=== PATIENT | male | born 1950 | race Caucasian/White ===

== ENCOUNTER → 2017-02-10 | Outpatient (CLI) | payer OTHER ==
[2017-02-10 17:45] LABS: BLOOD UREA NITROGEN 22 mg/dl (7-18); BUN/CREATININE RATIO 16.8 (10-20); CARBON DIOXIDE 29 mmol/L (21-32); CHLORIDE 104 mmol/L (98-107); GLUCOSE 107 mg/dl (70-99); POTASSIUM 3.7 mmol/L (3.5-5.1); SODIUM 142 mmol/L (136-145)
== END | disposition home or self-care (01) ==
LOC: C.LABPVFM 15:06
PROVIDERS: ATTEND Nurse Practitioner
DX: I10 Essential (primary) hypertension (principal)

== ENCOUNTER → 2017-02-18 | Outpatient (CLI) | payer OTHER ==
--- NOTE | 2017-02-18 10:12 | DIAGNOSTIC IMAGING REPORT ---
TWO VIEW CHEST CLINICAL HISTORY: Dyspnea on exertion. FINDINGS: PA and lateral chest radiographs are compared to study dated 03/29/2012. The cardiomediastinal silhouette is unremarkable. There is chronic elevation of the right hemidiaphragm. The lungs and pleural spaces are otherwise clear. There is no pneumothorax. The bony thorax appears intact. Arthritic change is seen in the shoulders. IMPRESSION: No active disease in the chest. Electronically signed by: Parish Wilson M.D. 02/18/2017 10:11 AM Dictated Date/Time: 02/18/2017 10:10 AM
== END | disposition home or self-care (01) ==
LOC: C.RAD1850 10:01
PROVIDERS: ATTEND Nurse Practitioner
DX: R06.09 Other forms of dyspnea (principal)

== ENCOUNTER → 2017-06-07 | Outpatient (CLI) | payer OTHER ==
[2017-06-07 13:10] LABS: ALT/SGPT 38 U/L (12-78); BLOOD UREA NITROGEN 24 mg/dl (7-18); BUN/CREATININE RATIO 16.9 (10-20); CALCIUM 9.1 mg/dl (8.5-10.1); CARBON DIOXIDE 26 mmol/L (21-32); CHLORIDE 105 mmol/L (98-107); CHOLESTEROL 163 mg/dl (0-200); GLUCOSE 112 mg/dl (70-99); POTASSIUM 3.6 mmol/L (3.5-5.1); SODIUM 141 mmol/L (136-145); TRIGLYCERIDES 209 mg/dl (0-150); VERY LOW DENSITY LIPOPROT CALC 42 mg/dl
[2017-06-07 13:15] LABS: ALKALINE PHOSPHATASE 111 U/L (45-117); AST/SGOT 30 U/L (15-37); CHOLESTEROL/HDL RATIO 4.4; HDL CHOLESTEROL 37 mg/dl; LDL CHOLESTEROL CALCULATED 84 mg/dl
== END | disposition home or self-care (01) ==
LOC: C.LABPVFM 10:00
PROVIDERS: ATTEND Nurse Practitioner
DX: I10 Essential (primary) hypertension (principal); R73.01 Impaired fasting glucose; Z12.5 Encounter for screening for malignant neoplasm of prostate

== ENCOUNTER → 2017-12-05 | Outpatient (CLI) | payer OTHER ==
[2017-12-05 13:05] LABS: HEMOGLOBIN A1C 5.9 % (4.5-5.6)
[2017-12-05 13:23] LABS: ALBUMIN 3.7 gm/dl (3.4-5.0); ALT/SGPT 42 U/L (12-78); AST/SGOT 29 U/L (15-37); BLOOD UREA NITROGEN 22 mg/dl (7-18); CARBON DIOXIDE 28 mmol/L (21-32); CREATININE 1.15 mg/dl (0.60-1.40); GLUCOSE 77 mg/dl (70-99); POTASSIUM 3.8 mmol/L (3.5-5.1); SODIUM 139 mmol/L (136-145)
[2017-12-05 13:26] LABS: ALKALINE PHOSPHATASE 112 U/L (45-117); CHOLESTEROL 170 mg/dl (0-200); LDL CHOLESTEROL CALCULATED 91 mg/dl; TOTAL PROTEIN 7.3 gm/dl (6.4-8.2)
== END | disposition home or self-care (01) ==
LOC: C.LABPVFM 10:20
PROVIDERS: ATTEND Internal Medicine
DX: I10 Essential (primary) hypertension (principal); R73.01 Impaired fasting glucose

== ENCOUNTER → 2018-06-19 | Outpatient (CLI) | payer OTHER ==
[2018-06-19 13:20] LABS: HEMATOCRIT 42.2 % (42-52); HEMOGLOBIN 14.5 g/dL (14.0-18.0); HEMOGLOBIN A1C 6.1 % (4.5-5.6); MEAN CELL VOLUME 90.9 fL (80-100); MEAN CORPUSCULAR HEMOGLOBIN 31.3 pg (25-34); MEAN CORPUSCULAR HGB CONC 34.4 g/dl (32-36); MEAN PLATELET VOLUME 11.1 fL (7.4-10.4); PLATELET COUNT 220 K/uL (130-400); RED CELL DISTRIBUTION WIDTH CV 13.9 % (11.5-14.5); WHITE BLOOD COUNT 6.75 K/uL (4.8-10.8)
[2018-06-19 13:26] LABS: ALBUMIN 3.6 gm/dl (3.4-5.0); ALKALINE PHOSPHATASE 108 U/L (45-117); ALT/SGPT 43 U/L (12-78); AST/SGOT 39 U/L (15-37); BLOOD UREA NITROGEN 23 mg/dl (7-18); CALCIUM 8.8 mg/dl (8.5-10.1); CARBON DIOXIDE 25 mmol/L (21-32); CREATININE 1.13 mg/dl (0.60-1.40); GLUCOSE 139 mg/dl (70-99); POTASSIUM 3.8 mmol/L (3.5-5.1); SODIUM 140 mmol/L (136-145); TOTAL PROTEIN 7.1 gm/dl (6.4-8.2)
== END | disposition home or self-care (01) ==
LOC: C.LABPVFM 11:21
PROVIDERS: ATTEND Internal Medicine
DX: Z12.5 Encounter for screening for malignant neoplasm of prostate (principal); R73.01 Impaired fasting glucose; I10 Essential (primary) hypertension

== ENCOUNTER 2020-04-23 07:43 | Inpatient (IN) ==
[2020-04-18 11:23] LABS: Basophils # (auto) 0.03 K/uL (0-0.2); Basophils % (auto) 0.5 %; Eosinophils # (auto) 0.19 K/uL (0-0.5); Eosinophils % (auto) 3.5 %; Hematocrit (blood only) 44.7 % (42-52); Hemoglobin 15.2 g/dL (14.0-18.0); Immature Granulocytes # (auto) 0.01 K/uL (0.00-0.02); Immature Granulocytes % (auto) 0.2 %; Lymphocytes # (auto) 1.25 K/uL (1.2-3.4); Lymphocytes % (auto) 22.7 %; Mean Corpuscular Hemoglobin 30.7 pg (25-34); Mean Corpuscular Volume 90.3 fL (80-100); Mean Platelet Volume 10.8 fL (7.4-10.4); Monocytes # (auto) 0.47 K/uL (0.11-0.59); Monocytes % (auto) 8.5 %; Neutrophils # (auto) 3.55 K/uL (1.4-6.5); Neutrophils % (auto) 64.6 %; Platelet Count 222 K/uL (130-400); RDW Coefficient of Variation 13.3 % (11.5-14.5); RDW Standard Deviation 44.1 fL (36.4-46.3); Red Blood Count 4.95 M/uL (4.7-6.1)
[2020-04-18 11:24] LABS: INR 1.1 (0.9-1.1); Partial Thromboplastin Ratio 0.9; Partial Thromboplastin Time 24.5 Seconds (21.0-31.0); Prothrombin Time 11.1 Seconds (9.0-12.0)
[2020-04-18 11:44] LABS: Albumin Level 3.7 gm/dl (3.4-5.0); BUN Creatinine Ratio 17.2 (10-20); Blood Urea Nitrogen 20 mg/dl (7-18); Calcium 9.4 mg/dl (8.5-10.1); Carbon Dioxide 27 mmol/L (21-32); Chloride 104 mmol/L (98-107); Est GFR (African American) 74.6; Est GFR (Non-African American) 64.3; Glucose 138 mg/dl (70-99); Potassium 3.5 mmol/L (3.5-5.1); Sodium 140 mmol/L (136-145)
[2020-04-18 11:56] LABS: Estimated Average Glucose 128 mg/dl; Hemoglobin A1C 6.1 % (4.5-5.6)
[2020-04-18 12:29] LABS: Appearance Urine Clear (Clear); Bilirubin Urine Negative (Negative); Blood Urine Negative (Negative); Color Urine Yellow; Glucose Urine UA Negative (Negative); Ketones Urine Negative (Negative); Leukocyte Esterase Urine Negative (Negative); Nitrite Urine Negative (Negative); Protein Urine Negative (Negative); Specific Gravity Urine 1.008 (1.000-1.030); Urobilinogen Urine Negative (Negative); pH Urine 6.5 (4.5-7.5)
--- NOTE | 2020-04-18 14:31 | Anesthesiology Consultation ---
Date of Service April 18, 2020 Assessment & Plan (1) Encounter for pre-operative examination: Chart Review Chart Review: Acceptable Risk for Surgery and Patient NOT seen in Pre Admission Testing 02/11/20 PCP Letter in [facility]: "Despite this patient having abnormal resting EKG, stress echocardiogram shows no evidence of prior myocardial infarction nor any evidence of current ongoing ischemia. This patient is of acceptable risk to proceed with planned upcoming right total shoulder arthroplasty." History Surgery Operation Date: 04/23/20 10:00 Proposed Procedures p Right Reverse Total Shoulder Arthroplasty - Mario Hartman MD Height/Weight Height: 5 ft 5 in Weight: 83.007 kg Allergies Allergy/AdvReac Type Severity Reaction Status Date / Time FLORENCE Inhibitors AdvReac Mild cough Verified 04/18/20 13:47 Medications Home Medications Medication Instructions Recorded Confirmed Last Taken benzonatate 100 mg capsule 100 mg PO TID PRN #30 cap 06/25/19 04/18/20 Unknown nabumetone 500 mg tablet 500 mg PO BID #180 tab 10/16/19 04/18/20 Unknown aspirin 81 mg PO QAM 01/15/20 04/18/20 Unknown atenolol 50 mg PO QAM 01/15/20 04/18/20 Unknown hydrochlorothiazide 25 mg PO QAM 01/15/20 04/18/20 Unknown irbesartan 300 mg PO QAM 01/15/20 04/18/20 Unknown multivitamin 1 tab PO HS 01/15/20 04/18/20 Unknown doxazosin 2 mg tablet 2 mg PO HS #90 tab 03/19/20 04/18/20 Unknown omeprazole 20 mg PO QAM PRN 04/18/20 04/18/20 Unknown valacyclovir [Valtrex] 2,000 mg PO Q12H PRN 04/18/20 04/18/20 Unknown Past Medical History Medical History BPH (benign prostatic hyperplasia) Chronic back pain GERD (gastroesophageal reflux disease) controlled Hypertension Impaired fasting glucose per records Recurrent cold sores Stomach ulcer HX Past Family History Family History Father Myocardial infarction Brother Myocardial infarction Son Family history of diabetes mellitus Mother Coronary arteriosclerosis Denies family history of Ovarian cancer Prostate cancer Breast cancer Colorectal cancer Past Surgical History Surgical History History of colonoscopy X 2 History of esophagogastroduodenoscopy (EGD) History of tonsillectomy and adenoidectomy History of transurethral resection of prostate 2004 Total knee replacement status R/L 2006 Social History Smoking Status: Never smoker Do You Dip or Chew Tobacco: No Hx Alcohol Use: No Hx Substance Use: No substance use type: does not use Testing Laboratory Results Laboratory Tests 04/18/20 04/18/20 04/18/20 10:25 10:25 10:25 WBC 5.50 Hgb 15.2 Hct 44.7 Plt Count 222 PT 11.1 INR 1.1 APTT 24.5 Sodium 140 Potassium 3.5 Chloride 104 Carbon Dioxide 27 BUN 20 H Creatinine 1.16 Glucose 138 H Hemoglobin A1c 04/18/20 10:25 WBC Hgb Hct Plt Count PT INR APTT Sodium Potassium Chloride Carbon Dioxide BUN Creatinine Glucose Hemoglobin A1c 6.1 H Electrocardiogram Date: 01/22/20 NSR at 60bpm. Inferior infarct, age undetermined. NS STA. Chest X-Ray Date: 01/22/20 Findings: + NAD Old, healed right-sided rib fractures Stress Test Date: 02/05/20 Type: exercise (ECHO) Resting RWMA: + none Valvular Disease: no significant valvular disease Negative exercise stress echo and EKG at 86% MPHR. Mild concentric LVH. EF 61.3%.
--- NOTE | 2020-04-22 21:31 | History and Physical Report ---
DATE OF ADMISSION: 04/23/2020 CHIEF COMPLAINT: Chronic right shoulder pain and weakness. HISTORY OF PRESENT ILLNESS: This is a 69-year-old male patient of Dr. Hartman'kevin complaining of chronic right shoulder pain and weakness. The patient has been diagnosed with rotator cuff arthropathy and end-stage osteoarthritis. He has failed conservative treatment. The patient wished to proceed with a right reverse total shoulder arthroplasty. PAST MEDICAL HISTORY: Hypertension, spine problems, sciatica, acid reflux. SOCIAL HISTORY: Nonsmoker, nondrinker. PAST SURGICAL HISTORY: Bilateral knee surgery, left shoulder surgery. FAMILY HISTORY: Noncontributory. REVIEW OF SYSTEMS: Chronic right shoulder pain and weakness. Otherwise, denies any shortness of breath, chest pain, nausea, vomiting or any other joint complaints. MEDICATIONS: 1. Hydrochlorothiazide 25 mg daily. 2. Doxazosin 2 mg daily. 3. Omeprazole 20 mg daily. 4. Aspirin 81 mg daily. 5. Nabumetone 500 mg twice daily. 6. Irbesartan 300 mg daily. 7. Atenolol 50 mg daily. ALLERGIES: No known drug allergies. PHYSICAL EXAMINATION: GENERAL: Well-developed, well-nourished 69-year-old male in no acute distress. He is alert and oriented x3 and pleasant. HEENT: Normocephalic, atraumatic. Extraocular motions are intact. Pupils are equal and reactive to light. HEART: Regular rate and rhythm, no murmurs. LUNGS: Clear. ABDOMEN: Soft, nontender, bowel sounds present. EXTREMITIES: Right shoulder, active range of motion is full with pain and crepitation. He has 3/5 strength globally, pain with range of motion. Neurologically and neurovascularly he is intact in his right upper extremity. DIAGNOSES: Right shoulder rotator cuff arthropathy, hypertension, spine problems, sciatica, acid reflux. PLAN: The patient was advised of his diagnosis. Indications, risks, benefits, postop course have all been reviewed. The patient wished to proceed with a right reverse total shoulder arthroplasty. Necessary consent forms, preoperative testing, and clearances will be obtained.
[~2020-04-23 07:43] MED LIST: ACETAMINOPHEN 500 MG TAB PO SCH; CEFAZOLIN 2000MG 2,000 MG/15 ML SYR IV SCH; CeleBREX 200 MG CAP PO SCH; FAMOTIDINE 20 MG TAB PO SCH; GABAPENTIN 300 MG CAP PO SCH; LR 15ML/HR IV SCH; METOCLOPRAMIDE HCL 10 MG TABLET PO SCH; ROPIVACAINE 0.5% 5 MG/ML 30 ML VIAL ONE; dexAMETHasone 4 MG TAB PO SCH
[2020-04-23] MEDS ORDERED: ONDANSETRON INJ 2 MG/ML 2 ML VIAL ONE (09:05)
[2020-04-23] MEDS ORDERED: ROCURONIUM BROMIDE 10 MG/ML 5 ML VIAL ONE (09:05)
[2020-04-23] MEDS ORDERED: MIDAZOLAM HCL 1 MG/ML 2ML VIAL ONE (09:05)
[2020-04-23] MEDS ORDERED: PROPOFOL IV EMULSION 10 MG/ML 20 ML VIAL IV ONE (09:05)
[2020-04-23] MEDS ORDERED: SUCCINYLCHOLINE CHLORIDE 20 MG/ML 10 ML VIAL IV ONE (09:05)
[2020-04-23] MEDS ORDERED: fentaNYL citrate 100 MCG/2 ML VIAL ONE (09:05)
[2020-04-23] MEDS ORDERED: LIDOCAINE HCL 2% 2 ML VIAL/AMP(20MG/ML) INFIL ONE (09:05)
[2020-04-23] MEDS ORDERED: DEXAMETHASONE SOD INJ 4 MG/ML VIAL ONE (09:05)
[2020-04-23] MEDS ORDERED: ONDANSETRON INJ 2 MG/ML 2 ML VIAL IV PRN ×2 (09:40→14:49)
[2020-04-23] MEDS ORDERED: ePHEDrine sulfate 50 MG/ML AMP IV PRN (09:40)
[2020-04-23] MEDS ORDERED: PROMETHAZINE HCL 12.5 MG in SODIUM CHLORIDE 0.9% 50 ML IV PRN (09:40)
[2020-04-23] MEDS ORDERED: fentaNYL citrate 100 MCG/2 ML VIAL IV PRN (09:40)
[2020-04-23] MEDS ORDERED: HYDROmorphone INJ 2 MG/ML SYR/VIAL IV PRN (09:40)
[2020-04-23] MEDS ORDERED: ATROPINE SULFATE 0.1 MG/ML 10ML SYR IV PRN (09:40)
[2020-04-23] MEDS ORDERED: METOCLOPRAMIDE HCL INJ 5 MG/ML 2 ML VIAL IV PRN (09:40)
[2020-04-23] MEDS ORDERED: BACITRACIN INJ 50,000 UNIT VIAL ONE (09:41)
--- NOTE | 2020-04-23 09:58 | History & Physical Bridge Note ---
Date of Service April 23, 2020 History & Physical Bridge Note I have examined the patient, reviewed the History & Physical and in the interval since the performance of the History & Physical I have noted the following changes of clinical significance: no changes noted
--- NOTE | 2020-04-23 13:32 | Operative Report ---
Post Operative Report Pre & Post Diagnosis Operation Date: 04/23/20 09:45 Pre-Op Diagnosis: Right Shoulder Osteoarthritis rotator cuff arthropathy irreparable rotator cuff tear Post-Op Diagnosis: Right Shoulder Osteoarthritis rotator cuff arthropathy irreparable rotator cuff tear I identified the patient and participated in the time-out.: Yes Procedure Operation Date: 04/23/20 09:45 Actual Procedures p Right Reverse Total Shoulder Arthroplasty(Right) - Mario Hartman MD Surgeon Mario Hartman MD Pulp Grinder UMANG Godoy Estimated Blood Loss 75 Findings Consistent with Post-Op Diagnosis Specimens Humeral head cut Drains 2 Hemovac Anesthesia Type MAC Spinal Regional Complications none Disposition Accompanied Patient To Recovery: No Disposition: Recovery Room Indications 69-year-old male with pseudo-paralytic right shoulder chronic irreparable rotator cuff tear with proximal migration and osteoarthritis of the glenohumeral joint with failed conservative management. Description of Procedure The patient was taken to the operating room and anesthetized under regional block and general anesthetic. The patient was positioned on the operating table in a 40 beach chair position with a towel roll under the medial border of the right scapula. The arm was draped free to be able to manipulate the shoulder as needed. The right upper extremity was prepped and draped in usual sterile fashion. Exam demonstrated subacromial crepitation chronic subacromial effusion good range of motion with 170 degrees forward elevation external rotation to 80 degrees internal rotation to 90 degrees abduction 100 degrees. An anterior deltopectoral approach was performed. A longitudinal incision was made in the deltopectoral interval. The skin was incised sharply. Subcutaneous flaps were elevated off the fascia. The cephalic vein was dissected out and retracted lateral with the deltoid. The clavipectoral fascia was divided at the lateral margin of the conjoined tendon and extended up to the CA ligament. The following findings were noted: Patient had no true muscle tissue of the subscapularis but did have a residual capsular tissue that was attached to the humerus with overlying chronic bursitis. There was a pseudo-type capsule chronic bursitis surrounding the humeral head with only the teres minor attachment still remaining and complete rupture of the remainder of the rotator cuff. There was chronic arthritic changes and spurs around the greater tuberosity area and superior humeral head. The biceps tendon had ruptured and retracted distally. The upper centimeter of the pectoralis was released for inferior exposure. The capsular tissue was taken down off the lesser tuberosity using a subperiosteal dissection and the capsule was released off the neck of the humerus using careful subperiosteal dissection in order to prevent any injury to the axillary nerve.. A #1 Vicryl traction suture was placed into the free end of the capsular tissue. The circumflex vessels were identified and tied off with silk ties and divided laterally. A Fukuda retractor was placed into the joint retracting the humeral head posterior. Glenoid findings demonstrated central small area grade 4 wear otherwise intact articular cartilage and no bone loss or deformity. The labrum was resected. an anterior-inferior and posterior inferior capsular release were performed with electrocautery and a Dinh elevator on bone with the axillary nerve protected inferiorly by the retractor. Attention was then taken to the humeral preparation. The cutting guide was placed into the humeral head. It was positioned at 20 of retroversion. Oscillating saw was used to resect the humeral head giving the cut above the level of the posterior rotator cuff insertion site. The humerus was then prepared for the stem. I used the ascend flex stem from [employer] The sizing broaches were used followed by trial broaches up to a size 4B long which had the appropriate fit and fill. The appropriate sized cut protector was placed. The humerus was then retracted posterior to the glenoid. The glenoid was sized for a 36. The guide for the baseplate was positioned in a 10 inferior tilt and the central drill hole was made. The reamer for the 29 baseplate was used. The central drill was widened for the peg. The 29 mm hydroxyapatite-coated aequalis baseplate was impacted into position. The base plate was transfixed with superior and inferior locking screws and anterior and posterior compression sc rews with stable fixation. The fan reamer was used for the 36 millimeter glenoid sphere. After irrigation the 36 with a +2 inferior offset glenoid sphere was impacted onto the baseplate and the screw was tightened. Attention was taken back to the humerus. The cut protector was removed and the plus or high offset humeral tray trial was assembled to the trial stem rotated appropriately to get bony coverage and then screwed in position. A trial reduction was performed. A +6 trial insert demonstrated good stability and no shuck. The trials were removed. 3 drill holes are made into the harder bone in the bicipital groove area and 3 #5 FiberWire sutures were placed transosseously. The canal was irrigated with antibiotic solution with bacitracin. The final component was assembled. The final component was ascend flex 4B long stem attached to the plus or high offset humeral tray and the +6, 36 mm polyethylene reversed insert. This was then impacted into the humerus with a tight press-fit. It was reduced to the glenoid sphere. Stability was verified. The capsular tissue was was repaired with the #5 FiberWire sutures using Poli-Rob suture technique. Lateral row soft tissue repair was performed with #1 Vicryl [id number] sutures. The pectoralis was repaired with #2 FiberWire [id number] sutures . The arm was taken through a range of motion which demonstrated stable shoulder with forward elevation to 165 degrees abduction to 100 degrees external rotation to 70 degrees without any tension on repair.. The implant was stable through the range of motion tested. The wound was copiously irrigated. 2 Hemovac drains were placed. The deltopectoral interval was closed with [id number] #1 Vicryl sutures. The subcutaneous tissues were closed with 2-0 Vicryl sutures. The skin was closed with slava. Sterile dressings were applied and a shoulder immobilizer. Jann HECK, my physician geriatric assistant assisted in the procedure to the entire procedure including patient positioning arm positioning prepping and draping soft tissue retraction instrument management suture management and performed the subcutaneous and skin closure and will participate in the postoperative care of the patient. I attest to the content of the Intraoperative Record and any orders documented therein. Any exceptions are noted below.
[2020-04-23] MEDS ORDERED: LABETALOL HCL IV 5 MG/ML 20ML IV ONE (13:35)
[2020-04-23] MEDS ORDERED: ESMOLOL HCL INJ 10 MG/ML 10ML VIAL IV ONE (13:35)
[2020-04-23] MEDS ORDERED: NEOSTIGMINE METHYLSULFATE 5 MG/5 ML SYR ONE (13:38)
[2020-04-23] MEDS ORDERED: GLYCOPYRROLATE 0.2 MG/ML VIAL ONE (13:38)
--- NOTE | 2020-04-23 14:19 | XRay Report ---
XR shoulder RT min 2V routine CLINICAL HISTORY: Post shoulder surgery postoperative evaluation COMPARISON: None. DISCUSSION: Anatomic alignment posttotal right shoulder arthroplasty. Good contact between metallic p rosthetic and underlying bone. Expected postoperative soft tissue changes. IMPRESSION: Anatomic alignment post total right shoulder arthroplasty. ACT 112: Negative or not required by law. The above report was generated using voice recognition software. It may contain grammatical, syntax or spelling errors. Electronically signed by: Jann Burkett M.D. 04/23/2020 2:18 PM
[2020-04-23] MEDS ORDERED: BENZONATATE 100 MG CAPSULE PO PRN (14:49)
[2020-04-23] MEDS ORDERED: SODIUM CHLORIDE 0.9% 1000ML 1,000 ML IV SCH (14:49)
[2020-04-23] MEDS ORDERED: NALOXONE HCL 0.4 MG/1 ML VIAL/CARP IV PRN (14:49)
[2020-04-23] MEDS ORDERED: PANTOprazole 40 MG TAB PO PRN (14:49)
[2020-04-23] MEDS ORDERED: MAGNESIUM HYDROXIDE SUSP 30 ML UDC PO PRN (14:49)
[2020-04-23] MEDS ORDERED: HYDROmorphone INJ 0.5 MG/0.5 ML SYR IV PRN (14:49)
[2020-04-23] MEDS ORDERED: VALACYCLOVIR HCL 500 MG TABLET PO PRN (14:49)
[2020-04-23] MEDS ORDERED: bisacodyL 10 MG SUPP PR PRN (14:49)
[2020-04-23] MEDS: ACETAMINOPHEN 500 MG TAB PO SCH ×2 (15:36→21:20)
[2020-04-23 15:37] LABS: BUN Creatinine Ratio 21.5 (10-20); Creatinine Clr Calc Pharmacy 56.4 ml/min; Est GFR (African American) 70.2; Est GFR (Non-African American) 60.5; Potassium 3.2 mmol/L (3.5-5.1)
--- NOTE | 2020-04-23 17:53 | Anesthesiology Progress Note ---
Date of Service April 23, 2020 Anesthesia Post Procedure Vital Signs Vital Signs: Temp Pulse Pulse Resp BP Pulse Ox 04/23/20 17:35 36.6 C 85 18 107/75 94 04/23/20 16:35 36.6 C 63 18 116/75 100 04/23/20 15:35 36.6 C 86 18 117/73 96 04/23/20 15:05 36.7 C 85 18 124/77 92 04/23/20 14:35 36.3 C L 83 18 118/72 94 04/23/20 14:20 36.2 C L 87 17 117/76 96 04/23/20 14:10 87 19 113/69 95 04/23/20 14:00 90 19 125/81 95 04/23/20 13:52 36.2 C L 92 H 20 127/82 94 04/23/20 08:37 36.9 C 58 L 18 149/78 H 96 Pain Intensity Back: Pain Intensity: 3 Right Shoulder: Pain Intensity: 4 Transfer of Care Handoff Completed per policy Notes Mental Status: alert / awake / arousable and participated in evaluation Patient Amnestic to Procedure: Yes Nausea / Vomiting: adequately controlled Pain: adequately controlled Airway Patency, RR, SpO2: stable & adequate BP & HR: stable & adequate Hydration State: stable & adequate Anesthetic Complications: no major complications apparent
[2020-04-23] MEDS: CEFAZOLIN 2000MG 2,000 MG/15 ML SYR IV SCH (19:12)
--- NOTE | 2020-04-23 19:30 | Family Medicine Consultation ---
Date of Consultation April 23, 2020 Assessment & Plan (1) Hypertension: BP reasonable right now hold ARB pending AM CBC, BMP, otherwise continue home meds and follow (2) Benign prostatic hyperplasia with urinary obstruction: continue doxazosin (3) Rotator cuff arthropathy of right shoulder: per orthopedics (4) DVT prophylaxis: per orthopedics History of Present Illness Reason for Consultation: medical management Requesting Physician: [place] Attending Physician: Mario Hartman MD History of Present Illness post shoulder surgery. pain well controlled BP well controlled at home, no problems no end point vascular events in hx nonsmoker dad did have MIs but lived to late 80's has BPH but doxazosin has helped a lot no other complaints Allergies Allergy/AdvReac Type Severity Reaction Status Date / Time FLORENCE Inhibitors AdvReac Mild cough Verified 04/23/20 08:31 Home Medications Home Medications Medication Instructions Recorded Confirmed Type benzonatate 100 mg capsule 100 mg PO TID PRN #30 cap 06/25/19 04/23/20 Rx nabumetone 500 mg tablet 500 mg PO BID #180 tab 10/16/19 04/23/20 Rx aspirin 81 mg PO QAM 01/15/20 04/23/20 History atenolol 50 mg PO QAM 01/15/20 04/23/20 History hydrochlorothiazide 25 mg PO QAM 01/15/20 04/23/20 History irbesartan 300 mg PO QAM 01/15/20 04/23/20 History multivitamin 1 tab PO HS 01/15/20 04/23/20 History doxazosin 2 mg tablet 2 mg PO HS #90 tab 03/19/20 04/23/20 Rx omeprazole 20 mg PO QAM PRN 04/18/20 04/23/20 History valacyclovir [Valtrex] 2,000 mg PO Q12H PRN 04/18/20 04/23/20 History Patient History Medical History BPH (benign prostatic hyperplasia) Chronic back pain GERD (gastroesophageal reflux disease) controlled Hypertension Impaired fasting glucose per records Recurrent cold sores Stomach ulcer HX Surgical History History of colonoscopy X 2 History of esophagogastroduodenoscopy (EGD) History of tonsillectomy and adenoidectomy History of transurethral resection of prostate 2003 Total knee replacement status R/L 2005 Family History Father Myocardial infarction Brother Myocardial infarction Son Family history of diabetes mellitus Mother Coronary arteriosclerosis Denies family history of Ovarian cancer Prostate cancer Breast cancer Colorectal cancer Social History Preferred Language: Guyanese Communication Ability: Effective Board Member Required: No Beliefs That Will Affect Care: None marital status: Current Living Situation: Spouse Other Information That Helps Us Care for You: No Feels Safe at Home: Yes Safety Concerns: Feels Safe At This Time Smoking Status: Never smoker Do You Dip or Chew Tobacco: No ; Second Hand Exposure: No ; Tobacco Cessation Education Requested by Patient: No Hx Alcohol Use: No Hx Substance Use: No Review of Systems Review of Systems: All systems reviewed & are unremarkable except as noted in HPI & below Physical Exam Physical Exam: gen aaox3 pleasant nad heent nc at mmm cardio reg no r/m/g lungs cta b/l no r/r/w good effort skin no rashes no pallor or icterus abd soft nd nt no masses ext no c/c/e no calf tenderness R arm in sling R hand N/V intact neuro no focal deficits no motor/sensory deficits CN 2-12 grossly intact mental status good recent and remote recall normal mood and affect Results & Data Vital Signs (Past 12 Hours) Vital Signs Temp Pulse Pulse Resp BP Pulse Ox 04/23/20 17:35 97.9 F 85 18 107/75 94 04/23/20 16:35 97.9 F 63 18 116/75 100 04/23/20 15:35 97.9 F 86 18 117/73 96 04/23/20 15:05 98.1 F 85 18 124/77 92 04/23/20 14:35 97.3 F L 83 18 118/72 94 04/23/20 14:20 97.2 F L 87 17 117/76 96 04/23/20 14:10 87 19 113/69 95 04/23/20 14:00 90 19 125/81 95 04/23/20 13:52 97.2 F L 92 H 20 127/82 94 04/23/20 08:37 98.4 F 58 L 18 149/78 H 96 PG Care Time/CCT Total # of Minutes Spent Total Time Spent with Patient: Total time spent is greater than 50% in coordination of care (as documented) at patient's floor/unit and/or counseling patient: Coding Level of Care Code 43704 Inpt Consult Level 3 Diagnoses Hypertension I10 Benign prostatic hyperplasia with urinary obstruction N40.1; N13.8 Rotator cuff arthropathy of right shoulder M12.811 DVT prophylaxis Z29.9
[2020-04-23] MEDS ORDERED: NON-FORMULARY MEDICATION (Multivitamin 1 TAB) PO SCH (21:00)
[2020-04-23] MEDS: DOCUSATE SODIUM 100 MG CAP PO SCH (21:19)
[2020-04-23] MEDS: DOXAZosin MESYLATE TAB 2 MG TAB PO SCH (21:19)
[2020-04-23] MEDS: SENNA 8.6 MG TAB PO SCH (21:20)
[2020-04-24] MEDS: CEFAZOLIN 2000MG 2,000 MG/15 ML SYR IV SCH (01:55)
[2020-04-24] MEDS: ACETAMINOPHEN 500 MG TAB PO SCH ×3 (06:05→21:51)
[2020-04-24 06:43] LABS: Basophils # (auto) 0.01 K/uL (0-0.2); Basophils % (auto) 0.1 %; Hematocrit (blood only) 40.5 % (42-52); Hemoglobin 13.7 g/dL (14.0-18.0); Immature Granulocytes # (auto) 0.03 K/uL (0.00-0.02); Immature Granulocytes % (auto) 0.2 %; Lymphocytes # (auto) 0.94 K/uL (1.2-3.4); Lymphocytes % (auto) 7.1 %; Mean Corpuscular Hemoglobin 30.4 pg (25-34); Mean Corpuscular Hgb Conc 33.8 g/dL (32-36); Mean Corpuscular Volume 89.8 fL (80-100); Mean Platelet Volume 10.7 fL (7.4-10.4); Monocytes # (auto) 1.07 K/uL (0.11-0.59); Monocytes % (auto) 8.1 %; Neutrophils % (auto) 84.5 %; Platelet Count 219 K/uL (130-400); RDW Coefficient of Variation 13.5 % (11.5-14.5); RDW Standard Deviation 44.3 fL (36.4-46.3); Red Blood Count 4.51 M/uL (4.7-6.1); White Blood Count 13.25 K/uL (4.8-10.8)
[2020-04-24] MEDS: OXYCODONE HCL IR 5 MG TAB (IMMEDIATE RELEASE) PO PRN ×2 (07:08→16:23)
[2020-04-24 07:17] LABS: Calcium 8.6 mg/dl (8.5-10.1); Creatinine Clr Calc Pharmacy 57.3 ml/min; Est GFR (African American) 71.6; Est GFR (Non-African American) 61.8; Potassium 3.6 mmol/L (3.5-5.1)
--- NOTE | 2020-04-24 08:26 | Orthopedic Progress Note ---
Date of Service April 24, 2020 Assessment & Plan (1) Rotator cuff arthropathy of right shoulder: POD #1 Right reverse TSA PT/ OT as ordered. DVT proph- ASA D/C planning- Home w HEP As per medicine. Admission and Anticipated Discharge Date Admission Date: April 23, 2020 Subjective POD #1, Doing well. Denies SOB, CP, N/V. Pain controlled well. Wishes to go home on D/C. Physical Exam Physical Exam: Right shoulder dressings c/d/i. Fingers mobile. Sling in tact. A&Ox3. Results & Data ([facility]) Vital Signs (Past 12 Hours) Vital Signs Temp Pulse Resp BP Pulse Ox 04/24/20 07:42 36.5 C 86 16 125/78 94 04/24/20 03:26 36.6 C 72 16 103/67 91 04/23/20 23:01 36.5 C 69 16 97/52 L 92
[2020-04-24] MEDS: IRBESARTAN 150 MG TAB PO SCH (08:32)
[2020-04-24] MEDS: DOCUSATE SODIUM 100 MG CAP PO SCH ×2 (08:32→21:51)
[2020-04-24] MEDS: hydroCHLOROthiazide 25 MG TAB PO SCH (08:32)
[2020-04-24] MEDS: MULTIVITAMIN TAB PO SCH (08:33)
[2020-04-24] MEDS: ATENOLOL 50 MG TABLET PO SCH (08:33)
[2020-04-24] MEDS: ASPIRIN 81 MG ECTAB PO SCH (08:33)
--- NOTE | 2020-04-24 19:37 | Hospitalist Progress Note ---
Date of Service April 24, 2020 Assessment & Plan (1) Hypertension: BP acceptable. continue home meds. follow (2) Benign prostatic hyperplasia with urinary obstruction: continue doxazosin. sx controlled. (3) Rotator cuff arthropathy of right shoulder: per orthopedics (4) DVT prophylaxis: per orthopedics Admission and Anticipated Discharge Date Admission Date: April 23, 2020 Subjective feeling good overall pain under good control voiding well no issues. Review of Systems Review of Systems: All systems reviewed & are unremarkable except as noted in HPI & below Physical Exam Physical Exam: gen aao pleasant nad heent nc at mmm breathing unlabored no accessory muscles good effort skin no rashes no pallor or icterus Results & Data Results & Data ([facility]) Vital Signs (Past 12 Hours) Vital Signs Temp Pulse Resp BP Pulse Ox 04/24/20 15:33 97.9 F 63 18 134/77 96 04/24/20 07:42 97.7 F 86 16 125/78 94 PG Care Time/CCT Total # of Minutes Spent Total Time Spent with Patient: Total time spent is greater than 50% in coordination of care (as documented) at patient's floor/unit and/or counseling patient: Coding Level of Care Code 89946 Subseq Hosp Care Lvl 2 Diagnoses Hypertension I10 Benign prostatic hyperplasia with urinary obstruction N40.1; N13.8 Rotator cuff arthropathy of right shoulder M12.811 DVT prophylaxis Z29.9
[2020-04-24] MEDS: SENNA 8.6 MG TAB PO SCH (21:51)
[2020-04-24] MEDS: DOXAZosin MESYLATE TAB 2 MG TAB PO SCH (21:51)
[2020-04-25] MEDS: OXYCODONE HCL IR 5 MG TAB (IMMEDIATE RELEASE) PO PRN ×2 (00:12→11:25)
[2020-04-25] MEDS: ACETAMINOPHEN 500 MG TAB PO SCH (04:58)
[2020-04-25 07:22] LABS: Basophils # (auto) 0.02 K/uL (0-0.2); Basophils % (auto) 0.2 %; Eosinophils # (auto) 0.24 K/uL (0-0.5); Eosinophils % (auto) 2.2 %; Hematocrit (blood only) 38.7 % (42-52); Immature Granulocytes # (auto) 0.03 K/uL (0.00-0.02); Immature Granulocytes % (auto) 0.3 %; Lymphocytes # (auto) 1.73 K/uL (1.2-3.4); Lymphocytes % (auto) 15.7 %; Mean Corpuscular Hemoglobin 30.5 pg (25-34); Mean Corpuscular Hgb Conc 33.6 g/dL (32-36); Mean Corpuscular Volume 90.8 fL (80-100); Monocytes # (auto) 1.49 K/uL (0.11-0.59); Monocytes % (auto) 13.5 %; Neutrophils % (auto) 68.1 %; Platelet Count 184 K/uL (130-400); RDW Coefficient of Variation 13.9 % (11.5-14.5); RDW Standard Deviation 45.7 fL (36.4-46.3); Red Blood Count 4.26 M/uL (4.7-6.1); White Blood Count 11.01 K/uL (4.8-10.8)
[2020-04-25 08:00] LABS: BUN Creatinine Ratio 27.5 (10-20); Calcium 8.6 mg/dl (8.5-10.1); Creatinine Clr Calc Pharmacy 66.8 ml/min; Est GFR (African American) 86.1; Est GFR (Non-African American) 74.3; Potassium 3.4 mmol/L (3.5-5.1)
--- NOTE | 2020-04-25 09:14 | Orthopedic Progress Note ---
Date of Service April 25, 2020 Assessment & Plan (1) Rotator cuff arthropathy of right shoulder: POD #2 Right reverse TSA PT/ OT as ordered. DVT proph- ASA D/C planning- Home w HEP; plan for discharge to home today. As per medicine. Admission and Anticipated Discharge Date Admission Date: April 23, 2020 Subjective Postop day 2 Patient is currently sitting in his chair at the bedside. Patient is just finished eating breakfast. Currently pain is controlled. Denies any shortness of breath, chest pain, lightheadedness. Physical Exam Physical Exam: Dressings are clean, dry, and intact. Neurovascular is intact. He has good strength and range of motion of the right wrist and fingers. Cap refill is less than 2 seconds. Results & Data ([facility]) Vital Signs (Past 12 Hours) Vital Signs Temp Pulse Resp BP Pulse Ox 04/25/20 07:18 36.7 C 77 18 119/70 92 04/25/20 00:20 36.6 C 64 14 136/68 92
[2020-04-25] MEDS: MULTIVITAMIN TAB PO SCH (09:21)
[2020-04-25] MEDS: DOCUSATE SODIUM 100 MG CAP PO SCH (09:21)
[2020-04-25] MEDS: hydroCHLOROthiazide 25 MG TAB PO SCH (09:21)
[2020-04-25] MEDS: ATENOLOL 50 MG TABLET PO SCH (09:22)
[2020-04-25] MEDS: IRBESARTAN 150 MG TAB PO SCH (09:22)
[2020-04-25] MEDS: ASPIRIN 81 MG ECTAB PO SCH (09:22)
--- NOTE | 2020-05-12 14:44 | Discharge Summary (DS) ---
HISTORY OF PRESENT ILLNESS: 69-year-old male patient of Dr. Hartman's complaining of chronic rotator cuff arthropathy and weakness. The patient failed conservative treatment and elected to proceed with a right reverse total shoulder arthroplasty. PAST MEDICAL HISTORY: Hypertension, spine problems, sciatica and acid reflux. POSTOPERATIVE COURSE: The patient underwent a right reverse total shoulder arthroplasty on 04/23/2020. He was followed closely with medical consultation, DVT prophylaxis in the form of aspirin, physical therapy and pain control. The patient did very well postoperatively and was discharged home on postoperative day #2. PHYSICAL EXAMINATION: Right shoulder incision was clean, dry and intact. [place] are intact. Skin edges were approximated well. There was no redness or drainage. Fingers were mobile. Sling was intact. Neurologically and neurovascularly he was intact in his right upper extremity. DIAGNOSES: Status post right reverse total shoulder arthroplasty, hypertension, spine problems, sciatica, and acid reflux. PLAN: The patient was discharged home with a home exercise program only. The patient will continue his preadmission medications with the addition of pain medications and aspirin for DVT prophylaxis. The patient will follow up as scheduled as an outpatient with Dr. Hartman.
== END 2020-04-25 12:33 | disposition home or self-care (01) | DRG 483 ==
LOC: ASU 07:43 → 3E 13:33

== ENCOUNTER 2021-01-08 10:28 | Inpatient (IN) ==
--- NOTE | 2020-12-23 08:52 | PAT Medication Instructions ---
Medication Instructions Date of Service December 23, 2020 Home Medications Medication Instructions Recorded doxazosin 2 mg tablet 2 mg PO HS #90 tab 03/19/20 atenolol 50 mg tablet 50 mg PO QAM #90 tab 06/02/20 irbesartan 300 mg tablet 300 mg PO QAM #90 tab 07/22/20 tadalafil 20 mg tablet 20 mg PO DAILY PRN #20 tab 08/01/20 hydrochlorothiazide 25 mg tablet 25 mg PO QAM #90 tab 11/17/20 aspirin 81 mg PO QAM doxazosin 2 mg tablet 2 mg PO HS omeprazole 20 mg PO QAM PRN valacyclovir [Valtrex] 2,000 mg PO Q12H PRN atenolol 50 mg tablet 50 mg PO QAM irbesartan 300 mg tablet 300 mg PO QAM tadalafil 20 mg tablet 20 mg PO DAILY PRN multivitamin 1 tab PO HS nabumetone 500 mg PO BID sennosides [Senokot] 17.2 mg PO HS PRN hydrochlorothiazide 25 mg tablet 25 mg PO QAM ASK your surgeon for instructions nabumetone 500 mg PO BID ASK your prescriber and surgeon aspirin 81 mg PO QAM DO NOT take the morning of surgery irbesartan 300 mg tablet 300 mg PO QAM tadalafil 20 mg tablet 20 mg PO DAILY PRN hydrochlorothiazide 25 mg tablet 25 mg PO QAM Take morning of surgery With a small sip of water, OTHERWISE NOTHING TO EAT OR DRINK AFTER MIDNIGHT: omeprazole 20 mg PO QAM PRN (if needed) valacyclovir [Valtrex] 2,000 mg PO Q12H PRN (if needed) atenolol 50 mg tablet 50 mg PO QAM Take evening before surgery doxazosin 2 mg tablet 2 mg PO HS valacyclovir [Valtrex] 2,000 mg PO Q12H PRN (if needed) tadalafil 20 mg tablet 20 mg PO DAILY PRN (if needed) multivitamin 1 tab PO HS sennosides [Senokot] 17.2 mg PO HS PRN (if needed) Other Notes If you have any questions please call us at [phone] or [phone] or or [phone]
--- NOTE | 2020-12-25 11:09 | Anesthesiology Consultation ---
Date of Service December 25, 2020 Assessment & Plan (1) Encounter for pre-operative examination: - Per assessment on 12/25: Travel screen- negative. No known COVID-19 positive contacts or current COVID-19 related symptoms. Surgeon arranging preop COVID testing. Awaiting results. - PCP office visit note: 11/07/20: "Reviewed EKG as well as laboratories and urinalysis. All stable. Reviewed patient's stress test from January of 2020-no signs of ischemia. The patient is as medically stable as he can be for upcoming lumbar spine surgery." - S/P Right reverse TSA: 04/23/20: Grade view 1, MAC#3, ETT 7.5 at [facility] Chart Review Chart Review: Acceptable Risk for Surgery and Patient seen in Pre Admission Testing Teaching & Discussion Pre-Anesthesia Teaching/Discussion Notes: Instructed NPO after midnight before surgery,except medications with 15 cc of water. Medication instructions provided according to the PAT guidelines. History Surgery Operation Date: 01/08/21 11:05 Proposed Procedures p L4-S1 Decompression and Fusion, Spinal Cord Monitoring - Domo Vogt DO Height/Weight Height: 5 ft 5 in Weight: 83.2 kg Allergies Allergy/AdvReac Type Severity Reaction Status Date / Time FLORENCE Inhibitors AdvReac Mild cough Verified 12/15/20 10:24 Medications Home Medications Medication Instructions Recorded Confirmed Last Taken aspirin 81 mg PO QAM 01/15/20 12/15/20 04/17/20 doxazosin 2 mg tablet 2 mg PO HS #90 tab 03/19/20 12/15/20 04/22/20 22:00 omeprazole 20 mg PO QAM PRN 04/18/20 12/15/20 04/16/20 valacyclovir [Valtrex] 2,000 mg PO Q12H PRN 04/18/20 12/15/20 Unknown atenolol 50 mg tablet 50 mg PO QAM #90 tab 06/02/20 12/15/20 Unknown irbesartan 300 mg tablet 300 mg PO QAM #90 tab 07/22/20 12/15/20 Unknown tadalafil 20 mg tablet 20 mg PO DAILY PRN #20 tab 08/01/20 12/15/20 Unknown multivitamin 1 tab PO HS 10/16/20 12/15/20 Unknown nabumetone 500 mg PO BID 10/16/20 12/15/20 Unknown sennosides [Senokot] 17.2 mg PO HS PRN 10/16/20 12/15/20 Unknown hydrochlorothiazide 25 mg tablet 25 mg PO QAM #90 tab 11/17/20 12/15/20 Unknown Past Medical History Medical History BPH (benign prostatic hyperplasia) GERD (gastroesophageal reflux disease) controlled Hypertension Impaired fasting glucose Recurrent cold sores No current issues Exercise / Class Metabolic Activity II 4-5 Yardwork/Stairs/Walk up hill (one flight of stairs (no chest pain/no sob)) Past Family History Family History Father Myocardial infarction Brother Myocardial infarction Son Family history of diabetes mellitus Mother Coronary arteriosclerosis Denies family history of Ovarian cancer Prostate cancer Breast cancer Colorectal cancer Past Surgical History Surgical History History of colonoscopy x2 History of esophagogastroduodenoscopy (EGD) History of repair of rotator cuff Left History of tonsillectomy and adenoidectomy History of transurethral resection of prostate 2003 S/p reverse total shoulder arthroplasty (04/23/20) Right reverse TSA: 04/23/20: Grade view 1, MAC#3, ETT 7.5 at [facility] Total knee replacement status R/L (2005) Past Anesthesia History No Hx of Anesthesia Complications and No Family Hx of Anesthesia Complications History of PONV No Hx of PONV and No Hx of Motion Sickness Social History Smoking Status: Never smoker Do You Dip or Chew Tobacco: No Hx Alcohol Use: No Hx Substance Use: No substance use type: does not use Review of Systems + snoring, very rare episodes of apnea events (witnessed by ). No sleep study. Reflux controlled. Patient denies chest pain, shortness of breath, dyspnea on exertion, fever, chills, cough, wheezing, palpitations. Physical Exam Vital Signs VITALS BP 100/68 P 64 TEMP 98.5 SP02 94%RA RESP 16 PHYSICAL Full neck and c-spine range of motion. Full TMJ range of motion. TMD 4 finger breaths Mallampati Score 2 Dentition: full upper plate Lungs: clear throughout to auscultation Cardiac: regular rate and rhythm, no murmurs noted Spine: normal Carotid arteries: negative bruit Extremities: no edema Trimmed facial hair Testing Laboratory Results 12/25/20 11:30 12/25/20 11:30 PT 11.2 Seconds (9.0-12.0) 12/25/20 11:30 INR 1.1 (0.9-1.1) 12/25/20 11:30 APTT 25.4 Seconds (21.0-31.0) 12/25/20 11:30 Urine Color Yellow 12/25/20 Unknown Urine Appearance Clear (Clear) 12/25/20 Unknown Urine pH 6.5 (4.5-7.5) 12/25/20 Unknown Ur Specific [place] 1.011 (1.000-1.030) 12/25/20 Unknown Urine Protein Negative (Negative) 12/25/20 Unknown Urine Glucose (UA) Negative (Negative) 12/25/20 Unknown Urine Ketones Negative (Negative) 12/25/20 Unknown Urine Nitrite Negative (Negative) 12/25/20 Unknown Ur Leukocyte Esterase Negative (Negative) 12/25/20 Unknown Blood Type A Positive 12/25/20 11:30 Antibody Screen NEGATIVE 12/25/20 11:30 Electrocardiogram Date: 10/30/20 SB at 55bpm. Possible inferior infarct (cited on/before 01/22/20 per deli clerk review, patient had unremarkable stress test 02/05/20*) Chest X-Ray Date: 12/25/20 FINDINGS: PA and lateral chest radiographs are compared to study dated 01/22/2020. The cardiomediastinal silhouette is unremarkable. There are low lung volumes with bibasilar atelectasis. No airspace consolidation or pleural effusion is identified. There is no pneumothorax. The bony thorax appears intact. A right shoulder arthroplasty is in place. Degenerative change is seen throughout the thoracic spine. IMPRESSION: No active disease in the chest. Stress Test Date: 02/05/20 Type: exercise (ECHO) Resting RWMA: + none Valvular Disease: no significant valvular disease Negative exercise stress ECHO and EKG for ischemia at MPHR 86%. No exercise induced chest pain. 9 METS achieved. Mild cLVH.
--- NOTE | 2020-12-25 12:59 | XRay Report ---
TWO VIEW CHEST CLINICAL HISTORY: Preoperative examination. FINDINGS: PA and lateral chest radiographs are compared to study dated 01/22/2020. The cardiomediastin al silhouette is unremarkable. There are low lung volumes with bibasilar atelectasis. No airspace con solidation or pleural effusion is identified. There is no pneumothorax. The bony thorax appears intac t. A right shoulder arthroplasty is in place. Degenerative change is seen throughout the thoracic spi ne. IMPRESSION: No active disease in the chest. ACT 112: Negative or not required by law. Electronically signed by: Parish Wilson M.D. 12/25/2020 12:58 PM
[2020-12-25 13:08] LABS: Basophils # (auto) 0.02 K/uL (0-0.2); Basophils % (auto) 0.3 %; Eosinophils # (auto) 0.13 K/uL (0-0.5); Eosinophils % (auto) 2.2 %; Hemoglobin 14.6 g/dL (14.0-18.0); Lymphocytes # (auto) 1.02 K/uL (1.2-3.4); Lymphocytes % (auto) 17.5 %; Mean Corpuscular Hemoglobin 31.9 pg (25-34); Mean Corpuscular Hgb Conc 34.8 g/dL (32-36); Mean Corpuscular Volume 91.7 fL (80-100); Mean Platelet Volume 11.3 fL (7.4-10.4); Monocytes # (auto) 0.52 K/uL (0.11-0.59); Monocytes % (auto) 8.9 %; Neutrophils # (auto) 4.13 K/uL (1.4-6.5); Neutrophils % (auto) 71.1 %; Platelet Count 216 K/uL (130-400); RDW Coefficient of Variation 13.8 % (11.5-14.5); RDW Standard Deviation 46.3 fL (36.4-46.3); Red Blood Count 4.58 M/uL (4.7-6.1); White Blood Count 5.82 K/uL (4.8-10.8)
[2020-12-25 13:09] LABS: Appearance Urine Clear (Clear); Bilirubin Urine Negative (Negative); Blood Urine Negative (Negative); Color Urine Yellow; Glucose Urine UA Negative (Negative); Ketones Urine Negative (Negative); Leukocyte Esterase Urine Negative (Negative); Nitrite Urine Negative (Negative); Protein Urine Negative (Negative); Specific Gravity Urine 1.011 (1.000-1.030); Urobilinogen Urine Negative (Negative); pH Urine 6.5 (4.5-7.5)
[2020-12-25 13:24] LABS: INR 1.1 (0.9-1.1); Partial Thromboplastin Ratio 0.9; Partial Thromboplastin Time 25.4 Seconds (21.0-31.0); Prothrombin Time 11.2 Seconds (9.0-12.0)
[2020-12-25 13:30] LABS: BUN Creatinine Ratio 18.7 (10-20); Calcium 9.2 mg/dl (8.5-10.1); Creatinine Clr Calc Pharmacy 47.4 ml/min; Est GFR (African American) 56.1; Est GFR (Non-African American) 48.4; Potassium 3.7 mmol/L (3.5-5.1)
[~2021-01-08 10:28] MED LIST changes: -CEFAZOLIN 2000MG 2,000 MG/15 ML SYR IV SCH; -FAMOTIDINE 20 MG TAB PO SCH; -METOCLOPRAMIDE HCL 10 MG TABLET PO SCH; -ROPIVACAINE 0.5% 5 MG/ML 30 ML VIAL ONE; +ceFAZolin 2000MG 2,000 MG/15 ML SYR IV SCH; -dexAMETHasone 4 MG TAB PO SCH
[2021-01-08] MEDS ORDERED: MIDAZOLAM HCL 1 MG/ML 2ML VIAL ONE (11:05)
[2021-01-08] MEDS ORDERED: HYDROmorphone INJ 2 MG/ML SYR/VIAL ONE (11:05)
[2021-01-08] MEDS ORDERED: DEXAMETHASONE SOD INJ 4 MG/ML VIAL ONE (11:09)
[2021-01-08] MEDS ORDERED: GLYCOPYRROLATE 0.2 MG/ML VIAL ONE (11:09)
[2021-01-08] MEDS ORDERED: LIDOCAINE HCL 2% 2 ML VIAL/AMP(20MG/ML) INFIL ONE (11:09)
[2021-01-08] MEDS ORDERED: ONDANSETRON INJ 2 MG/ML 2 ML VIAL ONE (11:09)
[2021-01-08] MEDS ORDERED: NEOSTIGMINE METHYLSULFATE 1 MG/ML 10ML VIAL ONE (11:09)
[2021-01-08] MEDS ORDERED: PROPOFOL IV EMULSION 10 MG/ML 20 ML VIAL IV ONE (11:09)
[2021-01-08] MEDS ORDERED: ROCURONIUM BROMIDE 10 MG/ML 5 ML VIAL IV ONE (11:09)
[2021-01-08] MEDS ORDERED: ONDANSETRON INJ 2 MG/ML 2 ML VIAL IV PRN ×2 (12:12→17:39)
[2021-01-08] MEDS ORDERED: ePHEDrine sulfate 50 MG/ML AMP IV PRN (12:12)
[2021-01-08] MEDS ORDERED: fentaNYL citrate 100 MCG/2 ML VIAL IV PRN (12:12)
[2021-01-08] MEDS ORDERED: ATROPINE SULFATE 0.1 MG/ML 10ML SYR IV PRN (12:12)
[2021-01-08] MEDS ORDERED: HYDROmorphone INJ 1 MG/ML SYRINGE IV PRN ×2 (12:12→17:39)
--- NOTE | 2021-01-08 12:42 | History & Physical Bridge Note ---
Date of Service January 08, 2021 History & Physical Bridge Note I have examined the patient, reviewed the History & Physical and in the interval since the performance of the History & Physical I have noted the following changes of clinical significance: no changes noted
--- NOTE | 2021-01-08 12:43 | History & Physical Report ---
Date of Service January 08, 2021 Assessment & Plan (1) Neurogenic claudication due to lumbar spinal stenosis: Admission and Anticipated Discharge Date Admission Date: L4-S1 decompression fusion History of Present Illness Chief Complaint: Back and bilateral leg pain Primary Care Provider: Ramon Billingsley MD This is a 70-year-old male who presents with current persistent back and bilateral leg pain. Failing course of nonoperative care is here for surgical invention. Allergies Allergy/AdvReac Type Severity Reaction Status Date / Time FLORENCE Inhibitors AdvReac Mild cough Verified 01/08/21 10:48 Home Medications Medication Instructions Recorded Confirmed Type aspirin 81 mg PO QAM 01/15/20 01/08/21 History doxazosin 2 mg tablet 2 mg PO HS #90 tab 03/19/20 01/08/21 Rx omeprazole 20 mg PO QAM PRN 04/18/20 01/08/21 History valacyclovir [Valtrex] 2,000 mg PO Q12H PRN 04/18/20 01/08/21 History atenolol 50 mg tablet 50 mg PO QAM #90 tab 06/02/20 01/08/21 Rx irbesartan 300 mg tablet 300 mg PO QAM #90 tab 07/22/20 01/08/21 Rx tadalafil 20 mg tablet 20 mg PO DAILY PRN #20 tab 08/01/20 01/08/21 Rx multivitamin 1 tab PO HS 10/16/20 01/08/21 History nabumetone 500 mg PO BID 10/16/20 01/08/21 History sennosides [Senokot] 17.2 mg PO HS PRN 10/16/20 01/08/21 History hydrochlorothiazide 25 mg tablet 25 mg PO QAM #90 tab 11/17/20 01/08/21 Rx Past Med/Surg History Medical History BPH (benign prostatic hyperplasia) GERD (gastroesophageal reflux disease) controlled Hypertension Impaired fasting glucose Recurrent cold sores No current issues Surgical History History of colonoscopy x2 History of esophagogastroduodenoscopy (EGD) History of repair of rotator cuff Left History of tonsillectomy and adenoidectomy History of transurethral resection of prostate 2003 S/p reverse total shoulder arthroplasty (04/23/20) Right reverse TSA: 04/23/20: Grade view 1, MAC#3, ETT 7.5 at [facility] Total knee replacement status R/L (2005) Family History Father Myocardial infarction Brother Myocardial infarction Son Family history of diabetes mellitus Mother Coronary arteriosclerosis Denies family history of Ovarian cancer Prostate cancer Breast cancer Colorectal cancer Social History Smoking Status: Never smoker Second Hand Exposure: No; Do You Dip or Chew Tobacco: No; Tobacco Cessation Education Requested by Patient: No Hx Alcohol Use: No Hx Substance Use: No Preferred Language: Thai Communication Ability: Effective 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
[2021-01-08] MEDS ORDERED: BUPIVACAINE/EPINEPHRINE 0.5% MPF 1:200,000 30 ML VIAL ONE (13:03)
[2021-01-08] MEDS ORDERED: BACITRACIN INJ 50,000 UNIT VIAL ONE (13:03)
[2021-01-08] MEDS ORDERED: FLOSEAL HEMOSTATIC MATRIX 10ML TOP ONE (14:03)
--- NOTE | 2021-01-08 15:52 | Operative Report ---
Post Operative Report Pre & Post Diagnosis Operation Date: 01/08/21 12:25 Pre-Op Diagnosis: L4-S1 Spinal Stenosis Lumbar Region with Neurogenic Claudication Post-Op Diagnosis: L4-S1 Spinal Stenosis Lumbar Region with Neurogenic Claudication I identified the patient and participated in the time-out.: Yes Procedure Operation Date: 01/08/21 12:25 Actual Procedures #1 lumbar decompression with bilateral medial facetectomies and foraminotomies L3-4, L4-5 and L5-S1. #2 posterior spinal fusion L4-5 and L5-S1. #3 placement posterior instrumentation L4-5 L5-S1. Before interbody fusion L4-5 and L5-S1. #5 placed a peek cage 13 x 26 mm at L4-5 and 7 x 26 mm at L5-S1. #6 placement locally harvested morselized autograft in the posterior lateral gutters per #7 placement infuse collagen sponge, master graft in the posterior lateral gutters and osteopenic body space. Surgeon Domo Vogt, Rides Supervisor Del Arauz Estimated Blood Loss 200 Findings Consistent with Post-Op Diagnosis Specimens None Indications This is a 70-year-old male well-known to me the presents with above-mentioned diagnosis after failing course of nonoperative care is here for the above- mentioned procedure. Description of Procedure Patient was met with identified informed consent obtained. Patient was then taken to the operative suite underwent an patient placed in a prone position on [place] table top Remberto frame. All bony prominences well-padded eyes inspected to ensure no external pressure placed upon the. This point the lumbar spine was prepped and draped in a sterile fashion. Sharp dissection with the assistance of Bovie cautery was performed down to and exposing the lamina and transverse processes of L4-L5 and sacral ala bilaterally. From caudal to cephalad fashion complete laminectomy L5 L4 and partial laminectomy L3 was performed including bilateral medial facetectomies and foraminotomies addressing severe spinal stenosis. Obvious bilateral pars defect at 5 1 was noted as well. After this complete pedicle screws were placed in L4-L5 and S1 levels bilaterally maritza tance of fluoroscopy and purposes kyle placed. By way of a transforaminal approach on the left complete discectomy of L5-S1 was performed endplates curetted to subcortical bleeding bone and a 7 x 26 mm peek cage filled with osteobone graft tapped in position. Then proceeded L4-L5 again by way of a transforaminal approach on the left complete discectomy performed endplates curetted to subcortical being bone and a 13 x 26 mm peek cage filled osteobone graft tapped in position. The rods were then locked in final position bilaterally. The transverse processes of L4-L5 and sacral ala burred to s ubcortical bleeding bone. Infuse collagen sponge master graft local autograft was placed in the posterior lateral gutters. 15 round RHEA drain inserted. The incision was then closed with 1 Vicryl to fascia 2-0 Vicryl subcutaneously and 4 Monocryl for final skin closure. Steri-Strip sterile dressings placed. Patient waken taken PACU stable condition. Please note spinal cord monitoring was utili zed at the procedure no changes noted. Keely penaloza was present at the entire surgery involved in patient positioning complex portions of the surgery and final skin closure. I attest to the content of the Intraoperative Record and any orders documented therein. Any exceptions are noted below.
--- NOTE | 2021-01-08 15:59 | Fluoroscopy Report ---
FL lumbar spine 2-3V CLINICAL HISTORY: L4-S1 DECOMPRESSION AND FUSION COMPARISON STUDY: Lumbar spine MRI March 13, 2019. FLUOROSCOPY TIME: 37 seconds. FLUOROSCOPIC IMAGES: FINDINGS: Fluoroscopy was provided during L4-L5 and L5-S1 discectomies with interbody spacer placemen t. Posterior decompression is noted. There are bilateral pedicle screws at the L4, L5 and S1 levels w ith interconnecting rods. Hardware is intact. IMPRESSION: Fluoroscopy provided during L4-S1 posterior decompression, decompression and bilateral p edicle screw fusion. ACT 112: Negative or not required by law. Electronically signed by: Rolf Garcia M.D. 01/08/2021 3:57 PM
--- NOTE | 2021-01-08 17:01 | Anesthesiology Progress Note ---
Date of Service January 08, 2021 Anesthesia Post Procedure Vital Signs Vital Signs: Temp Pulse Pulse Resp BP BP Pulse Ox 01/08/21 16:55 36.9 C 86 20 133/79 96 01/08/21 16:45 84 13 124/75 99 01/08/21 16:35 82 15 136/81 97 01/08/21 16:25 81 12 124/82 98 01/08/21 16:16 36.4 C L 65 10 L 108/64 96 01/08/21 10:53 36.7 C 54 L 16 119/79 94 Transfer of Care Handoff Completed per policy Notes Mental Status: alert / awake / arousable Patient Amnestic to Procedure: Yes Nausea / Vomiting: adequately controlled Pain: adequately controlled Airway Patency, RR, SpO2: stable & adequate BP & HR: stable & adequate Hydration State: stable & adequate Anesthetic Complications: no major complications apparent Notes: right cheek tape excoriation
[2021-01-08] MEDS ORDERED: ONDANSETRON 4 MG OD TAB PO PRN (17:39)
[2021-01-08] MEDS ORDERED: DO NOT ADMINISTER FLU VACCINE PRN (17:39)
[2021-01-08] MEDS ORDERED: CYCLOBENZAPRINE HCL 10 MG TAB PO PRN (17:39)
[2021-01-08] MEDS ORDERED: LORazepam 0.5 MG TAB PO PRN (17:39)
[2021-01-08] MEDS ORDERED: ACETAMINOPHEN 1,000 MG/100 ML VIAL IV PRN (17:39)
[2021-01-08] MEDS ORDERED: hydrOXYzine HCl 25 MG TAB PO PRN (17:39)
[2021-01-08] MEDS ORDERED: METOCLOPRAMIDE HCL INJ 5 MG/ML 2 ML VIAL IV PRN (17:39)
[2021-01-08] MEDS ORDERED: MAGNESIUM HYDROXIDE SUSP 30 ML UDC PO PRN (17:39)
[2021-01-08] MEDS ORDERED: SOD PHOSPHATE/SOD BIPHOSPHATE ENEMA 132 ML BTL PR PRN (17:39)
[2021-01-08] MEDS ORDERED: ACETAMINOPHEN 500 MG TAB PO PRN (17:39)
[2021-01-08] MEDS ORDERED: HYDROmorphone INJ 0.5 MG/0.5 ML SYR IV PRN (17:39)
[2021-01-08] MEDS ORDERED: PROMETHAZINE HCL 12.5 MG in SODIUM CHLORIDE 0.9% 50 ML IV PRN (17:39)
[2021-01-08] MEDS ORDERED: DO NOT ADMINISTER PNEUMOCOCCAL VACCINE PRN (17:39)
[2021-01-08] MEDS ORDERED: LORazepam 0.5 MG/1 ML VIAL IV PRN (17:39)
[2021-01-08] MEDS ORDERED: diphenhydrAMINE Capsule 25 MG CAP PO PRN (17:39)
[2021-01-08] MEDS ORDERED: FAMOTIDINE 20 MG TAB PO PRN (17:39)
[2021-01-08] MEDS ORDERED: ALUMINUM/MAGNESIUM SUSP 30 ML UDC PO PRN (17:39)
[2021-01-08] MEDS ORDERED: traMADol HCL 50 MG TABLET PO PRN (17:39)
[2021-01-08] MEDS ORDERED: SENNA 8.6 MG TAB PO PRN (17:39)
[2021-01-08] MEDS ORDERED: NALOXONE HCL 0.4 MG/1 ML VIAL/CARP IV PRN (17:39)
[2021-01-08] MEDS: SODIUM CHLORIDE 0.9% 1000ML 1,000 ML IV SCH (18:16)
[2021-01-08] MEDS ORDERED: PANTOprazole 40 MG TAB PO PRN (18:22)
[2021-01-08] MEDS: KETOROLAC TROMETHAMINE 15 MG/ML VIAL IV SCH (18:45)
[2021-01-08] MEDS: ceFAZolin 2000MG 2,000 MG/15 ML SYR IV SCH (20:20)
[2021-01-08] MEDS: MULTIVITAMIN TAB PO SCH (20:21)
[2021-01-08] MEDS: DOXAZosin MESYLATE TAB 2 MG TAB PO SCH (20:21)
[2021-01-08] MEDS: DOCUSATE SODIUM/SENNA 50/8.6MG TAB PO SCH (20:38)
[2021-01-09] MEDS: KETOROLAC TROMETHAMINE 15 MG/ML VIAL IV SCH ×3 (00:43→12:22)
[2021-01-09] MEDS: SODIUM CHLORIDE 0.9% 1000ML 1,000 ML IV SCH ×2 (00:46→07:36)
[2021-01-09] MEDS: ceFAZolin 2000MG 2,000 MG/15 ML SYR IV SCH (05:57)
[2021-01-09 06:02] LABS: Basophils # (auto) 0.01 K/uL (0-0.2); Basophils % (auto) 0.1 %; Hematocrit (blood only) 35.5 % (42-52); Hemoglobin 12.2 g/dL (14.0-18.0); Immature Granulocytes # (auto) 0.02 K/uL (0.00-0.02); Immature Granulocytes % (auto) 0.2 %; Lymphocytes # (auto) 0.77 K/uL (1.2-3.4); Lymphocytes % (auto) 7.5 %; Mean Corpuscular Hgb Conc 34.4 g/dL (32-36); Mean Corpuscular Volume 90.1 fL (80-100); Mean Platelet Volume 10.5 fL (7.4-10.4); Monocytes # (auto) 0.64 K/uL (0.11-0.59); Monocytes % (auto) 6.2 %; Neutrophils # (auto) 8.89 K/uL (1.4-6.5); Platelet Count 199 K/uL (130-400); RDW Coefficient of Variation 13.4 % (11.5-14.5); RDW Standard Deviation 44.5 fL (36.4-46.3); Red Blood Count 3.94 M/uL (4.7-6.1); White Blood Count 10.33 K/uL (4.8-10.8)
[2021-01-09 06:39] LABS: BUN Creatinine Ratio 19.6 (10-20); Calcium 8.2 mg/dl (8.5-10.1); Creatinine Clr Calc Pharmacy 63.6 ml/min; Est GFR (African American) 81.7; Est GFR (Non-African American) 70.5; Potassium 3.8 mmol/L (3.5-5.1)
[2021-01-09] MEDS: oxyCODONE HCL IR 5 MG TAB (IMMEDIATE RELEASE) PO PRN ×2 (08:01→22:52)
[2021-01-09] MEDS: IRBESARTAN 150 MG TAB PO SCH (08:49)
[2021-01-09] MEDS: hydroCHLOROthiazide 25 MG TAB PO SCH (08:49)
[2021-01-09] MEDS: ATENOLOL 50 MG TABLET PO SCH (08:50)
[2021-01-09] MEDS: ASPIRIN 81 MG ECTAB PO SCH (08:50)
[2021-01-09] MEDS ORDERED: GLUCAGON FOR INJ 1 MG VIAL SQ PRN (08:56)
[2021-01-09] MEDS ORDERED: GLUCOSE 10 TABS/TUBE PO PRN (08:56)
[2021-01-09] MEDS ORDERED: DEXTROSE 50% 50 ML SYRINGE IV PRN (08:56)
[2021-01-09] MEDS ORDERED: CARBOHYDRATES FOR HYPOGLYCEMIA PO PRN (08:56)
[2021-01-09] MEDS ORDERED: GLUCOSE 40% GEL 15 GM TUBE PO PRN (08:56)
--- NOTE | 2021-01-09 08:57 | Hospitalist Consultation ---
Date of Consultation January 09, 2021 Assessment & Plan (1) Neurogenic claudication due to lumbar spinal stenosis: * POD #1 s/p L4-S1 lumbar decompression/fusion with Dr. Vogt on 01/08. EBL 200cc. Pre-op h/h 14./42 * PT/OT/pain management per primary service * IVF NSS @ 150cc/hr per primary * h/h 12.2/35.5 -- acute blood loss anemia from surgery and dilutional as on continuous IVF * RHEA drain output (410cc + 145cc) * Plans for return home on Tuesday per primary service (2) Hypertension: * Atenolol 50mg daily, HCTZ 25mg daily, Irbesartan 300mg daily * BP controlled 135/79 * Continue to monitor (3) Benign prostatic hyperplasia with urinary obstruction: * Continue doxazosin 2mg po HS * UO acceptable * Monitor (4) GERD (gastroesophageal reflux disease): * Continue protonix while inpatient (5) Pre-diabetes: * will check bsg ac/hs * Will place orders for ISS while inpatient given recent steroids * Continue to monitor (6) Left foot drop: * present for 10 years -- hopefully some improvement with recent surgery however will get orthotics for AFO for stability * PT/OT while inpatient and plans for use of walker at discharge (7) DVT prophylaxis: * SCDs * chemoproph contraindicated in back surgery Thank you for allowing hospitalist service to participate in the care of Mr. Vann. Will follow along Supervising Physician Co-Signing Physician Notes I supervised Madai Merlos PA-C on this patient's care. I interviewed and examined the patient independently of her. The plan is as written in the note except for any following changes/exceptions: None Doing well post-operatively. No acute medical concerns at this time. Will follow tomorrow and likely sign off unless anything of note occurs. History of Present Illness Reason for Consultation: medical management Requesting Physician: Dr Vogt Attending Physician: Domo Vogt DO History of Present Illness 70 year old male with PMHx significant for HTN, GERD, Erectile dysfunction and pre-DM presented for lumbar decompression/fusion with Dr. Vogt on 01/08. He states pain well controlled. Did have increased pain in his back with radiation to his leg when up in chair for breakfast but pain resolved with dose of oxycodone. Has been eating/drinking without issues. Passing gas but no BM. Up with therapy this morning and plans on getting walker from family for at discharge, which he was told will likely be on Tuesday. Foot drop to his left foot for the past ten years and evaluated by Dr. Singh in the past who didn't think surgery was warranted at that point. He notes discussion about a brace in the past but no one has mentioned it recently. No fever, chills, chest pain, shortness of breath, abdominal pain, nausea, vomiting or dysuria at this time. Allergies Allergy/AdvReac Type Severity Reaction Status Date / Time [place] Inhibitors AdvReac Mild cough Verified 01/08/21 10:48 Home Medications Medication Instructions Recorded Confirmed Type aspirin 81 mg PO QAM 01/15/20 01/08/21 History doxazosin 2 mg tablet 2 mg PO HS #90 tab 03/19/20 01/08/21 Rx omeprazole 20 mg PO QAM PRN 04/18/20 01/08/21 History valacyclovir [Valtrex] 2,000 mg PO Q12H PRN 04/18/20 01/08/21 History atenolol 50 mg tablet 50 mg PO QAM #90 tab 06/02/20 01/08/21 Rx irbesartan 300 mg tablet 300 mg PO QAM #90 tab 07/22/20 01/08/21 Rx tadalafil 20 mg tablet 20 mg PO DAILY PRN #20 tab 08/01/20 01/08/21 Rx multivitamin 1 tab PO HS 10/16/20 01/08/21 History nabumetone 500 mg PO BID 10/16/20 01/08/21 History sennosides [Senokot] 17.2 mg PO HS PRN 10/16/20 01/08/21 History hydrochlorothiazide 25 mg tablet 25 mg PO QAM #90 tab 11/17/20 01/08/21 Rx oxycodone 5 mg PO Q6H PRN #20 tab 01/09/21 Rx tramadol 50 mg PO Q6H PRN #30 tab 01/09/21 Rx Patient History Medical History BPH (benign prostatic hyperplasia) GERD (gastroesophageal reflux disease) controlled Hypertension Impaired fasting glucose Recurrent cold sores No current issues Surgical History History of colonoscopy x2 History of esophagogastroduodenoscopy (EGD) History of repair of rotator cuff Left History of tonsillectomy and adenoidectomy History of transurethral resection of prostate 2003 S/p reverse total shoulder arthroplasty (04/23/20) Right reverse TSA: 04/23/20: Grade view 1, MAC#3, ETT 7.5 at [facility] Total knee replacement status R/L (2005) Family History Father Myocardial infarction Brother Myocardial infarction Son Family history of diabetes mellitus Mother Coronary arteriosclerosis Denies family history of Ovarian cancer Prostate cancer Breast cancer Colorectal cancer Social History Smoking Status: Never smoker Second Hand Exposure: No; Do You Dip or Chew Tobacco: No; Tobacco Cessation Education Requested by Patient: No Hx Alcohol Use: No Hx Substance Use: No Preferred Language: [place] Communication Ability: Effective Cable Hooker Required: No Beliefs That Will Affect Care: None marital status: Current Living Situation: Spouse Other Information That Helps Us Care for You: No Feels Safe at Home: Yes Safety Concerns: Feels Safe At This Time Assistive Devices: Walker Review of Systems Review of Systems: All systems reviewed & are unremarkable except as noted in HPI & below Physical Exam Constitutional: WD/WN, vitals as above cooperative and comfortable; no acute distress Eyes: + anicteric sclerae and PERRL ENMT: mmm Neck: normal visual inspection and trachea midline Respiratory: normal respiratory effort, lungs clear to auscultation Cardiovascular: RRR, no murmur, no edema Gastrointestinal (Abdomen): Inspection/Auscultation: + abdomen distended and + hypoactive bowel sounds Percussion/Palpation: abdomen soft; abdomen nontender, no guarding and abdomen not rigid Musculoskeletal: dressing to lumbar spine c/d/i NVI pulses palpable bilaterally foot drop to LEFT foot 5/5 dorsiflexion bilaterally, 5/5 plantar flexion RLE, absent in LLE RHEA drain Skin: warm, dry Neurologic: PERRL, EOMI, accommodation nl, no face palsy, no dysarthria Psychiatric: Orientation: alert and oriented x 3 Genitourinary: NO VICENTE Lymphatic: no cervical or axillary lymphadenopathy Results & Data Results & Data ([facility]) Vital Signs (Past 12 Hours) Vital Signs Temp Pulse Resp BP BP Pulse Ox 01/09/21 07:33 62 135/79 01/09/21 07:19 36.4 C L 64 16 110/65 93 01/09/21 03:09 36.6 C 73 17 96/56 L 97 01/08/21 23:03 36.3 C L 74 16 127/75 95 01/08/21 20:58 36.4 C L 83 16 114/70 94 Laboratory Results 01/09/21 01/09/21 01/08/21 Range/Units 05:16 05:16 10:56 WBC 10.33 (4.8-10.8) K/uL RBC 3.94 L (4.7-6.1) M/uL Hgb 12.2 L (14.0-18.0) g/dL Hct 35.5 L (42-52) % MCV 90.1 (80-100) fL MCH 31.0 (25-34) pg MCHC 34.4 (32-36) g/dL RDW Std Deviation 44.5 (36.4-46.3) fL RDW Coeff of Bhupinder 13.4 (11.5-14.5) % Plt Count 199 (130-400) K/uL MPV 10.5 H (7.4-10.4) fL Immature Gran % (Auto) 0.2 % Neut % (Auto) 86.0 % Lymph % (Auto) 7.5 % [place] % (Auto) 6.2 % Eos % (Auto) 0.0 % Baso % (Auto) 0.1 % Neut # (Auto) 8.89 H (1.4-6.5) K/uL Lymph # (Auto) 0.77 L (1.2-3.4) K/uL [place] # (Auto) 0.64 H (0.11-0.59) K/uL Eos # (Auto) 0.00 (0-0.5) K/uL Baso # (Auto) 0.01 (0-0.2) K/uL Immature Gran # (Auto) 0.02 (0.00-0.02) K/uL Sodium 139 (136-145) mmol/L Potassium 3.8 (3.5-5.1) mmol/L Chloride 107 (98-107) mmol/L Carbon Dioxide 25 (21-32) mmol/L Anion Gap 7.0 (3-11) BUN 21 H (7-18) mg/dl Creatinine 1.07 (0.6-1.4) mg/dl Est Cr Clr Drug Dosing 63.6 ml/min Est GFR ( Amer) 81.7 Est GFR (Non-Af Amer) 70.5 BUN/Creatinine Ratio 19.6 (10-20) Glucose 149 H (70-99) mg/dl Calcium 8.2 L (8.5-10.1) mg/dl Blood Type A Positive Antibody Screen NEGATIVE Crossmatch See Detail PG Care Time/CCT Total # of Minutes Spent Total Time Spent with Patient: Total time spent is greater than 50% in coord ination of care (as documented) at patient's floor/unit and/or counseling patient: Coding Level of Care Code 42364 Inpt Consult Level 3 Diagnoses Neurogenic claudication due to lumbar spinal stenosis M48.062 Hypertension I10 Benign prostatic hyperplasia with urinary obstruction N40.1; N13.8 GERD (gastroesophageal reflux disease) K21.9 Pre-diabetes R73.03 Left foot drop M21.372 DVT prophylaxis Z29.9
[2021-01-09] MEDS: PANTOprazole 40 MG TAB PO SCH (09:38)
[2021-01-09] MEDS: INSULIN ASPART 100 UNITS/ML 3 ML PEN SC SCH ×3 (12:23→21:13)
--- NOTE | 2021-01-09 13:25 | Orthopedic Progress Note ---
Date of Service January 09, 2021 Assessment & Plan (1) Neurogenic claudication due to lumbar spinal stenosis: Admission and Anticipated Discharge Date Admission Date: January 08, 2021 This time continue physical therapy monitor RHEA operatively discharge home next few days. Subjective Back pain controlled leg symptoms markedly improved Physical Exam Physical Exam: Patient is ambulating halls with good strength testing. Results & Data ([facility]) Vital Signs (Past 12 Hours) Vital Signs Temp Pulse Resp BP BP Pulse Ox 01/09/21 11:17 36.7 C 64 16 105/64 95 01/09/21 07:33 62 135/79 01/09/21 07:19 36.4 C L 64 16 110/65 93 01/09/21 03:09 36.6 C 73 17 96/56 L 97
[2021-01-09] MEDS: POLYETHYLENE (MIRALAX) 17 GM PACK PO SCH ×2 (15:52→17:25)
[2021-01-09] MEDS: DOXAZosin MESYLATE TAB 2 MG TAB PO SCH (21:12)
[2021-01-09] MEDS: MULTIVITAMIN TAB PO SCH (21:12)
[2021-01-09] MEDS: DOCUSATE SODIUM/SENNA 50/8.6MG TAB PO SCH (21:15)
[2021-01-10] MEDS: POLYETHYLENE (MIRALAX) 17 GM PACK PO SCH ×2 (00:20→05:55)
[2021-01-10 05:56] LABS: Hematocrit (blood only) 34.8 % (42-52); Hemoglobin 11.9 g/dL (14.0-18.0); Mean Corpuscular Hemoglobin 31.2 pg (25-34); Mean Corpuscular Hgb Conc 34.2 g/dL (32-36); Mean Corpuscular Volume 91.3 fL (80-100); Mean Platelet Volume 10.4 fL (7.4-10.4); Platelet Count 180 K/uL (130-400); RDW Coefficient of Variation 13.8 % (11.5-14.5); RDW Standard Deviation 46.1 fL (36.4-46.3); Red Blood Count 3.81 M/uL (4.7-6.1); White Blood Count 8.99 K/uL (4.8-10.8)
[2021-01-10 06:27] LABS: BUN Creatinine Ratio 23.8 (10-20); Calcium 7.8 mg/dl (8.5-10.1); Creatinine Clr Calc Pharmacy 66.1 ml/min; Est GFR (African American) 85.5; Est GFR (Non-African American) 73.8; Potassium 3.8 mmol/L (3.5-5.1)
[2021-01-10] MEDS: oxyCODONE HCL IR 5 MG TAB (IMMEDIATE RELEASE) PO PRN ×3 (06:38→17:29)
[2021-01-10] MEDS: INSULIN ASPART 100 UNITS/ML 3 ML PEN SC SCH ×4 (07:55→20:47)
[2021-01-10] MEDS: hydroCHLOROthiazide 25 MG TAB PO SCH (07:59)
[2021-01-10] MEDS: ASPIRIN 81 MG ECTAB PO SCH (07:59)
[2021-01-10] MEDS: IRBESARTAN 150 MG TAB PO SCH (07:59)
[2021-01-10] MEDS: ATENOLOL 50 MG TABLET PO SCH (08:00)
[2021-01-10] MEDS: PANTOprazole 40 MG TAB PO SCH (08:00)
[2021-01-10] MEDS: dexAMETHasone 8 MG in SYRINGE 0 ML IV SCH (08:01)
--- NOTE | 2021-01-10 09:05 | Hospitalist Progress Note ---
Date of Service January 10, 2021 Assessment & Plan (1) Neurogenic claudication due to lumbar spinal stenosis: * POD #2 s/p L4-S1 lumbar decompression/fusion with Dr. Vogt on 01/08. * EBL 200cc. Pre-op h/h 14./42 with drop to 12.2/35-- acute blood loss anemia from surgery as well as dilutional effect from continuous IVF (d/c'd on 01/09) * RHEA output decreased and repeat h/h stable at 11.9/34.8 * PT/OT/pain management per primary service * Plans for return home on Tuesday per primary service (2) Hypertension: * Atenolol 50mg daily, HCTZ 25mg daily, Irbesartan 300mg daily * BP controlled 138/75 * Continue to monitor (3) Benign prostatic hyperplasia with urinary obstruction: * Continue doxazosin 2mg po HS * UO acceptable * Monitor (4) GERD (gastroesophageal reflux disease): * Continue protonix while inpatient (5) Pre-diabetes: * will check bsg ac/hs * Will place orders for ISS while inpatient given recent steroids * BSGs acceptable (6) Left foot drop: * present for 10 years -- hopefully some improvement with recent surgery however will get orthotics for AFO for stability. Given on 01/09 and to utilize at discharge * PT/OT while inpatient and plans for use of walker at discharge (7) DVT prophylaxis: * SCDs * chemoproph contraindicated in back surgery Thank you for allowing hospitalist service to participate in the care of Mr. Vann. Hospitalist will sign off. Please call with any questions/concerns. Admission and Anticipated Discharge Date Admission Date: January 08, 2021 Subjective Patient evaluated this morning. Doing well.. Eating/drinking without difficultly. Pssing gas and had a bowel movement. Initially with some issues with urination with miralax/powerade as he had issues last year with the same and this has improved since not taking powerade. UO acceptable. RHEA output decreased. Had some increased pain getting up to chair this morning but this is much improved since PO pain medications. Walked patient with walker to bathroom, did great. Was seen by orthotics yesterday and fitted for AFO. He notes it works well and used it to walk in the halls earlier. Improved strength to his RLE dorsiflexion. Has not seen Dr. Vogt yet but states he will likely be in the hospital until tomorrow. No fever, chills, chest pain, shortness of breath, abdominal pain, nausea or vomiting. Review of Systems Review of Systems: All systems reviewed & are unremarkable except as noted in HPI & below Physical Exam Constitutional: WD/WN, vitals as above cooperative and comfortable; no acute distress Eyes: + anicteric sclerae and PERRL ENMT: mmm Neck: normal visual inspection and trachea midline Respiratory: normal respiratory effort, lungs clear to auscultation Cardiovascular: RRR, no murmur, no edema Gastrointestinal (Abdomen): Inspection/Auscultation: abdomen normal to inspection and normal bowel sounds Percussion/Palpation: abdomen soft; abdomen nontender, no guarding and abdomen not rigid Musculoskeletal: dressing to lumbar spine c/d/i RHEA with 20cc bloody drainage NVI L foot drop noted 5/5 strength RLE, 5/5 plantar flexion LLE and 3/5 dorsiflexion pulses palpable bilaterally Skin: warm ,dry Neurologic: PERRL, EOMI, accommodation nl, no face palsy, no dysarthria Psychiatric: Orientation: alert and oriented x 3 Genitourinary: NO VICENTE Lymphatic: no cervical or axillary lymphadenopathy Results & Data Results & Data ([facility]) Vital Signs (Past 12 Hours) Vital Signs Temp Pulse Resp BP Pulse Ox 01/10/21 06:00 36.6 C 63 17 138/75 95 01/09/21 23:30 36.7 C 58 L 16 116/70 94 Laboratory Results 01/10/21 01/10/21 01/10/21 Range/Units 06:42 05:21 05:21 WBC 8.99 (4.8-10.8) K/uL RBC 3.81 L (4.7-6.1) M/uL Hgb 11.9 L (14.0-18.0) g/dL Hct 34.8 L (42-52) % MCV 91.3 (80-100) fL MCH 31.2 (25-34) pg MCHC 34.2 (32-36) g/dL RDW Std Deviation 46.1 (36.4-46.3) fL RDW Coeff of Bhupinder 13.8 (11.5-14.5) % Plt Count 180 (130-400) K/uL MPV 10.4 (7.4-10.4) fL Sodium 142 (136-145) mmol/L Potassium 3.8 (3.5-5.1) mmol/L Chloride 111 H (98-107) mmol/L Carbon Dioxide 26 (21-32) mmol/L Anion Gap 5.0 (3-11) BUN 25 H (7-18) mg/dl Creatinine 1.03 (0.6-1.4) mg/dl Est Cr Clr Drug Dosing 66.1 ml/min Est GFR ( Amer) 85.5 Est GFR (Non-Af Amer) 73.8 BUN/Creatinine Ratio 23.8 H (10-20) Glucose 125 H (70-99) mg/dl POC Glucose 120 H (70-99) mg/dl Calcium 7.8 L (8.5-10.1) mg/dl 01/09/21 01/09/21 01/09/21 Range/Units 20:29 17:20 12:12 WBC (4.8-10.8) K/uL RBC (4.7-6.1) M/uL Hgb (14.0-18.0) g/dL Hct (42-52) % MCV (80-100) fL MCH (25-34) pg MCHC (32-36) g/dL RDW Std Deviation (36.4-46.3) fL RDW Coeff of Bhupinder (11.5-14.5) % Plt Count (130-400) K/uL MPV (7.4-10.4) fL Sodium (136-145) mmol/L Potassium (3.5-5.1) mmol/L Chloride (98-107) mmol/L Carbon Dioxide (21-32) mmol/L Anion Gap (3-11) BUN (7-18) mg/dl Creatinine (0.6-1.4) mg/dl Est Cr Clr Drug Dosing ml/min Est GFR ( Amer) Est GFR (Non-Af Amer) BUN/Creatinine Ratio (10-20) Glucose (70-99) mg/dl POC Glucose 119 H 127 H 169 H (70-99) mg/dl Calcium (8.5-10.1) mg/dl PG Care Time/CCT Total # of Minutes Spent Total Time Spent with Patient: Total time spent is greater than 50% in coordination of care (as documented) at patient's floor/unit and/or counseling patient: Coding Level of Care Code 06294 Subseq Hosp Care Lvl 2 Diagnoses Neurogenic claudication due to lumbar spinal stenosis M48.062 Hypertension I10 Benign prostatic hyperplasia with urinary obstruction N40.1; N13.8 GERD (gastroesophageal reflux disease) K21.9 Pre-diabetes R73.03 Left foot drop M21.372 DVT prophylaxis Z29.9
--- NOTE | 2021-01-10 11:27 | Orthopedic Progress Note ---
Date of Service January 10, 2021 Assessment & Plan (1) Neurogenic claudication due to lumbar spinal stenosis: Admission and Anticipated Discharge Date Admission Date: January 08, 2021 This time we will continue physical therapy monitor RHEA output anticipate dis charge home tomorrow. Subjective Back pain controlled leg symptoms improved. Physical Exam Physical Exam: Patient appears comfortable. Is good strength testing. Results & Data ([facility]) Vital Signs (Past 12 Hours) Vital Signs Temp Pulse Resp BP Pulse Ox 01/10/21 06:00 36.6 C 63 17 138/75 95 01/09/21 23:30 36.7 C 58 L 16 116/70 94
[2021-01-10] MEDS ORDERED: bisacodyL 10 MG SUPP PR PRN (15:53)
[2021-01-10] MEDS: DOXAZosin MESYLATE TAB 2 MG TAB PO SCH (20:12)
[2021-01-10] MEDS: MULTIVITAMIN TAB PO SCH (20:12)
[2021-01-10] MEDS: DOCUSATE SODIUM/SENNA 50/8.6MG TAB PO SCH (20:13)
[2021-01-11] MEDS: oxyCODONE HCL IR 5 MG TAB (IMMEDIATE RELEASE) PO PRN (07:31)
--- NOTE | 2021-01-11 08:25 | Discharge Summary ---
Date of Service January 11, 2021 Admission HPI Per Admitting Provider This is a 70-year-old male who presents with current persistent back and bilateral leg pain. Failing course of nonoperative care is here for surgical invention. Discharge Data Consultations 01/08/21 17:39 Consult Case Management - Discharge Planning Routine Consult Hospitalist Routine Procedures Performed Operation Date: 01/08/21 12:25 Actual Procedures p L4-S1 Decompression and Fusion, Interbody Fusion L4-L5, L5-S1, Spinal Cord Monitoring, Bone Morphogenetic Protein(Not Applicable) - Domo Vogt, [facility] Course (1) Neurogenic claudication due to lumbar spinal stenosis: Patient is 70-year-old male with history physical examination and radiographic images consistent with spinal stenosis. This patient was brought to the operating room and underwent a lumbar decompression and fusion from L4- S1. This performed by Dr. Vogt under general anesthesia. Left the operating room with a RHEA drain and Molina in place and was transferred to PACU in stable condition. He was seen by physical therapy postop day #1. Throughout his hospital course his calves remained supple nontender his dressing clean dry and intact. And at this point he is ready for home discharge. I have reviewed his discharge instructions. He should avoid any full bending or lifting nothing heavier than 5 pounds. He change his dressing once daily until there is no aura inage once its drainage he may discontinue the dressing. We will see him in the office in approximately 2 weeks or sooner if he develops any fevers chills or increased pain.
[2021-01-11] MEDS: hydroCHLOROthiazide 25 MG TAB PO SCH (08:56)
[2021-01-11] MEDS: dexAMETHasone 8 MG in SYRINGE 0 ML IV SCH (08:57)
[2021-01-11] MEDS: IRBESARTAN 150 MG TAB PO SCH (08:57)
[2021-01-11] MEDS: PANTOprazole 40 MG TAB PO SCH (08:57)
[2021-01-11] MEDS: ASPIRIN 81 MG ECTAB PO SCH (08:57)
[2021-01-11] MEDS: ATENOLOL 50 MG TABLET PO SCH (08:57)
[2021-01-11] MEDS ORDERED: PERCOCET 5/325MG HOMEPACK PO ONE (09:00)
[2021-01-11] MEDS: INSULIN ASPART 100 UNITS/ML 3 ML PEN SC SCH ×2 (09:04→12:43)
== END 2021-01-11 14:02 | disposition home or self-care (01) | DRG 454 ==
LOC: ASU 10:28 → 3E 16:25

== ENCOUNTER 2021-09-04 12:53 | Inpatient (IN) ==
[2021-09-04] MEDS ORDERED: ACETAMINOPHEN 1,000 MG/100 ML VIAL IV STA (16:11)
[2021-09-04] MEDS ORDERED: DEXAMETHASONE SOD INJ 4 MG/ML VIAL IV STA (16:11)
[2021-09-04 16:47] LABS: Hematocrit (blood only) 42.1 % (42-52); Hemoglobin 14.8 g/dL (14.0-18.0); Immature Granulocytes # (auto) 0.01 K/uL (0.00-0.02); Immature Granulocytes % (auto) 0.2 %; Lymphocytes # (auto) 0.45 K/uL (1.2-3.4); Lymphocytes % (auto) 11.2 %; Mean Corpuscular Hemoglobin 31.1 pg (25-34); Mean Corpuscular Hgb Conc 35.2 g/dL (32-36); Mean Corpuscular Volume 88.4 fL (80-100); Mean Platelet Volume 10.5 fL (7.4-10.4); Monocytes # (auto) 0.23 K/uL (0.11-0.59); Monocytes % (auto) 5.7 %; Neutrophils # (auto) 3.33 K/uL (1.4-6.5); Neutrophils % (auto) 82.9 %; Platelet Count 128 K/uL (130-400); RDW Coefficient of Variation 13.8 % (11.5-14.5); RDW Standard Deviation 45.6 fL (36.4-46.3); Red Blood Count 4.76 M/uL (4.7-6.1); White Blood Count 4.02 K/uL (4.8-10.8)
[2021-09-04 17:01] LABS: Partial Thromboplastin Ratio 1.3; Prothrombin Time 10.2 Seconds (9.0-12.0)
[2021-09-04 17:13] LABS: Alanine Aminotransferase 80 U/L (12-78); Albumin Level 3.1 gm/dl (3.4-5.0); Aspartate Aminotransferase 132 U/L (15-37); BUN Creatinine Ratio 13.3 (10-20); Blood Urea Nitrogen 14 mg/dl (7-18); Calcium 8.3 mg/dl (8.5-10.1); Carbon Dioxide 26 mmol/L (21-32); Chloride 96 mmol/L (98-107); Creatinine Clr Calc Pharmacy 65.8 ml/min; Est GFR (Non-African American) 70.8 ml/min; Glucose 143 mg/dl (70-99); Magnesium 1.8 mg/dl (1.8-2.4); Potassium 3.9 mmol/L (3.5-5.1); Sodium 129 mmol/L (136-145)
[2021-09-04 17:18] LABS: Albumin Globulin Ratio 0.8 (0.9-2); Alkaline Phosphatase 103 U/L (45-117); Bilirubin,Total 0.6 mg/dl (0.2-1); Globulin 4.1 gm/dl (2.5-4.0); Total Protein 7.2 gm/dl (6.4-8.2); Troponin I < 0.015 ng/ml (0-0.045)
--- NOTE | 2021-09-04 17:20 | XRay Report ---
XR chest 1V portable CLINICAL HISTORY: sob, hypoxia COMPARISON STUDY: Chest radiograph September 03, 2021. FINDINGS: Right shoulder arthroplasty is partially imaged. Lung volumes are diminished. There is no p neumothorax or pleural effusion. Interval development of mild to moderate bilateral airspace opacitie s are noted. IMPRESSION: Interval development of mild to moderate bilateral airspace opacities suggestive of luz l pneumonia. ACT 112: Negative or not required by law. Electronically signed by: Rolf Garcia M.D. 09/04/2021 5:18 PM
[2021-09-04] MEDS ORDERED: REMDESIVIR 200 MG in SODIUM CHLORIDE 0.9% 210 ML IV STA (18:31)
--- NOTE | 2021-09-04 18:45 | Emergency Department Note ---
History of Present Illness General Chief complaint: Neuro Symptoms/Deficit Stated complaint: PULSOX IS LOW Time Seen by Provider: 09/04/21 15:57 Source: patient Mode of arrival: ambulatory Limitations: no limitations History of Present Illness Provider complaint: Shortness of breath, hypoxia noted at home Onset (ago): day(s) 1 Maximum Pain Intensity: 6 Associated symptoms: + chest pain, + cough, + fever/chills, + headaches, + loss of appetite, + malaise and + shortness of breath; no nausea/vomiting Treatments prior to arrival: none This is a 71-year-old male presents emergency department due to concern for increased shortness of breath and hypoxia noted at home. Patient is known to be Covid positive. Patient was seen and evaluated here yesterday and discharged home. At that time patient had reassuring labs and chest x-ray, was not hypoxic, had no increased work of breathing. Patient was instructed to continue supportive treatment and instructed to periodically check his oxygen with a pulse oximeter. Patient states he was doing that and began noticing that it was drifting lower, and this afternoon it drifted down to the 80s and he was more symptomatic. Patient states he has been trying to periodically take deep breaths and cough, however he does not feel this is helping. Patient states he feels more short of breath with any movement or exertion. He states he is still having intermittent fevers and chills. States he has decreased appetite, generalized body aches and myalgias, and did have an episode of diarrhea. Patient's diarrhea was nonbloody. He denies any vomiting. I initially saw the patient in the [place]. Pulse ox on Ra 86%. Pt seen during a time of high acuity and national emergency pandemic while wearing PPE. Home Medications Medication Instructions Recorded Confirmed Type aspirin 81 mg tablet,delayed 81 mg PO QAM 01/15/20 09/04/21 History release omeprazole 20 mg capsule,delayed 20 mg PO QAM PRN 04/18/20 09/04/21 History release valacyclovir 1 gram tablet 2,000 mg PO Q12H PRN 04/18/20 08/19/21 History (Valtrex) multivitamin 1 tab PO HS 10/16/20 09/04/21 History sennosides 8.6 mg tablet (Senokot) 17.2 mg PO HS PRN 10/16/20 09/04/21 History hydrochlorothiazide 25 mg tablet 25 mg PO QAM #90 tab 11/17/20 09/04/21 Rx doxazosin 2 mg tablet 2 mg PO HS #90 tab 03/23/21 09/04/21 Rx irbesartan 300 mg tablet 300 mg PO QAM #90 tab 07/30/21 09/04/21 Rx atenolol 50 mg tablet 50 mg PO QAM 09/04/21 09/04/21 History Allergies Allergy/AdvReac Type Severity Reaction Status Date / Time FLORENCE Inhibitors AdvReac Mild cough Verified 09/04/21 17:28 Past Med/Surg History Medical History BPH (benign prostatic hyperplasia) GERD (gastroesophageal reflux disease) controlled Hypertension Impaired fasting glucose Recurrent cold sores No current issues Surgical History History of colonoscopy (01/24/19) Dr Eva Burnette [facility] 3 mm rectal polyp, recheck in 5 years History of esophagogastroduodenoscopy (EGD) History of repair of rotator cuff Left History of tonsillectomy and adenoidectomy History of transurethral resection of prostate 2003 S/p reverse total shoulder arthroplasty (04/23/20) Right reverse TSA: 04/23/20: Grade view 1, MAC#3, ETT 7.5 at [facility] Total knee replacement status R/L (2005) Family History Father Myocardial infarction Brother Myocardial infarction Son Family history of diabetes mellitus Mother Coronary arteriosclerosis Denies family history of Ovarian cancer Prostate cancer Breast cancer Colorectal cancer Social History Smoking Status: Never smoker Second Hand Exposure: No; Hx Alcohol Use: No Hx Substance Use: No Preferred Language: Chinese Communication Ability: Effective Visual Impairment: No Limitations Hearing Ability: Hard of Hearing Offline Editor Required: No Beliefs That Will Affect Care: None marital status: Current Living Situation: Spouse current occupational status: employed 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 Feels Safe at Home: Yes Childhood Exposure to Second-Hand Smoke: No Dental Care, Regularly: Yes Physical Activity Frequency: Daily Seatbelt Use: sometimes Sunscreen Use: Yes Assistive Devices: Walker Review of Systems A total of 10 systems reviewed and were otherwise negative All systems reviewed & are unremarkable except as noted in HPI & below Physical Exam Vital Signs Vital Signs - 24 hr 09/04/21 13:32 09/04/21 16:09 09/04/21 16:17 Temperature 37.4 C Temperature Source Temporal Artery Scan Pulse Rate 77 77 Pulse Rate from SpO2 Sensor 72 Respiratory Rate 18 26 H 27 H Respiratory Effort / Characteristics Spontaneous Blood Pressure 134/79 151/87 H Blood Pressure Mean 97 108 Pulse Oximetry 93 82 L 90 Oxygen Delivery Method Room Air Nasal Cannula Oxymask Oxygen Flow Rate 0 Sepsis Recent Fever Within 48 Hours No Sepsis New/Unexplained Change in Mental Status No Sepsis Action Taken by Nursing No Action Required Oxygen Flow Rate - Titration 6 Pulse Oximetry Post Tiitration 90 09/04/21 16:27 09/04/21 16:30 09/04/21 17:00 Temperature Temperature Source Pulse Rate 76 86 Pulse Rate from SpO2 Sensor 73 82 Respiratory Rate 45 H 36 H Respiratory Effort / Characteristics Blood Pressure 142/84 H 120/81 Blood Pressure Mean 103 94 Pulse Oximetry 92 94 Oxygen Delivery Method Oxymask Oxymask Oxymask Oxygen Flow Rate 6 6 Sepsis Recent Fever Within 48 Hours Sepsis New/Unexplained Change in Mental Status Sepsis Action Taken by Nursing Oxygen Flow Rate - Titration 6 Pulse Oximetry Post Tiitration 94 09/04/21 17:30 09/04/21 18:00 Temperature Temperature Source Pulse Rate 74 71 Pulse Rate from SpO2 Sensor 74 73 Respiratory Rate 41 H 28 H Respiratory Effort / Characteristics Blood Pressure 127/80 129/82 Blood Pressure Mean 95 97 Pulse Oximetry 94 93 Oxygen Delivery Method Oxymask Oxymask Oxygen Flow Rate 6 6 Sepsis Recent Fever Within 48 Hours Sepsis New/Unexplained Change in Mental Status Sepsis Action Taken by Nursing Oxygen Flow Rate - Titration Pulse Oximetry Post Tiitration GENERAL: alert, well appearing, well nourished, no distress, non-toxic EYE EXAM: normal conjunctiva, PERRL and EOM's grossly intact OROPHARYNX: no exudate, no erythema, lips, buccal mucosa, and tongue normal and mucous membranes are moist NECK: supple, no nuchal rigidity, no adenopathy, non-tender LUNGS: Clear to auscultation. Normal chest wall mechanics, no w/r/r HEART: no murmurs, S1 normal and S2 normal ABDOMEN: abdomen soft, non-tender, normo-active bowel sounds, no masses, no rebound or guarding. BACK: Back is symmetrical on inspection and there is no deformity, no midline tenderness, no CVA tenderness. SKIN: no rashes and no bruising UPPER EXTREMITIES: upper extremities are grossly normal. FROM, nml pulses b/l. LOWER EXTREMITIES: No pitting edema. FROM, nml pulses b/l. NEURO EXAM: Normal sensorium, cranial nerves II-XII grossly intact, normal speech, no gross weakness of arms, no gross weakness of legs. Gross sensation intact. Course Administered Medications Discontinued Medications Dexamethasone (Dexamethasone Sod Inj 4 Mg/Ml Vial) 6 mg IV NOW STA Stop: 09/04/21 16:12 Last Admin: 09/04/21 16:29 Dose: 6 mg Documented by: [id number] Acetaminophen (Ofirmev) 1,000 mg in 100 mls @ 400 mls/hr IV NOW STA Stop: 09/04/21 16:25 Last Infusion: 09/04/21 16:46 Dose: 0 mls/hr Documented by: [id number] Admin: 09/04/21 16:31 Dose: 400 mls/hr Documented by: [id number] Medical Decision Making Differential Diagnosis Differential diagnoses includes but is not limited to pneumonia, bronchitis, COPD/Asthma exacerbation, pneumothorax, pulmonary embolism, congestive heart failure, acute coronary syndrome Medical Records Attestation: I reviewed the patient's medical records. Home Medications Current Medication List: was personally reviewed by me Laboratory Data Attestation: I reviewed the patient's lab results. Result diagrams: 09/04/21 16:27 09/04/21 16:27 Lab Results 09/04/21 09/04/21 09/04/21 Range/Units 16:27 16:27 16:27 WBC 4.02 L (4.8-10.8) K/uL RBC 4.76 (4.7-6.1) M/uL Hgb 14.8 (14.0-18.0) g/dL Hct 42.1 (42-52) % MCV 88.4 (80-100) fL MCH 31.1 (25-34) pg MCHC 35.2 (32-36) g/dL RDW Std Deviation 45.6 (36.4-46.3) fL RDW Coeff of Bhupinder 13.8 (11.5-14.5) % Plt Count 128 L (130-400) K/uL MPV 10.5 H (7.4-10.4) fL Immature Gran % (Auto) 0.2 % Neut % (Auto) 82.9 % Lymph % (Auto) 11.2 % [place] % (Auto) 5.7 % Eos % (Auto) 0.0 % Baso % (Auto) 0.0 % Neut # (Auto) 3.33 (1.4-6.5) K/uL Lymph # (Auto) 0.45 L (1.2-3.4) K/uL [place]ton # (Auto) 0.23 (0.11-0.59) K/uL Eos # (Auto) 0.00 (0-0.5) K/uL Baso # (Auto) 0.00 (0-0.2) K/uL Immature Gran # (Auto) 0.01 (0.00-0.02) K/uL PT 10.2 (9.0-12.0) Seconds INR 1.0 (0.9-1.1) APTT 33.0 H (21.0-31.0) Seconds PTT Ratio 1.3 Sodium 129 L (136-145) mmol/L Potassium 3.9 (3.5-5.1) mmol/L Chloride 96 L (98-107) mmol/L Carbon Dioxide 26 (21-32) mmol/L Anion Gap 7.0 (3-11) BUN 14 (7-18) mg/dl Creatinine 1.06 (0.6-1.4) mg/dl Est Cr Clr Drug Dosing 65.8 ml/min Est GFR ( Amer) 82.0 ml/min Est GFR (Non-Af Amer) 70.8 ml/min BUN/Creatinine Ratio 13.3 (10-20) Glucose 143 H (70-99) mg/dl Calcium 8.3 L (8.5-10.1) mg/dl Magnesium 1.8 (1.8-2.4) mg/dl Total Bilirubin 0.6 (0.2-1) mg/dl AST 132 H (15-37) U/L ALT 80 H (12-78) U/L Alkaline Phosphatase 103 (45-117) U/L Troponin I < 0.015 (0-0.045) ng/ml Total Protein 7.2 (6.4-8.2) gm/dl Albumin 3.1 L (3.4-5.0) gm/dl Globulin 4.1 H (2.5-4.0) gm/dl Albumin/Globulin Ratio 0.8 L (0.9-2) Imaging Data Radiologist's Impression: Chest X-Ray 09/04/21 16:11 XR chest 1V portable CLINICAL HISTORY: sob, hypoxia COMPARISON STUDY: Chest radiograph September 03, 2021. FINDINGS: Right shoulder arthroplasty is partially imaged. Lung volumes are diminished. There is no pneumothorax or pleural effusion. Interval development of mild to moderate bilateral airspace opacities are noted. IMPRESSION: Interval development of mild to moderate bilateral airspace opacities suggestive of viral pneumonia. ACT 112: Negative or not required by law. Electronically signed by: Rolf Garcia M.D. 09/04/2021 5:18 PM ECG Data Attestation: I personally reviewed and interpreted this ECG as follows: Indication: + SOB/dyspnea Rate (beats per minute): 68 Rhythm: + normal sinus ECG Intervals/blocks: + Normal QRS and + Normal QT ECG [place]: + Left axis deviation ECG ST segments: + Normal ST segments MDM Narrative This is a 71-year-old male with known positive coronavirus who presents after discharge yesterday with worsening respiratory symptoms and new hypoxia. Labs stable compared to yesterday, chest x-ray does appear worse. Mild leukopenia and thrombocytopenia noted, these are consistent with yesterday's values also. No MADAI. Troponin negative and EKG unremarkable. Patient hemodynamically stable and felt markedly improved with addition of supplemental oxygen. Case discussed with hospitalist for additional evaluation and treatment. Patient was given a dose of dexamethasone while in the emergency room. Mild hyponatremia was also noted, this was noted yesterday also and is improved. An order was placed for continuous cardiac monitoring. The monitor shows a rate of _76_ with _normal sinus_ rhythm. Impression & Plan Dyspnea, Hypoxia, COVID-19 Discharge Plan Visit Data Chief Complaint: Neuro Symptoms/Deficit Stated Complaint: PULSOX IS LOW ED Provider: Joslyn Cantu Discharge Problem: Dyspnea, Hypoxia, COVID-19 Forms Stand Alone Forms: [employer] [facility] Prescriptions Prescriptions: No Action hydrochlorothiazide 25 mg tablet 25 mg PO QAM Qty: 90 RF: 3 doxazosin 2 mg tablet 2 mg PO HS Qty: 90 RF: 3 irbesartan 300 mg tablet 300 mg PO QAM Qty: 90 RF: 3 aspirin 81 mg tablet,delayed release (DR/EC) 81 mg PO QAM RF: 0 valacyclovir [Valtrex] 1 gram tablet 2,000 mg PO Q12H PRN (Reason: herpes) RF: 0 omeprazole 20 mg capsule,delayed release(DR/EC) 20 mg PO QAM PRN (Reason: Acid Reflux) RF: 0 sennosides [Senokot] 8.6 mg tablet 17.2 mg PO HS PRN (Reason: Constipation) RF: 0 multivitamin Tablet 1 tab PO HS RF: 0 atenolol 50 mg tablet 50 mg PO QAM RF: 0 Referrals Referrals: Ramon Billingsley III, MD [Primary Care Provider] - Discharge Problem: Dyspnea Qualifiers: Dyspnea type: shortness of breath Qualified Code(s): R06.02 - Shortness of breath
--- NOTE | 2021-09-04 18:49 | History & Physical Report ---
Date of Service September 04, 2021 Assessment & Plan (1) COVID-19: Plan: Covid-19 pneumonia. He is also having very poor p.o. intake, dehydration with hyponatremia, and persistent fevers. He is now on day 7-8 of his illness and is decompensating from a respiratory standpoint with increasing O2 requirement. He is still within range to have some benefit from Remdesivir. Renal function is acceptable and while with mild transaminitis, still acceptable to receive Remdesivir I discussed all the treatment options available to him and he is agreeable to proceed with dexamethasone and Remdesivir at this time. We did discuss if his oxygenation requirement continues to progress, that he could be transitioned to high flow nasal cannula versus BiPAP or ultimately mechanical ventilation-he did express that his had concerns about mechanical ventilation in the setting of Covid-19. We did review the risks and benefits of such, and he will think about this and let us know if he desires mechanical ventilation if it becomes necessary in the future -Admit to telemetry unit in the Covid [place] -Continue dexamethasone 6 mg IV once daily -Start Remdesivir x5-day course -Monitor CBC, CMP, CRP -Give 1 L of LR given hyponatremia and dehydration, poor p.o. intake-reassess volume status daily -Counseled on importance of incentive spirometry and prone positioning to improve hypoxemia -No wheezing-no bronchodilators needed at this time -Continue supplemental O2 to keep pulse ox greater than 92%-currently requiring 6 L -If he were to progressed to requiring high flow nasal cannula or BiPAP within the next 72 hours along with elevation of CRP greater than 7.5, he may be a candidate for tocilizumab or baracitinib (2) Hyponatremia: Plan: Sodium 129 which is improved from previous at 127 Almost certainly secondary to very poor p.o. intake and dehydration Continue to hold home HCTZ -Give 1 L of LR and reassess BMP in the morning (3) Hypoxia: Plan: As above, secondary to Covid-19 pneumonia (4) Pre-diabetes: Plan: Hemoglobin A1c most recently was 5.9% Does have some hyperglycemia secondary to corticosteroids Start Accu-Cheks before meals and at bedtime Start NovoLog sliding scale May need to add NPH or basal insulin if hyperglycemia worsens (5) GERD (gastroesophageal reflux disease): Plan: Scheduled daily PPI while on daily steroids as opposed to as needed which is how he takes it at home (6) Hypertension: Plan: Blood pressures are controlled Continue to hold home HCTZ as above for hyponatremia Continue home irbesartan and atenolol (7) Benign prostatic hyperplasia with urinary obstruction: Plan: No acute issues Continue home doxazosin (8) DVT prophylaxis: Plan: Lovenox 40 mg SQ twice daily Plan: Disposition-admit to telemetry unit in the [place]id [place] Full code History of Present Illness Chief Complaint: Shortness of breath Primary Care Provider: Ramon Billingsley MD This patient is a 71-year-old male with a history of HTN, impaired fasting glucose, BPH with LUTS, who presents to the hospital with worsening shortness of breath after being diagnosed with Covid-19 at an ER visit the day prior. He started having symptoms of Covid approximately 7 days ago including fevers, headache, nausea, very poor appetite and p.o. intake, intermittent diarrhea, and myalgias. He has not vaccinated against Covid-19. He was seen in the ER on 09/03 and was treated with IV Toradol, 1 L of normal saline, acetaminophen, and Tessalon Perls. His pulse ox at that time was 93-94% on room air and had a chest x-ray without pneumonia. He had a mild hyponatremia for which he was given IV fluids. He was discharged to home with a pulse oximeter to spot check his oxygen. He then started developing worsening hypoxemia and return to the ER today and was found to have a pulse ox of 82% on room air. When I saw him, he was feeling much improved on 6 L of oxygen mask with a pulse ox of 93%. He does report some cough, but denies chest pains. He has been taking Tylenol and ibuprofen as needed for fevers and his last dose of Tylenol was the morning of 09/04. He reports that he has been taking all his usual medications except he did hold his HCTZ as he knew he was dehydrated. His chest x-ray did show interval development of mild to moderate bilateral airspace opacities suggestive of viral pneumonia. Laboratory values were consistent with Covid-19 with leukopenia and lymphopenia, mild thrombocytopenia, mild transaminitis, and his sodium remained low at 129, however was improved since the previous day. He was given 1 dose of IV Decadron in the ER as well as IV Tylenol. He will be admitted for Covid-19 pneumonia and acute respiratory failure with hypoxia. Allergies Allergy/AdvReac Type Severity Reaction Status Date / Time [place]OR[place] Inhibitors AdvReac Mild cough Verified 09/04/21 17:28 Home Medications Medication Instructions Recorded Confirmed Type aspirin 81 mg tablet,delayed 81 mg PO QAM 01/15/20 09/04/21 History release omeprazole 20 mg capsule,delayed 20 mg PO QAM PRN 04/18/20 09/04/21 History release valacyclovir 1 gram tablet 2,000 mg PO Q12H PRN 04/18/20 08/19/21 History (Valtrex) multivitamin 1 tab PO HS 10/16/20 09/04/21 History sennosides 8.6 mg tablet (Senokot) 17.2 mg PO HS PRN 10/16/20 09/04/21 History hydrochlorothiazide 25 mg tablet 25 mg PO QAM #90 tab 11/17/20 09/04/21 Rx doxazosin 2 mg tablet 2 mg PO HS #90 tab 03/23/21 09/04/21 Rx irbesartan 300 mg tablet 300 mg PO QAM #90 tab 07/30/21 09/04/21 Rx atenolol 50 mg tablet 50 mg PO QAM 09/04/21 09/04/21 History Past Med/Surg History Medical History BPH (benign prostatic hyperplasia) GERD (gastroesophageal reflux disease) controlled Hypertension Impaired fasting glucose Recurrent cold sores No current issues Surgical History History of colonoscopy (01/24/19) Dr Eva Burnette, [facility] [place]. 3 mm rectal polyp, recheck in 5 years History of esophagogastroduodenoscopy (EGD) History of repair of rotator cuff Left History of tonsillectomy and adenoidectomy History of transurethral resection of prostate 2003 S/p reverse total shoulder arthroplasty (04/23/20) Right reverse TSA: 04/23/20: Grade view 1, MAC#3, ETT 7.5 at [facility] Status post lumbar spine surgery for decompression of spinal cord Total knee replacement status R/L (2005) Family History Father Myocardial infarction Brother Myocardial infarction Son Family history of diabetes mellitus Mother Coronary arteriosclerosis Denies family history of Ovarian cancer Prostate cancer Breast cancer Colorectal cancer Social History (Updated 09/04/21 @ 23:55 by Ana María Iniguez MD) Smoking Status: Never smoker Second Hand Exposure: No; Hx Alcohol Use: No Hx Substance Use: No Preferred Language: Chinese Communication Ability: Effective Visual Impairment: No Limitations Hearing Ability: Hard of Hearing Joy Loader Required: No Beliefs That Will Affect Care: None marital status: Current Living Situation: Spouse current occupational status: employed 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 Other Information That Helps Us Care for You: No Feels Safe at Home: Yes Safety Concerns: Feels Safe At This Time Childhood Exposure to Second-Hand Smoke: No Dental Care, Regularly: Yes Physical Activity Frequency: Daily Seatbelt Use: sometimes Sunscreen Use: Yes Review of Systems Review of Systems: All systems reviewed & are unremarkable except as noted in HPI & below Physical Exam Constitutional: WD/WN, vitals as above Eyes: PERRL, conjunctivae normal, anicteric sclerae ENMT: external ear and nose normal, oropharynx normal Neck: trachea midline, no thyromegaly Respiratory: normal respiratory effort and + cough Auscultation: + crackles (Bibasilar); no wheezes Cardiovascular: RRR, no murmur, no edema Chest (Breasts): Chest: normal inspection of chest Gastrointestinal (Abdomen): normal bowel sounds, soft, nontender, no hepatosplenomegaly Musculoskeletal: Extremities: extremities normal to inspection; no cyanosis a nd no clubbing Skin: no rashes, warm and dry Neurologic: moves all extremities and awake; no focal motor deficits Psychiatric: A+Ox3, euthymic affect Lymphatic: no lymphedema Results & Data Results & Data ([facility]) Vital Signs (Past 12 Hours) Vital Signs Temp Pulse Resp BP Pulse Ox 09/04/21 18:00 71 28 H 129/82 93 09/04/21 17:30 74 41 H 127/80 94 09/04/21 17:00 86 36 H 120/81 94 09/04/21 16:30 76 45 H 142/84 H 92 09/04/21 16:17 77 27 H 151/87 H 90 09/04/21 16:09 26 H 82 L 09/04/21 13:32 37.4 C 77 18 134/79 93 Laboratory Results 09/04/21 09/04/21 09/04/21 Range/Units 22:02 16:27 16:27 WBC (4.8-10.8) K/uL RBC (4.7-6.1) M/uL Hgb (14.0-18.0) g/dL Hct (42-52) % MCV (80-100) fL MCH (25-34) pg MCHC (32-36) g/dL RDW Std Deviation (36.4-46.3) fL RDW Coeff of Bhupinder (11.5-14.5) % Plt Count (130-400) K/uL MPV (7.4-10.4) fL Immature Gran % (Auto) % Neut % (Auto) % Lymph % (Auto) % [place] % (Auto) % Eos % (Auto) % Baso % (Auto) % Neut # (Auto) (1.4-6.5) K/uL Lymph # (Auto) (1.2-3.4) K/uL [place] # (Auto) (0.11-0.59) K/uL Eos # (Auto) (0-0.5) K/uL Baso # (Auto) (0-0.2) K/uL Immature Gran # (Auto) (0.00-0.02) K/uL PT 10.2 (9.0-12.0) Seconds INR 1.0 (0.9-1.1) APTT 33.0 H (21.0-31.0) Seconds PTT Ratio 1.3 Sodium 129 L (136-145) mmol/L Potassium 3.9 (3.5-5.1) mmol/L Chloride 96 L (98-107) mmol/L Carbon Dioxide 26 (21-32) mmol/L Anion Gap 7.0 (3-11) BUN 14 (7-18) mg/dl Creatinine 1.06 (0.6-1.4) mg/dl Est Cr Clr Drug Dosing 65.8 ml/min Est GFR ( Amer) 82.0 ml/min Est GFR (Non-Af Amer) 70.8 ml/min BUN/Creatinine Ratio 13.3 (10-20) Glucose 143 H (70-99) mg/dl POC Glucose 210 H (70-99) mg/dl Calcium 8.3 L (8.5-10.1) mg/dl Magnesium 1.8 (1.8-2.4) mg/dl Total Bilirubin 0.6 (0.2-1) mg/dl AST 132 H (15-37) U/L ALT 80 H (12-78) U/L Alkaline Phosphatase 103 (45-117) U/L Troponin I < 0.015 (0-0.045) ng/ml Total Protein 7.2 (6.4-8.2) gm/dl Albumin 3.1 L (3.4-5.0) gm/dl Globulin 4.1 H (2.5-4.0) gm/dl Albumin/Globulin Ratio 0.8 L (0.9-2) 09/04/21 Range/Units 16:27 WBC 4.02 L (4.8-10.8) K/uL RBC 4.76 (4.7-6.1) M/uL Hgb 14.8 (14.0-18.0) g/dL Hct 42.1 (42-52) % MCV 88.4 (80-100) fL MCH 31.1 (25-34) pg MCHC 35.2 (32-36) g/dL RDW Std Deviation 45.6 (36.4-46.3) fL RDW Coeff of Bhupinder 13.8 (11.5-14.5) % Plt Count 128 L (130-400) K/uL MPV 10.5 H (7.4-10.4) fL Immature Gran % (Auto) 0.2 % Neut % (Auto) 82.9 % Lymph % (Auto) 11.2 % [place] % (Auto) 5.7 % Eos % (Auto) 0.0 % Baso % (Auto) 0.0 % Neut # (Auto) 3.33 (1.4-6.5) K/uL Lymph # (Auto) 0.45 L (1.2-3.4) K/uL [place] # (Auto) 0.23 (0.11-0.59) K/uL Eos # (Auto) 0.00 (0-0.5) K/uL Baso # (Auto) 0.00 (0-0.2) K/uL Immature Gran # (Auto) 0.01 (0.00-0.02) K/uL PT (9.0-12.0) Seconds INR (0.9-1.1) APTT (21.0-31.0) Seconds PTT Ratio Sodium (136-145) mmol/L Potassium (3.5-5.1) mmol/L Chloride (98-107) mmol/L Carbon Dioxide (21-32) mmol/L Anion Gap (3-11) BUN (7-18) mg/dl Creatinine (0.6-1.4) mg/dl Est Cr Clr Drug Dosing ml/min Est GFR ( Amer) ml/min Est GFR (Non-Af Amer) ml/min BUN/Creatinine Ratio (10-20) Glucose (70-99) mg/dl POC Glucose (70-99) mg/dl Calcium (8.5-10.1) mg/dl Magnesium (1.8-2.4) mg/dl Total Bilirubin (0.2-1) mg/dl AST (15-37) U/L ALT (12-78) U/L Alkaline Phosphatase (45-117) U/L Troponin I (0-0.045) ng/ml Total Protein (6.4-8.2) gm/dl Albumin (3.4-5.0) gm/dl Globulin (2.5-4.0) gm/dl Albumin/Globulin Ratio (0.9-2) Diagnostic Findings chest x-ray image personally reviewed by me and agree with the following report: Chest X-Ray 09/04/21 16:11 XR chest 1V portable CLINICAL HISTORY: sob, hypoxia COMPARISON STUDY: Chest radiograph September 03, 2021. FINDINGS: Right shoulder arthroplasty is partially imaged. Lung volumes are diminished. There is no pneumothorax or pleural effusion. Interval development of mild to moderate bilateral airspace opacities are noted. IMPRESSION: Interval development of mild to moderate bilateral airspace opacities suggestive of viral pneumonia. ACT 112: Negative or not required by law. Electronically signed by: Rolf Garcia M.D. 09/04/2021 5:18 PM Code Status & VTE Plan Code Status Full code VTE Prophylaxis Plan VTE Prophylaxis will be ordered: Yes PG Care Time/CCT Total # of Minutes Spent Total Time Spent with Patient: Total time spent is greater than 50% in coordination of care (as documented) at patient's floor/unit and/or counseling patient: Coding Level of Care Code 94195 Initial Inpt Care Lvl 3 Diagnoses COVID-19 U07.1 Hyponatremia E87.1 Hypoxia R09.02 Pre-diabetes R73.03 GERD (gastroesophageal reflux disease) K21.9 Hypertension I10 Benign prostatic hyperplasia with urinary obstruction N40.1; N13.8 DVT prophylaxis Z29.9
[2021-09-04] MEDS ORDERED: LACTATED RINGER'S 1,000 ML IV SCH (19:45)
[2021-09-04] MEDS ORDERED: SENNA 8.6 MG TAB PO PRN (22:15)
[2021-09-04] MEDS ORDERED: DEXTROSE 50% 50 ML SYRINGE IV PRN (22:15)
[2021-09-04] MEDS ORDERED: GLUCOSE 10 TABS/TUBE PO PRN (22:15)
[2021-09-04] MEDS ORDERED: CARBOHYDRATES FOR HYPOGLYCEMIA PO PRN (22:15)
[2021-09-04] MEDS ORDERED: GLUCOSE 40% GEL 15 GM TUBE PO PRN (22:15)
[2021-09-04] MEDS ORDERED: GLUCAGON FOR INJ 1 MG VIAL SQ PRN (22:15)
[2021-09-04] MEDS ORDERED: POLYETHYLENE (MIRALAX) 17 GM PACK PO PRN (22:15)
[2021-09-04] MEDS ORDERED: ONDANSETRON INJ 2 MG/ML 2 ML VIAL IV PRN (22:15)
[2021-09-04] MEDS: DOXAZosin MESYLATE TAB 2 MG TAB PO SCH (22:57)
[2021-09-04] MEDS: MULTIVITAMIN TAB PO SCH (22:57)
[2021-09-04] MEDS: ENOXAPARIN INJ 40 MG/0.4 ML SYR SQ SCH (22:58)
[2021-09-04] MEDS: INSULIN ASPART 100 UNITS/ML 3 ML PEN SC SCH (22:59)
[2021-09-05] MEDS ORDERED: COUGH DROP (SUGAR FREE) LOZ 24 LOZ/1 BOX BUCCAL PRN (02:12)
[2021-09-05 06:49] LABS: Hematocrit (blood only) 42.6 % (42-52); Hemoglobin 14.9 g/dL (14.0-18.0); Immature Granulocytes # (auto) 0.02 K/uL (0.00-0.02); Immature Granulocytes % (auto) 0.5 %; Lymphocytes # (auto) 0.67 K/uL (1.2-3.4); Lymphocytes % (auto) 17.5 %; Mean Corpuscular Hemoglobin 31.2 pg (25-34); Mean Corpuscular Volume 89.1 fL (80-100); Mean Platelet Volume 10.4 fL (7.4-10.4); Monocytes # (auto) 0.36 K/uL (0.11-0.59); Monocytes % (auto) 9.4 %; Neutrophils # (auto) 2.77 K/uL (1.4-6.5); Neutrophils % (auto) 72.6 %; Platelet Count 136 K/uL (130-400); RDW Coefficient of Variation 13.8 % (11.5-14.5); RDW Standard Deviation 45.5 fL (36.4-46.3); Red Blood Count 4.78 M/uL (4.7-6.1); White Blood Count 3.82 K/uL (4.8-10.8)
--- NOTE | 2021-09-05 07:08 | Electrocardiogram Report ---
Test Reason : Blood Pressure : / mmHG Vent. Rate : 068 BPM Atrial Rate : 068 BPM P-R Int : 150 ms QRS Dur : 082 ms QT Int : 372 ms P-R-T Axes : 018 -36 110 degrees QTc Int : 395 ms Poor data quality, interpretation may be adversely affected Normal sinus rhythm Left axis deviation T wave abnormality, consider lateral ischemia Abnormal ECG When compared with ECG of 03-SEP-2021 12:22, (unconfirmed) No significant change was found Confirmed by Jitendra Galan ([id number]) on 09/05/2021 7:08:03 AM Referred By: Confirmed By:Javi Galan
[2021-09-05 07:09] LABS: BUN Creatinine Ratio 16.7 (10-20); C Reactive Protein 8.66 mg/dl (0-0.29); Calcium 8.7 mg/dl (8.5-10.1); Creatinine Clr Calc Pharmacy 68.4 ml/min; Est GFR (African American) 85.9 ml/min; Est GFR (Non-African American) 74.1 ml/min; Magnesium 1.9 mg/dl (1.8-2.4); Potassium 4.3 mmol/L (3.5-5.1)
[2021-09-05] MEDS: IRBESARTAN 150 MG TAB PO SCH (08:18)
[2021-09-05] MEDS: dexAMETHasone 6 MG in SYRINGE 0 ML IV SCH (08:18)
[2021-09-05] MEDS: PANTOprazole 40 MG TAB PO SCH (08:18)
[2021-09-05] MEDS: ATENOLOL 50 MG TABLET PO SCH (08:18)
[2021-09-05] MEDS: ASPIRIN 81 MG ECTAB PO SCH (08:18)
[2021-09-05] MEDS: INSULIN ASPART 100 UNITS/ML 3 ML PEN SC SCH ×4 (08:46→21:24)
[2021-09-05] MEDS: 4 mg Once Daily x14 days PO SCH (10:49)
--- NOTE | 2021-09-05 11:41 | Hospitalist Progress Note ---
Date of Service September 05, 2021 Assessment & Plan (1) Acute hypoxemic respiratory failure: Plan: 2nd #1 below. Rapid escalation in O2 requirements overnight/this am to HFNC. (2) Pneumonia due to COVID-19 virus: Plan: Severe disease as evidenced by severe hypoxia and need for HFNC. CRP noted to be 8.6 this am. Day #2 IV dexamethasone 6mg daily. Day #2 Remdesivir. Pulmonary consult by Dr Ken appreciated. Pt meets criteria for use of baricitinib. After much discussion with patient, discussing risks/benefits, etc - baricitinib was initiated. Unfortunately the patient cannot prone due to chronic lumbar DJD issues. Flutter and incentive shawn. Repeat labs in am. Keep I/O balance modestly negative. No further IV fluids. (3) Transaminitis: Plan: 2nd to COVID-19 infection. In light of this + Remdesivir use repeat ast/alt am. (4) Hyponatremia: Plan: 2nd to volume depletion from recent poor oral intake, HCTZ use, etc. s/p IV fluids overnight. Na level: 127 on 09/03, now 133. BMP in am. Hold HCTZ. (5) Pre-diabetes: Plan: a1c 5.9% in 07/2021. loose novolog SSI scale T2DM diet as his bsgs will rise with stress of illness + steroids. (6) GERD (gastroesophageal reflux disease): Plan: PPI (7) Hypertension: Plan: holding HCTZ cont atenolol cont ARB BPs acceptable (8) Disc degeneration, lumbar: Plan: s/p lumbar back surgery in early 2020 despite surgery his back bothers him frequently he cannot prone because of DJD of l-spine (9) Benign prostatic hyperplasia with urinary obstruction: Plan: voiding ok thus far cont alpha camelia (10) DVT prophylaxis: Plan: in light of COVID-19 infection, baricitinib use, etc -- lovenox 40mg BID Plan: extensively updated by phone questions answered her main concerns were that of side effects of COVID therapies including Remdesivir, baricitinib, etc. Admission and Anticipated Discharge Date Admission Date: September 04, 2021 Subjective patient sitting on bedside commode when I entered the room he was requiring high-flow NC at admission was only requiring 2 L he was not in distress and was able to have a full conversation we discussed his illness and treatment options we discussed baricitinib treatment and he asked about the "Blood clot issue" explained to him, given the severity of the illness, that benefits outweighed the risks he reports poor appetite and extreme fatigue cough is dry significant LIZARRAGA is sick with COVID along with several other family members Review of Systems Review of Systems: gen - no fever this am; reports extreme weakness & fatigue CV - no chest pain or orthopnea pulm - no significant sputum production GI - no N/V Physical Exam Physical Exam: gen - sitting on commode, no distress mouth - MM slightly dry neck - no obvious JVD heart - RRR, s1 s2, no murmur lungs - extensive b/l basilar fine rales, no wheeze abd - soft NT ND BS+ ext - no edema, pulses 2+ b/l psych - a/o x 3 Results & Data Results & Data ([facility]) Vital Signs (Past 12 Hours) Vital Signs Temp Pulse Pulse Pulse Resp BP Pulse Ox 09/05/21 11:28 36.9 C 55 L 19 106/66 92 09/05/21 11:17 59 L 22 94 09/05/21 08:38 64 22 91 09/05/21 08:32 09/05/21 07:52 66 09/05/21 06:54 36.8 C 67 20 157/89 H 90 09/05/21 03:44 37.0 C 66 18 153/90 H 89 L Pulse Ox 09/05/21 11:28 09/05/21 11:17 09/05/21 08:38 09/05/21 08:32 84 L 09/05/21 07:52 09/05/21 06:54 09/05/21 03:44 Laboratory Results Laboratory Results - last 24 hr 09/05/21 09/05/21 09/05/21 06:35 06:35 07:23 WBC 3.82 L RBC 4.78 Hgb 14.9 Hct 42.6 MCV 89.1 MCH 31.2 MCHC 35.0 RDW Std Deviation 45.5 RDW Coeff of Bhupinder 13.8 Plt Count 136 MPV 10.4 Immature Gran % (Auto) 0.5 Neut % (Auto) 72.6 Lymph % (Auto) 17.5 [place] % (Auto) 9.4 Eos % (Auto) 0.0 Baso % (Auto) 0.0 Neut # (Auto) 2.77 Lymph # (Auto) 0.67 L [place] # (Auto) 0.36 Eos # (Auto) 0.00 Baso # (Auto) 0.00 Immature Gran # (Auto) 0.02 Sodium 133 L Potassium 4.3 Chloride 101 Carbon Dioxide 25 Anion Gap 7.0 BUN 17 Creatinine 1.02 Est Cr Clr Drug Dosing 68.4 Est GFR ( Amer) 85.9 Est GFR (Non-Af Amer) 74.1 BUN/Creatinine Ratio 16.7 Glucose 158 H POC Glucose 138 H Calcium 8.7 Magnesium 1.9 C-Reactive Protein 8.66 H 09/05/21 09/05/21 09/05/21 11:25 16:35 20:04 WBC RBC Hgb Hct MCV MCH MCHC RDW Std Deviation RDW Coeff of Bhupinder Plt Count MPV Immature Gran % (Auto) Neut % (Auto) Lymph % (Auto) [place] % (Auto) Eos % (Auto) Baso % (Auto) Neut # (Auto) Lymph # (Auto) [place] # (Auto) Eos # (Auto) Baso # (Auto) Immature Gran # (Auto) Sodium Potassium Chloride Carbon Dioxide Anion Gap BUN Creatinine Est Cr Clr Drug Dosing Est GFR ( Amer) Est GFR (Non-Af Amer) BUN/Creatinine Ratio Glucose POC Glucose 164 H 167 H 143 H Calcium Magnesium C-Reactive Protein PG Care Time/CCT Total # of Minutes Spent Total Time Spent with Patient: Total time spent is greater than 50% in coordination of care (as documented) at patient's floor/unit and/or counseling patient: Coding Level of Care Code 12358 Subseq Hosp Care Lvl 3 Diagnoses Acute hypoxemic respiratory failure J96.01 Pneumonia due to COVID-19 virus U07.1; J12.82 Transaminitis R74.01 Hyponatremia E87.1 Pre-diabetes R73.03 GERD (gastroesophageal reflux disease) K21.9 Hypertension I10 Disc degeneration, lumbar M51.36 Benign prostatic hyperplasia with urinary obstruction N40.1; N13.8 DVT prophylaxis Z29.9
[2021-09-05] MEDS: ENOXAPARIN INJ 40 MG/0.4 ML SYR SQ SCH ×2 (12:51→21:02)
--- NOTE | 2021-09-05 14:55 | Pulmonary Consultation ---
Date of Consultation September 05, 2021 Assessment & Plan (1) Pneumonia due to COVID-19 virus: (2) Acute hypoxemic respiratory failure: (3) Morbid obesity due to excess calories: (4) Transaminitis: 71-year-old male with a past medical history of obesity, prediabetes and GERD presenting to the office due to COVID-19 viral pneumonia and acute hypoxemic respiratory failure. He is currently receiving remdesivir 100 mg daily, Decadron 6 mg daily and baricitinib 4 mg p.o. daily. His inflammatory markers are elevated and he is requiring significant amounts of high flow oxygen to support his oxygenation. Self/awake proning encouraged. Pulmonary toileting encouraged. Continue to wean high flow nasal cannula to maintain saturations above 90%. I had to increase his flow rate to 35 L and FiO2 85%. He had questions regarding remdesivir and baricitinib. I encouraged him that the benefits outweigh the risks at this time. We will continue to closely monitor his renal function and LFTs. He does have mild transaminitis likely related to acute Covid illness. He is at high risk for decompensation and worsening respiratory status. If this were to recur, I would recommend consultation with our ICU colleagues. We will sign off at this time. Please call with questions. History of Present Illness Reason for Consultation: Acute hypoxemia in the setting of COVID-19 viral pneumonia Attending Physician: Conner Olivares History of Present Illness 71-year-old male with a past medical history of obesity, hypertension, impaired fasting glucose, BPH presented to the hospital originally on 09/03/2021 and then again on 09/04/2021. He has been having headaches, fevers, poor appetite and increasing shortness of breath for approximately the past 7 days. Pulmonary was consulted due to concerns of worsening hypoxemia. He is currently on Decadron for COVID-19 viral pneumonia. He is also on remdesivir. He is 1.705 L positive since hospital admission. He is currently requiring 30 L of flow and 85% FiO2 via Vapotherm. Chest x-ray is demonstrating worsening bilateral airspace opacities. Patient denies any significant shortness of breath at present. He is sitting up in chair. He denies any prior smoking history. No fevers at present. No chest pain. He is a lifelong thomas. Allergies Allergy/AdvReac Type Severity Reaction Status Date / Time FLORENCE Inhibitors AdvReac Mild cough Verified 09/04/21 17:28 Home Medications Medication Instructions Recorded Confirmed Type aspirin 81 mg tablet,delayed 81 mg PO QAM 01/15/20 09/04/21 History release omeprazole 20 mg capsule,delayed 20 mg PO QAM PRN 04/18/20 09/04/21 History release valacyclovir 1 gram tablet 2,000 mg PO Q12H PRN 04/18/20 08/19/21 History (Valtrex) multivitamin 1 tab PO HS 10/16/20 09/04/21 History sennosides 8.6 mg tablet (Senokot) 17.2 mg PO HS PRN 10/16/20 09/04/21 History hydrochlorothiazide 25 mg tablet 25 mg PO QAM #90 tab 11/17/20 09/04/21 Rx doxazosin 2 mg tablet 2 mg PO HS #90 tab 03/23/21 09/04/21 Rx irbesartan 300 mg tablet 300 mg PO QAM #90 tab 07/30/21 09/04/21 Rx atenolol 50 mg tablet 50 mg PO QAM 09/04/21 09/04/21 History Patient History Medical History (Updated 09/05/21 @ 14:55 by Mukesh Ken MD) Acute hypoxemic respiratory failure BPH (benign prostatic hyperplasia) GERD (gastroesophageal reflux disease) controlled Hypertension Impaired fasting glucose Morbid obesity due to excess calories Pneumonia due to COVID-19 virus Recurrent cold sores No current issues Transaminitis Surgical History History of colonoscopy (01/24/19) Dr Eva Burnette, [facility]. 3 mm rectal polyp, recheck in 5 years History of esophagogastroduodenoscopy (EGD) History of repair of rotator cuff Left History of tonsillectomy and adenoidectomy History of transurethral resection of prostate 2003 S/p reverse total shoulder arthroplasty (04/23/20) Right reverse TSA: 04/23/20: Grade view 1, MAC#3, ETT 7.5 at [facility] Status post lumbar spine surgery for decompression of spinal cord Total knee replacement status R/L (2005) Family History Father Myocardial infarction Brother Myocardial infarction Son Family history of diabetes mellitus Mother Coronary arteriosclerosis Denies family history of Ovarian cancer Prostate cancer Breast cancer Colorectal cancer Social History (Updated 09/04/21 @ 23:55 by Ana María Iniguez MD) Smoking Status: Never smoker Second Hand Exposure: No; Hx Alcohol Use: No Hx Substance Use: No Preferred Language: French Communication Ability: Effective Visual Impairment: No Limitations Hearing Ability: Hard of Hearing Payroll Master Required: No Beliefs That Will Affect Care: None marital status: Current Living Situation: Spouse current occupational status: employed 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 Patient is in no apparent distress. Patient is well-developed. Eyes: Pupils are equal round and reactive to light. Conjunctivae are normal. Anicteric sclera. Ears nose, mouth and throat: No obvious facial deformities. Neck: Trachea is midline. Visual inspection is normal. Respiratory: Diminished bilaterally. No wheezing Cardiovascular: Regular rate and rhythm. No murmurs. No edema. Gastrointestinal: Normal bowel sounds, soft, nontender and nondistended. No hepatosplenomegaly noted. Musculoskeletal: No cyanosis. Patient is able to move all extremities. Strength is 5 out of 5 in the upper and lower extremities. Skin: No rashes, warm dry and intact. Neurologic: No obvious focal neurological deficits seen. Psychiatric: Alert and oriented x3 with a euthymic affect. Results & Data Results & Data ([facility]) Vital Signs (Past 12 Hours) Vital Signs Temp Pulse Pulse Pulse Resp BP Pulse Ox 09/05/21 11:28 98.4 F 55 L 19 106/66 92 09/05/21 11:17 59 L 22 94 09/05/21 08:38 64 22 91 09/05/21 08:32 09/05/21 07:52 66 09/05/21 06:54 98.2 F 67 20 157/89 H 90 09/05/21 03:44 98.6 F 66 18 153/90 H 89 L Pulse Ox 09/05/21 11:28 09/05/21 11:17 09/05/21 08:38 09/05/21 08:32 84 L 09/05/21 07:52 09/05/21 06:54 09/05/21 03:44 PG Care Time/CCT Total # of Minutes Spent Total Time Spent with Patient: Total time spent is greater than 50% in coord ination of care (as documented) at patient's floor/unit and/or counseling patient: Coding Level of Care Code 44829 Inpt Consult Level 5 Diagnoses Pneumonia due to COVID-19 virus U07.1; J12.82 Acute hypoxemic respiratory failure J96.01 Morbid obesity due to excess calories E66.01 Transaminitis R74.01
[2021-09-05] MEDS: SODIUM CHLORIDE 0.9% 10ML FLUSH IV SCH (19:48)
[2021-09-05] MEDS: REMDESIVIR 100mg: Days 2-5 IV SCH (19:48)
[2021-09-05] MEDS: MULTIVITAMIN TAB PO SCH (19:49)
[2021-09-05] MEDS: DOXAZosin MESYLATE TAB 2 MG TAB PO SCH (19:49)
[2021-09-06] MEDS: ACETAMINOPHEN 325 MG TAB PO PRN ×3 (06:07→22:27)
[2021-09-06 06:40] LABS: Hematocrit (blood only) 43.1 % (42-52); Hemoglobin 14.8 g/dL (14.0-18.0); Mean Corpuscular Hemoglobin 30.9 pg (25-34); Mean Corpuscular Hgb Conc 34.3 g/dL (32-36); Mean Platelet Volume 10.4 fL (7.4-10.4); Platelet Count 173 K/uL (130-400); RDW Standard Deviation 46.4 fL (36.4-46.3); Red Blood Count 4.79 M/uL (4.7-6.1); White Blood Count 5.24 K/uL (4.8-10.8)
[2021-09-06 07:02] LABS: BUN Creatinine Ratio 26.5 (10-20); Calcium 8.6 mg/dl (8.5-10.1); Creatinine Clr Calc Pharmacy 73.1 ml/min; Est GFR (African American) 94.8 ml/min; Est GFR (Non-African American) 81.8 ml/min; Potassium 4.1 mmol/L (3.5-5.1)
[2021-09-06 07:03] LABS: C Reactive Protein 5.34 mg/dl (0-0.29)
[2021-09-06 07:04] LABS: Creatinine Clr Calc Pharmacy 68.7 ml/min; Est GFR (Non-African American) 75.9 ml/min
[2021-09-06] MEDS: dexAMETHasone 6 MG in SYRINGE 0 ML IV SCH (08:43)
[2021-09-06] MEDS: IRBESARTAN 150 MG TAB PO SCH (08:43)
[2021-09-06] MEDS: PANTOprazole 40 MG TAB PO SCH (08:43)
[2021-09-06] MEDS: ASPIRIN 81 MG ECTAB PO SCH (08:44)
[2021-09-06] MEDS: ATENOLOL 50 MG TABLET PO SCH (08:44)
[2021-09-06] MEDS: 4 mg Once Daily x14 days PO SCH (08:47)
[2021-09-06] MEDS: INSULIN ASPART 100 UNITS/ML 3 ML PEN SC SCH ×4 (09:00→20:36)
[2021-09-06] MEDS: ENOXAPARIN INJ 40 MG/0.4 ML SYR SQ SCH ×2 (12:36→22:27)
[2021-09-06] MEDS: FAMOTIDINE 20 MG in SYRINGE 3 ML IV SCH ×2 (17:49→20:45)
--- NOTE | 2021-09-06 19:31 | Hospitalist Progress Note ---
Date of Service September 06, 2021 Assessment & Plan (1) Pneumonia due to COVID-19 virus: Plan: Severe disease. Rapid escalation to HFNC in the first 24 hours of his stay. Initial CRP 8.6. Day #3 IV dexamethasone 6mg daily. Day #3 Remdesivir. Day #2 of baricitinib 4mg daily. Cont pulmonary toilet with flutter and incentive shawn. HFNC settings are mildly improved from yesterday. (2) Acute hypoxemic respiratory failure: Plan: 2nd #1 above. Ongoing. HFNC, steroids, etc. (3) Transaminitis: Plan: 2nd to COVID-19 infection. AST/ALT stable, largely unchanged from 09/05. Repeat in am due to Remdesivir usage. (4) Hyponatremia: Plan: Nearly resolved. Na level: 127 on 09/03, now 134. BMP in am. Cont to hold HCTZ. (5) Pre-diabetes: Plan: a1c 5.9% in 07/2021. loose novolog SSI scale T2DM diet as his bsgs will rise with stress of illness + steroids. (6) GERD (gastroesophageal reflux disease): Plan: PPI see early satiety below (7) Hypertension: Plan: holding HCTZ cont atenolol cont ARB BPs acceptable (8) Disc degeneration, lumbar: Plan: s/p lumbar back surgery in early 2020 despite surgery his back bothers him frequently fortunately he is able to prone despite this issue (9) Benign prostatic hyperplasia with urinary obstruction: Plan: voiding fine cont alpha camelia (10) DVT prophylaxis: Plan: in light of COVID-19 infection, baricitinib use, etc -- lovenox 40mg BID (11) Early satiety: Plan: present several months has had EGD in the last few years - [facility]; PUD? check KUB in am - r/o fecal impaction, constipation, etc. add H2 camelia to his PPI after recovery from COVID refer back to GI for this issue Plan: extensively updated by phone once again this evening will ultimately need PT once pulmonary status is improved Admission and Anticipated Discharge Date Admission Date: September 04, 2021 Subjective patient was proning during my visit. he states he is proning about an hour each time. has done so several times since yesterday. he feels a little better today but cough/LIZARRAGA are unchanged. appetite still poor. patient reports that for several months he has had early satiety. no abd pain - but does have bloating. no weight loss. no dysphagia. no nausea. he had an EGD by [facility] in the past - showed ulcers? tele overnight wnl. Review of Systems Review of Systems: gen - no fevers/chills CV - no chest pain, no orthopnea pulm - no dyspnea at rest; +LIZARRAGA GI - no pain, diarrhea resolved Physical Exam Physical Exam: gen - proning; NAD, comfortable heart - RRR, s1 s2, no murmur lungs - b/l basilar fine rales, no wheeze, no increased work of breathing abd - did not examine - patient was proning ext - no edema, pulses 2+ b/l psych - a/o x 3 Results & Data Results & [facility] ([facility]) Vital Signs (Past 12 Hours) Vital Signs Temp Pulse Pulse Resp BP BP Pulse Ox 09/06/21 19:26 36.7 C 64 17 126/75 91 09/06/21 16:03 36.8 C 54 L 22 121/70 92 09/06/21 15:05 63 22 94 09/06/21 11:44 69 19 89 L 09/06/21 11:29 36.7 C 55 L 18 108/66 91 09/06/21 08:00 09/06/21 07:55 53 L 21 91 09/06/21 07:34 36.7 C 50 L 20 131/60 94 Pulse Ox 09/06/21 19:26 09/06/21 16:03 09/06/21 15:05 09/06/21 11:44 09/06/21 11:29 09/06/21 08:00 95 09/06/21 07:55 09/06/21 07:34 Laboratory Results Laboratory Results - last 24 hr 09/05/21 09/06/21 09/06/21 20:04 05:41 05:41 WBC 5.24 RBC 4.79 Hgb 14.8 Hct 43.1 MCV 90.0 MCH 30.9 MCHC 34.3 RDW Std Deviation 46.4 H RDW Coeff of Bhupinder 14.0 Plt Count 173 MPV 10.4 Sodium Potassium Chloride Carbon Dioxide Anion Gap BUN Creatinine 1.00 Est Cr Clr Drug Dosing 68.7 Est GFR ( Amer) 88.0 Est GFR (Non-Af Amer) 75.9 BUN/Creatinine Ratio Glucose POC Glucose 143 H Calcium AST 114 H ALT 84 H C-Reactive Protein 09/06/21 09/06/21 09/06/21 05:41 07:37 11:46 WBC RBC Hgb Hct MCV MCH MCHC RDW Std Deviation RDW Coeff of Bhupinder Plt Count MPV Sodium 134 L Potassium 4.1 Chloride 102 Carbon Dioxide 25 Anion Gap 7.0 BUN 25 H Creatinine 0.94 Est Cr Clr Drug Dosing 73.1 Est GFR ( Amer) 94.8 Est GFR (Non-Af Amer) 81.8 BUN/Creatinine Ratio 26.5 H Glucose 140 H POC Glucose 131 H 179 H Calcium 8.6 AST ALT C-Reactive Protein 5.34 H 09/06/21 17:24 WBC RBC Hgb Hct MCV MCH MCHC RDW Std Deviation RDW Coeff of Bhupinder Plt Count MPV Sodium Potassium Chloride Carbon Dioxide Anion Gap BUN Creatinine Est Cr Clr Drug Dosing Est GFR ( Amer) Est GFR (Non-Af Amer) BUN/Creatinine Ratio Glucose POC Glucose 151 H Calcium AST ALT C-Reactive Protein PG Care Time/CCT Total # of Minutes Spent Total Time Spent with Patient: Total time spent is greater than 50% in coordination of care (as documented) at patient's floor/unit and/or counseling patient: Coding Level of Care Code 14254 Subseq Hosp Care Lvl 3 Diagnoses Acute hypoxemic respiratory failure J96.01 Pneumonia due to COVID-19 virus U07.1; J12.82 Transaminitis R74.01 Hyponatremia E87.1 Pre-diabetes R73.03 GERD (gastroesophageal reflux disease) K21.9 Hypertension I10 Disc degeneration, lumbar M51.36 Benign prostatic hyperplasia with urinary obstruction N40.1; N13.8 DVT prophylaxis Z29.9 Early satiety R68.81
[2021-09-06] MEDS: SODIUM CHLORIDE 0.9% 10ML FLUSH IV SCH (20:35)
[2021-09-06] MEDS: REMDESIVIR 100mg: Days 2-5 IV SCH (20:35)
[2021-09-06] MEDS: MULTIVITAMIN TAB PO SCH (20:44)
[2021-09-06] MEDS: DOXAZosin MESYLATE TAB 2 MG TAB PO SCH (20:45)
--- NOTE | 2021-09-07 07:29 | XRay Report ---
KUB HISTORY: Acute generalized abdominal pain early satiety, eval bowel loops fecal load COMPARISON: Chest radiograph 09/04/2021 FINDINGS: Nonobstructive bowel gas pattern. Colonic stool volume is mild and within normal limits. N o renal calculi. No ureteral calculi. No pneumoperitoneum or pneumatosis.. Laminectomy changes with d iscectomy, posterior interbody kyle and screw fusion at L4-S1. No fracture. IMPRESSION: Nonobstructive bowel gas pattern. ACT 112: Negative or not required by law. The above report was generated using voice recognition software. It may contain grammatical, syntax o r spelling errors. Electronically signed by: Rudolph Louise M.D. 09/07/2021 7:28 AM
--- NOTE | 2021-09-07 07:37 | Hospitalist Progress Note ---
Date of Service September 07, 2021 Assessment & Plan (1) Pneumonia due to COVID-19 virus: Plan: Severe disease. Rapid escalation to HFNC in the first 24 hours of his stay. Initial CRP 8.6. Day #4 IV dexamethasone 6mg daily. Day #4 Remdesivir. Day #3 of baricitinib 4mg daily. Cont pulmonary toilet with flutter and incentive shawn. HFNC is stable at 30L and 60%, making some progress continue to lay prone or on side whenever in bed he is motivated, compliant plan for Lasix 20mg IV tomorrow morning (2) Acute hypoxemic respiratory failure: Plan: due to COVID pneumonia slightly improved to 30L and 60%, continue to try to wean off high flow OOB in chair, incentive spirometer, flutter valve, lay prone Lasix tomorrow (3) Transaminitis: Plan: 2nd to COVID-19 infection. AST/ALT are in the 80's (4) Hyponatremia: Plan: 134 today hold HCTZ give Lasix tomorrow (5) Pre-diabetes: Plan: a1c 5.9% in 07/2021. loose novolog SSI scale T2DM diet (6) GERD (gastroesophageal reflux disease): Plan: PPI see early satiety below (7) Hypertension: Plan: holding HCTZ cont atenolol cont ARB BPs acceptable (8) Disc degeneration, lumbar: Plan: s/p lumbar back surgery in early 2020 despite surgery his back bothers him frequently fortunately he is able to prone despite this issue (9) Benign prostatic hyperplasia with urinary obstruction: Plan: voiding fine cont alpha camelia (10) Early satiety: Plan: present several months has had EGD in the last few years - [facility]; PUD? check KUB in am - r/o fecal impaction, constipation, etc. add H2 camelia to his PPI after recovery from COVID refer back to GI for this issue (11) DVT prophylaxis: Plan: in light of COVID-19 infection, baricitinib use, etc -- lovenox 40mg BID Plan: extensively updated by phone once again this evening will ultimately need PT once pulmonary status is improved Admission and Anticipated Discharge Date Admission Date: September 04, 2021 Subjective patient doing well, sitting up in a chair he is using his incentive spirometer and flutter valve, recording how often he does it eating okay, says he can eat maybe 25-50% of his tray, told him to try eating smaller amounts more frequently he cannot lay prone very easily due to back and shoulder surgeries in the past, can lay on left side he said he normally takes "water pill" every morning but he stopped it when he got COVID due to being worried about dehydration no fever/chills, minimal cough, not much sputum production overall he says he feels better Review of Systems Review of Systems: All systems reviewed & are unremarkable except as noted in Subjective Constitutional: + fatigue and + weakness; no fever Respiratory: + cough, + dyspnea and + dyspnea on exertion Cardiovascular: no chest pain and no edema Physical Exam Physical Exam: General: well developed, well nourished, elderly male, appears ill and weak Neck: supple, trachea midline, normal thyroid Lungs: clear to auscultation bilaterally, + tachypnea, + cough, no accessory muscle use, no distress Heart: regular S1 and S2, no murmur, peripheral pulses normal, capillary refill normal, no edema Abdomen: soft, NT, ND, + BS, no hepatomegaly, normal to percussion Extremities: normal in appearance, no cyanosis, no petechiae, strength is 5/5 bilaterally Neuro: awake, cooperative, moves all extremities, no focal motor deficits, CN II-XII intact, sensation in extremities intact, normal speech Skin: warm, dry, no rash, normal turgor Psych: Awake, alert oriented x 3, euthymic affect Results & Data Results & Data ([facility]) Vital Signs (Past 12 Hours) Vital Signs Temp Pulse Pulse Resp BP Pulse Ox 09/07/21 04:16 36.6 C 70 22 125/78 91 09/07/21 03:17 60 18 90 09/07/21 00:10 73 09/06/21 23:44 36.7 C 60 18 142/75 H 95 09/06/21 23:30 67 18 91 09/06/21 20:39 36.8 C 57 L 22 128/77 91 Laboratory Results Laboratory Results - last 24 hr 09/06/21 09/06/21 09/06/21 11:46 17:24 20:32 Sodium Potassium Chloride Carbon Dioxide Anion Gap BUN Creatinine Est Cr Clr Drug Dosing Est GFR ( Amer) Est GFR (Non-Af Amer) BUN/Creatinine Ratio Glucose POC Glucose 179 H 151 H 142 H Calcium AST ALT 09/07/21 09/07/21 07:04 07:47 Sodium 134 L Potassium 4.2 Chloride 103 Carbon Dioxide 24 Anion Gap 7.0 BUN 29 H Creatinine 0.92 Est Cr Clr Drug Dosing 74.2 Est GFR ( Amer) 97.3 Est GFR (Non-Af Amer) 84.0 BUN/Creatinine Ratio 31.7 H Glucose 142 H POC Glucose 131 H Calcium 8.5 AST 88 H ALT 80 H Medications Administered Current Inpatient Medications Acetaminophen (Acetaminophen 325 Mg Tab) 650 mg PO Q4H PRN PRN Reason: Pain or Fever Stop: 10/04/21 22:14 Last Admin: 09/07/21 09:53 Dose: 650 mg Documented by: Aspirin (Aspirin 81 Mg Ectab) 81 mg PO QAM [facility] Stop: 10/05/21 08:59 Last Admin: 09/07/21 08:39 Dose: 81 mg Documented by: Atenolol (A[facility]olol 50 Mg Tablet) [facility]: 10/05/21 08:59 Last Admin: 09/07/21 08:39 Dose: 50 mg Documented by: Baricitinib (4 Mg Once Daily X14 Days) 4 mg PO DAILY [facility]; Protocol Stop: 09/19/21 09:29 Last Admin: 09/07/21 09:53 Dose: 4 mg Documented by: Dextrose (Dextrose 50% 50 Ml Syringe) 25 - 50 ml IV UD PRN; Protocol PRN Reason: Hypoglycemia Protocol Stop: 10/04/21 22:14 Doxazosin Mesylate (Doxazosin Mesylate Tab 2 Mg Tab) 2 mg PO HS [facility] Stop: 10/04/21 22:14 Last Admin: 09/06/21 20:45 Dose: 2 mg Documented by: Enoxaparin Sodium (Enoxaparin Inj 40 Mg/0.4 Ml Syr) 40 mg SQ Q12H [facility] Stop: 10/04/21 22:59 Last Admin: 09/06/21 22:27 Dose: 40 mg Documented by: Glucagon (Glucagon For Inj 1 Mg Vial) 1 mg SQ UD PRN; Protocol PRN Reason: Hypoglycemia Protocol Stop: 10/04/21 22:14 Glucose (Glucose 10 Tabs/Tube) 4 - 8 tabs PO UD PRN; Protocol PRN Reason: Hypoglycemia Protocol Stop: 10/04/21 22:14 Glucose (Glucose 40% Gel 15 Gm Tube) 15 - 30 gm PO UD PRN; Protocol PRN Reason: Hypoglycemia Protocol Stop: 10/04/21 22:14 Dexamethasone 6 mg/ Syringe 1.5 mls @ 1 mls/min IV QAM [facility] Stop: 10/05/21 08:59 Last Admin: 09/07/21 08:39 Dose: 1 mls/min Documented by: Remdesivir 100 mg/ Sodium (Chloride) 250 mls @ 250 mls/hr IV Q24H [facility]; Protocol Stop: 09/08/21 20:59 Last Infusion: 09/06/21 21:44 Dose: Infused Documented by: Famotidine 20 mg/ Syringe 5 mls @ 2.5 mls/min IV BID [facility] Stop: 10/06/21 15:59 Last Admin: 09/07/21 09:53 Dose: 2.5 mls/min Documented by: Insulin Aspart (Insulin Aspart 100 Units/Ml 3 Ml Pen) 0 units SC ACHS [facility] Stop: 10/04/21 22:59 Last Admin: 09/07/21 08:41 Dose: 3 units Documented by: Irbesartan (Irbesartan 150 Mg Tab) 300 mg PO QAM [facility] Stop: 10/05/21 08:59 Last Admin: 09/07/21 08:39 Dose: 300 mg Documented by: Menthol (Cough Drop (Sugar Free) Gabbie 24 Gabbie/1 Box) 0 gabbie BUCCAL PRN PRN; Protocol PRN Reason: NURSING DECISION Stop: 10/05/21 02:11 Miscellaneous (Carbohydrates For Hypoglycemia ) 15 - 30 gm PO UD PRN PRN Reason: Hypoglycemia Protocol Stop: 10/04/21 22:14 Multivitamins (Multivitamin Tab) 1 tab PO HS [facility] Stop: 10/04/21 22:14 Last Admin: 09/06/21 20:44 Dose: 1 tab Documented by: Ondansetron HCl (Ondansetron Inj 2 Mg/Ml 2 Ml Vial) 4 mg IV Q6H PRN PRN Reason: Nausea Stop: 10/04/21 22:14 Pantoprazole Sodium (Pantoprazole 40 Mg Tab) 40 mg PO QAM [facility] Stop: 10/05/21 08:59 Last Admin: 09/07/21 08:39 Dose: 40 mg Documented by: Polyethylene Glycol (Polyethylene (Miralax) 17 Gm Pack) 17 gm PO DAILY PRN PRN Reason: Constipation Stop: 10/04/21 22:14 Sennosides (Senna 8.6 Mg Tab) 17.2 mg PO HS PRN PRN Reason: Constipation Stop: 10/04/21 22:14 Sodium Chloride (Sodium Chloride 0.9% 10ml Flush) 30 ml IV Q24H [facility] Stop: 09/08/21 20:01 Last Admin: 09/06/21 20:35 Dose: 30 ml Documented by: PG Care Time/CCT Total # of Minutes Spent Total Time Spent with Patient: Total time spent is greater than 50% in coordination of care (as documented) at patient's floor/unit and/or counseling patient: Coding Level of Care Code 59479 Subseq Hosp Care Lvl 3 Diagnoses Pneumonia due to COVID-19 virus U07.1; J12.82 Acute hypoxemic respiratory failure J96.01 Transaminitis R74.01 Hyponatremia E87.1 Pre-diabetes R73.03 GERD (gastroesophageal reflux disease) K21.9 Hypertension I10 Disc degeneration, lumbar M51.36 Benign prostatic hyperplasia with urinary obstruction N40.1; N13.8 DVT prophylaxis Z29.9 Early satiety R68.81
[2021-09-07 08:27] LABS: BUN Creatinine Ratio 31.7 (10-20); Calcium 8.5 mg/dl (8.5-10.1); Creatinine Clr Calc Pharmacy 74.2 ml/min; Est GFR (African American) 97.3 ml/min; Potassium 4.2 mmol/L (3.5-5.1)
[2021-09-07] MEDS: ASPIRIN 81 MG ECTAB PO SCH (08:39)
[2021-09-07] MEDS: IRBESARTAN 150 MG TAB PO SCH (08:39)
[2021-09-07] MEDS: dexAMETHasone 6 MG in SYRINGE 0 ML IV SCH (08:39)
[2021-09-07] MEDS: ATENOLOL 50 MG TABLET PO SCH (08:39)
[2021-09-07] MEDS: PANTOprazole 40 MG TAB PO SCH (08:39)
[2021-09-07] MEDS: INSULIN ASPART 100 UNITS/ML 3 ML PEN SC SCH ×4 (08:41→19:50)
[2021-09-07] MEDS: FAMOTIDINE 20 MG in SYRINGE 3 ML IV SCH ×2 (09:53→20:05)
[2021-09-07] MEDS: 4 mg Once Daily x14 days PO SCH (09:53)
[2021-09-07] MEDS: ACETAMINOPHEN 325 MG TAB PO PRN ×2 (09:53→22:04)
[2021-09-07] MEDS: ENOXAPARIN INJ 40 MG/0.4 ML SYR SQ SCH ×2 (12:57→22:04)
[2021-09-07] MEDS: SODIUM CHLORIDE 0.9% 10ML FLUSH IV SCH (19:42)
[2021-09-07] MEDS: REMDESIVIR 100mg: Days 2-5 IV SCH (19:42)
[2021-09-07] MEDS: MULTIVITAMIN TAB PO SCH (19:48)
[2021-09-07] MEDS: DOXAZosin MESYLATE TAB 2 MG TAB PO SCH (19:48)
[2021-09-08 07:42] LABS: Creatinine Clr Calc Pharmacy 71.1 ml/min; Est GFR (African American) 92.4 ml/min; Est GFR (Non-African American) 79.8 ml/min
[2021-09-08] MEDS: FAMOTIDINE 20 MG in SYRINGE 3 ML IV SCH ×2 (08:34→20:21)
[2021-09-08] MEDS: dexAMETHasone 6 MG in SYRINGE 0 ML IV SCH (08:34)
[2021-09-08] MEDS: FUROSEMIDE 20 MG in SYRINGE 0 ML IV SCH (08:34)
[2021-09-08] MEDS: ASPIRIN 81 MG ECTAB PO SCH (08:37)
[2021-09-08] MEDS: IRBESARTAN 150 MG TAB PO SCH (08:37)
[2021-09-08] MEDS: PANTOprazole 40 MG TAB PO SCH (08:37)
[2021-09-08] MEDS: ATENOLOL 50 MG TABLET PO SCH (08:38)
[2021-09-08] MEDS: INSULIN ASPART 100 UNITS/ML 3 ML PEN SC SCH ×4 (08:40→20:28)
[2021-09-08] MEDS: 4 mg Once Daily x14 days PO SCH (08:58)
--- NOTE | 2021-09-08 10:01 | Hospitalist Progress Note ---
Date of Service September 08, 2021 Assessment & Plan (1) Pneumonia due to COVID-19 virus: Plan: Severe disease. Rapid escalation to HFNC in the first 24 hours of his stay. Initial CRP 8.6. Day #5 IV dexamethasone 6mg daily. Day #5 Remdesivir. Day #4 of baricitinib 4mg daily. Cont pulmonary toilet with flutter and incentive shawn. HFNC is stable at 30L and 65% continue to lay prone or on side whenever in bed he is motivated, compliant start Lasix 20mg IV qAM to keep neg fluid balancre BMP in AM (2) Acute hypoxemic respiratory failure: Plan: due to COVID pneumonia stable at 30L and 65%, continue to try to wean off high flow OOB in chair, incentive spirometer, flutter valve, lay prone Lasix daily he is very compliant, just needs encouragement (3) Transaminitis: Plan: 2nd to COVID-19 infection. AST/ALT are stable (4) Hyponatremia: Plan: stopped HCTZ Lasix 20mg IV BMP in morning (5) Pre-diabetes: Plan: a1c 5.9% in 07/2021. loose novolog SSI scale T2DM diet monitor sugars, no major issues (6) GERD (gastroesophageal reflux disease): Plan: PPI see early satiety below (7) Hypertension: Plan: holding HCTZ cont atenolol cont ARB BPs acceptable (8) Disc degeneration, lumbar: Plan: s/p lumbar back surgery in early 2020 despite surgery his back bothers him frequently fortunately he is able to prone despite this issue (9) Benign prostatic hyperplasia with urinary obstruction: Plan: voiding fine cont alpha camelia (10) Early satiety: Plan: present several months has had EGD in the last few years - [facility]; PUD? check KUB in am - r/o fecal impaction, constipation, etc. add H2 camelia to his PPI after recovery from COVID refer back to GI for this issue (11) DVT prophylaxis: Plan: in light of COVID-19 infection, baricitinib use, etc -- lovenox 40mg BID Plan: extensively updated by phone once again this evening will ultimately need PT once pulmonary status is improved Admission and Anticipated Discharge Date Admission Date: September 04, 2021 Subjective patient sitting in his chair, feels okay, just feeling a little down and depressed feels like he should be getting better faster, assured him that he is on par for the course he is about 12 days into his illness at this point he is stable on 30L and 65% eating well, got Lasix this morning to keep his on negative fluid balance long talk, encouraged him to stay strong, find things to keep his mind pr eoccupied will check labs tomorrow Review of Systems Review of Systems: All systems reviewed & are unremarkable except as noted in Subjective Constitutional: + fatigue and + weakness Respiratory: + cough and + dyspnea Psychiatric: + depression Physical Exam Physical Exam: General: well developed, well nourished, elderly male, appears ill and weak Neck: supple, trachea midline, normal thyroid Lungs: clear to auscultation bilaterally, + tachypnea, + cough, no accessory muscle use, no distress Heart: regular S1 and S2, no murmur, peripheral pulses normal, capillary refill normal, no edema Abdomen: soft, NT, ND, + BS, no hepatomegaly, normal to percussion Extremities: normal in appearance, no cyanosis, no petechiae, strength is 5/5 bilaterally Neuro: awake, cooperative, moves all extremities, no focal motor deficits, CN II-XII intact, sensation in extremities intact, normal speech Skin: warm, dry, no rash, normal turgor Psych: Awake, alert oriented x 3, euthymic affect Results & Data Results & Data ([facility]) Vital Signs (Past 12 Hours) Vital Signs Temp Pulse Pulse Resp BP Pulse Ox 09/08/21 08:00 54 L 20 90 09/08/21 07:26 36.5 C 81 23 108/67 93 09/08/21 05:06 36.6 C 62 22 126/67 94 09/08/21 03:29 49 L 22 93 09/08/21 02:10 45 L 09/07/21 23:16 36.7 C 38 L 18 141/75 H 93 09/07/21 23:05 50 L 22 93 Laboratory Results Laboratory Results - last 24 hr 09/07/21 09/07/21 09/07/21 11:37 16:53 19:40 Creatinine Est Cr Clr Drug Dosing Est GFR ( Amer) Est GFR (Non-Af Amer) POC Glucose 195 H 135 H 157 H AST ALT 09/08/21 09/08/21 07:04 07:59 Creatinine 0.96 Est Cr Clr Drug Dosing 71.1 Est GFR ( Amer) 92.4 Est GFR (Non-Af Amer) 79.8 POC Glucose 111 H AST 62 H ALT 80 H Medications Administered Current Inpatient Medications Acetaminophen (Acetaminophen 325 Mg Tab) 650 mg PO Q4H PRN PRN Reason: Pain or Fever Stop: 10/04/21 22:14 Last Admin: 09/07/21 22:04 Dose: 650 mg Documented by: Aspirin (Aspirin 81 Mg Ectab) 81 mg PO QAM [facility] Stop: 10/05/21 08:59 Last Admin: 09/08/21 08:37 Dose: 81 mg Documented by: Atenolol (Atenolol 50 Mg Tablet) 50 mg PO QAM [facility] Stop: 10/05/21 08:59 Last Admin: 09/08/21 08:38 Dose: 50 mg Documented by: Baricitinib (4 Mg Once Daily X14 Days) 4 mg PO DAILY [facility]; Protocol Stop: 09/19/21 09:29 Last Admin: 09/08/21 08:58 Dose: 4 mg Documented by: Dextrose (Dextrose 50% 50 Ml Syringe) 25 - 50 ml IV UD PRN; Protocol PRN Reason: Hypoglycemia Protocol Stop: 10/04/21 22:14 Doxazosin Mesylate (Doxazosin Mesylate Tab 2 Mg Tab) 2 mg PO HS [facility] Stop: 10/04/21 22:14 Last Admin: 09/07/21 19:48 Dose: 2 mg Documented by: Enoxaparin Sodium (Enoxaparin Inj 40 Mg/0.4 Ml Syr) 40 mg SQ Q12H [facility] Stop: 10/04/21 22:59 Last Admin: 09/07/21 22:04 Dose: 40 mg Documented by: Glucagon (Glucagon For Inj 1 Mg Vial) 1 mg SQ UD PRN; Protocol PRN Reason: Hypoglycemia Protocol Stop: 10/04/21 22:14 Glucose (Glucose 10 Tabs/Tube) 4 - 8 tabs PO UD PRN; Protocol PRN Reason: Hypoglycemia Protocol Stop: 10/04/21 22:14 Glucose (Glucose 40% Gel 15 Gm Tube) 15 - 30 gm PO UD PRN; Protocol PRN Reason: Hypoglycemia Protocol Stop: 10/04/21 22:14 Dexamethasone 6 mg/ Syringe 1.5 mls @ 1 mls/min IV QAM [facility] Stop: 10/05/21 08:59 Last Admin: 09/08/21 08:34 Dose: 1 mls/min Documented by: Remdesivir 100 mg/ Sodium (Chloride) 250 mls @ 250 mls/hr IV Q24H [facility]; Protocol Stop: 09/08/21 20:59 Last Infusion: 09/07/21 20:55 Dose: Infused Documented by: Famotidine 20 mg/ Syringe 5 mls @ 2.5 mls/min IV BID [facility] Stop: 10/06/21 15:59 Last Admin: 09/08/21 08:34 Dose: 2.5 mls/min Documented by: Furosemide 20 mg/ Syringe 2 mls @ 4 mls/min IV QAM [facility] Stop: 10/08/21 08:59 Last Admin: 09/08/21 08:34 Dose: 4 mls/min Documented by: Insulin Aspart (Insulin Aspart 100 Units/Ml 3 Ml Pen) 0 units SC [facility] Stop: 10/04/21 22:59 Last Admin: 09/08/21 08:40 Dose: 3 units Documented by: Irbesartan (Irbesartan 150 Mg Tab) 300 mg PO [facility] Stop: 10/05/21 08:59 Last Admin: 09/08/21 08:37 Dose: 300 mg Documented by: Menthol (Cough Drop (Sugar Free) Gabbie 24 Gabbie/1 Box) 0 gabbie BUCCAL PRN PRN; Protocol PRN Reason: NURSING DECISION Stop: 10/05/21 02:11 Miscellaneous (Carbohydrates For Hypoglycemia ) 15 - 30 gm PO UD PRN PRN Reason: Hypoglycemia Protocol Stop: 10/04/21 22:14 Multivitamins (Multivitamin Tab) 1 tab PO [facility] Stop: 10/04/21 22:14 Last Admin: 09/07/21 19:48 Dose: 1 tab Documented by: Ondansetron HCl (Ondansetron Inj 2 Mg/Ml 2 Ml Vial) 4 mg IV Q6H PRN PRN Reason: Nausea Stop: 10/04/21 22:14 Pantoprazole Sodium ([facility] 40 Mg Tab) [facility] Stop: 10/05/21 08:59 Last Admin: 09/08/21 08:37 Dose: 40 mg Documented by: Polyethylene Glycol (Polyethylene (Miralax) 17 Gm Pack) 17 gm PO DAILY PRN PRN Reason: Constipation Stop: 10/04/21 22:14 Sennosides (Senna 8.6 Mg Tab) 17.2 mg PO HS PRN PRN Reason: Constipation Stop: 10/04/21 22:14 Sodium Chloride (Sodium Chloride 0.9% 10ml Flush) 30 ml IV Q24H [facility] Stop: 09/08/21 20:01 Last Admin: 09/07/21 19:42 Dose: 30 ml Documented by: PG Care Time/CCT Total # of Minutes Spent Total Time Spent with Patient: Total time spent is greater than 50% in coordination of care (as documented) at patient's floor/unit and/or counseling patient: Coding Level of Care Code 79421 Subseq Hosp Care Lvl 3 Diagnoses Pneumonia due to COVID-19 virus U07.1; J12.82 Acute hypoxemic respiratory failure J96.01 Transaminitis R74.01 Hyponatremia E87.1 Pre-diabetes R73.03 GERD (gastroesophageal reflux disease) K21.9 Hypertension I10 Disc degeneration, lumbar M51.36 Benign prostatic hyperplasia with urinary obstruction N40.1; N13.8 Early satiety R68.81 DVT prophylaxis Z29.9
[2021-09-08] MEDS: ENOXAPARIN INJ 40 MG/0.4 ML SYR SQ SCH ×2 (11:00→22:14)
[2021-09-08] MEDS: ACETAMINOPHEN 325 MG TAB PO PRN ×2 (11:00→21:27)
[2021-09-08] MEDS: REMDESIVIR 100mg: Days 2-5 IV SCH (20:16)
[2021-09-08] MEDS: MULTIVITAMIN TAB PO SCH (20:23)
[2021-09-08] MEDS: DOXAZosin MESYLATE TAB 2 MG TAB PO SCH (20:25)
[2021-09-08] MEDS: SODIUM CHLORIDE 0.9% 10ML FLUSH IV SCH (21:22)
[2021-09-09 07:54] LABS: Hemoglobin 15.2 g/dL (14.0-18.0); Mean Corpuscular Hemoglobin 31.2 pg (25-34); Mean Corpuscular Hgb Conc 35.3 g/dL (32-36); Mean Corpuscular Volume 88.3 fL (80-100); Platelet Count 268 K/uL (130-400); RDW Coefficient of Variation 13.9 % (11.5-14.5); Red Blood Count 4.87 M/uL (4.7-6.1); White Blood Count 12.18 K/uL (4.8-10.8)
[2021-09-09 08:21] LABS: BUN Creatinine Ratio 34.3 (10-20); C Reactive Protein 1.34 mg/dl (0-0.29); Calcium 8.4 mg/dl (8.5-10.1); Creatinine Clr Calc Pharmacy 65.6 ml/min; Est GFR (African American) 84.9 ml/min; Est GFR (Non-African American) 73.3 ml/min
[2021-09-09] MEDS: ASPIRIN 81 MG ECTAB PO SCH (08:42)
[2021-09-09] MEDS: PANTOprazole 40 MG TAB PO SCH (08:42)
[2021-09-09] MEDS: dexAMETHasone 6 MG in SYRINGE 0 ML IV SCH (08:42)
[2021-09-09] MEDS: IRBESARTAN 150 MG TAB PO SCH (08:42)
[2021-09-09] MEDS: FUROSEMIDE 20 MG in SYRINGE 0 ML IV SCH (08:43)
[2021-09-09] MEDS: INSULIN ASPART 100 UNITS/ML 3 ML PEN SC SCH ×4 (09:25→20:40)
[2021-09-09] MEDS: ENOXAPARIN INJ 40 MG/0.4 ML SYR SQ SCH ×2 (09:54→22:07)
[2021-09-09] MEDS: 4 mg Once Daily x14 days PO SCH (09:54)
[2021-09-09] MEDS: FAMOTIDINE 20 MG in SYRINGE 3 ML IV SCH ×2 (09:54→20:33)
--- NOTE | 2021-09-09 12:57 | Hospitalist Progress Note ---
Date of Service September 09, 2021 Assessment & Plan (1) Pneumonia due to COVID-19 virus: Plan: Severe disease. Rapid escalation to HFNC in the first 24 hours of his stay. Initial CRP 8.6. Day #6 IV dexamethasone 6mg daily. completed 5 days of Remdesivir. Day #5 of baricitinib 4mg daily. Cont pulmonary toilet with flutter and incentive shawn. HFNC is down to 25L and 50%, might be able to switch to wall high flow today continue to lay prone or on side whenever in bed he is motivated, compliant start Lasix 20mg IV qAM to keep neg fluid balancre Cr is 1.0 and K is 4.0 (2) Acute hypoxemic respiratory failure: Plan: due to COVID pneumonia stable at 25L and 50%, continue to try to wean off high flow OOB in chair, incentive spirometer, flutter valve, lay prone Lasix daily he is very compliant, just needs encouragement (3) Transaminitis: Plan: 2nd to COVID-19 infection. AST/ALT are stable (4) Hyponatremia: Plan: stopped HCTZ Lasix 20mg IV Na is 137 (5) Pre-diabetes: Plan: a1c 5.9% in 07/2021. loose novolog SSI scale T2DM diet monitor sugars, no major issues (6) GERD (gastroesophageal reflux disease): Plan: PPI see early satiety below (7) Hypertension: Plan: holding HCTZ cont atenolol cont ARB BPs acceptable (8) Disc degeneration, lumbar: Plan: s/p lumbar back surgery in early 2020 despite surgery his back bothers him frequently fortunately he is able to prone despite this issue (9) Benign prostatic hyperplasia with urinary obstruction: Plan: voiding fine cont alpha camelia (10) Early satiety: Plan: present several months has had EGD in the last few years - [facility]; PUD? check KUB in am - r/o fecal impaction, constipation, etc. add H2 camelia to his PPI after recovery from COVID refer back to GI for this issue (11) DVT prophylaxis: Plan: in light of COVID-19 infection, baricitinib use, etc -- lovenox 40mg BID Plan: continue to wean oxygen, hope to discharge by end of weekend Admission and Anticipated Discharge Date Admission Date: September 04, 2021 Subjective patient continues to improve, down to 25L and 50%, might be able to try wall high flow today he is complaining about how much flow the oxygen makes he is eating well, sleeping well he can pull 1750mL on his incentive spirometer labs reviewed, CRP down to 1, Cr stable at 1, WBC is 12k he continues to lay prone during the day and night which is helping Review of Systems Review of Systems: All systems reviewed & are unremarkable except as noted in Subjective Physical Exam Physical Exam: General: well developed, well nourished, elderly male, appears ill and weak Neck: supple, trachea midline, normal thyroid Lungs: clear to auscultation bilaterally, normal effort, minimal cough, no accessory muscle use, no distress Heart: regular S1 and S2, no murmur, peripheral pulses normal, capillary refill normal, no edema Abdomen: soft, NT, ND, + BS, no hepatomegaly, normal to percussion Extremities: normal in appearance, no cyanosis, no petechiae, strength is 5/5 bilaterally Neuro: awake, cooperative, moves all extremities, no focal motor deficits, CN II-XII intact, sensation in extremities intact, normal speech Skin: warm, dry, no rash, normal turgor Psych: Awake, alert oriented x 3, euthymic affect Results & Data Results & Data ([facility]) Vital Signs (Past 12 Hours) Vital Signs Temp Pulse Pulse Resp BP BP Pulse Ox 09/09/21 11:30 36.5 C 63 22 95/64 L 93 09/09/21 10:09 54 L 19 90 09/09/21 08:45 54 L 09/09/21 08:01 36.4 C L 55 L 22 106/77 90 09/09/21 06:57 44 L 18 91 09/09/21 03:09 46 L 16 91 09/09/21 01:09 54 L Laboratory Results Laboratory Results - last 24 hr 09/08/21 09/08/21 09/09/21 16:55 20:27 07:02 WBC RBC Hgb Hct MCV MCH MCHC RDW Std Deviation RDW Coeff of Bhupinder Plt Count MPV Sodium 137 Potassium 4.0 Chloride 104 Carbon Dioxide 25 Anion Gap 8.0 BUN 35 H Creatinine 1.03 Est Cr Clr Drug Dosing 65.6 Est GFR ( Amer) 84.9 Est GFR (Non-Af Amer) 73.3 BUN/Creatinine Ratio 34.3 H Glucose 101 H POC Glucose 144 H 133 H Calcium 8.4 L AST 45 H ALT 69 C-Reactive Protein 1.34 H 09/09/21 09/09/21 09/09/21 07:02 07:38 11:28 WBC 12.18 H RBC 4.87 Hgb 15.2 Hct 43.0 MCV 88.3 MCH 31.2 MCHC 35.3 RDW Std Deviation 45.0 RDW Coeff of Bhupinder 13.9 Plt Count 268 MPV 10.0 Sodium Potassium Chloride Carbon Dioxide Anion Gap BUN Creatinine Est Cr Clr Drug Dosing Est GFR ( Amer) Est GFR (Non-Af Amer) BUN/Creatinine Ratio Glucose POC Glucose 89 194 H Calcium AST ALT C-Reactive Protein Medications Administered Current Inpatient Medications Acetaminophen (Acetaminophen 325 Mg Tab) 650 mg PO Q4H PRN PRN Reason: Pain or Fever Stop: 10/04/21 22:14 Last Admin: 09/08/21 21:27 Dose: 650 mg Documented by: Aspirin (Aspirin 81 Mg Ectab) 81 mg PO QAM [facility] Stop: 10/05/21 08:59 Last Admin: 09/09/21 08:42 Dose: 81 mg Documented by: Atenolol (Atenolol 50 Mg Tablet) 50 mg PO QAM [facility] Stop: 10/05/21 08:59 Last Admin: 09/08/21 08:38 Dose: 50 mg Documented by: Baricitinib (4 Mg Once Daily X14 Days) 4 mg PO DAILY [facility]; Protocol Stop: 09/19/21 09:29 Last Admin: 09/09/21 09:54 Dose: 4 mg Documented by: Dextrose (Dextrose 50% 50 Ml Syringe) 25 - 50 ml IV UD PRN; Protocol PRN Reason: Hypoglycemia Protocol Stop: 10/04/21 22:14 Doxazosin Mesylate (Doxazosin Mesylate Tab 2 Mg Tab) 2 mg PO HS [facility] Stop: 10/04/21 22:14 Last Admin: 09/08/21 20:25 Dose: 2 mg Documented by: Enoxaparin Sodium (Enoxaparin Inj 40 Mg/0.4 Ml Syr) 40 mg SQ Q12H [facility] Stop: 10/04/21 22:59 Last Admin: 09/09/21 09:54 Dose: 40 mg Documented by: Glucagon (Glucagon For Inj 1 Mg Vial) 1 mg SQ UD PRN; Protocol PRN Reason: Hypoglycemia Protocol Stop: 10/04/21 22:14 Glucose (Glucose 10 Tabs/Tube) 4 - 8 tabs PO UD PRN; Protocol PRN Reason: Hypoglycemia Protocol Stop: 10/04/21 22:14 Glucose (Glucose 40% Gel 15 Gm Tube) 15 - 30 gm PO UD PRN; Protocol PRN Reason: Hypoglycemia Protocol Stop: 10/04/21 22:14 Dexamethasone 6 mg/ Syringe 1.5 mls @ 1 mls/min IV QAM [facility] Stop: 10/05/21 08:59 Last Admin: 09/09/21 08:42 Dose: 1 mls/min Documented by: Famotidine 20 mg/ Syringe 5 mls @ 2.5 mls/min IV BID [facility] Stop: 10/06/21 15:59 Last Admin: 09/09/21 09:54 Dose: 2.5 mls/min Documented by: Furosemide 20 mg/ Syringe 2 mls @ 4 mls/min IV QAM [facility] Stop: 10/08/21 08:59 Last Admin: 09/09/21 08:43 Dose: 4 mls/min Documented by: Insulin Aspart (Insulin Aspart 100 Units/Ml 3 Ml Pen) 0 units SC ACHS [facility] Stop: 10/04/21 22:59 Last Admin: 09/09/21 09:25 Dose: 3 units Documented by: Irbesartan (Irbesartan 150 Mg Tab) 300 mg PO QAM [facility] Stop: 10/05/21 08:59 Last Admin: 09/09/21 08:42 Dose: 300 mg Documented by: Menthol (Cough Drop (Sugar Free) Gabbie 24 Gabbie/1 Box) 0 gabbie BUCCAL PRN PRN; Protocol PRN Reason: NURSING DECISION Stop: 10/05/21 02:11 Miscellaneous (Carbohydrates For Hypoglycemia ) 15 - 30 gm PO UD PRN PRN Reason: Hypoglycemia Protocol Stop: 10/04/21 22:14 Multivitamins (Multivitamin Tab) 1 tab PO HS [facility] Stop: 10/04/21 22:14 Last Admin: 09/08/21 20:23 Dose: 1 tab Documented by: Ondansetron HCl (Ondansetron Inj 2 Mg/Ml 2 Ml Vial) 4 mg IV Q6H PRN PRN Reason: Nausea Stop: 10/04/21 22:14 Pantoprazole Sodium (Pantoprazole 40 Mg Tab) 40 mg PO QAM [facility] Stop: 10/05/21 08:59 Last Admin: 09/09/21 08:42 Dose: 40 mg Documented by: Polyethylene Glycol (Polyethylene (Miralax) 17 Gm Pack) 17 gm PO DAILY PRN PRN Reason: Constipation Stop: 10/04/21 22:14 Sennosides (Senna 8.6 Mg Tab) 17.2 mg PO HS PRN PRN Reason: Constipation Stop: 10/04/21 22:14 PG Care Time/CCT Total # of Minutes Spent Total Time Spent with Patient: Total time spent is greater than 50% in coordination of care (as documented) at patient's floor/unit and/or counseling patient: Coding Level of Care Code 87273 Subseq Hosp Care Lvl 3 Diagnoses Pneumonia due to COVID-19 virus U07.1; J12.82 Acute hypoxemic respiratory failure J96.01 Transaminitis R74.01 Hyponatremia E87.1 Pre-diabetes R73.03 GERD (gastroesophageal reflux disease) K21.9 Hypertension I10 Disc degeneration, lumbar M51.36 Benign prostatic hyperplasia with urinary obstruction N40.1; N13.8 Early satiety R68.81 DVT prophylaxis Z29.9
[2021-09-09] MEDS: MULTIVITAMIN TAB PO SCH (20:27)
[2021-09-09] MEDS: DOXAZosin MESYLATE TAB 2 MG TAB PO SCH (20:27)
[2021-09-09] MEDS: ACETAMINOPHEN 325 MG TAB PO PRN (20:33)
[2021-09-10] MEDS: INSULIN ASPART 100 UNITS/ML 3 ML PEN SC SCH ×4 (09:50→20:47)
[2021-09-10] MEDS: IRBESARTAN 150 MG TAB PO SCH (09:51)
[2021-09-10] MEDS: 4 mg Once Daily x14 days PO SCH (09:51)
[2021-09-10] MEDS: FAMOTIDINE 20 MG in SYRINGE 3 ML IV SCH ×2 (09:51→20:04)
[2021-09-10] MEDS: dexAMETHasone 6 MG in SYRINGE 0 ML IV SCH (09:51)
[2021-09-10] MEDS: ENOXAPARIN INJ 40 MG/0.4 ML SYR SQ SCH ×2 (09:52→22:14)
[2021-09-10] MEDS: ASPIRIN 81 MG ECTAB PO SCH (09:52)
[2021-09-10] MEDS: FUROSEMIDE 20 MG in SYRINGE 0 ML IV SCH (09:52)
[2021-09-10] MEDS: PANTOprazole 40 MG TAB PO SCH (09:52)
--- NOTE | 2021-09-10 11:36 | Hospitalist Progress Note ---
Date of Service September 10, 2021 Assessment & Plan (1) Pneumonia due to COVID-19 virus: Plan: Severe disease. Rapid escalation to HFNC in the first 24 hours of his stay. Initial CRP 8.6. Day #7 IV dexamethasone 6mg daily. completed 5 days of Remdesivir. Day #6 of baricitinib 4mg daily. Cont pulmonary toilet with flutter and incentive shawn. down off Vapotherm yesterday, he is on 15L wall high flow at this time continue to lay prone or on side whenever in bed he is motivated, compliant continue Lasix 20mg IV qAM to keep neg fluid balancre Cr is 1.0 and K is 4.0 on 09/09 (2) Acute hypoxemic respiratory failure: Plan: due to COVID pneumonia down to 15L today, marked improvement OOB in chair, incentive spirometer, flutter valve, lay prone Lasix daily he is very compliant, just needs encouragement (3) Transaminitis: Plan: 2nd to COVID-19 infection. AST/ALT are stable (4) Hyponatremia: Plan: stopped HCTZ Lasix 20mg IV Na is 137 (5) Pre-diabetes: Plan: a1c 5.9% in 07/2021. loose novolog SSI scale T2DM diet monitor sugars, no major issues (6) GERD (gastroesophageal reflux disease): Plan: PPI see early satiety below (7) Hypertension: Plan: holding HCTZ cont atenolol cont ARB BPs acceptable (8) Disc degeneration, lumbar: Plan: s/p lumbar back surgery in early 2020 despite surgery his back bothers him frequently fortunately he is able to prone despite this issue (9) Benign prostatic hyperplasia with urinary obstruction: Plan: voiding fine cont alpha camelia (10) Early satiety: Plan: present several months has had EGD in the last few years - [facility]; PUD? check KUB in am - r/o fecal impaction, constipation, etc. add H2 camelia to his PPI after recovery from COVID refer back to GI for this issue (11) DVT prophylaxis: Plan: in light of COVID-19 infection, baricitinib use, etc -- lovenox 40mg BID Plan: continue to wean oxygen, hope to discharge by end of weekend Admission and Anticipated Discharge Date Admission Date: September 04, 2021 Subjective patient is doing well, down to 15L wall high flow, feels good to be off Vapotherm eating well, was sleeping well until early this morning, woke up and felt fatigued responding well to Lasix this morning, vitals stable, no fever encouraged him to be patient, he is getting better, just not as fast as he would like he was able to pull 1500 to 2000mL on incentive spirometer he is sitting up in a chair right now, plans to lay prone this morning and this afternoon Review of Systems Review of Systems: All systems reviewed & are unremarkable except as noted in Subjective Constitutional: + fatigue and + weakness Respiratory: + cough, + dyspnea and + dyspnea on exertion; no sputum production Physical Exam Physical Exam: General: well developed, well nourished, elderly male, appears ill and weak Neck: supple, trachea midline, normal thyroid Lungs: clear to auscultation bilaterally, normal effort, minimal cough, no accessory muscle use, no distress Heart: regular S1 and S2, no murmur, peripheral pulses normal, capillary refill normal, no edema Abdomen: soft, NT, ND, + BS, no hepatomegaly, normal to percussion Extremities: normal in appearance, no cyanosis, no petechiae, strength is 5/5 bilaterally Neuro: awake, cooperative, moves all extremities, no focal motor deficits, CN II-XII intact, sensation in extremities intact, normal speech Skin: warm, dry, no rash, normal turgor Psych: Awake, alert oriented x 3, euthymic affect Results & Data Results & Data ([facility]) Vital Signs (Past 12 Hours) Vital Signs Temp Pulse Pulse Resp BP Pulse Ox 09/10/21 09:00 50 L 09/10/21 06:57 36.8 C 60 24 118/68 93 09/10/21 04:28 36.7 C 55 L 20 135/79 91 09/09/21 23:46 36.8 C 48 L 19 118/68 94 Laboratory Results Laboratory Results - last 24 hr 09/09/21 09/09/21 09/10/21 17:05 20:39 08:10 POC Glucose 126 H 132 H 93 Medications Administered Current Inpatient Medications Acetaminophen (Acetaminophen 325 Mg Tab) 650 mg PO Q4H PRN PRN Reason: Pain or Fever Stop: 10/04/21 22:14 Last Admin: 09/09/21 20:33 Dose: 650 mg Documented by: Aspirin (Aspirin 81 Mg Ectab) 81 mg PO QAM [facility] Stop: 10/05/21 08:59 Last Admin: 09/10/21 09:52 Dose: 81 mg Documented by: Atenolol (Atenolol 50 Mg Tablet) 50 mg PO QAM [facility] Stop: 10/05/21 08:59 Last Admin: 09/08/21 08:38 Dose: 50 mg Documented by: Baricitinib (4 Mg Once Daily X14 Days) 4 mg PO DAILY [facility]; Protocol Stop: 09/19/21 09:29 Last Admin: 09/10/21 09:51 Dose: 4 mg Documented by: Dextrose (Dextrose 50% 50 Ml Syringe) 25 - 50 ml IV UD PRN; Protocol PRN Reason: Hypoglycemia Protocol Stop: 10/04/21 22:14 Doxazosin Mesylate (Doxazosin Mesylate Tab 2 Mg Tab) 2 mg PO HS [facility] Stop: 10/04/21 22:14 Last Admin: 09/09/21 20:27 Dose: 2 mg Documented by: Enoxaparin Sodium (Enoxaparin Inj 40 Mg/0.4 Ml Syr) 40 mg SQ Q12H [facility] Stop: 10/04/21 22:59 Last Admin: 09/10/21 09:52 Dose: 40 mg Documented by: Glucagon (Glucagon For Inj 1 Mg Vial) 1 mg SQ UD PRN; Protocol PRN Reason: Hypoglycemia Protocol Stop: 10/04/21 22:14 Glucose (Glucose 10 Tabs/Tube) 4 - 8 tabs PO UD PRN; Protocol PRN Reason: Hypoglycemia Protocol Stop: 10/04/21 22:14 Glucose (Glucose 40% Gel 15 Gm Tube) 15 - 30 gm PO UD PRN; Protocol PRN Reason: Hypoglycemia Protocol Stop: 10/04/21 22:14 Dexamethasone 6 mg/ Syringe 1.5 mls @ 1 mls/min IV QAM [facility] Stop: 10/05/21 08:59 Last Admin: 09/10/21 09:51 Dose: 1 mls/min Documented by: Famotidine 20 mg/ Syringe 5 mls @ 2.5 mls/min IV BID [facility] Stop: 10/06/21 15:59 Last Admin: 09/10/21 09:51 Dose: 2.5 mls/min Documented by: Furosemide 20 mg/ Syringe 2 mls @ 4 mls/min IV QAM [facility] Stop: 10/08/21 08:59 Last Admin: 09/10/21 09:52 Dose: 4 mls/min Documented by: Insulin Aspart (Insulin Aspart 100 Units/Ml 3 Ml Pen) 0 units SC ACHS [facility] Stop: 10/04/21 22:59 Last Admin: 09/10/21 09:50 Dose: 3 units Documented by: Irbesartan (Irbesartan 150 Mg Tab) 300 mg PO QAM [facility] Stop: 10/05/21 08:59 Last Admin: 09/10/21 09:51 Dose: 300 mg Documented by: Menthol (Cough Drop (Sugar Free) Omar 24 Omar/1 Box) 0 omar BUCCAL PRN PRN; Protocol PRN Reason: NURSING DECISION Stop: 10/05/21 02:11 Miscellaneous (Carbohydrates For Hypoglycemia ) 15 - 30 gm PO UD PRN PRN Reason: Hypoglycemia Protocol Stop: 10/04/21 22:14 Multivitamins (Multivitamin Tab) 1 tab PO HS [facility] Stop: 10/04/21 22:14 Last Admin: 09/09/21 20:27 Dose: 1 tab Documented by: Ondansetron HCl (Ondansetron Inj 2 Mg/Ml 2 Ml Vial) 4 mg IV Q6H PRN PRN Reason: Nausea Stop: 10/04/21 22:14 Pantoprazole Sodium (Pantoprazole 40 Mg Tab) 40 mg PO QAM [facility] Stop: 10/05/21 08:59 Last Admin: 09/10/21 09:52 Dose: 40 mg Documented by: Polyethylene Glycol (Polyethylene (Miralax) 17 Gm Pack) 17 gm PO DAILY PRN PRN Reason: Constipation Stop: 10/04/21 22:14 Sennosides (Senna 8.6 Mg Tab) 17.2 mg PO HS PRN PRN Reason: Constipation Stop: 10/04/21 22:14 PG Care Time/CCT Total # of Minutes Spent Total Time Spent with Patient: Total time spent is greater than 50% in coordination of care (as documented) at patient's floor/unit and/or counseling patient: Coding Level of Care Code 97565 Subseq Hosp Care Lvl 2 Diagnoses Pneumonia due to COVID-19 virus U07.1; J12.82 Acute hypoxemic respiratory failure J96.01 Transaminitis R74.01 Hyponatremia E87.1 Pre-diabetes R73.03 GERD (gastroesophageal reflux disease) K21.9 Hypertension I10 Disc degeneration, lumbar M51.36 Benign prostatic hyperplasia with urinary obstruction N40.1; N13.8 Early satiety R68.81 DVT prophylaxis Z29.9
[2021-09-10] MEDS: ACETAMINOPHEN 325 MG TAB PO PRN (20:01)
[2021-09-10] MEDS: DOXAZosin MESYLATE TAB 2 MG TAB PO SCH (20:02)
[2021-09-10] MEDS: MULTIVITAMIN TAB PO SCH (20:02)
[2021-09-11] MEDS: ASPIRIN 81 MG ECTAB PO SCH (08:29)
[2021-09-11] MEDS: dexAMETHasone 6 MG in SYRINGE 0 ML IV SCH (08:29)
[2021-09-11] MEDS: FUROSEMIDE 20 MG in SYRINGE 0 ML IV SCH (08:30)
[2021-09-11] MEDS: IRBESARTAN 150 MG TAB PO SCH (08:30)
[2021-09-11] MEDS: PANTOprazole 40 MG TAB PO SCH (08:31)
[2021-09-11] MEDS: 4 mg Once Daily x14 days PO SCH (08:35)
[2021-09-11] MEDS: INSULIN ASPART 100 UNITS/ML 3 ML PEN SC SCH ×4 (08:37→20:27)
[2021-09-11] MEDS: FAMOTIDINE 20 MG in SYRINGE 3 ML IV SCH ×2 (09:50→20:27)
--- NOTE | 2021-09-11 11:14 | Hospitalist Progress Note ---
Date of Service September 11, 2021 Assessment & Plan (1) Pneumonia due to COVID-19 virus: Plan: Severe disease. Rapid escalation to HFNC in the first 24 hours of his stay. Initial CRP 8.6. Day #8 IV dexamethasone 6mg daily. completed 5 days of Remdesivir. Day #7 of baricitinib 4mg daily. Cont pulmonary toilet with flutter and incentive shawn. down off Vapotherm yesterday, he is on 15L wall high flow at this time continue to lay prone or on side whenever in bed he is motivated, compliant continue Lasix 20mg IV qAM to keep neg fluid balancre Cr is 1.0 and K is 4.0 on 09/09 check labs tomorrow (2) Acute hypoxemic respiratory failure: Plan: due to COVID pneumonia down to 15L today, marked improvement with past few days OOB in chair, incentive spirometer, flutter valve, laying prone Lasix daily he is very compliant, just needs encouragement and more time to recover (3) Transaminitis: Plan: 2nd to COVID-19 infection. AST/ALT are stable (4) Hyponatremia: Plan: stopped HCTZ Lasix 20mg IV Na is 137 on 09/09 (5) Pre-diabetes: Plan: a1c 5.9% in 07/2021. loose novolog SSI scale T2DM diet monitor sugars, no major issues (6) GERD (gastroesophageal reflux disease): Plan: PPI see early satiety below (7) Hypertension: Plan: holding HCTZ cont atenolol cont ARB BPs acceptable (8) Disc degeneration, lumbar: Plan: s/p lumbar back surgery in early 2020 despite surgery his back bothers him frequently fortunately he is able to prone despite this issue (9) Benign prostatic hyperplasia with urinary obstruction: Plan: voiding fine cont alpha camelia (10) Early satiety: Plan: present several months has had EGD in the last few years - [facility]; PUD? check KUB in am - r/o fecal impaction, constipation, etc. add H2 camelia to his PPI after recovery from COVID refer back to GI for this issue (11) DVT prophylaxis: Plan: in light of COVID-19 infection, baricitinib use, etc -- lovenox 40mg BID Plan: continue to wean oxygen, hope to discharge by end of weekend Admission and Anticipated Discharge Date Admission Date: September 04, 2021 Subjective patient back up to 15L this morning, laying prone, sleeping soundly, no distress eating okay making urine with the Lasix every morning, no nausea, no diarrhea minimal cough, improved a lot, no fever no labs today, check tomorrow Review of Systems Review of Systems: All systems reviewed & are unremarkable except as noted in Subjective Physical Exam Physical Exam: General: well developed, well nourished, elderly male, appears ill and weak Neck: supple, trachea midline, normal thyroid Lungs: clear to auscultation bilaterally, normal effort, minimal cough, no accessory muscle use, no distress Heart: regular S1 and S2, no murmur, peripheral pulses normal, capillary refill normal, no edema Abdomen: soft, NT, ND, + BS, no hepatomegaly, normal to percussion Extremities: normal in appearance, no cyanosis, no petechiae, strength is 5/5 bilaterally Neuro: awake, cooperative, moves all extremities, no focal motor deficits, CN II-XII intact, sensation in extremities intact, normal speech Skin: warm, dry, no rash, normal turgor Psych: Awake, alert oriented x 3, euthymic affect Results & Data Results & Data ([facility]) Vital Signs (Past 12 Hours) Vital Signs Temp Pulse Pulse Resp BP BP Pulse Ox 09/11/21 11:03 36.9 C 85 19 103/71 90 09/11/21 10:45 58 L 09/11/21 07:54 36.5 C 76 19 119/78 90 09/10/21 23:51 36.9 C 51 L 20 127/70 93 Laboratory Results Laboratory Results - last 24 hr 09/10/21 09/10/21 09/10/21 12:01 16:54 20:43 POC Glucose 150 H 142 H 191 H 09/11/21 08:16 POC Glucose 105 H Medications Administered Current Inpatient Medications Acetaminophen (Acetaminophen 325 Mg Tab) 650 mg PO Q4H PRN PRN Reason: Pain or Fever Stop: 10/04/21 22:14 Last Admin: 09/10/21 20:01 Dose: 650 mg Documented by: Aspirin (Aspirin 81 Mg Ectab) 81 mg PO [facility] Stop: 10/05/21 08:59 Last Admin: 09/11/21 08:29 Dose: 81 mg Documented by: Atenolol (Atenolol 50 Mg Tablet) 50 mg PO QAM [facility] Stop: 10/05/21 08:59 Last Admin: 09/08/21 08:38 Dose: 50 mg Documented by: Baricitinib (4 Mg Once Daily X14 Days) 4 mg PO DAILY [facility]; Protocol Stop: 09/19/21 09:29 Last Admin: 09/11/21 08:35 Dose: 4 mg Documented by: Dextrose (Dextrose 50% 50 Ml Syringe) 25 - 50 ml IV UD PRN; Protocol PRN Reason: Hypoglycemia Protocol Stop: 10/04/21 22:14 Doxazosin Mesylate (Doxazosin Mesylate Tab 2 Mg Tab) 2 mg PO HS [facility] Stop: 10/04/21 22:14 Last Admin: 09/10/21 20:02 Dose: 2 mg Documented by: Enoxaparin Sodium (Enoxaparin Inj 40 Mg/0.4 Ml Syr) 40 mg SQ Q12H [facility] Stop: 10/04/21 22:59 Last Admin: 09/10/21 22:14 Dose: 40 mg Documented by: Glucagon (Glucagon For Inj 1 Mg Vial) 1 mg SQ UD PRN; Protocol PRN Reason: Hypoglycemia Protocol Stop: 10/04/21 22:14 Glucose (Glucose 10 Tabs/Tube) 4 - 8 tabs PO UD PRN; Protocol PRN Reason: Hypoglycemia Protocol Stop: 10/04/21 22:14 Glucose (Glucose 40% Gel 15 Gm Tube) 15 - 30 gm PO UD PRN; Protocol PRN Reason: Hypoglycemia Protocol Stop: 10/04/21 22:14 Dexamethasone 6 mg/ Syringe 1.5 mls @ 1 mls/min IV QAM [facility] Stop: 10/05/21 08:59 Last Admin: 09/11/21 08:29 Dose: 1 mls/min Documented by: Famotidine 20 mg/ Syringe 5 mls @ 2.5 mls/min IV BID [facility] Stop: 10/06/21 15:59 Last Admin: 09/11/21 09:50 Dose: 2.5 mls/min Documented by: Furosemide 20 mg/ Syringe 2 mls @ 4 mls/min IV QAM [facility] Stop: 10/08/21 08:59 Last Admin: 09/11/21 08:30 Dose: 4 mls/min Documented by: Insulin Aspart (Insulin Aspart 100 Units/Ml 3 Ml Pen) 0 units SC ACHS [facility] Stop: 10/04/21 22:59 Last Admin: 09/11/21 08:37 Dose: 4 units Documented by: Irbesartan (Irbesartan 150 Mg Tab) 300 mg PO QAM [facility] Stop: 10/05/21 08:59 Last Admin: 09/11/21 08:30 Dose: 300 mg Documented by: Menthol (Cough Drop (Sugar Free) Gabbie 24 Gabbie/1 Box) 0 gabbie BUCCAL PRN PRN; Protocol PRN Reason: NURSING DECISION Stop: 10/05/21 02:11 Miscellaneous (Carbohydrates For Hypoglycemia ) 15 - 30 gm PO UD PRN PRN Reason: Hypoglycemia Protocol Stop: 10/04/21 22:14 Multivitamins (Multivitamin Tab) 1 tab PO HS [facility] Stop: 10/04/21 22:14 Last Admin: 09/10/21 20:02 Dose: 1 tab Documented by: Ondansetron HCl (Ondansetron Inj 2 Mg/Ml 2 Ml Vial) 4 mg IV Q6H PRN PRN Reason: Nausea Stop: 10/04/21 22:14 Pantoprazole Sodium (Pantoprazole 40 Mg Tab) 40 mg PO QAM [facility] Stop: 10/05/21 08:59 Last Admin: 09/11/21 08:31 Dose: 40 mg Documented by: Polyethylene Glycol (Polyethylene (Miralax) 17 Gm Pack) 17 gm PO DAILY PRN PRN Reason: Constipation Stop: 10/04/21 22:14 Sennosides (Senna 8.6 Mg Tab) 17.2 mg PO HS PRN PRN Reason: Constipation Stop: 10/04/21 22:14 PG Care Time/CCT Total # of Minutes Spent Total Time Spent with Patient: Total time spent is greater than 50% in coordination of care (as documented) at patient's floor/unit and/or counseling patient: Coding Level of Care Code 51542 Subseq Hosp Care Lvl 2 Diagnoses Pneumonia due to COVID-19 virus U07.1; J12.82 Acute hypoxemic respiratory failure J96.01 Transaminitis R74.01 Hyponatremia E87.1 Pre-diabetes R73.03 GERD (gastroesophageal reflux disease) K21.9 Hypertension I10 Disc degeneration, lumbar M51.36 Benign prostatic hyperplasia with urinary obstruction N40.1; N13.8 Early satiety R68.81 DVT prophylaxis Z29.9
[2021-09-11] MEDS: ENOXAPARIN INJ 40 MG/0.4 ML SYR SQ SCH ×2 (13:19→22:33)
[2021-09-11] MEDS: ACETAMINOPHEN 325 MG TAB PO PRN ×2 (13:21→20:28)
[2021-09-11] MEDS: MULTIVITAMIN TAB PO SCH (20:27)
[2021-09-11] MEDS: DOXAZosin MESYLATE TAB 2 MG TAB PO SCH (20:27)
[2021-09-12] MEDS: ACETAMINOPHEN 325 MG TAB PO PRN ×2 (05:30→15:30)
[2021-09-12 08:15] LABS: BUN Creatinine Ratio 36.2 (10-20); Calcium 8.7 mg/dl (8.5-10.1); Creatinine Clr Calc Pharmacy 70.9 ml/min; Est GFR (African American) 94.8 ml/min; Est GFR (Non-African American) 81.8 ml/min; Magnesium 2.3 mg/dl (1.8-2.4); Potassium 4.4 mmol/L (3.5-5.1)
[2021-09-12] MEDS: INSULIN ASPART 100 UNITS/ML 3 ML PEN SC SCH ×4 (08:44→20:48)
[2021-09-12] MEDS: FUROSEMIDE 20 MG in SYRINGE 0 ML IV SCH (08:45)
[2021-09-12] MEDS: dexAMETHasone 6 MG in SYRINGE 0 ML IV SCH (08:45)
[2021-09-12] MEDS: ASPIRIN 81 MG ECTAB PO SCH (08:46)
[2021-09-12] MEDS: IRBESARTAN 150 MG TAB PO SCH (08:47)
[2021-09-12] MEDS: PANTOprazole 40 MG TAB PO SCH (08:47)
[2021-09-12] MEDS: 4 mg Once Daily x14 days PO SCH (08:50)
[2021-09-12] MEDS: FAMOTIDINE 20 MG in SYRINGE 3 ML IV SCH ×2 (10:35→19:51)
--- NOTE | 2021-09-12 11:04 | Hospitalist Progress Note ---
Date of Service September 12, 2021 Assessment & Plan (1) Pneumonia due to COVID-19 virus: Plan: Severe disease. Rapid escalation to HFNC in the first 24 hours of his stay. Initial CRP 8.6. repeat CXR today Day #9 IV dexamethasone 6mg daily, will increase to 20mg IV x 5 days then 10mg IV for 5 days since he is not improving, feels worse today completed 5 days of Remdesivir. Day #8 of baricitinib 4mg daily. Cont pulmonary toilet with flutter and incentive shawn. down off Vapotherm for three days, he is on 15L wall high flow at this time, cannot get lower continue to lay prone or on side whenever in bed he is motivated, compliant continue Lasix 20mg IV qAM to keep neg fluid balancre Cr is 0.9 and K is 4.4 on 09/09 (2) Acute hypoxemic respiratory failure: Plan: due to COVID pneumonia down to 15L today, marked improvement with past few days OOB in chair, incentive spirometer, flutter valve, laying prone Lasix daily he is very compliant, just needs encouragement and more time to recover (3) Transaminitis: Plan: 2nd to COVID-19 infection. AST/ALT are stable (4) Hyponatremia: Plan: stopped HCTZ Lasix 20mg IV (5) Pre-diabetes: Plan: a1c 5.9% in 07/2021. loose novolog SSI scale T2DM diet monitor sugars, no major issues (6) GERD (gastroesophageal reflux disease): Plan: PPI see early satiety below (7) Hypertension: Plan: holding HCTZ cont atenolol cont ARB BPs acceptable (8) Disc degeneration, lumbar: Plan: s/p lumbar back surgery in early 2020 despite surgery his back bothers him frequently fortunately he is able to prone despite this issue (9) Benign prostatic hyperplasia with urinary obstruction: Plan: voiding fine cont alpha camelia (10) Early satiety: Plan: present several months has had EGD in the last few years - [facility]; PUD? check KUB in am - r/o fecal impaction, constipation, etc. add H2 camelia to his PPI after recovery from COVID refer back to GI for this issue (11) DVT prophylaxis: Plan: in light of COVID-19 infection, baricitinib use, etc -- lovenox 40mg BID Plan: continue to wean oxygen, hope to discharge by end of weekend Admission and Anticipated Discharge Date Admission Date: September 04, 2021 Subjective patient still short of breath, he slept pretty well on his belly ate all his breakfast this morning, making decent amount of urine with his Lasix this morning feeling more fatigued and weak, took a lot of energy to sit in the chair, BP was a little soft but recovered after sitting for a while he has been sick for about 2 weeks now discussed increasing steroids, will get CXR since last one was done 09/04 check on his this afternoon Review of Systems Review of Systems: All systems reviewed & are unremarkable except as noted in Subjective Constitutional: + fatigue and + weakness Respiratory: + cough, + dyspnea and + dyspnea on exertion Physical Exam Physical Exam: General: well developed, well nourished, elderly male, appears ill and weak Neck: supple, trachea midline, normal thyroid Lungs: clear to auscultation bilaterally, tachypnea, slight accessory muscle use Heart: regular S1 and S2, no murmur, peripheral pulses normal, capillary refill normal, no edema Abdomen: soft, NT, ND, + BS, no hepatomegaly, normal to percussion Extremities: normal in appearance, no cyanosis, no petechiae, strength is 5/5 bilaterally Neuro: awake, cooperative, moves all extremities, no focal motor deficits, CN II-XII intact, sensation in extremities intact, normal speech Skin: warm, dry, no rash, normal turgor Psych: Awake, alert oriented x 3, euthymic affect Results & Data Results & Data ([facility]) Vital Signs (Past 12 Hours) Vital Signs Temp Pulse Pulse Resp BP BP Pulse Ox 09/12/21 08:28 36.7 C 86 20 110/72 91 09/12/21 07:50 36.5 C 71 20 110/72 91 09/12/21 06:00 36.5 C 72 22 131/86 92 09/11/21 23:37 36.5 C 45 L 16 141/77 H 94 Laboratory Results Laboratory Results - last 24 hr 09/11/21 09/11/21 09/11/21 11:44 16:46 20:23 Sodium Potassium Chloride Carbon Dioxide Anion Gap BUN Creatinine Est Cr Clr Drug Dosing Est GFR ( Amer) Est GFR (Non-Af Amer) BUN/Creatinine Ratio Glucose POC Glucose 150 H 195 H 156 H Calcium Magnesium 09/12/21 09/12/21 07:03 07:28 Sodium 134 L Potassium 4.4 Chloride 104 Carbon Dioxide 23 Anion Gap 7.0 BUN 34 H Creatinine 0.94 Est Cr Clr Drug Dosing 70.9 Est GFR ( Amer) 94.8 Est GFR (Non-Af Amer) 81.8 BUN/Creatinine Ratio 36.2 H Glucose 114 H POC Glucose 106 H Calcium 8.7 Magnesium 2.3 Medications Administered Current Inpatient Medications Acetaminophen (Acetaminophen 325 Mg Tab) 650 mg PO Q4H PRN PRN Reason: Pain or Fever Stop: 10/04/21 22:14 Last Admin: 09/12/21 05:30 Dose: 650 mg Documented by: Aspirin (Aspirin 81 Mg Ectab) 81 mg PO QAM [facility] Stop: 10/05/21 08:59 Last Admin: 09/12/21 08:46 Dose: 81 mg Documented by: Atenolol (Atenolol 50 Mg Tablet) 50 mg PO QAM [facility] Stop: 10/05/21 08:59 Last Admin: 09/08/21 08:38 Dose: 50 mg Documented by: Baricitinib (4 Mg Once Daily X14 Days) 4 mg PO DAILY [facility]; Protocol Stop: 09/19/21 09:29 Last Admin: 09/12/21 08:50 Dose: 4 mg Documented by: Dextrose (Dextrose 50% 50 Ml Syringe) 25 - 50 ml IV UD PRN; Protocol PRN Reason: Hypoglycemia Protocol Stop: 10/04/21 22:14 Doxazosin Mesylate (Doxazosin Mesylate Tab 2 Mg Tab) 2 mg PO HS [facility] Stop: 10/04/21 22:14 Last Admin: 09/11/21 20:27 Dose: 2 mg Documented by: Enoxaparin Sodium (Enoxaparin Inj 40 Mg/0.4 Ml Syr) 40 mg SQ Q12H [facility] Stop: 10/04/21 22:59 Last Admin: 09/11/21 22:33 Dose: 40 mg Documented by: Glucagon (Glucagon For Inj 1 Mg Vial) 1 mg SQ UD PRN; Protocol PRN Reason: Hypoglycemia Protocol Stop: 10/04/21 22:14 Glucose (Glucose 10 Tabs/Tube) 4 - 8 tabs PO UD PRN; Protocol PRN Reason: Hypoglycemia Protocol Stop: 11/07/21 22:14 Glucose (Glucose 40% Gel 15 Gm Tube) 15 - 30 gm PO UD PRN; Protocol PRN Reason: Hypoglycemia Protocol Stop: 10/04/21 22:14 Dexamethasone 6 mg/ Syringe 1.5 mls @ 1 mls/min IV QAM [facility] Stop: 10/05/21 08:59 Last Admin: 09/12/21 08:45 Dose: 1 mls/min Documented by: Famotidine 20 mg/ Syringe 5 mls @ 2.5 mls/min IV BID [facility] Stop: 10/06/21 15:59 Last Admin: 09/12/21 10:35 Dose: 2.5 mls/min Documented by: Furosemide 20 mg/ Syringe 2 mls @ 4 mls/min IV QAM [facility] Stop: 10/08/21 08:59 Last Admin: 09/12/21 08:45 Dose: 4 mls/min Documented by: Insulin Aspart (Insulin Aspart 100 Units/Ml 3 Ml Pen) 0 units SC ACHS [facility] Stop: 10/04/21 22:59 Last Admin: 09/12/21 08:44 Dose: 3 units Documented by: Irbesartan (Irbesartan 150 Mg Tab) 300 mg PO QAM [facility] Stop: 10/05/21 08:59 Last Admin: 09/12/21 08:47 Dose: 300 mg Documented by: Menthol (Cough Drop (Sugar Free) Gabbie 24 Gabbie/1 Box) 0 gabbie BUCCAL PRN PRN; Protocol PRN Reason: NURSING DECISION Stop: 10/05/21 02:11 Miscellaneous (Carbohydrates For Hypoglycemia ) 15 - 30 gm PO UD PRN PRN Reason: Hypoglycemia Protocol Stop: 10/04/21 22:14 Multivitamins (Multivitamin Tab) [address] [facility] Stop: 10/04/21 22:14 Last Admin: 09/11/21 20:27 Dose: 1 tab Documented by: Ondansetron HCl (Ondansetron Inj 2 Mg/Ml 2 Ml Vial) 4 mg IV Q6H PRN PRN Reason: Nausea Stop: 10/04/21 22:14 Pantoprazole Sodium (Pantoprazole 40 Mg Tab) 40 mg PO QAM [facility] Stop: 10/05/21 08:59 Last Admin: 09/12/21 08:47 Dose: 40 mg Documented by: Polyethylene Glycol (Polyethylene (Miralax) 17 Gm Pack) 17 gm PO DAILY PRN PRN Reason: Constipation Stop: 10/04/21 22:14 Sennosides (Senna 8.6 Mg Tab) 17.2 mg PO HS PRN PRN Reason: Constipation Stop: 10/04/21 22:14 PG Care Time/CCT Total # of Minutes Spent Total Time Spent with Patient: Total time spent is greater than 50% in coordination of care (as documented) at patient's floor/unit and/or counseling patient: Coding Level of Care Code 49481 Subseq Hosp Care Lvl 2 Diagnoses Pneumonia due to COVID-19 virus U07.1; J12.82 Acute hypoxemic respiratory failure J96.01 Transaminitis R74.01 Hyponatremia E87.1 Pre-diabetes R73.03 GERD (gastroesophageal reflux disease) K21.9 Hypertension I10 Disc degeneration, lumbar M51.36 Benign prostatic hyperplasia with urinary obstruction N40.1; N13.8 Early satiety R68.81 DVT prophylaxis Z29.9
[2021-09-12] MEDS ORDERED: DEXAMETHASONE SOD INJ 4 MG/ML VIAL IV STA (11:23)
[2021-09-12] MEDS ORDERED: dexAMETHasone 14 MG in DEXTROSE 5% 25 ML IV ONE (11:30)
--- NOTE | 2021-09-12 11:47 | XRay Report ---
XR chest 1V portable HISTORY: Shortness of breath. COVID pneumonia COMPARISON: Chest 09/04/2021. FINDINGS: Multifocal peripheral airspace opacities, left greater than right, have progressed in the i nterval consistent with a pneumonia. There are low lung volumes. No pneumothorax. No pleural fusions. The heart is normal in size. There is a right shoulder prosthesis. IMPRESSION: Interval progression of the multifocal airspace opacities, left greater than right, consistent with a viral pneumonia. ACT 112: Negative or not required by law. Electronically signed by: Hamzah Bhandari M.D. 09/12/2021 11:46 AM
[2021-09-12] MEDS: ENOXAPARIN INJ 40 MG/0.4 ML SYR SQ SCH ×2 (12:40→20:45)
[2021-09-12] MEDS: MULTIVITAMIN TAB PO SCH (19:51)
[2021-09-12] MEDS: DOXAZosin MESYLATE TAB 2 MG TAB PO SCH (19:51)
[2021-09-13] MEDS: ASPIRIN 81 MG ECTAB PO SCH (08:27)
[2021-09-13] MEDS: FUROSEMIDE 20 MG in SYRINGE 0 ML IV SCH (08:27)
[2021-09-13] MEDS: 4 mg Once Daily x14 days PO SCH (08:27)
[2021-09-13] MEDS: FAMOTIDINE 20 MG in SYRINGE 3 ML IV SCH ×2 (08:27→20:32)
[2021-09-13] MEDS: dexAMETHasone 20 MG in DEXTROSE 5% 25 ML IV SCH (08:27)
[2021-09-13] MEDS: PANTOprazole 40 MG TAB PO SCH (08:28)
[2021-09-13] MEDS: INSULIN ASPART 100 UNITS/ML 3 ML PEN SC SCH ×4 (08:35→21:39)
[2021-09-13] MEDS ORDERED: dexAMETHasone 20 MG in SYRINGE 0 ML IV SCH (09:00)
--- NOTE | 2021-09-13 10:42 | Hospitalist Progress Note ---
Date of Service September 13, 2021 Assessment & Plan (1) Pneumonia due to COVID-19 virus: Plan: Severe disease. Rapid escalation to HFNC in the first 24 hours of his stay. Initial CRP 8.6. repeat CXR 09/12 shows progression of infiltrates Day #10 total of IV dexamethasone was on 6mg for 8 days, increased to 20mg IV x 5 days then 10mg IV for 5 days when he was starting to get worse on 09/12, today is day 2 of 20mg IV completed 5 days of Remdesivir. Day #9 of baricitinib 4mg daily. Cont pulmonary toilet with flutter and incentive shawn. down off Vapotherm for 4 days on 15L for a few days, had a good night, down to 11L this morning but then had major desaturation event, cyanotic this morning just getting to bedside commode place back on 15L, have him lay prone, have RN place gutiérrez so he does not need to get up continue Lasix 20mg IV qAM to keep neg fluid balance and will now have gutiérrez so he does not need to move check BMP, CRP today (2) Acute hypoxemic respiratory failure: Plan: due to COVID pneumonia still on 15L wall high flow, feeling worse, more fatigued CXR worse on 09/12 continue to lay prone, gutiérrez placed today so he can just rest as he desaturates standing and pivoting on toilet he is very compliant with flutter valve, incentive spirometer consider CTA chest later today if he is more stable, rule out PE as contributing to desaturation (3) Transaminitis: Plan: 2nd to COVID-19 infection. AST/ALT are stable (4) Hyponatremia: Plan: stopped HCTZ Lasix 20mg IV (5) Pre-diabetes: Plan: a1c 5.9% in 07/2021. loose novolog SSI scale T2DM diet monitor sugars, no major issues (6) GERD (gastroesophageal reflux disease): Plan: PPI see early satiety below (7) Hypertension: Plan: holding HCTZ cont atenolol cont ARB BPs acceptable (8) Disc degeneration, lumbar: Plan: s/p lumbar back surgery in early 2020 despite surgery his back bothers him frequently fortunately he is able to prone despite this issue (9) Benign prostatic hyperplasia with urinary obstruction: Plan: place gutiérrez today cont alpha camelia (10) Early satiety: Plan: present several months has had EGD in the last few years - [facility]; PUD? KUB was normal add H2 camelia to his PPI after recovery from COVID refer back to GI for this issue (11) DVT prophylaxis: Plan: in light of COVID-19 infection, baricitinib use, etc -- lovenox 40mg BID Plan: lay prone all day, gutiérrez placed to limit movement consider CTA chest later today to look for PE BMP and CRP today Admission and Anticipated Discharge Date Admission Date: September 04, 2021 Subjective patient had a good night, down to 11L from 15, slept well unfortunately he had a desaturation event, cyanotic, sats in low 80's just from transfering from bed to toilet then bed really working to breathe, mild distress sitting upright in the chair will have RN place a gutiérrez, have him lay prone wall high flow and rest all morning and recover don't want him moving around too much as it causes him to desaturate CXR yesterday showed progression of disease and we increased dexamethasone to 20mg for late ARDS treatment eating well, no nausea, no chest pain, no fever Review of Systems Review of Systems: All systems reviewed & are unremarkable except as noted in Subjective Respiratory: + cough, + dyspnea and + dyspnea on exertion Physical Exam Physical Exam: General: well developed, well nourished, elderly male, appears ill and weak Neck: supple, trachea midline, normal thyroid Lungs: clear to auscultation bilaterally, tachypnea, belly breathing, mild distress from desaturation event Heart: regular S1 and S2, no murmur, peripheral pulses normal, capillary refill normal, no edema Abdomen: soft, NT, ND, + BS, no hepatomegaly, normal to percussion Extremities: normal in appearance, no cyanosis, no petechiae, strength is 5/5 bilaterally Neuro: awake, cooperative, moves all extremities, no focal motor deficits, CN II-XII intact, sensation in extremities intact, normal speech Skin: warm, dry, no rash, normal turgor Psych: Awake, alert oriented x 3, euthymic affect Results & Data Results & Data ([facility] [place]) Vital Signs (Past 12 Hours) Vital Signs Temp Pulse Resp BP Pulse Ox 09/13/21 08:13 37 C 82 22 109/70 91 09/13/21 04:09 36.8 C 65 20 124/77 96 Laboratory Results Laboratory Results - last 24 hr 09/12/21 09/12/21 09/12/21 11:07 16:26 20:38 POC Glucose 193 H 152 H 162 H 09/13/21 08:16 POC Glucose 120 H Medications Administered Current Inpatient Medications Acetaminophen (Acetaminophen 325 Mg Tab) 650 mg PO Q4H PRN PRN Reason: Pain or Fever Stop: 10/04/21 22:14 Last Admin: 09/12/21 15:30 Dose: 650 mg Documented by: Aspirin (Aspirin 81 Mg Ectab) [facility]: 10/05/21 08:59 Last Admin: 09/13/21 08:27 Dose: 81 mg Documented by: Atenolol (Atenolol 50 Mg Tablet) 50 mg PO [facility] Stop: 10/05/21 08:59 Last Admin: 09/08/21 08:38 Dose: 50 mg Documented by: Baricitinib (4 Mg Once Daily X14 Days) 4 mg PO DAILY [facility]; Protocol Stop: 09/19/21 09:29 Last Admin: 09/13/21 08:27 Dose: 4 mg Documented by: Dextrose (Dextrose 50% 50 Ml Syringe) 25 - 50 ml IV UD PRN; Protocol PRN Reason: Hypoglycemia Protocol Stop: 10/04/21 22:14 Doxazosin Mesylate (Doxazosin Mesylate Tab 2 Mg Tab) 2 mg PO HS [facility] Stop: 10/04/21 22:14 Last Admin: 09/12/21 19:51 Dose: 2 mg Documented by: Enoxaparin Sodium (Enoxaparin Inj 40 Mg/0.4 Ml Syr) 40 mg SQ Q12H [facility] Stop: 10/04/21 22:59 Last Admin: 09/12/21 20:45 Dose: 40 mg Documented by: Glucagon (Glucagon For Inj 1 Mg Vial) 1 mg SQ UD PRN; Protocol PRN Reason: Hypoglycemia Protocol Stop: 10/04/21 22:14 Glucose (Glucose 10 Tabs/Tube) 4 - 8 tabs PO UD PRN; Protocol PRN Reason: Hypoglycemia Protocol Stop: 10/04/21 22:14 Glucose (Glucose 40% Gel 15 Gm Tube) 15 - 30 gm PO UD PRN; Protocol PRN Reason: Hypoglycemia Protocol Stop: 10/04/21 22:14 Famotidine 20 mg/ Syringe 5 mls @ 2.5 mls/min IV BID [facility] Stop: 10/06/21 15:59 Last Admin: 09/13/21 08:27 Dose: 2.5 mls/min Documented by: Furosemide 20 mg/ Syringe 2 mls @ 4 mls/min IV QAM [facility] Stop: 10/08/21 08:59 Last Admin: 09/13/21 08:27 Dose: 4 mls/min Documented by: Dexamethasone 20 mg/ Dextrose 30 mls @ 0.833 mls/min IV DAILY [facility] Stop: 10/13/21 08:59 Last Infusion: 09/13/21 09:56 Dose: Infused Documented by: Insulin Aspart (Insulin Aspart 100 Units/Ml 3 Ml Pen) 0 units SC ACHS [facility] Stop: 10/04/21 22:59 Last Admin: 09/13/21 08:35 Dose: 3 units Documented by: Irbesartan (Irbesartan 150 Mg Tab) 300 mg PO QAM [facility] Stop: 10/05/21 08:59 Last Admin: 09/12/21 08:47 Dose: 300 mg Documented by: Menthol (Cough Drop (Sugar Free) Gabbie 24 Gabbie/1 Box) 0 gabbie BUCCAL PRN PRN; Protocol PRN Reason: NURSING DECISION Stop: 10/05/21 02:11 Miscellaneous (Carbohydrates For Hypoglycemia ) 15 - 30 gm PO UD PRN PRN Reason: Hypoglycemia Protocol Stop: 10/04/21 22:14 Multivitamins (Multivitamin Tab) 1 tab PO HS [facility] Stop: 10/04/21 22:14 Last Admin: 09/12/21 19:51 Dose: 1 tab Documented by: Ondansetron HCl (Ondansetron Inj 2 Mg/Ml 2 Ml Vial) 4 mg IV Q6H PRN PRN Reason: Nausea Stop: 10/04/21 22:14 Pantoprazole Sodium (Pantoprazole 40 Mg Tab) 40 mg PO QAM [facility] Stop: 10/05/21 08:59 Last Admin: 09/13/21 08:28 Dose: 40 mg Documented by: Polyethylene Glycol (Polyethylene (Miralax) 17 Gm Pack) 17 gm PO DAILY PRN PRN Reason: Constipation Stop: 10/04/21 22:14 Sennosides (Senna 8.6 Mg Tab) 17.2 mg PO HS PRN PRN Reason: Constipation Stop: 10/04/21 22:14 PG Care Time/CCT Total # of Minutes Spent Total Time Spent: 35 Total Time Spent with Patient: Total time spent is greater than 50% in coordination of care (as documented) at patient's floor/unit and/or counseling patient: Coding Level of Care Code 38222 Subseq Hosp Care Lvl 3 (25 - SIGNIFICANT, SEPARATELY IDENTIFIABLE ) Diagnoses Pneumonia due to COVID-19 virus U07.1; J12.82 Acute hypoxemic respiratory failure J96.01 Transaminitis R74.01 Hyponatremia E87.1 Pre-diabetes R73.03 GERD (gastroesophageal reflux disease) K21.9 Hypertension I10 Disc degeneration, lumbar M51.36 Benign prostatic hyperplasia with urinary obstruction N40.1; N13.8 Early satiety R68.81 DVT prophylaxis Z29.9
[2021-09-13 11:28] LABS: Eosinophils # (auto) 0.01 K/uL (0-0.5); Eosinophils % (auto) 0.1 %; Hematocrit (blood only) 44.3 % (42-52); Hemoglobin 15.7 g/dL (14.0-18.0); Immature Granulocytes # (auto) 0.08 K/uL (0.00-0.02); Immature Granulocytes % (auto) 0.7 %; Lymphocytes # (auto) 0.46 K/uL (1.2-3.4); Lymphocytes % (auto) 4.1 %; Mean Corpuscular Hemoglobin 31.6 pg (25-34); Mean Corpuscular Hgb Conc 35.4 g/dL (32-36); Mean Corpuscular Volume 89.1 fL (80-100); Mean Platelet Volume 9.5 fL (7.4-10.4); Monocytes # (auto) 0.81 K/uL (0.11-0.59); Monocytes % (auto) 7.2 %; Neutrophils # (auto) 9.92 K/uL (1.4-6.5); Neutrophils % (auto) 87.9 %; Platelet Count 499 K/uL (130-400); RDW Coefficient of Variation 13.7 % (11.5-14.5); RDW Standard Deviation 44.8 fL (36.4-46.3); Red Blood Count 4.97 M/uL (4.7-6.1); White Blood Count 11.28 K/uL (4.8-10.8)
[2021-09-13] MEDS: ENOXAPARIN INJ 40 MG/0.4 ML SYR SQ SCH ×2 (11:30→22:31)
[2021-09-13 11:50] LABS: Albumin Level 2.7 gm/dl (3.4-5.0); BUN Creatinine Ratio 33.7 (10-20); Calcium 8.8 mg/dl (8.5-10.1); Creatinine Clr Calc Pharmacy 56.3 ml/min; Est GFR (Non-African American) 62.2 ml/min; Potassium 4.2 mmol/L (3.5-5.1)
[2021-09-13 11:52] LABS: Albumin Globulin Ratio 0.6 (0.9-2); Bilirubin,Total 1.2 mg/dl (0.2-1); C Reactive Protein 4.35 mg/dl (0-0.29); Globulin 4.6 gm/dl (2.5-4.0); Total Protein 7.3 gm/dl (6.4-8.2)
[2021-09-13] MEDS: IRBESARTAN 150 MG TAB PO SCH (13:20)
[2021-09-13] MEDS: MULTIVITAMIN TAB PO SCH (20:26)
[2021-09-13] MEDS: DOXAZosin MESYLATE TAB 2 MG TAB PO SCH (20:26)
[2021-09-13] MEDS: ACETAMINOPHEN 325 MG TAB PO PRN (20:32)
[2021-09-14] MEDS: ACETAMINOPHEN 325 MG TAB PO PRN ×3 (02:28→21:25)
--- NOTE | 2021-09-14 07:33 | Hospitalist Progress Note ---
Date of Service September 14, 2021 Assessment & Plan (1) Pneumonia due to COVID-19 virus: Plan: Severe disease. Rapid escalation to HFNC in the first 24 hours of his stay. Initial CRP 8.6. repeat CXR 09/12 shows progression of infiltrates IV dexamethasone increased to 20mg IV x 5 days then 10mg IV for 5 days when he was starting to get worse on 09/12 completed 5 days of Remdesivir. baricitinib 4mg daily, to complete 14 d course 09/19/21 Cont pulmonary toilet with flutter and incentive shawn. high flow NC 11L will hold lasix in am 09/16 for lower blood pressure (2) Acute hypoxemic respiratory failure: Plan: due to COVID pneumonia still on 11L wall high flow, feeling worse, more fatigued continue to lay prone, gutiérrez placed today so he can just rest as he desaturates standing and pivoting on toilet he is very compliant with flutter valve, incentive spirometer (3) Transaminitis: Plan: 2nd to COVID-19 infection. AST/ALT are stable (4) Hyponatremia: Plan: stopped HCTZ (5) Pre-diabetes: Plan: a1c 5.9% in 07/2021. loose novolog SSI scale T2DM diet monitor sugars, no major issues (6) GERD (gastroesophageal reflux disease): Plan: PPI see early satiety below (7) Hypertension: Plan: holding HCTZ cont atenolol cont ARB BPs acceptable (8) Disc degeneration, lumbar: Plan: s/p lumbar back surgery in early 2020 despite surgery his back bothers him frequently fortunately he is able to prone despite this issue (9) Benign prostatic hyperplasia with urinary obstruction: Plan: place gutiérrez today cont alpha camelia (10) Early satiety: Plan: present several months has had EGD in the last few years - [facility]; PUD? KUB was normal add H2 camelia to his PPI after recovery from COVID refer back to GI for this issue (11) DVT prophylaxis: Plan: in light of COVID-19 infection, baricitinib use, etc -- lovenox 40mg BID Plan: lay prone all day, gutiérrez placed to limit movement consider CTA chest later today to look for PE BMP and CRP today Admission and Anticipated Discharge Date Admission Date: September 04, 2021 Subjective this pt did have a period of brief symptomatic hypotension today that has since resolved, reluctant to give fluid bolus as still with significant oxygen requirements and wanting to "keep lungs Dry" Pt states he feels improved otherwise Review of Systems Review of Systems: Moderate distress and fatigue no headache, did have some spots before his eyes since resolved no speech or swallowing issues no chest pain, pressure or palpitations no shortness of breath, cough or wheezes no abdominal pain, nausea or vomiting, diarrhea or constipation no dysuria, hematuria or frequency no focal joint pain or swelling no back pain, CVA tenderness or radicular pain no bruising, bleeding or rashes no focal signs of weakness or numbness or altered sensation no complaints of anxiety or depression.. Physical Exam Physical Exam: The patient appeared well nourished and normally developed. Vital signs as documented. Head exam is normocephalic atraumatic Neck is without JVD, thyromegaly, or carotid bruits. Lungs are coarse and diminished at bases. Cardiac exam, Rhythm is regular.. No murmurs, rubs or gallops. Abdominal exam reveals normal bowel sounds, soft non tender, no masses Extremities are nonedematous and both pedal pulses are present Neurologic exam is alert and oriented, no focal loss of strength or sensation Skin is without bruises or rashes Psychologically is without concerns for anxiety or depression Results & Data Results & Data ([facility]) Vital Signs (Past 12 Hours) Vital Signs Temp Pulse Resp BP BP Pulse Ox 09/14/21 07:23 97.7 F 70 11 L 112/85 93 09/14/21 04:56 161/80 H 09/14/21 03:33 98.2 F 72 22 133/75 91 09/14/21 01:35 91 09/14/21 00:40 92 09/13/21 23:31 98.1 F 48 L 20 121/79 91 09/13/21 23:07 94 09/13/21 20:23 98.3 F 65 22 117/88 90 PG Care Time/CCT Total # of Minutes Spent Total Time Spent with Patient: Total time spent is greater than 50% in coordination of care (as documented) at patient's floor/unit and/or counseling patient: Coding Level of Care Code 28029 Subseq Hosp Care Lvl 3 Diagnoses Pneumonia due to COVID-19 virus U07.1; J12.82 Acute hypoxemic respiratory failure J96.01 Transaminitis R74.01 Hyponatremia E87.1 Pre-diabetes R73.03 GERD (gastroesophageal reflux disease) K21.9 Hypertension I10 Disc degeneration, lumbar M51.36 Benign prostatic hyperplasia with urinary obstruction N40.1; N13.8 Early satiety R68.81 DVT prophylaxis Z29.9
[2021-09-14] MEDS: IRBESARTAN 150 MG TAB PO SCH (08:44)
[2021-09-14] MEDS: ASPIRIN 81 MG ECTAB PO SCH (08:44)
[2021-09-14] MEDS: FUROSEMIDE 20 MG in SYRINGE 0 ML IV SCH (08:44)
[2021-09-14] MEDS: PANTOprazole 40 MG TAB PO SCH (08:44)
[2021-09-14] MEDS: INSULIN ASPART 100 UNITS/ML 3 ML PEN SC SCH ×4 (08:44→21:27)
[2021-09-14] MEDS: 4 mg Once Daily x14 days PO SCH (09:27)
[2021-09-14] MEDS: FAMOTIDINE 20 MG in SYRINGE 3 ML IV SCH ×2 (09:27→20:12)
[2021-09-14] MEDS: dexAMETHasone 20 MG in DEXTROSE 5% 25 ML IV SCH (09:28)
[2021-09-14] MEDS: ENOXAPARIN INJ 40 MG/0.4 ML SYR SQ SCH ×2 (10:48→22:18)
[2021-09-14] MEDS: MULTIVITAMIN TAB PO SCH (20:12)
[2021-09-14] MEDS: DOXAZosin MESYLATE TAB 2 MG TAB PO SCH (20:15)
[2021-09-15] MEDS: BENZONATATE 100 MG CAPSULE PO PRN (00:13)
[2021-09-15] MEDS: ACETAMINOPHEN 325 MG TAB PO PRN ×2 (03:15→21:51)
--- NOTE | 2021-09-15 07:11 | Hospitalist Progress Note ---
Date of Service September 15, 2021 Assessment & Plan (1) Pneumonia due to COVID-19 virus: Plan: Severe disease. Rapid escalation to HFNC in the first 24 hours of his stay. Initial CRP 8.6. repeat CXR 09/12 shows progression of infiltrates IV dexamethasone increased to 20mg IV x 5 days then 10mg IV for 5 days when he was starting to get worse on 09/12 completed 5 days of Remdesivir. baricitinib 4mg daily, to complete 14 d course 09/19/21 Cont pulmonary toilet with flutter and incentive shawn. pt has been up and down on oxygen requirement of late will hold lasix in am 09/16 for lower blood pressure (2) Acute hypoxemic respiratory failure: Plan: due to COVID pneumonia still on 11L wall high flow, feeling worse, more fatigued continue to lay prone, gutiérrez placed today so he can just rest as he desaturates standing and pivoting on toilet he is very compliant with flutter valve, incentive spirometer (3) Transaminitis: Plan: 2nd to COVID-19 infection. AST/ALT are stable (4) Hyponatremia: Plan: stopped HCTZ (5) Pre-diabetes: Plan: a1c 5.9% in 07/2021. loose novolog SSI scale T2DM diet monitor sugars, no major issues (6) GERD (gastroesophageal reflux disease): Plan: PPI see early satiety below (7) Hypertension: Plan: now is hypotensive, will half arb and atenolol, follow blood pressures (8) Disc degeneration, lumbar: Plan: s/p lumbar back surgery in early 2020 despite surgery his back bothers him frequently fortunately he is able to prone despite this issue (9) Benign prostatic hyperplasia with urinary obstruction: Plan: place gutiérrez today cont alpha camelia at lower dose to help improve blood pressure (10) Early satiety: Plan: present several months has had EGD in the last few years - [facility]; PUD? KUB was normal add H2 camelia to his PPI after recovery from COVID refer back to GI for this issue (11) DVT prophylaxis: Plan: in light of COVID-19 infection, baricitinib use, etc -- lovenox 40mg BID Plan: lay prone all day, gutiérrez placed to limit movement consider CTA chest later today to look for PE BMP and CRP today Admission and Anticipated Discharge Date Admission Date: September 04, 2021 Subjective pt feels improved today, still having low blood pressure. will reduce antihypertenisive medicines and give one salt tablet today Review of Systems Review of Systems: Moderate distress and fatigue no headache, no further symptoms no speech or swallowing issues no chest pain, pressure or palpitations continues with shortness of breath, non productive cough no abdominal pain, nausea or vomiting, diarrhea or constipation no dysuria, hematuria or frequency no focal joint pain or swelling no back pain, CVA tenderness or radicular pain no bruising, bleeding or rashes no focal signs of weakness or numbness or altered sensation no complaints of anxiety or depression.. Constitutional: + fatigue and + weakness Respiratory: + cough, + dyspnea and + dyspnea on exertion Cardiovascular: no chest pain and no edema Psychiatric: + depression Physical Exam Physical Exam: The patient appeared well nourished and normally developed. Vital signs as documented. Head exam is normocephalic atraumatic Neck is without JVD, thyromegaly, or carotid bruits. Lungs remain coarse and diminished at bases. Cardiac exam, Rhythm is regular.. No murmurs, rubs or gallops. Abdominal exam reveals normal bowel sounds, soft non tender, no masses Extremities are nonedematous and both pedal pulses are present Neurologic exam is alert and oriented, no focal loss of strength or sensation Skin is without bruises or rashes Psychologically is without concerns for anxiety or depression Results & Data Results & Data ([facility]) Vital Signs (Past 12 Hours) Vital Signs Temp Pulse Pulse Pulse Resp BP Pulse Ox 09/15/21 06:41 93 09/15/21 05:40 90 09/15/21 04:00 91 09/15/21 03:17 97.5 F L 86 22 109/69 92 09/15/21 00:05 92 09/14/21 23:15 98.1 F 66 18 129/79 91 09/14/21 22:19 59 L 09/14/21 21:30 93 09/14/21 19:11 97.5 F L 84 20 108/66 90 PG Care Time/CCT Total # of Minutes Spent Total Time Spent with Patient: Total time spent is greater than 50% in coordination of care (as documented) at patient's floor/unit and/or counseling patient: Coding Level of Care Code 41798 Subseq Hosp Care Lvl 2 Diagnoses Pneumonia due to COVID-19 virus U07.1; J12.82 Acute hypoxemic respiratory failure J96.01 Transaminitis R74.01 Hyponatremia E87.1 Pre-diabetes R73.03 GERD (gastroesophageal reflux disease) K21.9 Hypertension I10 Disc degeneration, lumbar M51.36 Benign prostatic hyperplasia with urinary obstruction N40.1; N13.8 Early satiety R68.81 DVT prophylaxis Z29.9
[2021-09-15 07:42] LABS: Creatinine Clr Calc Pharmacy 57.7 ml/min; Est GFR (African American) 74.3 ml/min; Est GFR (Non-African American) 64.1 ml/min
[2021-09-15] MEDS: IRBESARTAN 150 MG TAB PO SCH (08:47)
[2021-09-15] MEDS: PANTOprazole 40 MG TAB PO SCH (08:47)
[2021-09-15] MEDS: ASPIRIN 81 MG ECTAB PO SCH (08:47)
[2021-09-15] MEDS: INSULIN ASPART 100 UNITS/ML 3 ML PEN SC SCH ×4 (08:48→21:04)
[2021-09-15] MEDS: FAMOTIDINE 20 MG in SYRINGE 3 ML IV SCH ×2 (08:48→21:51)
[2021-09-15] MEDS: 4 mg Once Daily x14 days PO SCH (09:28)
[2021-09-15] MEDS: dexAMETHasone 20 MG in DEXTROSE 5% 25 ML IV SCH (09:28)
[2021-09-15] MEDS: ENOXAPARIN INJ 40 MG/0.4 ML SYR SQ SCH ×2 (12:10→21:02)
[2021-09-15] MEDS ORDERED: SODIUM CHLORIDE 1 GM TABLET PO ONE (19:19)
[2021-09-15] MEDS ORDERED: DOXAZOSIN MESYLATE 1 MG TAB PO SCH (21:00)
[2021-09-15] MEDS: MULTIVITAMIN TAB PO SCH (21:02)
--- NOTE | 2021-09-16 07:09 | Hospitalist Progress Note ---
Date of Service September 16, 2021 Assessment & Plan (1) Pneumonia due to COVID-19 virus: Plan: Severe disease. Rapid escalation to HFNC in the first 24 hours of his stay. Initial CRP 8.6. repeat CXR 09/12 shows progression of infiltrates IV dexamethasone increased to 20mg IV x 5 days then 10mg IV for 5 days when he was starting to get worse on 09/12 completed 5 days of Remdesivir. baricitinib 4mg daily, to complete 14 d course 09/19/21 Cont pulmonary toilet with flutter and incentive shawn. pt has been up and down on oxygen requirement of late I have held Lasix due to symptomatic hypotension (2) Acute hypoxemic respiratory failure: Plan: due to COVID pneumonia still on wall high flow, feeling worse, more fatigued continue to lay prone, gutiérrez placed today so he can just rest as he desaturates standing and pivoting on toilet he is very compliant with flutter valve, incentive spirometer (3) Transaminitis: Plan: 2nd to COVID-19 infection. AST/ALT are stable (4) Hyponatremia: Plan: stopped HCTZ (5) Pre-diabetes: Plan: a1c 5.9% in 07/2021. loose novolog SSI scale T2DM diet monitor sugars, no major issues (6) GERD (gastroesophageal reflux disease): Plan: PPI see early satiety below (7) Hypertension: Plan: now is hypotensive, since still hypotensive after taking medication stopping his Avapro Cardura keeping atenolol at 25 may be autonomic disequilibrium from Covid infection (8) Disc degeneration, lumbar: Plan: s/p lumbar back surgery in early 2020 despite surgery his back bothers him frequently fortunately he is able to prone despite this issue (9) Benign prostatic hyperplasia with urinary obstruction: Plan: place gutiérrez today Stopping Cardura due to lower blood pressure (10) Early satiety: Plan: present several months of her states now his appetite has improved has had EGD in the last few years - [facility]; PUD? KUB was normal add H2 camelia to his PPI after recovery from COVID refer back to GI for this issue (11) DVT prophylaxis: Plan: in light of COVID-19 infection, baricitinib use, etc -- lovenox 40mg BID Plan: lay prone all day, gutiérerz placed to limit movement consider CTA chest later today to look for PE BMP and CRP today Admission and Anticipated Discharge Date Admission Date: September 04, 2021 Subjective pt feels improved today, still having low blood pressure despite reducing antihypertensives. Still with increased oxygen demands Review of Systems Review of Systems: Moderate distress and fatigue no headache, no further symptoms no speech or swallowing issues no chest pain, pressure or palpitations continues with shortness of breath, non productive cough conversational dyspnea no abdominal pain, nausea or vomiting, diarrhea or constipation no dysuria, hematuria or frequency no focal joint pain or swelling no back pain, CVA tenderness or radicular pain no bruising, bleeding or rashes no focal signs of weakness or numbness or altered sensation no complaints of anxiety or depression.. Physical Exam Physical Exam: The patient appeared well nourished and normally developed. Vital signs as documented. Head exam is normocephalic atraumatic Neck is without JVD, thyromegaly, or carotid bruits. Lungs continued to remain coarse and diminished at bases. Cardiac exam, Rhythm is regular.. No murmurs, rubs or gallops. Abdominal exam reveals normal bowel sounds, soft non tender, no masses Extremities are nonedematous and both pedal pulses are present Neurologic exam is alert and oriented, no focal loss of strength or sensation Skin is without bruises or rashes Psychologically is with concerns for beginning depression from isolation Results & Data Results & Data ([facility]) Vital Signs (Past 12 Hours) Vital Signs Temp Pulse Pulse Resp BP Pulse Ox 09/16/21 04:41 98.1 F 63 18 127/88 94 09/16/21 03:47 58 L 16 92 09/15/21 23:33 98.4 F 69 23 121/76 91 09/15/21 23:25 74 20 94 09/15/21 20:04 85 22 93 09/15/21 19:36 98.2 F 96 H 22 106/73 95 PG Care Time/CCT Total # of Minutes Spent Total Time Spent with Patient: Total time spent is greater than 50% in coordination of care (as documented) at patient's floor/unit and/or counseling patient: Coding Level of Care Code 89737 Subseq Hosp Care Lvl 2 Diagnoses Pneumonia due to COVID-19 virus U07.1; J12.82 Acute hypoxemic respiratory failure J96.01 Transaminitis R74.01 Hyponatremia E87.1 Pre-diabetes R73.03 GERD (gastroesophageal reflux disease) K21.9 Hypertension I10 Disc degeneration, lumbar M51.36 Benign prostatic hyperplasia with urinary obstruction N40.1; N13.8 Early satiety R68.81 DVT prophylaxis Z29.9
[2021-09-16 07:14] LABS: Creatinine Clr Calc Pharmacy 69.1 ml/min; Est GFR (African American) 92.4 ml/min; Est GFR (Non-African American) 79.8 ml/min
[2021-09-16] MEDS: INSULIN ASPART 100 UNITS/ML 3 ML PEN SC SCH ×4 (08:00→21:24)
[2021-09-16] MEDS: PANTOprazole 40 MG TAB PO SCH (08:58)
[2021-09-16] MEDS: ASPIRIN 81 MG ECTAB PO SCH (08:58)
[2021-09-16] MEDS ORDERED: ATENOLOL 25 MG TABLET PO SCH (09:00)
[2021-09-16] MEDS ORDERED: IRBESARTAN 150 MG TAB PO SCH (09:00)
[2021-09-16] MEDS: FAMOTIDINE 20 MG in SYRINGE 3 ML IV SCH (09:02)
[2021-09-16] MEDS: dexAMETHasone 20 MG in DEXTROSE 5% 25 ML IV SCH (09:03)
[2021-09-16] MEDS: 4 mg Once Daily x14 days PO SCH (09:05)
[2021-09-16] MEDS: ACETAMINOPHEN 325 MG TAB PO PRN ×2 (10:32→23:16)
[2021-09-16] MEDS: ENOXAPARIN INJ 40 MG/0.4 ML SYR SQ SCH ×2 (13:19→21:27)
[2021-09-16] MEDS ORDERED: SODIUM CHLORIDE 1 GM TABLET PO ONE (17:00)
[2021-09-16] MEDS: FAMOTIDINE 20 MG TAB PO SCH (21:25)
[2021-09-16] MEDS: MULTIVITAMIN TAB PO SCH (21:26)
[2021-09-17 08:04] LABS: Creatinine Clr Calc Pharmacy 66.3 ml/min; Est GFR (Non-African American) 75.9 ml/min
[2021-09-17] MEDS: FAMOTIDINE 20 MG TAB PO SCH ×2 (09:15→21:29)
[2021-09-17] MEDS: PANTOprazole 40 MG TAB PO SCH (09:16)
[2021-09-17] MEDS: ASPIRIN 81 MG ECTAB PO SCH (09:16)
[2021-09-17] MEDS: 4 mg Once Daily x14 days PO SCH (09:20)
[2021-09-17] MEDS: INSULIN ASPART 100 UNITS/ML 3 ML PEN SC SCH ×4 (09:23→21:42)
[2021-09-17] MEDS: ACETAMINOPHEN 325 MG TAB PO PRN ×2 (09:39→21:29)
[2021-09-17] MEDS: dexAMETHasone 20 MG in DEXTROSE 5% 25 ML IV SCH (09:40)
[2021-09-17] MEDS: ENOXAPARIN INJ 40 MG/0.4 ML SYR SQ SCH ×2 (13:24→21:30)
--- NOTE | 2021-09-17 18:23 | Hospitalist Progress Note ---
Date of Service September 17, 2021 Assessment & Plan (1) Pneumonia due to COVID-19 virus: Plan: Severe disease. Rapid escalation to HFNC in the first 24 hours of his stay. Initial CRP 8.6. repeat CXR 09/12 shows progression of infiltrates IV dexamethasone increased to 20mg IV x 5 days then 10mg IV for 5 days when he was starting to get worse on 09/12 completed 5 days of Remdesivir. baricitinib 4mg daily, to complete 14 d course 09/19/21 Cont pulmonary toilet with flutter and incentive shawn. pt has been up and down on oxygen requirement of late seeming to stall at 8 L/min pt is fatigued and looks worn out will have some melatonin to try to help sleep Lasix held due to symptomatic hypotension (2) Acute hypoxemic respiratory failure: Plan: due to COVID pneumonia feeling better but more fatigued continue to lay prone, gutiérrez placed today so he can just rest as he desaturates standing and pivoting on toilet he is very compliant with flutter valve, incentive spirometer (3) Transaminitis: Plan: 2nd to COVID-19 infection. AST/ALT are stable (4) Hyponatremia: Plan: stopped HCTZ (5) Pre-diabetes: Plan: a1c 5.9% in 07/2021. loose novolog SSI scale T2DM diet monitor sugars, no major issues (6) GERD (gastroesophageal reflux disease): Plan: PPI see early satiety below (7) Hypertension: Plan: now is hypotensive, since still hypotensive after taking medication stopping his Avapro Cardura keeping atenolol at 25 may be autonomic disequilibrium from Covid infection (8) Disc degeneration, lumbar: Plan: s/p lumbar back surgery in early 2020 despite surgery his back bothers him frequently fortunately he is able to prone despite this issue (9) Benign prostatic hyperplasia with urinary obstruction: Plan: place gutiérrez today Stopping Cardura due to lower blood pressure (10) Early satiety: Plan: present several months of her states now his appetite has improved has had EGD in the last few years - [facility]; PUD? KUB was normal add H2 camelia to his PPI after recovery from COVID refer back to GI for this issue (11) DVT prophylaxis: Plan: in light of COVID-19 infection, baricitinib use, etc -- lovenox 40mg BID Plan: lay prone encouraged consider CTA chest later today to look for PE Admission and Anticipated Discharge Date Admission Date: September 04, 2021 Subjective pt feels improved today, blood pressure improved reducing antihypertensives. oxygen demands seemed to have stalled with regard to tapering, pt appears more fatigued today but did not have good sleep overnight Review of Systems Review of Systems: Moderate distress and fatigue no headache, no further symptoms no speech or swallowing issues no chest pain, pressure or palpitations continues with shortness of breath, non productive cough conversational dyspnea no abdominal pain, nausea or vomiting, diarrhea or constipation no dysuria, hematuria or frequency no focal joint pain or swelling no back pain, CVA tenderness or radicular pain no bruising, bleeding or rashes no focal signs of weakness or numbness or altered sensation no complaints of anxiety or depression.. Physical Exam Physical Exam: The patient appeared fatigued and tired Vital signs as documented. Head exam is normocephalic atraumatic Neck is without JVD, thyromegaly, or carotid bruits. Lungs continued to remain coarse and diminished at bases. Cardiac exam, Rhythm is regular.. No murmurs, rubs or gallops. Abdominal exam reveals normal bowel sounds, soft non tender, no masses Extremities are nonedematous and both pedal pulses are present Neurologic exam is alert and oriented, no focal loss of strength or sensation Skin is without bruises or rashes Psychologically is with concerns for beginning depression from isolation Results & Data Results & Data ([facility]) Vital Signs (Past 12 Hours) Vital Signs Temp Pulse Resp BP Pulse Ox 09/17/21 15:49 97.7 F 88 17 121/77 94 09/17/21 11:55 97.9 F 94 H 19 110/70 93 09/17/21 08:04 97.7 F 77 20 95/65 L 94 PG Care Time/CCT Total # of Minutes Spent Total Time Spent with Patient: Total time spent is greater than 50% in coordination of care (as documented) at patient's floor/unit and/or counseling patient: Coding Level of Care Code 10345 Subseq Hosp Care Lvl 2 Diagnoses Pneumonia due to COVID-19 virus U07.1; J12.82 Acute hypoxemic respiratory failure J96.01 Transaminitis R74.01 Hyponatremia E87.1 Pre-diabetes R73.03 GERD (gastroesophageal reflux disease) K21.9 Hypertension I10 Disc degeneration, lumbar M51.36 Benign prostatic hyperplasia with urinary obstruction N40.1; N13.8 Early satiety R68.81 DVT prophylaxis Z29.9
[2021-09-17] MEDS ORDERED: MELATONIN 3 MG TAB PO ONE (21:00)
[2021-09-17] MEDS: MULTIVITAMIN TAB PO SCH (21:29)
[2021-09-18] MEDS: dexAMETHasone 20 MG in DEXTROSE 5% 25 ML IV SCH (09:21)
[2021-09-18] MEDS: ASPIRIN 81 MG ECTAB PO SCH (09:28)
[2021-09-18] MEDS: PANTOprazole 40 MG TAB PO SCH (09:28)
[2021-09-18] MEDS: FAMOTIDINE 20 MG TAB PO SCH ×2 (09:28→20:33)
[2021-09-18] MEDS: INSULIN ASPART 100 UNITS/ML 3 ML PEN SC SCH ×4 (09:29→21:30)
[2021-09-18] MEDS: 4 mg Once Daily x14 days PO SCH (09:33)
[2021-09-18] MEDS: ENOXAPARIN INJ 40 MG/0.4 ML SYR SQ SCH ×2 (13:16→21:31)
[2021-09-18] MEDS ORDERED: SODIUM CHLORIDE 0.65% NA SOLN 45 ML (OCEAN) ONE (15:01)
[2021-09-18] MEDS ORDERED: SODIUM CHLORIDE 0.65% NA SOLN 45 ML (OCEAN) PRN (17:15)
--- NOTE | 2021-09-18 19:28 | Hospitalist Progress Note ---
Date of Service September 18, 2021 Assessment & Plan (1) Pneumonia due to COVID-19 virus: Plan: Severe disease. Rapid escalation to HFNC in the first 24 hours of his stay. Initial CRP 8.6. repeat CXR 09/12 shows progression of infiltrates IV dexamethasone increased to 20mg IV x 5 days then 10mg IV for 5 days when he was starting to get worse on 09/12 completed 5 days of Remdesivir. baricitinib 4mg daily, to complete 14 d course 09/19/21 Cont pulmonary toilet with flutter and incentive shawn. pt has been up and down on oxygen requirement of late seeming to stall at 8 L/min pt is fatigued and looks worn out will have some melatonin to try to help sleep Lasix held due to symptomatic hypotension (2) Acute hypoxemic respiratory failure: Plan: due to COVID pneumonia feeling better but more fatigued continue to lay prone, gutiérrez placed today so he can just rest as he desaturates standing and pivoting on toilet he is very compliant with flutter valve, incentive spirometer (3) Transaminitis: Plan: 2nd to COVID-19 infection. AST/ALT are stable (4) Hyponatremia: Plan: stopped HCTZ (5) Pre-diabetes: Plan: a1c 5.9% in 07/2021. loose novolog SSI scale T2DM diet monitor sugars, no major issues (6) GERD (gastroesophageal reflux disease): Plan: PPI see early satiety below (7) Hypertension: Plan: now improved after stopping his Avapro Cardura keeping atenolol at 25 may be autonomic disequilibrium from Covid infection (8) Disc degeneration, lumbar: Plan: s/p lumbar back surgery in early 2020 despite surgery his back bothers him frequently fortunately he is able to prone despite this issue (9) Benign prostatic hyperplasia with urinary obstruction: Plan: place gutiérrez today Stopping Cardura due to lower blood pressure (10) Early satiety: Plan: present several months of her states now his appetite has improved has had EGD in the last few years - [facility]; PUD? KUB was normal add H2 camelia to his PPI after recovery from COVID refer back to GI for this issue (11) DVT prophylaxis: Plan: in light of COVID-19 infection, baricitinib use, etc -- lovenox 40mg BID Plan: lay prone encouraged Admission and Anticipated Discharge Date Admission Date: September 04, 2021 Subjective pt usually has "bad" mornings, this morning such, later in the afternoon pt feels improved, blood pressure improved after reducing antihypertensives. oxygen demands seemed to have stalled with regard to tapering, pt continues to appear more fatigued Review of Systems Review of Systems: Moderate distress and fatigue no headache, no further symptoms no speech or swallowing issues no chest pain, pressure or palpitations continues with shortness of breath, non productive cough conversational dyspnea no abdominal pain, nausea or vomiting, diarrhea or constipation no dysuria, hematuria or frequency no focal joint pain or swelling no back pain, CVA tenderness or radicular pain no bruising, bleeding or rashes no focal signs of weakness or numbness or altered sensation no complaints of anxiety or depression.. Physical Exam Physical Exam: The patient appeared fatigued and tired Vital signs as documented. Head exam is normocephalic atraumatic Neck is without JVD, thyromegaly, or carotid bruits. Lungs continued to remain coarse and diminished at bases. Cardiac exam, Rhythm is regular.. No murmurs, rubs or gallops. Abdominal exam reveals normal bowel sounds, soft non tender, no masses Extremities are nonedematous and both pedal pulses are present Neurologic exam is alert and oriented, no focal loss of strength or sensation Skin is without bruises or rashes Psychologically is with concerns for beginning depression from isolation Results & Data Results & Data ([facility]) Vital Signs (Past 12 Hours) Vital Signs Temp Pulse Pulse Resp BP Pulse Ox 09/18/21 15:17 97.5 F L 78 18 122/84 96 09/18/21 12:00 98.4 F 94 H 20 120/83 92 PG Care Time/CCT Total # of Minutes Spent Total Time Spent with Patient: Total time spent is greater than 50% in coordination of care (as documented) at patient's floor/unit and/or counseling patient: Coding Level of Care Code 38722 Subseq Hosp Care Lvl 2 Diagnoses Pneumonia due to COVID-19 virus U07.1; J12.82 Acute hypoxemic respiratory failure J96.01 Transaminitis R74.01 Hyponatremia E87.1 Pre-diabetes R73.03 GERD (gastroesophageal reflux disease) K21.9 Hypertension I10 Disc degeneration, lumbar M51.36 Benign prostatic hyperplasia with urinary obstruction N40.1; N13.8 Early satiety R68.81 DVT prophylaxis Z29.9
[2021-09-18] MEDS: MULTIVITAMIN TAB PO SCH (20:32)
[2021-09-18] MEDS: ACETAMINOPHEN 325 MG TAB PO PRN (21:31)
[2021-09-18] MEDS: MELATONIN 3 MG TAB PO PRN (23:20)
[2021-09-19 08:42] LABS: Hematocrit (blood only) 42.8 % (42-52); Hemoglobin 15.2 g/dL (14.0-18.0); Mean Corpuscular Hemoglobin 31.1 pg (25-34); Mean Corpuscular Hgb Conc 35.5 g/dL (32-36); Mean Corpuscular Volume 87.7 fL (80-100); Mean Platelet Volume 9.3 fL (7.4-10.4); Platelet Count 471 K/uL (130-400); RDW Coefficient of Variation 13.5 % (11.5-14.5); RDW Standard Deviation 43.4 fL (36.4-46.3); Red Blood Count 4.88 M/uL (4.7-6.1); White Blood Count 14.39 K/uL (4.8-10.8)
[2021-09-19] MEDS: dexAMETHasone 10 MG in SYRINGE 0 ML IV SCH (08:52)
[2021-09-19] MEDS: PANTOprazole 40 MG TAB PO SCH (08:52)
[2021-09-19] MEDS: ASPIRIN 81 MG ECTAB PO SCH (08:52)
[2021-09-19] MEDS: FAMOTIDINE 20 MG TAB PO SCH ×2 (08:52→20:41)
[2021-09-19] MEDS: INSULIN ASPART 100 UNITS/ML 3 ML PEN SC SCH ×4 (08:53→20:56)
[2021-09-19] MEDS: 4 mg Once Daily x14 days PO SCH (08:56)
[2021-09-19] MEDS ORDERED: dexAMETHasone 10 MG in DEXTROSE 5% 25 ML IV SCH (09:00)
[2021-09-19 09:04] LABS: BUN Creatinine Ratio 35.4 (10-20); Creatinine Clr Calc Pharmacy 65.6 ml/min; Est GFR (African American) 85.9 ml/min; Est GFR (Non-African American) 74.1 ml/min; Potassium 4.4 mmol/L (3.5-5.1)
[2021-09-19 09:50] LABS: Lyme Ab IgG w/WB Rflx Negative (Negative)
[2021-09-19 09:51] LABS: Lyme Ab IgM w/WB Rflx Negative (Negative)
[2021-09-19] MEDS: ENOXAPARIN INJ 40 MG/0.4 ML SYR SQ SCH ×2 (13:06→22:20)
--- NOTE | 2021-09-19 17:17 | Hospitalist Progress Note ---
Date of Service September 19, 2021 Assessment & Plan (1) Pneumonia due to COVID-19 virus: Plan: Severe disease. Rapid escalation to HFNC in the first 24 hours of his stay. Initial CRP 8.6. repeat CXR 09/12 shows progression of infiltrates IV dexamethasone increased to 20mg IV x 5 days then 10mg IV for 5 days when he was starting to get worse on 09/12 completed 5 days of Remdesivir. baricitinib 4mg daily, to complete 14 d course 09/19/21 Cont pulmonary toilet with flutter and incentive shawn. pt has been up and down on oxygen requirement of late seeming to stall at 8 L/min pt is fatigued and looks worn out , continue to encourage him Lasix held due to symptomatic hypotension (2) Acute hypoxemic respiratory failure: Plan: due to COVID pneumonia feeling better but more fatigued continue to lay prone, gutiérrez placed today so he can just rest as he desaturates standing and pivoting on toilet he is very compliant with flutter valve, incentive spirometer (3) Transaminitis: Plan: 2nd to COVID-19 infection. AST/ALT are stable (4) Hyponatremia: Plan: stopped HCTZ (5) Pre-diabetes: Plan: a1c 5.9% in 07/2021. loose novolog SSI scale T2DM diet monitor sugars, no major issues (6) GERD (gastroesophageal reflux disease): Plan: PPI see early satiety below (7) Hypertension: Plan: now improved after stopping his Avapro Cardura atenolol may be autonomic disequilibrium from Covid infection (8) Disc degeneration, lumbar: Plan: s/p lumbar back surgery in early 2020 despite surgery his back bothers him frequently fortunately he is able to prone despite this issue (9) Benign prostatic hyperplasia with urinary obstruction: Plan: place gutiérrez today Stopping Cardura due to lower blood pressure (10) Early satiety: Plan: present several months of her states now his appetite has improved has had EGD in the last few years - [facility]; PUD? KUB was normal add H2 camelia to his PPI after recovery from COVID refer back to GI for this issue (11) DVT prophylaxis: Plan: in light of COVID-19 infection, baricitinib use, etc -- lovenox 40mg BID Plan: lay prone encouraged Admission and Anticipated Discharge Date Admission Date: September 04, 2021 Subjective pt usually has "bad" mornings, this morning was better as pre emptively increased oxygen to 13 l , later in the afternoon pt feels improved and oxygen back down to 8L, blood pressure improved after reducing antihypertensives. oxygen demands seemed to have stalled with regard to tapering, pt continues to appear stable but fatigued Review of Systems Review of Systems: Moderate distress and fatigue no headache, no further symptoms no speech or swallowing issues no chest pain, pressure or palpitations continues with shortness of breath, non productive cough conversational dyspnea no abdominal pain, nausea or vomiting, diarrhea or constipation no dysuria, hematuria or frequency no focal joint pain or swelling no back pain, CVA tenderness or radicular pain no bruising, bleeding or rashes no focal signs of weakness or numbness or altered sensation no complaints of anxiety or depression.. Physical Exam Physical Exam: The patient appeared fatigued and tired Vital signs as documented. Head exam is normocephalic atraumatic Neck is without JVD, thyromegaly, or carotid bruits. Lungs continued to remain coarse and diminished at bases. Cardiac exam, Rhythm is regular.. No murmurs, rubs or gallops. Abdominal exam reveals normal bowel sounds, soft non tender, no masses Extremities are nonedematous and both pedal pulses are present Neurologic exam is alert and oriented, no focal loss of strength or sensation Skin is without bruises or rashes Psychologically is with concerns for beginning depression from isolation Results & Data Results & Data ([facility]) Vital Signs (Past 12 Hours) Vital Signs Temp Pulse Resp BP Pulse Ox 09/19/21 15:11 97.9 F 84 19 121/88 95 09/19/21 12:12 97.5 F L 81 19 114/74 93 09/19/21 08:06 97.5 F L 92 H 19 119/71 89 L PG Care Time/CCT Total # of Minutes Spent Total Time Spent with Patient: Total time spent is greater than 50% in coordination of care (as documented) at patient's floor/unit and/or counseling patient: Coding Level of Care Code 59433 Subseq Hosp Care Lvl 2 Diagnoses Pneumonia due to COVID-19 virus U07.1; J12.82 Acute hypoxemic respiratory failure J96.01 Transaminitis R74.01 Hyponatremia E87.1 Pre-diabetes R73.03 GERD (gastroesophageal reflux disease) K21.9 Hypertension I10 Disc degeneration, lumbar M51.36 Benign prostatic hyperplasia with urinary obstruction N40.1; N13.8 Early satiety R68.81 DVT prophylaxis Z29.9
[2021-09-19] MEDS: MULTIVITAMIN TAB PO SCH (20:41)
[2021-09-19] MEDS: ZINC SULFATE 220 MG CAPSULE PO SCH (20:42)
[2021-09-19] MEDS: MELATONIN 3 MG TAB PO PRN (22:20)
[2021-09-20] MEDS: ZINC SULFATE 220 MG CAPSULE PO SCH (08:44)
[2021-09-20] MEDS: dexAMETHasone 10 MG in SYRINGE 0 ML IV SCH (08:44)
[2021-09-20] MEDS: PANTOprazole 40 MG TAB PO SCH (08:44)
[2021-09-20] MEDS: ASPIRIN 81 MG ECTAB PO SCH (08:44)
[2021-09-20] MEDS: INSULIN ASPART 100 UNITS/ML 3 ML PEN SC SCH ×4 (08:45→20:49)
[2021-09-20] MEDS: FAMOTIDINE 20 MG TAB PO SCH ×2 (08:45→20:25)
[2021-09-20] MEDS: ENOXAPARIN INJ 40 MG/0.4 ML SYR SQ SCH ×2 (12:56→22:12)
--- NOTE | 2021-09-20 17:11 | Hospitalist Progress Note ---
Date of Service September 20, 2021 Assessment & Plan (1) Pneumonia due to COVID-19 virus: Plan: Severe disease. Rapid escalation to HFNC in the first 24 hours of his stay. Initial CRP 8.6. repeat CXR 09/12 shows progression of infiltrates IV dexamethasone increased to 20mg IV x 5 days then 10mg IV for 5 days when he was starting to get worse on 09/12 completed 5 days of Remdesivir. baricitinib 4mg daily, to complete 14 d course 09/19/21 Cont pulmonary toilet with flutter and incentive shawn. pt has been up and down on oxygen requirement 09/20 with first big taper down pt is fatigued and looks worn out , continue to encourage him Lasix held due to symptomatic hypotension (2) Acute hypoxemic respiratory failure: Plan: due to COVID pneumonia feeling better but more fatigued continue to lay prone, gutiérrez placed today so he can just rest as he desaturates standing and pivoting on toilet he is very compliant with flutter valve, incentive spirometer (3) Transaminitis: Plan: 2nd to COVID-19 infection. AST/ALT are stable (4) Hyponatremia: Plan: stopped HCTZ (5) Pre-diabetes: Plan: a1c 5.9% in 07/2021. loose novolog SSI scale T2DM diet monitor sugars, no major issues (6) GERD (gastroesophageal reflux disease): Plan: PPI see early satiety below (7) Hypertension: Plan: now improved after stopping his Avapro Cardura atenolol may be autonomic disequilibrium from Covid infection (8) Disc degeneration, lumbar: Plan: s/p lumbar back surgery in early 2020 despite surgery his back bothers him frequently fortunately he is able to prone despite this issue (9) Benign prostatic hyperplasia with urinary obstruction: Plan: place gutiérrez today Stopping Cardura due to lower blood pressure (10) Early satiety: Plan: present several months of her states now his appetite has improved has had EGD in the last few years - [facility]; PUD? KUB was normal add H2 camelia to his PPI after recovery from COVID refer back to GI for this issue (11) DVT prophylaxis: Plan: in light of COVID-19 infection, baricitinib use, etc -- lovenox 40mg BID Plan: lay prone encouraged Admission and Anticipated Discharge Date Admission Date: September 04, 2021 Subjective pt usually has "bad" mornings, this morning was better as pre emptively increased oxygen, later in the afternoon pt feels improved and oxygen even able to get down to 4 L, blood pressure improved after reducing antihypertensives. oxygen demands seems to be moving most over the last week Review of Systems Review of Systems: Moderate distress and fatigue no headache, no further symptoms no speech or swallowing issues no chest pain, pressure or palpitations continues with shortness of breath, non productive cough conversational dyspnea no abdominal pain, nausea or vomiting, diarrhea or constipation no dysuria, hematuria or frequency no focal joint pain or swelling no back pain, CVA tenderness or radicular pain no bruising, bleeding or rashes no focal signs of weakness or numbness or altered sensation no complaints of anxiety or depression.. Physical Exam Physical Exam: The patient appeared fatigued and tired Vital signs as documented. Head exam is normocephalic atraumatic Neck is without JVD, thyromegaly, or carotid bruits. Lungs continued to remain coarse and diminished at bases. Cardiac exam, Rhythm is regular.. No murmurs, rubs or gallops. Abdominal exam reveals normal bowel sounds, soft non tender, no masses Extremities are nonedematous and both pedal pulses are present Neurologic exam is alert and oriented, no focal loss of strength or sensation Skin is without bruises or rashes Psychologically is with concerns for beginning depression from isolation Results & Data Results & Data ([facility]) Vital Signs (Past 12 Hours) Vital Signs Temp Pulse Pulse Resp BP Pulse Ox 09/20/21 16:08 98.2 F 76 19 146/86 H 95 09/20/21 12:30 97 09/20/21 12:01 97.7 F 62 20 117/53 L 97 09/20/21 07:57 97.7 F 86 21 118/85 90 09/20/21 06:04 79 PG Care Time/CCT Total # of Minutes Spent Total Time Spent with Patient: Total time spent is greater than 50% in coordination of care (as documented) at patient's floor/unit and/or counseling patient: Coding Level of Care Code 82443 Subseq Hosp Care Lvl 2 Diagnoses Pneumonia due to COVID-19 virus U07.1; J12.82 Acute hypoxemic respiratory failure J96.01 Transaminitis R74.01 Hyponatremia E87.1 Pre-diabetes R73.03 GERD (gastroesophageal reflux disease) K21.9 Hypertension I10 Disc degeneration, lumbar M51.36 Benign prostatic hyperplasia with urinary obstruction N40.1; N13.8 Early satiety R68.81 DVT prophylaxis Z29.9
[2021-09-20] MEDS: MULTIVITAMIN TAB PO SCH (20:25)
[2021-09-20] MEDS: ACETAMINOPHEN 325 MG TAB PO PRN (22:11)
[2021-09-20] MEDS: MELATONIN 3 MG TAB PO PRN (22:12)
[2021-09-21] MEDS: ASPIRIN 81 MG ECTAB PO SCH (08:25)
[2021-09-21] MEDS: PANTOprazole 40 MG TAB PO SCH (08:25)
[2021-09-21] MEDS: FAMOTIDINE 20 MG TAB PO SCH ×2 (08:25→20:46)
[2021-09-21] MEDS: ZINC SULFATE 220 MG CAPSULE PO SCH (08:25)
[2021-09-21] MEDS: dexAMETHasone 10 MG in SYRINGE 0 ML IV SCH (08:27)
[2021-09-21] MEDS: INSULIN ASPART 100 UNITS/ML 3 ML PEN SC SCH ×4 (08:27→22:35)
--- NOTE | 2021-09-21 10:18 | Hospitalist Progress Note ---
Date of Service September 21, 2021 Assessment & Plan (1) Pneumonia due to COVID-19 virus: Plan: Severe disease. Rapid escalation to HFNC in the first 24 hours of his stay. Initial CRP 8.6. repeat CXR on 09/12 showed progression of infiltrates IV dexamethasone increased to 20mg IV x 5 days then 10mg IV for 5 days when he was starting to get worse on 09/12, last day would be 09/22 for 10mg completed 5 days of Remdesivir. baricitinib 4mg daily, completed 14 d course 09/19/21 Cont pulmonary toilet with flutter and incentive shawn. pt has been up and down on oxygen requirement 09/20 with first big taper down pt is fatigued and looks worn out , continue to encourage him Lasix held due to symptomatic hypotension he is on 5L today, try to wean back to 4L try to move out of neg pressure isolation, see if family can visit to improve his outlook and mood (2) Acute hypoxemic respiratory failure: Plan: due to COVID pneumonia feeling better but more fatigued continue to lay prone, gutiérrez placed today so he can just rest as he desaturates standing and pivoting on toilet he is very compliant with flutter valve, incentive spirometer stable on 5L this morning, tends to desaturate when getting out of bed, takes a long time to recover (3) Transaminitis: Plan: 2nd to COVID-19 infection. AST/ALT are stable (4) Hyponatremia: Plan: stopped HCTZ (5) Pre-diabetes: Plan: a1c 5.9% in 07/2021. loose novolog SSI scale T2DM diet monitor sugars, no major issues past 24 hours (6) GERD (gastroesophageal reflux disease): Plan: PPI see early satiety below (7) Hypertension: Plan: now improved after stopping his Avapro Cardura atenolol may be autonomic disequilibrium from Covid infection (8) Disc degeneration, lumbar: Plan: s/p lumbar back surgery in early 2020 despite surgery his back bothers him frequently fortunately he is able to prone despite this issue (9) Benign prostatic hyperplasia with urinary obstruction: Plan: place gutiérrez today Stopping Cardura due to lower blood pressure (10) Early satiety: Plan: present several months of her states now his appetite has improved has had EGD in the last few years - [facility]; PUD? KUB was normal add H2 camelia to his PPI after recovery from COVID refer back to GI for this issue (11) DVT prophylaxis: Plan: in light of COVID-19 infection, baricitinib use, etc -- lovenox 40mg BID Plan: lay prone encouraged Admission and Anticipated Discharge Date Admission Date: September 04, 2021 Subjective patient sitting in the chair, feeling okay but not as good as yesterday he is on 5L, he was on 4L yesterday, he continues to have issues with desaturation eating better, no nausea sleeping well, spends a few hours prone every night discussed trying to get him off neg pressure isolation he says he was sick on 08/28, tested positive on 09/03 Review of Systems Review of Systems: All systems reviewed & are unremarkable except as noted in Subjective Constitutional: + fatigue and + weakness; no fever Respiratory: + dyspnea on exertion; no cough and no dyspnea Cardiovascular: no chest pain Gastrointestinal: no abdominal pain, no nausea, no vomiting, no constipation and no diarrhea/loose stools Physical Exam Physical Exam: General: well developed, well nourished, elderly male, no distress Neck: supple, trachea midline, normal thyroid Lungs: clear to auscultation bilaterally, slightly tachypneic, no distress or accessory muscle use Heart: regular S1 and S2, no murmur, peripheral pulses normal, capillary refill normal, no edema Abdomen: soft, NT, ND, + BS, no hepatomegaly, normal to percussion Extremities: normal in appearance, no cyanosis, no petechiae, strength is 5/5 bilaterally Neuro: awake, cooperative, moves all extremities, no focal motor deficits, CN II-XII intact, sensation in extremities intact, normal speech Skin: warm, dry, no rash, normal turgor Psych: Awake, alert oriented x 3, euthymic affect Results & Data Results & Data ([facility]) Vital Signs (Past 12 Hours) Vital Signs Temp Pulse Pulse Pulse Resp BP BP 09/21/21 06:59 36.6 C 67 28 H 147/95 H 09/21/21 03:53 65 09/21/21 03:35 36.5 C 68 28 H 151/79 H 09/20/21 23:57 50 L 156/91 H 09/20/21 23:31 36.7 C 66 26 H 169/92 H Pulse Ox 09/21/21 06:59 91 09/21/21 03:53 09/21/21 03:35 90 09/20/21 23:57 09/20/21 23:31 92 Laboratory Results Laboratory Results - last 24 hr 09/20/21 09/20/21 09/20/21 11:59 16:58 20:44 POC Glucose 187 H 153 H 133 H 09/21/21 07:58 POC Glucose 102 H Medications Administered Current Inpatient Medications Acetaminophen (Acetaminophen 325 Mg Tab) 650 mg PO Q4H PRN PRN Reason: Pain or Fever Stop: 10/04/21 22:14 Last Admin: 09/20/21 22:11 Dose: 650 mg Documented by: Aspirin (Aspirin 81 Mg Ectab) 81 mg PO QAM [facility] Stop: 10/05/21 08:59 Last Admin: 09/21/21 08:25 Dose: 81 mg Documented by: Atenolol (Atenolol 25 Mg Tablet) 25 mg PO QAM [facility] Stop: 10/16/21 08:59 Benzonatate (Benzonatate 100 Mg Capsule) 200 mg PO Q12H PRN PRN Reason: Cough Stop: 10/14/21 23:44 Last Admin: 09/15/21 00:13 Dose: 200 mg Documented by: Dextrose (Dextrose 50% 50 Ml Syringe) 25 - 50 ml IV UD PRN; Protocol PRN Reason: Hypoglycemia Protocol Stop: 10/04/21 22:14 Enoxaparin Sodium (Enoxaparin Inj 40 Mg/0.4 Ml Syr) 40 mg SQ Q12H [facility] Stop: 10/04/21 22:59 Last Admin: 09/20/21 22:12 Dose: 40 mg Documented by: Famotidine (Famotidine 20 Mg Tab) 20 mg PO BID [facility] Stop: 10/16/21 20:59 Last Admin: 09/21/21 08:25 Dose: 20 mg Documented by: Glucagon (Glucagon For Inj 1 Mg Vial) 1 mg SQ UD PRN; Protocol PRN Reason: Hypoglycemia Protocol Stop: 10/04/21 22:14 Glucose (Glucose 10 Tabs/Tube) 4 - 8 tabs PO UD PRN; Protocol PRN Reason: Hypoglycemia Protocol Stop: 10/04/21 22:14 Glucose (Glucose 40% Gel 15 Gm Tube) 15 - 30 gm PO UD PRN; Protocol PRN Reason: Hypoglycemia Protocol Stop: 10/04/21 22:14 Furosemide 20 mg/ Syringe 2 mls @ 4 mls/min IV QAM SAADIA Stop: 10/08/21 08:59 Last Admin: 09/14/21 08:44 Dose: 4 mls/min Documented by: Dexamethasone 10 mg/ Syringe 2.5 mls @ 1 mls/min IV DAILY SAADIA Stop: 10/19/21 08:59 Last Admin: 09/21/21 08:27 Dose: 1 mls/min Documented by: Insulin Aspart (Insulin Aspart 100 Units/Ml 3 Ml Pen) 0 units SC ACHS [facility]ADIA Stop: 10/04/21 22:59 Last Admin: 09/21/21 08:27 Dose: 5 units Documented by: Melatonin (Melatonin 3 Mg Tab) 3 mg PO HS PRN PRN Reason: Sleep Stop: 10/18/21 22:27 Last Admin: 09/20/21 22:12 Dose: 3 mg Documented by: Menthol (Cough Drop (Sugar Free) Gabbie 24 Gabbie/1 Box) 0 gabbie BUCCAL PRN PRN; Protocol PRN Reason: NURSING DECISION Stop: 10/05/21 02:11 Miscellaneous (Carbohydrates For Hypoglycemia ) 15 - 30 gm PO UD PRN PRN Reason: Hypoglycemia Protocol Stop: 10/04/21 22:14 Multivitamins (Multivitamin Tab) 1 tab PO HS [facility] Stop: 10/04/21 22:14 Last Admin: 09/20/21 20:25 Dose: 1 tab Documented by: Ondansetron HCl (Ondansetron Inj 2 Mg/Ml 2 Ml Vial) 4 mg IV Q6H PRN PRN Reason: Nausea Stop: 10/04/21 22:14 Pantoprazole Sodium (Pantoprazole 40 Mg Tab) 40 mg PO QAM [facility] Stop: 10/05/21 08:59 Last Admin: 09/21/21 08:25 Dose: 40 mg Documented by: Polyethylene Glycol (Polyethylene (Miralax) 17 Gm Pack) 17 gm PO DAILY PRN PRN Reason: Constipation Stop: 10/04/21 22:14 Last Admin: 09/17/21 13:24 Dose: 17 gm Documented by: Sennosides (Senna 8.6 Mg Tab) 17.2 mg PO HS PRN PRN Reason: Constipation Stop: 10/04/21 22:14 Sodium Chloride (Sodium Chloride 0.65% Na Soln 45 Ml ([place])) 1 sprays NA UD PRN; Protocol PRN Reason: nasal congestion Stop: 10/18/21 17:14 Last Admin: 09/18/21 17:25 Dose: 1 sprays Documented by: Zinc Sulfate (Zinc Sulfate 220 Mg Capsule) 220 mg PO QAM [facility]AD[facility] Stop: 10/19/21 17:29 Last Admin: 09/21/21 08:25 Dose: 220 mg Documented by: PG Care Time/CCT Total # of Minutes Spent Total Time Spent with Patient: Total time spent is greater than 50% in coordination of care (as documented) at patient's floor/unit and/or counseling patient: Coding Level of Care Code 14362 Subseq Hosp Care Lvl 2 Diagnoses Pneumonia due to COVID-19 virus U07.1; J12.82 Acute hypoxemic respiratory failure J96.01 Transaminitis R74.01 Hyponatremia E87.1 Pre-diabetes R73.03 GERD (gastroesophageal reflux disease) K21.9 Hypertension I10 Disc degeneration, lumbar M51.36 Benign prostatic hyperplasia with urinary obstruction N40.1; N13.8 Early satiety R68.81 DVT prophylaxis Z29.9
[2021-09-21] MEDS: ENOXAPARIN INJ 40 MG/0.4 ML SYR SQ SCH ×2 (12:04→22:35)
[2021-09-21] MEDS: MULTIVITAMIN TAB PO SCH (20:45)
[2021-09-21] MEDS: ACETAMINOPHEN 325 MG TAB PO PRN (22:36)
[2021-09-21] MEDS: MELATONIN 3 MG TAB PO PRN (22:44)
[2021-09-22] MEDS ORDERED: FUROSEMIDE INJ 20 MG/2 ML VIAL IV ONE (07:57)
[2021-09-22] MEDS: FUROSEMIDE 20 MG in SYRINGE 0 ML IV SCH (09:15)
[2021-09-22] MEDS: ASPIRIN 81 MG ECTAB PO SCH (09:16)
[2021-09-22] MEDS: FAMOTIDINE 20 MG TAB PO SCH ×3 (09:17→22:05)
[2021-09-22] MEDS: PANTOprazole 40 MG TAB PO SCH (09:17)
[2021-09-22] MEDS: ZINC SULFATE 220 MG CAPSULE PO SCH (09:17)
[2021-09-22] MEDS: INSULIN ASPART 100 UNITS/ML 3 ML PEN SC SCH ×4 (09:29→21:03)
[2021-09-22] MEDS: ENOXAPARIN INJ 40 MG/0.4 ML SYR SQ SCH ×2 (11:28→22:06)
[2021-09-22] MEDS: dexAMETHasone 6 MG in SYRINGE 0 ML IV SCH (11:28)
[2021-09-22] MEDS: ACETAMINOPHEN 325 MG TAB PO PRN ×2 (12:45→22:05)
--- NOTE | 2021-09-22 14:52 | Hospitalist Progress Note ---
Date of Service September 22, 2021 Assessment & Plan (1) Pneumonia due to COVID-19 virus: Plan: Severe disease. Rapid escalation to HFNC in the first 24 hours of his stay. Initial CRP 8.6. repeat CXR on 09/12 showed progression of infiltrates IV dexamethasone increased to 20mg IV x 5 days then 10mg IV for 5 days when he was starting to get worse on 09/12, last day would be 09/22 for 10mg down to 6mg IV daily tomorrow completed 5 days of Remdesivir. baricitinib 4mg daily, completed 14 d course 09/19/21 Cont pulmonary toilet with flutter and incentive shawn. pt has been up and down on oxygen requirement 09/20 with first big taper down pt is fatigued and looks worn out , continue to encourage him Lasix held due to symptomatic hypotension he is on 6L today, up slightly from 5L yesterday mood is improved, out of neg pressure, family visiting (2) Acute hypoxemic respiratory failure: Plan: due to COVID pneumonia feeling better but more fatigued continue to lay prone, gutiérrez placed today so he can just rest as he desaturates standing and pivoting on toilet he is very compliant with flutter valve, incentive spirometer stable on 6L today, tends to desaturate when getting out of bed, takes a long time to recover (3) Transaminitis: Plan: 2nd to COVID-19 infection. AST/ALT are stable (4) Pre-diabetes: Plan: a1c 5.9% in 07/2021. loose novolog SSI scale T2DM diet monitor sugars, no major issues past 24 hours (5) GERD (gastroesophageal reflux disease): Plan: PPI see early satiety below (6) Hypertension: Plan: now improved after stopping his Avapro Cardura atenolol may be autonomic disequilibrium from Covid infection (7) Disc degeneration, lumbar: Plan: s/p lumbar back surgery in early 2020 despite surgery his back bothers him frequently fortunately he is able to prone despite this issue (8) Benign prostatic hyperplasia with urinary obstruction: Plan: place gutiérrez today Stopping Cardura due to lower blood pressure (9) Early satiety: Plan: present several months of her states now his appetite has improved has had EGD in the last few years - [facility]; PUD? KUB was normal add H2 camelia to his PPI after recovery from COVID refer back to GI for this issue (10) DVT prophylaxis: Plan: lovenox 40mg BID Plan: wean oxygen slowly Admission and Anticipated Discharge Date Admission Date: September 04, 2021 Subjective patient doing about the same as yesterday sitting up in a chair, is visiting with him which helps his mood a lot eating okay, making urine via gutiérrez no major changes since yesterday, still on 6-7L Review of Systems Review of Systems: All systems reviewed & are unremarkable except as noted in Subjective Respiratory: + dyspnea and + dyspnea on exertion Physical Exam Physical Exam: General: well developed, well nourished, elderly male, no distress Neck: supple, trachea midline, normal thyroid Lungs: clear to auscultation bilaterally, slightly tachypneic, no distress or accessory muscle use Heart: regular S1 and S2, no murmur, peripheral pulses normal, capillary refill normal, no edema Abdomen: soft, NT, ND, + BS, no hepatomegaly, normal to percussion Extremities: normal in appearance, no cyanosis, no petechiae, strength is 5/5 bilaterally Neuro: awake, cooperative, moves all extremities, no focal motor deficits, CN II-XII intact, sensation in extremities intact, normal speech Skin: warm, dry, no rash, normal turgor Psych: Awake, alert oriented x 3, euthymic affect Results & Data Results & Data ([facility]) Vital Signs (Past 12 Hours) Vital Signs Temp Pulse Resp BP Pulse Ox 09/22/21 08:01 36.6 C 66 18 121/74 88 L Laboratory Results Laboratory Results - last 24 hr 09/21/21 09/21/21 09/22/21 17:33 21:13 08:13 POC Glucose 123 H 156 H 102 H 09/22/21 12:10 POC Glucose 107 H Medications Administered Current Inpatient Medications Acetaminophen (Acetaminophen 325 Mg Tab) 650 mg PO Q4H PRN PRN Reason: Pain or Fever Stop: 10/04/21 22:14 Last Admin: 09/22/21 12:45 Dose: 650 mg Documented by: Aspirin (Aspirin 81 Mg Ectab) 81 mg PO [facility] Stop: 10/05/21 08:59 Last Admin: 09/22/21 09:16 Dose: 81 mg Documented by: Atenolol (Atenolol 25 Mg Tablet) 25 mg PO [facility] Stop: 10/16/21 08:59 Benzonatate (Benzonatate 100 Mg Capsule) 200 mg PO Q12H PRN PRN Reason: Cough Stop: 10/14/21 23:44 Last Admin: 09/15/21 00:13 Dose: 200 mg Documented by: Dextrose (Dextrose 50% 50 Ml Syringe) 25 - 50 ml IV UD PRN; Protocol PRN Reason: Hypoglycemia Protocol Stop: 10/04/21 22:14 Enoxaparin Sodium (Enoxaparin Inj 40 Mg/0.4 Ml Syr) 40 mg SQ Q12H [facility] Stop: 10/04/21 22:59 Last Admin: 09/22/21 11:28 Dose: 40 mg Documented by: Famotidine (Famotidine 20 Mg Tab) 20 mg PO BID [facility]AD[facility] Stop: 10/16/21 20:59 Last Admin: 09/22/21 09:17 Dose: 20 mg Documented by: Furosemide (Furosemide Inj 10 Mg/Ml 2 Ml Vial) 20 mg IV QAM [facility] Stop: 10/23/21 08:59 Glucagon (Glucagon For Inj 1 Mg Vial) 1 mg SQ UD PRN; Protocol PRN Reason: Hypoglycemia Protocol Stop: 10/04/21 22:14 Glucose (Glucose 10 Tabs/Tube) 4 - 8 tabs PO UD PRN; Protocol PRN Reason: Hypoglycemia Protocol Stop: 10/04/21 22:14 Glucose (Glucose 40% Gel 15 Gm Tube) 15 - 30 gm PO UD PRN; Protocol PRN Reason: Hypoglycemia Protocol Stop: 10/04/21 22:14 Furosemide 20 mg/ Syringe 2 mls @ 4 mls/min IV QAM [facility]AD[facility] Stop: 09/22/21 18:00 Last Admin: 09/22/21 09:15 Dose: 4 mls/min Documented by: Dexamethasone 6 mg/ Syringe 1.5 mls @ 1 mls/min IV DAILY SAADIA Stop: 10/22/21 08:59 Last Admin: 09/22/21 11:28 Dose: 1 mls/min Documented by: Insulin Aspart (Insulin Aspart 100 Units/Ml 3 Ml Pen) 0 units SC ACHS SAADIA Stop: 10/04/21 22:59 Last Admin: 09/22/21 12:47 Dose: 5 units Documented by: Melatonin (Melatonin 3 Mg Tab) 3 mg PO HS PRN PRN Reason: Sleep Stop: 10/18/21 22:27 Last Admin: 09/21/21 22:44 Dose: 3 mg Documented by: Menthol (Cough Drop (Sugar Free) Gabbie 24 Gabbie/1 Box) 0 gabbie BUCCAL PRN PRN; Protocol PRN Reason: NURSING DECISION Stop: 10/05/21 02:11 Miscellaneous (Carbohydrates For Hypoglycemia ) 15 - 30 gm PO UD PRN PRN Reason: Hypoglycemia Protocol Stop: 10/04/21 22:14 Multivitamins (Multivitamin Tab) 1 tab PO HS SAADIA Stop: 10/04/21 22:14 Last Admin: 09/21/21 20:45 Dose: 1 tab Documented by: Ondansetron HCl (Ondansetron Inj 2 Mg/Ml 2 Ml Vial) 4 mg IV Q6H PRN PRN Reason: Nausea Stop: 10/04/21 22:14 Pantoprazole Sodium (Pantoprazole 40 Mg Tab) 40 mg PO QAM [facility] Stop: 10/05/21 08:59 Last Admin: 09/22/21 09:17 Dose: 40 mg Documented by: Polyethylene Glycol (Polyethylene (Miralax) 17 Gm Pack) 17 gm PO DAILY PRN PRN Reason: Constipation Stop: 10/04/21 22:14 Last Admin: 09/17/21 13:24 Dose: 17 gm Documented by: Sennosides (Senna 8.6 Mg Tab) 17.2 mg PO HS PRN PRN Reason: Constipation Stop: 10/04/21 22:14 Sodium Chloride (Sodium Chloride 0.65% Na Soln 45 Ml ([place])) 1 sprays NA UD PRN; Protocol PRN Reason: nasal congestion Stop: 10/18/21 17:14 Last Admin: 09/18/21 17:25 Dose: 1 sprays Documented by: Zinc Sulfate (Zinc Sulfate 220 Mg Capsule) 220 mg PO QAM [facility] Stop: 10/19/21 17:29 Last Admin: 09/22/21 09:17 Dose: 220 mg Documented by: PG Care Time/CCT Total # of Minutes Spent Total Time Spent with Patient: Total time spent is greater than 50% in coordination of care (as documented) at patient's floor/unit and/or counseling patient: Coding Level of Care Code 58612 Subseq Hosp Care Lvl 2 Diagnoses Pneumonia due to COVID-19 virus U07.1; J12.82 Acute hypoxemic respiratory failure J96.01 Transaminitis R74.01 Pre-diabetes R73.03 GERD (gastroesophageal reflux disease) K21.9 Hypertension I10 Disc degeneration, lumbar M51.36 Benign prostatic hyperplasia with urinary obstruction N40.1; N13.8 Early satiety R68.81 DVT prophylaxis Z29.9
[2021-09-22] MEDS: MULTIVITAMIN TAB PO SCH (22:05)
[2021-09-23 07:13] LABS: Hemoglobin 14.1 g/dL (14.0-18.0); Mean Corpuscular Hemoglobin 30.9 pg (25-34); Mean Corpuscular Hgb Conc 35.3 g/dL (32-36); Mean Corpuscular Volume 87.5 fL (80-100); Mean Platelet Volume 9.5 fL (7.4-10.4); Platelet Count 298 K/uL (130-400); RDW Coefficient of Variation 13.9 % (11.5-14.5); RDW Standard Deviation 44.7 fL (36.4-46.3); Red Blood Count 4.57 M/uL (4.7-6.1); White Blood Count 11.79 K/uL (4.8-10.8)
--- NOTE | 2021-09-23 07:42 | XRay Report ---
XR chest 1V portable HISTORY: 71 years-old Male follow up COVID follow-up study in a patient with viral pneumonia and lewis rtness of breath COMPARISON: Chest radiograph 09/12/2021 TECHNIQUE: Portable AP view of the chest FINDINGS: Cardiomediastinal and hilar silhouettes are unchanged. Multifocal airspace opacities with intermixed interstitial coarsening is redemonstrated and has mildly progressed within the right lung. No pneumot horax. Probable trace pleural effusions. Degenerative changes of the spine and left shoulder. Reverse right shoulder total joint arthroplasty. IMPRESSION: Multifocal opacities compatible with viral pneumonia redemonstrated, mildly progressed wi thin the right lung. ACT 112: Negative or not required by law. The above report was generated using voice recognition software. It may contain grammatical, syntax o r spelling errors. Electronically signed by: Rudolph Louise M.D. 09/23/2021 7:41 AM
[2021-09-23 07:57] LABS: BUN Creatinine Ratio 35.8 (10-20); C Reactive Protein 6.8 mg/dl (0-0.29); Calcium 8.8 mg/dl (8.5-10.1); Creatinine Clr Calc Pharmacy 69.7 ml/min; Est GFR (African American) 93.6 ml/min; Est GFR (Non-African American) 80.8 ml/min; Potassium 4.1 mmol/L (3.5-5.1)
[2021-09-23] MEDS: INSULIN ASPART 100 UNITS/ML 3 ML PEN SC SCH ×4 (09:11→21:41)
[2021-09-23] MEDS: PANTOprazole 40 MG TAB PO SCH (09:15)
[2021-09-23] MEDS: FUROSEMIDE INJ 20 MG/2 ML VIAL IV SCH (09:15)
[2021-09-23] MEDS: dexAMETHasone 6 MG in SYRINGE 0 ML IV SCH (09:15)
[2021-09-23] MEDS: ZINC SULFATE 220 MG CAPSULE PO SCH (09:15)
[2021-09-23] MEDS: ASPIRIN 81 MG ECTAB PO SCH (09:15)
[2021-09-23] MEDS: FAMOTIDINE 20 MG TAB PO SCH ×2 (09:15→21:40)
[2021-09-23] MEDS: ACETAMINOPHEN 325 MG TAB PO PRN ×2 (10:06→21:41)
[2021-09-23] MEDS: ENOXAPARIN INJ 40 MG/0.4 ML SYR SQ SCH ×2 (11:15→21:41)
--- NOTE | 2021-09-23 12:49 | Hospitalist Progress Note ---
Date of Service September 23, 2021 Assessment & Plan (1) Pneumonia due to COVID-19 virus: Plan: Severe disease. Rapid escalation to HFNC in the first 24 hours of his stay. Initial CRP 8.6. repeat CXR on 09/12 showed progression of infiltrates CXR today with some progression of infiltrates CTA chest 09/23: no PE, shows possible acute on chronic viral pneumonitis? IV dexamethasone increased to 20mg IV x 5 days then 10mg IV for 5 days when he was starting to get worse on 09/12, last day would be 09/22 for 10mg down to 6mg IV daily today, continue as CRP is up to 6.8 today completed 5 days of Remdesivir. baricitinib 4mg daily, completed 14 d course 09/19/21 Cont pulmonary toilet with flutter and incentive shawn. pt has been up and down on oxygen requirement 09/20 with first big taper down pt is fatigued and looks worn out , continue to encourage him Lasix held due to symptomatic hypotension he remains on 6L today mood is improved, out of neg pressure, family visiting (2) Acute hypoxemic respiratory failure: Plan: due to COVID pneumonia feeling better but more fatigued continue to lay prone, gutiérrez placed today so he can just rest as he desaturates standing and pivoting on toilet he is very compliant with flutter valve, incentive spirometer stable on 6L today, tends to desaturate when getting out of bed, takes a long time to recover (3) Transaminitis: Plan: 2nd to COVID-19 infection. AST/ALT are stable (4) Pre-diabetes: Plan: a1c 5.9% in 07/2021. loose novolog SSI scale T2DM diet monitor sugars, no major issues past 24 hours (5) GERD (gastroesophageal reflux disease): Plan: PPI see early satiety below (6) Hypertension: Plan: now improved after stopping his Avapro Cardura atenolol may be autonomic disequilibrium from Covid infection (7) Disc degeneration, lumbar: Plan: s/p lumbar back surgery in early 2020 despite surgery his back bothers him frequently fortunately he is able to prone despite this issue (8) Benign prostatic hyperplasia with urinary obstruction: Plan: place gutiérrez today Stopping Cardura due to lower blood pressure (9) Early satiety: Plan: present several months of her states now his appetite has improved has had EGD in the last few years - [facility]; PUD? KUB was normal add H2 camelia to his PPI after recovery from COVID refer back to GI for this issue (10) DVT prophylaxis: Plan: lovenox 40mg BID Plan: wean oxygen slowly Admission and Anticipated Discharge Date Admission Date: September 04, 2021 Subjective patient sitting up in a chair, requiring 6L, not in distress said he had a really good night last night, several hours prone, then on right side he got up quickly this morning to the chair, made him desaturate, bumped to 8L mask recovered eventually CRP is up to 6.8 today, checked CTA chest, no PE but findings favoring acute on chronic viral pneumonitis? fibrotic changes will check biofire tomorrow AM he is eating well, moving bowels, making a lot of urine with gutiérrez and Lasix he continues to be frustrated with his slow improvement Review of Systems Review of Systems: All systems reviewed & are unremarkable except as noted in Subjective Respiratory: + cough, + dyspnea and + dyspnea on exertion Physical Exam Physical Exam: General: well developed, well nourished, elderly male, no distress Neck: supple, trachea midline, normal thyroid Lungs: clear to auscultation bilaterally, slightly tachypneic, no distress or accessory muscle use Heart: regular S1 and S2, no murmur, peripheral pulses normal, capillary refill normal, no edema Abdomen: soft, NT, ND, + BS, no hepatomegaly, normal to percussion Extremities: normal in appearance, no cyanosis, no petechiae, strength is 5/5 bilaterally Neuro: awake, cooperative, moves all extremities, no focal motor deficits, CN II-XII intact, sensation in extremities intact, normal speech Skin: warm, dry, no rash, normal turgor Psych: Awake, alert oriented x 3, euthymic affect Results & Data Results & Data ([facility]) Vital Signs (Past 12 Hours) Vital Signs Temp Pulse Resp BP Pulse Ox 09/23/21 09:15 90 09/23/21 08:10 36.4 C L 78 20 122/83 85 L Laboratory Results Laboratory Results - last 24 hr 09/23/21 09/23/21 09/23/21 06:50 06:50 08:42 WBC 11.79 H RBC 4.57 L Hgb 14.1 Hct 40.0 L MCV 87.5 MCH 30.9 MCHC 35.3 RDW Std Deviation 44.7 RDW Coeff of Bhupinder 13.9 Plt Count 298 MPV 9.5 Sodium 135 L Potassium 4.1 Chloride 104 Carbon Dioxide 25 Anion Gap 6.0 BUN 34 H Creatinine 0.95 Est Cr Clr Drug Dosing 69.7 Est GFR ( Amer) 93.6 Est GFR (Non-Af Amer) 80.8 BUN/Creatinine Ratio 35.8 H Glucose 94 POC Glucose 84 Calcium 8.8 C-Reactive Protein 6.80 H 09/23/21 09/23/21 09/23/21 12:17 17:21 20:48 WBC RBC Hgb Hct MCV MCH MCHC RDW Std Deviation RDW Coeff of Bhupinder Plt Count MPV Sodium Potassium Chloride Carbon Dioxide Anion Gap BUN Creatinine Est Cr Clr Drug Dosing Est GFR ( Amer) Est GFR (Non-Af Amer) BUN/Creatinine Ratio Glucose POC Glucose 191 H 125 H 183 H Calcium C-Reactive Protein Diagnostic Findings CT angiogram chest IMPRESSION: 1. No evidence for pulmonary embolus. 2. Multifocal scattered groundglass and consolidative airspace opacities. There is associated mild bronchiectasis and subpleural reticulation. Therefore, this favors an acute on chronic viral pneumonitis with developing fibrotic change. 3. Mild mediastinal and bilateral hilar lymphadenopathy. This may be reactive. Medications Administered Current Inpatient Medications Acetaminophen (Acetaminophen 325 Mg Tab) 650 mg PO Q4H PRN PRN Reason: Pain or Fever Stop: 10/04/21 22:14 Last Admin: 09/23/21 10:06 Dose: 650 mg Documented by: Aspirin (Aspirin 81 Mg Ectab) 81 mg PO [facility] Stop: 10/05/21 08:59 Last Admin: 09/23/21 09:15 Dose: 81 mg Documented by: Atenolol (Atenolol 25 Mg Tablet) [facility] Stop: 10/16/21 08:59 Benzonatate (Benzonatate 100 Mg Capsule) 200 mg PO Q12H PRN PRN Reason: Cough Stop: 10/14/21 23:44 Last Admin: 09/15/21 00:13 Dose: 200 mg Documented by: Dextrose (Dextrose 50% 50 Ml Syringe) 25 - 50 ml IV UD PRN; Protocol PRN Reason: Hypoglycemia Protocol Stop: 10/04/21 22:14 Enoxaparin Sodium (Enoxaparin Inj 40 Mg/0.4 Ml Syr) 40 mg SQ Q12H [facility] Stop: 10/04/21 22:59 Last Admin: 09/23/21 11:15 Dose: 40 mg Documented by: Famotidine (Famotidine 20 Mg Tab) 20 mg PO BID [facility] Stop: 10/16/21 20:59 Last Admin: 09/23/21 09:15 Dose: 20 mg Documented by: Furosemide (Furosemide Inj 10 Mg/Ml 2 Ml Vial) 20 mg IV QAM [facility] Stop: 10/23/21 08:59 Last Admin: 09/23/21 09:15 Dose: 20 mg Documented by: Glucagon (Glucagon For Inj 1 Mg Vial) 1 mg SQ UD PRN; Protocol PRN Reason: Hypoglycemia Protocol Stop: 10/04/21 22:14 Glucose (Glucose 10 Tabs/Tube) 4 - 8 tabs PO UD PRN; Protocol PRN Reason: Hypoglycemia Protocol Stop: 10/04/21 22:14 Glucose (Glucose 40% Gel 15 Gm Tube) 15 - 30 gm PO UD PRN; Protocol PRN Reason: Hypoglycemia Protocol Stop: 10/04/21 22:14 Dexamethasone 6 mg/ Syringe 1.5 mls @ 1 mls/min IV DAILY [facility] Stop: 10/22/21 08:59 Last Admin: 09/23/21 09:15 Dose: 1 mls/min Documented by: Insulin Aspart (Insulin Aspart 100 Units/Ml 3 Ml Pen) 0 units SC ACHS [facility] Stop: 10/04/21 22:59 Last Admin: 09/23/21 18:04 Dose: 6 units Documented by: Melatonin (Melatonin 3 Mg Tab) 3 mg PO HS PRN PRN Reason: Sleep Stop: 10/18/21 22:27 Last Admin: 09/21/21 22:44 Dose: 3 mg Documented by: Menthol (Cough Drop (Sugar Free) Gabbie 24 Gabbie/1 Box) 0 gabbie BUCCAL PRN PRN; Protocol PRN Reason: NURSING DECISION Stop: 10/05/21 02:11 Miscellaneous (Carbohydrates For Hypoglycemia ) 15 - 30 gm PO UD PRN PRN Reason: Hypoglycemia Protocol Stop: 10/04/21 22:14 Multivitamins (Multivitamin Tab) 1 tab PO HS SAADIA Stop: 10/04/21 22:14 Last Admin: 09/22/21 22:05 Dose: 1 tab Documented by: Ondansetron HCl (Ondansetron Inj 2 Mg/Ml 2 Ml Vial) 4 mg IV Q6H PRN PRN Reason: Nausea Stop: 10/04/21 22:14 Pantoprazole Sodium (Pantoprazole 40 Mg Tab) 40 mg PO [facility] Stop: 10/05/21 08:59 Last Admin: 09/23/21 09:15 Dose: 40 mg Documented by: Polyethylene Glycol (Polyethylene (Miralax) 17 Gm Pack) 17 gm PO DAILY PRN PRN Reason: Constipation Stop: 10/04/21 22:14 Last Admin: 09/17/21 13:24 Dose: 17 gm Documented by: Sennosides (Senna 8.6 Mg Tab) 17.2 mg PO HS PRN PRN Reason: Constipation Stop: 10/04/21 22:14 Sodium Chloride (Sodium Chloride 0.65% Na Soln 45 Ml ([place])) 1 sprays NA UD PRN; Protocol PRN Reason: nasal congestion Stop: 10/18/21 17:14 Last Admin: 09/18/21 17:25 Dose: 1 sprays Documented by: Zinc Sulfate (Zinc Sulfate 220 Mg Capsule) 220 [facility] Stop: 10/19/21 17:29 Last Admin: 09/23/21 09:15 Dose: 220 mg Documented by: PG Care Time/CCT Total # of Minutes Spent Total Time Spent with Patient: Total time spent is greater than 50% in coordination of care (as documented) at patient's floor/unit and/or counseling patient: Coding Level of Care Code 97636 Subseq Hosp Care Lvl 2 Diagnoses Pneumonia due to COVID-19 virus U07.1; J12.82 Acute hypoxemic respiratory failure J96.01 Transaminitis R74.01 Pre-diabetes R73.03 GERD (gastroesophageal reflux disease) K21.9 Hypertension I10 Disc degeneration, lumbar M51.36 Benign prostatic hyperplasia with urinary obstruction N40.1; N13.8 Early satiety R68.81 DVT prophylaxis Z29.9
[2021-09-23] MEDS ORDERED: OPTIRAY 320 125ml IV ONE (17:09)
--- NOTE | 2021-09-23 17:26 | CT Scan Report ---
CHEST CTA for PULMONARY ARTERIES CT DOSE: 449.37 mGy.cm HISTORY: Covid pneumonia. Shortness of breath. TECHNIQUE: Multiaxial CT images of the chest were performed following the intravenous administration of contrast to evaluate the pulmonary arteries. Maximal intensity projection images were also obtaine d. A dose lowering technique was utilized adhering to the principles of ALARA. COMPARISON STUDY: Chest 09/23/2021. FINDINGS: The visualized liver, spleen, and adrenal glands are unremarkable. No pleural or pericardia l effusions. There are low lung volumes. The heart is top normal in size. There is a small hiatus her charly. There are few mildly enlarged mediastinal and bilateral hilar lymph nodes measuring up to 12 mm in short axis diameter. These may be reactive. Normal caliber thoracic aorta with no evidence for dis section. No filling defects within the pulmonary arteries to suggest a pulmonary embolus. There is a right shoulder prosthesis. No suspicious lytic are blastic osseous lesions. No pneumothorax. Mild bro nchiectasis. Multifocal scattered groundglass and consolidative airspace opacities are seen throughou t the lungs with associated subpleural reticulation and mild architectural distortion of the lungs. T hese demonstrate a peripheral predominance. This favors an acute or chronic viral pneumonitis with louis ggestion of mild developing fibrotic change. IMPRESSION: 1. No evidence for pulmonary embolus. 2. Multifocal scattered groundglass and consolidative airspace opacities. There is associated mild br onchiectasis and subpleural reticulation. Therefore, this favors an acute on chronic viral pneumoniti s with developing fibrotic change. 3. Mild mediastinal and bilateral hilar lymphadenopathy. This may be reactive. ACT 112: Negative or not required by law. Electronically signed by: Hamzah Bhandari M.D. 09/23/2021 5:25 PM
[2021-09-23] MEDS: MULTIVITAMIN TAB PO SCH (21:40)
[2021-09-24] MEDS: dexAMETHasone 6 MG in SYRINGE 0 ML IV SCH (08:36)
[2021-09-24] MEDS: FAMOTIDINE 20 MG TAB PO SCH ×2 (08:36→21:36)
[2021-09-24] MEDS: PANTOprazole 40 MG TAB PO SCH (08:36)
[2021-09-24] MEDS: ASPIRIN 81 MG ECTAB PO SCH (08:36)
[2021-09-24] MEDS: ZINC SULFATE 220 MG CAPSULE PO SCH (08:36)
[2021-09-24] MEDS: FUROSEMIDE INJ 20 MG/2 ML VIAL IV SCH (08:37)
[2021-09-24] MEDS: INSULIN ASPART 100 UNITS/ML 3 ML PEN SC SCH ×4 (08:39→21:36)
[2021-09-24] MEDS: ACETAMINOPHEN 325 MG TAB PO PRN ×3 (08:41→23:02)
[2021-09-24 11:07] LABS: Adenovirus PCR Not Detected (NotDetected); Bordetella parapertussis PCR Not Detected (NotDetected); Bordetella pertussis PCR Not Detected (NotDetected); Chlamydia pneumoniae PCR Not Detected (NotDetected); Coronavirus 229E PCR Not Detected (NotDetected); Coronavirus CoV-2 (COVID19)PCR Not Detected (NotDetected); Coronavirus HKU1 PCR Not Detected (NotDetected); Coronavirus NL63 PCR Not Detected (NotDetected); Coronavirus OC43PCR Not Detected (NotDetected); Human Metapneumovirus PCR Not Detected (NotDetected); Influenza A PCR Not Detected (NotDetected); Influenza B PCR Not Detected (NotDetected); Mycoplasma pneumoniae PCR Not Detected (NotDetected); Parainfluenza Virus 1 PCR Not Detected (NotDetected); Parainfluenza Virus 2 PCR Not Detected (NotDetected); Parainfluenza Virus 3 PCR Not Detected (NotDetected); Parainfluenza Virus 4 PCR Not Detected (NotDetected); Respiratory Syncytial VirusPCR Not Detected (NotDetected); Rhinovirus/Enterovirus PCR Not Detected (NotDetected)
[2021-09-24] MEDS: BENZONATATE 100 MG CAPSULE PO PRN (11:21)
--- NOTE | 2021-09-24 11:51 | Hospitalist Progress Note ---
Date of Service September 24, 2021 Assessment & Plan (1) Pneumonia due to COVID-19 virus: Plan: Severe disease. Rapid escalation to HFNC in the first 24 hours of his stay. Initial CRP 8.6. repeat CXR on 09/12 showed progression of infiltrates CXR 09/23 with some progression of infiltrates CTA chest 09/23: no PE, shows possible acute on chronic viral pneumonitis? Biofire panel on 09/24 is NEGATIVE for all viruses tested, even SARS COV2 and influenza A/B IV dexamethasone increased to 20mg IV x 5 days then 10mg IV for 5 days when he was starting to get worse on 09/12, last day would be 09/22 for 10mg down to 6mg IV daily today, continue as CRP is up to 6.8 on 09/23, unclear why completed 5 days of Remdesivir early in admission baricitinib 4mg daily, completed 14 d course 09/19/21 Cont pulmonary toilet with flutter and incentive shawn. pt has been up and down on oxygen requirement 09/20 with first big taper down pt is fatigued and looks worn out , continue to encourage him Lasix held due to symptomatic hypotension but now resumed to keep negative fluid balance he is down to 5L at rest today, needs to increase to 13-14L just getting out of bed to chair mood is improved, out of neg pressure, family visiting (2) Acute hypoxemic respiratory failure: Plan: due to COVID pneumonia feeling better but more fatigued continue to lay prone, gutiérrez placed to limit movement due to desaturating he is very compliant with flutter valve, incentive spirometer stable on 5L today, tends to desaturate when getting out of bed, takes a long time to recover (3) Transaminitis: Plan: 2nd to COVID-19 infection. AST/ALT are stable (4) Pre-diabetes: Plan: a1c 5.9% in 07/2021. loose novolog SSI scale T2DM diet monitor sugars, no major issues past 24 hours (5) GERD (gastroesophageal reflux disease): Plan: PPI see early satiety below (6) Hypertension: Plan: now improved after stopping his Avapro Cardura atenolol may be autonomic disequilibrium from Covid infection (7) Disc degeneration, lumbar: Plan: s/p lumbar back surgery in early 2020 despite surgery his back bothers him frequently fortunately he is able to prone despite this issue (8) Benign prostatic hyperplasia with urinary obstruction: Plan: place gutiérrez today Stopping Cardura due to lower blood pressure (9) Early satiety: Plan: present several months of her states now his appetite has improved has had EGD in the last few years - [facility]; PUD? KUB was normal add H2 camelia to his PPI after recovery from COVID refer back to GI for this issue (10) DVT prophylaxis: Plan: lovenox 40mg BID Plan: wean oxygen slowly Admission and Anticipated Discharge Date Admission Date: September 04, 2021 Subjective patient slept well last night, prone and on right side increased oxygen this morning when he got out of bed, recovered, down to 5L mask at this time he desaturates when he eats but he ate his breakfast has some pain in chest with coughing discussed the CTA chest, no PE, had some possible acute viral pneumonitis and CRP back up? biofire respiratory panel negative this morning, even for COVID will have pulmonology see him, any other thoughts? Review of Systems Review of Systems: All systems reviewed & are unremarkable except as noted in Subjective Respiratory: + cough, + dyspnea, + dyspnea on exertion and + pain with cough; no sputum production Physical Exam Physical Exam: General: well developed, well nourished, elderly male, no distress Neck: supple, trachea midline, normal thyroid Lungs: clear to auscultation bilaterally, slightly tachypneic, no distress or accessory muscle use Heart: regular S1 and S2, no murmur, peripheral pulses normal, capillary refill normal, no edema Abdomen: soft, NT, ND, + BS, no hepatomegaly, normal to percussion Extremities: normal in appearance, no cyanosis, no petechiae, strength is 5/5 bilaterally Neuro: awake, cooperative, moves all extremities, no focal motor deficits, CN II-XII intact, sensation in extremities intact, normal speech Skin: warm, dry, no rash, normal turgor Psych: Awake, alert oriented x 3, euthymic affect Results & Data Results & Data ([facility]) Vital Signs (Past 12 Hours) Vital Signs Temp Pulse Resp BP Pulse Ox 09/24/21 07:37 36.2 C L 54 L 17 131/82 92 Laboratory Results Laboratory Results - last 24 hr 09/23/21 09/23/21 09/23/21 12:17 17:21 20:48 POC Glucose 191 H 125 H 183 H Adenovirus (PCR) B. pertussis DNA (PCR) B.parapertussis DNA PCR C. pneumoniae DNA (PCR) Coronavirus OC43 (PCR) Coronavirus HKU1 (PCR) Coronavirus 229E (PCR) COVID-19 Eval Order SARS-CoV-2 (PCR) Coronavirus NL63 (PCR) Human Metapneumovir PCR Influenza Type A (PCR) Influenza Type B (PCR) M. pneumoniae (PCR) Parainfluenza 1 (PCR) Parainfluenza 2 (PCR) Parainfluenza 3 (PCR) Parainfluenza 4 (PCR) RSV (PCR) Entero/Rhino (PCR) 09/24/21 09/24/21 09/24/21 08:07 10:07 10:07 POC Glucose 125 H Adenovirus (PCR) Not Detected B. pertussis DNA (PCR) Not Detected B.parapertussis DNA PCR Not Detected C. pneumoniae DNA (PCR) Not Detected Coronavirus OC43 (PCR) Not Detected Coronavirus HKU1 (PCR) Not Detected Coronavirus 229E (PCR) Not Detected COVID-19 Eval Order RESPNP at [facility] SARS-CoV-2 (PCR) Not Detected Coronavirus NL63 (PCR) Not Detected Human Metapneumovir PCR Not Detected Influenza Type A (PCR) Not Detected Influenza Type B (PCR) Not Detected M. pneumoniae (PCR) Not Detected Parainfluenza 1 (PCR) Not Detected Parainfluenza 2 (PCR) Not Detected Parainfluenza 3 (PCR) Not Detected Parainfluenza 4 (PCR) Not Detected RSV (PCR) Not Detected Entero/Rhino (PCR) Not Detected Medications Administered Current Inpatient Medications Acetaminophen (Acetaminophen 325 Mg Tab) 650 mg PO Q4H PRN PRN Reason: Pain or Fever Stop: 10/04/21 22:14 Last Admin: 09/24/21 08:41 Dose: 650 mg Documented by: Aspirin (Aspirin 81 Mg Ectab) 81 mg PO [facility] Stop: 10/05/21 08:59 Last Admin: 09/24/21 08:36 Dose: 81 mg Documented by: Atenolol (Atenolol 25 Mg Tablet) 25 mg PO [facility] Stop: 10/16/21 08:59 Benzonatate (Benzonatate 100 Mg Capsule) 200 mg PO Q12H PRN PRN Reason: Cough Stop: 10/14/21 23:44 Last Admin: 09/24/21 11:21 Dose: 200 mg Documented by: Dextrose (Dextrose 50% 50 Ml Syringe) 25 - 50 ml IV UD PRN; Protocol PRN Reason: Hypoglycemia Protocol Stop: 10/04/21 22:14 Enoxaparin Sodium (Enoxaparin Inj 40 Mg/0.4 Ml Syr) 40 mg SQ Q12H [facility] Stop: 10/04/21 22:59 Last Admin: 09/23/21 21:41 Dose: 40 mg Documented by: Famotidine (Famotidine 20 Mg Tab) 20 mg PO BID [facility] Stop: 10/16/21 20:59 Last Admin: 09/24/21 08:36 Dose: 20 mg Documented by: Furosemide (Furosemide Inj 10 Mg/Ml 2 Ml Vial) 20 mg IV QAM [facility] Stop: 10/23/21 08:59 Last Admin: 09/24/21 08:37 Dose: 20 mg Documented by: Glucagon (Glucagon For Inj 1 Mg Vial) 1 mg SQ UD PRN; Protocol PRN Reason: Hypoglycemia Protocol Stop: 10/04/21 22:14 Glucose (Glucose 10 Tabs/Tube) 4 - 8 tabs PO UD PRN; Protocol PRN Reason: Hypoglycemia Protocol Stop: 10/04/21 22:14 Glucose (Glucose 40% Gel 15 Gm Tube) 15 - 30 gm PO UD PRN; Protocol PRN Reason: Hypoglycemia Protocol Stop: 10/04/21 22:14 Dexamethasone 6 mg/ Syringe 1.5 mls @ 1 mls/min IV DAILY [facility] Stop: 10/22/21 08:59 Last Admin: 09/24/21 08:36 Dose: 1 mls/min Documented by: Insulin Aspart (Insulin Aspart 100 Units/Ml 3 Ml Pen) 0 units SC ACHS [facility] Stop: 10/04/21 22:59 Last Admin: 09/24/21 08:39 Dose: 4 units Documented by: Melatonin (Melatonin 3 Mg Tab) 3 mg PO HS PRN PRN Reason: Sleep Stop: 10/18/21 22:27 Last Admin: 09/21/21 22:44 Dose: 3 mg Documented by: Menthol (Cough Drop (Sugar Free) Gabbie 24 Gabbie/1 Box) 0 gabbie BUCCAL PRN PRN; Protocol PRN Reason: NURSING DECISION Stop: 10/05/21 02:11 Miscellaneous (Carbohydrates For Hypoglycemia ) 15 - 30 gm PO UD PRN PRN Reason: Hypoglycemia Protocol Stop: 10/04/21 22:14 Multivitamins (Multivitamin Tab) 1 tab PO HS [facility]IA Stop: 10/04/21 22:14 Last Admin: 09/23/21 21:40 Dose: 1 tab Documented by: Ondansetron HCl (Ondansetron Inj 2 Mg/Ml 2 Ml Vial) 4 mg IV Q6H PRN PRN Reason: Nausea Stop: 10/04/21 22:14 Pantoprazole Sodium (Pantoprazole 40 Mg Tab) 40 mg PO QAM [facility] Stop: 10/05/21 08:59 Last Admin: 09/24/21 08:36 Dose: 40 mg Documented by: Polyethylene Glycol (Polyethylene (Miralax) 17 Gm Pack) 17 gm PO DAILY PRN PRN Reason: Constipation Stop: 10/04/21 22:14 Last Admin: 09/17/21 13:24 Dose: 17 gm Documented by: Sennosides (Senna 8.6 Mg Tab) 17.2 mg PO HS PRN PRN Reason: Constipation Stop: 10/04/21 22:14 Sodium Chloride (Sodium Chloride 0.65% Na Soln 45 Ml ([place])) 1 sprays NA UD PRN; Protocol PRN Reason: nasal congestion Stop: 10/18/21 17:14 Last Admin: 09/18/21 17:25 Dose: 1 sprays Documented by: Zinc Sulfate (Zinc Sulfate 220 Mg Capsule) 220 mg PO QAM [facility] Stop: 10/19/21 17:29 Last Admin: 09/24/21 08:36 Dose: 220 mg Documented by: PG Care Time/CCT Total # of Minutes Spent Total Time Spent with Patient: Total time spent is greater than 50% in coordination of care (as documented) at patient's floor/unit and/or counseling patient: Coding Level of Care Code 63254 Subseq Hosp Care Lvl 2 Diagnoses Pneumonia due to COVID-19 virus U07.1; J12.82 Acute hypoxemic respiratory failure J96.01 Transaminitis R74.01 Pre-diabetes R73.03 GERD (gastroesophageal reflux disease) K21.9 Hypertension I10 Disc degeneration, lumbar M51.36 Benign prostatic hyperplasia with urinary obstruction N40.1; N13.8 Early satiety R68.81 DVT prophylaxis Z29.9
[2021-09-24] MEDS: ENOXAPARIN INJ 40 MG/0.4 ML SYR SQ SCH ×2 (13:03→21:36)
--- NOTE | 2021-09-24 17:56 | Pulmonology Progress Note ---
Date of Service September 24, 2021 Assessment & Plan (1) Pneumonia due to COVID-19 virus: (2) Acute hypoxemic respiratory failure: (3) Morbid obesity due to excess calories: (4) Transaminitis: Plan: Attending: Dr. Ken Impression: 71-year-old male with a past medical history of obesity, prediabetes and GERD presenting due to COVID-19 viral pneumonia and acute hypoxemic respiratory failure. Patient completed course of remdesivir. Dexamethasone is being titrated off. Patient completed course of baricitinib. Recommendations: 1. COVID-19 viral pneumonia: Patient completed treatment with remdesivir and baricitinib. Steroids are currently being weaned down. Patient continues to require supplemental oxygen. CTA shows no evidence of pulmonary embolism. There is still substantial groundglass opacification consistent with viral pneumonia. Long discussion with patient and daughter. Unclear as to whether this is persistent viral illness or developing fibrosis. Patient aware that this may not improve and if it does he may have prolonged recovery. We will continue supportive care. Encourage incentive spirometry. Encourage increased activity as tolerated. No further recommendations from a pulmonary perspective. Continue supportive care. Discussed with Dr. Ken. Dr. Henriquez from the hospitalist team updated. Pulmonary service will sign off at this time. Please feel free to reconsult as needed. Admission and Anticipated Discharge Date Admission Date: September 04, 2021 Subjective Attending: Dr. Ken Patient seen at bedside in bedside chair. Daughter present for examination and interview. Patient continues to have shortness of breath. This is worse in the morning and seems to improve by noon time. Patient does have cough but very little sputum production. He has no hemoptysis. He has no chest pain or tightness. He has no fever, chills, sweats, rigors. No acute changes. No a cute complaints. He continues to require supplemental oxygen to maintain SaO2 greater than 90%. Review of Systems Review of Systems: All systems reviewed & are unremarkable except as noted in Subjective Physical Exam Physical Exam: GENERAL : No acute distress EYES: No icterus, gaze conjugate NOSE: No evidence of epistaxis MOUTH: No lesions or candidiasis NECK: Supple LUNGS: Bibasilar crackles. No rhonchi. No bronchospasm. HEART: Regular, rate controlled ABDOMEN: Soft, NT, ND, BS Present EXTREMITIES: No LE edema, pedal pulses intact NEURO: A&OX3 Results & Data Results & Data ([facility]) Vital Signs (Past 12 Hours) Vital Signs Temp Pulse Resp BP Pulse Ox 09/24/21 15:52 36.4 C L 77 21 147/94 H 94 09/24/21 07:37 36.2 C L 54 L 17 131/82 92 Laboratory Results 09/23/21 06:50 09/23/21 06:50 Diagnostic Findings No further diagnostic imaging since CTA of chest PG Care Time/CCT Total # of Minutes Spent Total Time Spent with Patient: Total time spent is greater than 50% in coordination of care (as documented) at patient's floor/unit and/or counseling patient: 30 minutes including discussion with patient and his daughter in the room Coding Level of Care Code 77972 Subseq Hosp Care Lvl 2 Diagnoses Pneumonia due to COVID-19 virus U07.1; J12.82 Acute hypoxemic respiratory failure J96.01 Morbid obesity due to excess calories E66.01 Transaminitis R74.01 Time Spent (min) 30
[2021-09-24] MEDS: MULTIVITAMIN TAB PO SCH (21:36)
[2021-09-25] MEDS: ASPIRIN 81 MG ECTAB PO SCH (09:00)
[2021-09-25] MEDS: PANTOprazole 40 MG TAB PO SCH (09:00)
[2021-09-25] MEDS: FUROSEMIDE INJ 20 MG/2 ML VIAL IV SCH (09:00)
[2021-09-25] MEDS: ZINC SULFATE 220 MG CAPSULE PO SCH (09:01)
[2021-09-25] MEDS: FAMOTIDINE 20 MG TAB PO SCH ×2 (09:01→22:22)
[2021-09-25] MEDS: INSULIN ASPART 100 UNITS/ML 3 ML PEN SC SCH ×4 (09:02→22:24)
[2021-09-25] MEDS: dexAMETHasone 4 MG in SYRINGE 0 ML IV SCH (09:28)
[2021-09-25] MEDS: ACETAMINOPHEN 325 MG TAB PO PRN ×2 (10:40→22:20)
[2021-09-25] MEDS: ENOXAPARIN INJ 40 MG/0.4 ML SYR SQ SCH ×2 (10:41→22:21)
--- NOTE | 2021-09-25 12:51 | Hospitalist Progress Note ---
Date of Service September 25, 2021 Assessment & Plan (1) Pneumonia due to COVID-19 virus: Plan: Severe disease. Rapid escalation to HFNC in the first 24 hours of his stay. Initial CRP 8.6. repeat CXR on 09/12 showed progression of infiltrates CXR 09/23 with some progression of infiltrates CTA chest 09/23: no PE, shows possible acute on chronic viral pneumonitis? Biofire panel on 09/24 is NEGATIVE for all viruses tested, even SARS COV2 and influenza A/B IV dexamethasone increased to 20mg IV x 5 days then 10mg IV for 5 days when he was starting to get worse on 09/12, last day would be 09/22 for 10mg down to 6mg IV daily for a few days, decreased to 4mg IV daily today, taper off, steroids not likely helping at this point completed 5 days of Remdesivir early in admission baricitinib 4mg daily, completed 14 d course 09/19/21 Cont pulmonary toilet with flutter and incentive shawn. add Codeine PRN for cough pt is fatigued and looks worn out , continue to encourage him stable on 6L at rest, but needs > 10L just getting from bed to chair (2) Acute hypoxemic respiratory failure: Plan: due to COVID pneumonia feeling better but more fatigued continue to lay prone, gutiérrez placed to limit movement due to desaturating he is very compliant with flutter valve, incentive spirometer stable on 6L today, tends to desaturate when getting out of bed, takes a long ti me to recover won't be able to leave hospital until he is stable on less oxygen (3) Transaminitis: Plan: 2nd to COVID-19 infection. AST/ALT are stable (4) Pre-diabetes: Plan: a1c 5.9% in 07/2021. loose novolog SSI scale T2DM diet monitor sugars, no major issues past 24 hours (5) GERD (gastroesophageal reflux disease): Plan: PPI see early satiety below (6) Hypertension: Plan: now improved after stopping his Avapro Cardura atenolol may be autonomic disequilibrium from Covid infection (7) Disc degeneration, lumbar: Plan: s/p lumbar back surgery in early 2020 despite surgery his back bothers him frequently fortunately he is able to prone despite this issue (8) Benign prostatic hyperplasia with urinary obstruction: Plan: place gutiérrez today Stopping Cardura due to lower blood pressure (9) Early satiety: Plan: present several months of her states now his appetite has improved has had EGD in the last few years - [facility]; PUD? KUB was normal add H2 camelia to his PPI after recovery from COVID refer back to GI for this issue (10) DVT prophylaxis: Plan: lovenox 40mg BID Plan: wean oxygen slowly Admission and Anticipated Discharge Date Admission Date: September 04, 2021 Subjective patient continues to need increased oxygen when getting from bed to chair takes him a long time to recover, eventually gets back down to 6L he feels fine in the chair, only complaint is cough, agrees to try some codeine to suppress cough eating great, no fever, no chest pain Review of Systems Review of Systems: All systems reviewed & are unremarkable except as noted in Subjective Respiratory: + cough, + dyspnea and + dyspnea on exertion Physical Exam Physical Exam: General: well developed, well nourished, elderly male, no distress Neck: supple, trachea midline, normal thyroid Lungs: clear to auscultation bilaterally, slightly tachypneic, no distress or accessory muscle use Heart: regular S1 and S2, no murmur, peripheral pulses normal, capillary refill normal, no edema Abdomen: soft, NT, ND, + BS, no hepatomegaly, normal to percussion Extremities: normal in appearance, no cyanosis, no petechiae, strength is 5/5 bilaterally Neuro: awake, cooperative, moves all extremities, no focal motor deficits, CN II-XII intact, sensation in extremities intact, normal speech Skin: warm, dry, no rash, normal turgor Psych: Awake, alert oriented x 3, euthymic affect Results & Data Results & Data ([facility]) Vital Signs (Past 12 Hours) Vital Signs Temp Pulse Resp BP Pulse Ox 09/25/21 08:19 36.7 C 85 19 118/76 90 Laboratory Results Laboratory Results - last 24 hr 09/24/21 09/24/21 09/25/21 16:59 20:42 08:16 POC Glucose 170 H 188 H 138 H 09/25/21 12:17 POC Glucose 156 H Medications Administered Current Inpatient Medications Acetaminophen (Acetaminophen 325 Mg Tab) 650 mg PO Q4H PRN PRN Reason: Pain or Fever Stop: 10/04/21 22:14 Last Admin: 09/25/21 10:40 Dose: 650 mg Documented by: Aspirin (Aspirin 81 Mg Ectab) 81 mg PO QAM [facility] Stop: 10/05/21 08:59 Last Admin: 09/25/21 09:00 Dose: 81 mg Documented by: Atenolol (Atenolol 25 Mg Tablet) 25 mg PO QAM [facility] Stop: 10/16/21 08:59 Benzonatate (Benzonatate 100 Mg Capsule) 200 mg PO Q12H PRN PRN Reason: Cough Stop: 10/14/21 23:44 Last Admin: 09/24/21 11:21 Dose: 200 mg Documented by: Dextrose (Dextrose 50% 50 Ml Syringe) 25 - 50 ml IV UD PRN; Protocol PRN Reason: Hypoglycemia Protocol Stop: 10/04/21 22:14 Enoxaparin Sodium (Enoxaparin Inj 40 Mg/0.4 Ml Syr) 40 mg SQ Q12H [facility] Stop: 10/04/21 22:59 Last Admin: 09/25/21 10:41 Dose: 40 mg Documented by: Famotidine (Famotidine 20 Mg Tab) 20 mg PO BID [facility] Stop: 10/16/21 20:59 Last Admin: 09/25/21 09:01 Dose: 20 mg Documented by: Furosemide (Furosemide Inj 10 Mg/Ml 2 Ml Vial) 20 mg IV QAM [facility] Stop: 10/23/21 08:59 Last Admin: 09/25/21 09:00 Dose: 20 mg Documented by: Glucagon (Glucagon For Inj 1 Mg Vial) 1 mg SQ UD PRN; Protocol PRN Reason: Hypoglycemia Protocol Stop: 10/04/21 22:14 Glucose (Glucose 10 Tabs/Tube) 4 - 8 tabs PO UD PRN; Protocol PRN Reason: Hypoglycemia Protocol Stop: 10/04/21 22:14 Glucose (Glucose 40% Gel 15 Gm Tube) 15 - 30 gm PO UD PRN; Protocol PRN Reason: Hypoglycemia Protocol Stop: 10/04/21 22:14 Dexamethasone 4 mg/ Syringe 1 mls @ 1 mls/min IV DAILY [facility] Stop: 10/25/21 08:59 Last Admin: 09/25/21 09:28 Dose: 1 mls/min Documented by: Insulin Aspart (Insulin Aspart 100 Units/Ml 3 Ml Pen) 0 units SC ACHS [facility] Stop: 10/04/21 22:59 Last Admin: 09/25/21 09:02 Dose: 4 units Documented by: Melatonin (Melatonin 3 Mg Tab) 3 mg PO HS PRN PRN Reason: Sleep Stop: 10/18/21 22:27 Last Admin: 09/21/21 22:44 Dose: 3 mg Documented by: Menthol (Cough Drop (Sugar Free) Gabbie 24 Gabbie/1 Box) 0 gabbie BUCCAL PRN PRN; Protocol PRN Reason: NURSING DECISION Stop: 10/05/21 02:11 Miscellaneous (Carbohydrates For Hypoglycemia ) 15 - 30 gm PO UD PRN PRN Reason: Hypoglycemia Protocol Stop: 10/04/21 22:14 Multivitamins (Multivitamin Tab) 1 tab PO HS [facility] Stop: 10/04/21 22:14 Last Admin: 09/24/21 21:36 Dose: 1 tab Documented by: Ondansetron HCl (Ondansetron Inj 2 Mg/Ml 2 Ml Vial) 4 mg IV Q6H PRN PRN Reason: Nausea Stop: 10/04/21 22:14 Pantoprazole Sodium (Pantoprazole 40 Mg Tab) [facility] Stop: 10/05/21 08:59 Last Admin: 09/25/21 09:00 Dose: 40 mg Documented by: Polyethylene Glycol (Polyethylene (Miralax) 17 Gm Pack) 17 gm PO DAILY PRN PRN Reason: Constipation Stop: 10/04/21 22:14 Last Admin: 09/17/21 13:24 Dose: 17 gm Documented by: Sennosides (Senna 8.6 Mg Tab) 17.2 mg PO HS PRN PRN Reason: Constipation Stop: 10/04/21 22:14 Sodium Chloride (Sodium Chloride 0.65% Na Soln 45 Ml (Vazquez)) 1 sprays NA UD PRN; Protocol PRN Reason: nasal congestion Stop: 10/18/21 17:14 Last Admin: 09/18/21 17:25 Dose: 1 sprays Documented by: Zinc Sulfate (Zinc Sulfate 220 Mg Capsule) 220 mg PO QAM [facility] Stop: 10/19/21 17:29 Last Admin: 09/25/21 09:01 Dose: 220 mg Documented by: PG Care Time/CCT Total # of Minutes Spent Total Time Spent with Patient: Total time spent is greater than 50% in coordination of care (as documented) at patient's floor/unit and/or counseling patient: Coding Level of Care Code 02507 Subseq Hosp Care Lvl 2 Diagnoses Pneumonia due to COVID-19 virus U07.1; J12.82 Acute hypoxemic respiratory failure J96.01 Transaminitis R74.01 Pre-diabetes R73.03 GERD (gastroesophageal reflux disease) K21.9 Hypertension I10 Disc degeneration, lumbar M51.36 Benign prostatic hyperplasia with urinary obstruction N40.1; N13.8 Early satiety R68.81 DVT prophylaxis Z29.9
[2021-09-25] MEDS: MULTIVITAMIN TAB PO SCH (22:22)
[2021-09-26] MEDS: FAMOTIDINE 20 MG TAB PO SCH ×2 (08:36→20:54)
[2021-09-26] MEDS: ZINC SULFATE 220 MG CAPSULE PO SCH (08:36)
[2021-09-26] MEDS: dexAMETHasone 4 MG in SYRINGE 0 ML IV SCH (08:36)
[2021-09-26] MEDS: ASPIRIN 81 MG ECTAB PO SCH (08:36)
[2021-09-26] MEDS: PANTOprazole 40 MG TAB PO SCH (08:37)
[2021-09-26] MEDS: INSULIN ASPART 100 UNITS/ML 3 ML PEN SC SCH ×4 (08:40→20:52)
[2021-09-26] MEDS: FUROSEMIDE INJ 20 MG/2 ML VIAL IV SCH (08:44)
--- NOTE | 2021-09-26 10:42 | Hospitalist Progress Note ---
Date of Service September 26, 2021 Assessment & Plan (1) Pneumonia due to COVID-19 virus: Plan: Severe disease. Rapid escalation to HFNC in the first 24 hours of his stay. Initial CRP 8.6. repeat CXR on 09/12 showed progression of infiltrates CXR 09/23 with some progression of infiltrates CTA chest 09/23: no PE, shows possible acute on chronic viral pneumonitis? Biofire panel on 09/24 is NEGATIVE for all viruses tested, even SARS COV2 and influenza A/B IV dexamethasone increased to 20mg IV x 5 days then 10mg IV for 5 days when he was starting to get worse on 09/12, last day would be 09/22 for 10mg down to 6mg IV daily for a few days, decreased to 4mg IV daily on 09/25, taper off, steroids not likely helping at this point will stop steroids after tomorrow completed 5 days of Remdesivir early in admission baricitinib 4mg daily, completed 14 d course 09/19/21 Cont pulmonary toilet with flutter and incentive shawn. add Codeine PRN for cough pt is fatigued and looks worn out , continue to encourage him stable on 5L at rest, but needs > 10L just getting from bed to chair anticipate him going to rehab or home but still several days to a week out, needs too much oxygen on exertion (2) Acute hypoxemic respiratory failure: Plan: due to COVID pneumonia feeling better but more fatigued continue to lay prone, gutiérrez placed to limit movement due to desaturating he is very compliant with flutter valve, incentive spirometer stable on 5L today, tends to desaturate when getting out of bed, takes a long time to recover won't be able to leave hospital until he is stable on less oxygen on exertion (3) Transaminitis: Plan: 2nd to COVID-19 infection. AST/ALT are stable (4) Pre-diabetes: Plan: a1c 5.9% in 07/2021. loose novolog SSI scale T2DM diet monitor sugars, no major issues past 24 hours (5) GERD (gastroesophageal reflux disease): Plan: PPI see early satiety below (6) Hypertension: Plan: now improved after stopping his Avapro Cardura atenolol may be autonomic disequilibrium from Covid infection (7) Disc degeneration, lumbar: Plan: s/p lumbar back surgery in early 2020 despite surgery his back bothers him frequently fortunately he is able to prone despite this issue (8) Benign prostatic hyperplasia with urinary obstruction: Plan: place gutiérrez today Stopping Cardura due to lower blood pressure (9) Early satiety: Plan: present several months of her states now his appetite has improved has had EGD in the last few years - [facility]; PUD? KUB was normal add H2 camelia to his PPI after recovery from COVID refer back to GI for this issue (10) DVT prophylaxis: Plan: lovenox 40mg BID Plan: wean oxygen slowly Admission and Anticipated Discharge Date Admission Date: September 04, 2021 Subjective patient doing okay, still very short of breath on exertion moved him down to 5L while I was in the room, did well eating great, sleeping well he plans on watching football all day Review of Systems Review of Systems: All systems reviewed & are unremarkable except as noted in Subjective Respiratory: + cough, + dyspnea and + dyspnea on exertion Physical Exam Physical Exam: General: well developed, well nourished, elderly male, no distress Neck: supple, trachea midline, normal thyroid Lungs: clear to auscultation bilaterally, slightly tachypneic, no distress or accessory muscle use Heart: regular S1 and S2, no murmur, peripheral pulses normal, capillary refill normal, no edema Abdomen: soft, NT, ND, + BS, no hepatomegaly, normal to percussion Extremities: normal in appearance, no cyanosis, no petechiae, strength is 5/5 bilaterally Neuro: awake, cooperative, moves all extremities, no focal motor deficits, CN II-XII intact, sensation in extremities intact, normal speech Skin: warm, dry, no rash, normal turgor Psych: Awake, alert oriented x 3, euthymic affect Results & Data Results & Data ([facility]) Vital Signs (Past 12 Hours) Vital Signs Temp Pulse Resp BP Pulse Ox 09/26/21 07:45 36.6 C 68 22 144/82 H 95 Laboratory Results Laboratory Results - last 24 hr 09/25/21 09/25/21 09/25/21 12:17 16:42 20:43 POC Glucose 156 H 148 H 156 H 09/26/21 08:05 POC Glucose 101 H Medications Administered Current Inpatient Medications Acetaminophen (Acetaminophen 325 Mg Tab) 650 mg PO Q4H PRN PRN Reason: Pain or Fever Stop: 10/04/21 22:14 Last Admin: 09/25/21 22:20 Dose: 650 mg Documented by: Aspirin (Aspirin 81 Mg Ectab) 81 mg PO QAM [facility] Stop: 10/05/21 08:59 Last Admin: 09/26/21 08:36 Dose: 81 mg Documented by: Atenolol (Atenolol 25 Mg Tablet) 25 mg PO QAM [facility] Stop: 10/16/21 08:59 Benzonatate (Benzonatate 100 Mg Capsule) 200 mg PO Q12H PRN PRN Reason: Cough Stop: 10/14/21 23:44 Last Admin: 09/24/21 11:21 Dose: 200 mg Documented by: Dextrose (Dextrose 50% 50 Ml Syringe) 25 - 50 ml IV UD PRN; Protocol PRN Reason: Hypoglycemia Protocol Stop: 10/04/21 22:14 Enoxaparin Sodium (Enoxaparin Inj 40 Mg/0.4 Ml Syr) 40 mg SQ Q12H [facility] Stop: 10/04/21 22:59 Last Admin: 09/25/21 22:21 Dose: 40 mg Documented by: Famotidine (Famotidine 20 Mg Tab) 20 mg PO BID [facility] Stop: 10/16/21 20:59 Last Admin: 09/26/21 08:36 Dose: 20 mg Documented by: Furosemide (Furosemide Inj 10 Mg/Ml 2 Ml Vial) 20 mg IV QAM [facility] Stop: 10/23/21 08:59 Last Admin: 09/26/21 08:44 Dose: 20 mg Documented by: Glucagon (Glucagon For Inj 1 Mg Vial) 1 mg SQ UD PRN; Protocol PRN Reason: Hypoglycemia Protocol Stop: 10/04/21 22:14 Glucose (Glucose 10 Tabs/Tube) 4 - 8 tabs PO UD PRN; Protocol PRN Reason: Hypoglycemia Protocol Stop: 10/04/21 22:14 Glucose (Glucose 40% Gel 15 Gm Tube) 15 - 30 gm PO UD PRN; Protocol PRN Reason: Hypoglycemia Protocol Stop: 10/04/21 22:14 Guaifenesin/Codeine Phosphate (Guaifenesin/Codeine 200mg/20mg 10ml Udc) 10 ml PO Q6H PRN PRN Reason: Cough Stop: 10/25/21 12:50 Last Admin: 09/26/21 08:35 Dose: 10 ml Documented by: Dexamethasone 4 mg/ Syringe 1 mls @ 1 mls/min IV DAILY [facility] Stop: 10/25/21 08:59 Last Admin: 09/26/21 08:36 Dose: 1 mls/min Documented by: Insulin Aspart (Insulin Aspart 100 Units/Ml 3 Ml Pen) 0 units SC ACHS [facility] Stop: 10/04/21 22:59 Last Admin: 09/26/21 08:40 Dose: 4 units Documented by: Melatonin (Melatonin 3 Mg Tab) 3 mg PO HS PRN PRN Reason: Sleep Stop: 10/18/21 22:27 Last Admin: 09/21/21 22:44 Dose: 3 mg Documented by: Menthol (Cough Drop (Sugar Free) Gabbie 24 Gabbie/1 Box) 0 gabbie BUCCAL PRN PRN; Pr otocol PRN Reason: NURSING DECISION Stop: 10/05/21 02:11 Miscellaneous (Carbohydrates For Hypoglycemia ) 15 - 30 gm PO UD PRN PRN Reason: Hypoglycemia Protocol Stop: 10/04/21 22:14 Multivitamins (Multivitamin Tab) 1 tab PO HS [facility]ADIA Stop: 10/04/21 22:14 Last Admin: 09/25/21 22:22 Dose: 1 tab Documented by: Ondansetron HCl (Ondansetron Inj 2 Mg/Ml 2 Ml Vial) 4 mg IV Q6H PRN PRN Reason: Nausea Stop: 10/04/21 22:14 Pantoprazole Sodium (Pantoprazole 40 Mg Tab) 40 mg PO QAM [facility] Stop: 10/05/21 08:59 Last Admin: 09/26/21 08:37 Dose: 40 mg Documented by: Polyethylene Glycol (Polyethylene (Miralax) 17 Gm Pack) 17 gm PO DAILY PRN PRN Reason: Constipation Stop: 10/04/21 22:14 Last Admin: 09/17/21 13:24 Dose: 17 gm Documented by: Sennosides (Senna 8.6 Mg Tab) 17.2 mg PO HS PRN PRN Reason: Constipation Stop: 10/04/21 22:14 Sodium Chloride (Sodium Chloride 0.65% Na Soln 45 Ml ([place])) 1 sprays NA UD PRN; Protocol PRN Reason: nasal congestion Stop: 10/18/21 17:14 Last Admin: 09/18/21 17:25 Dose: 1 sprays Documented by: Zinc Sulfate (Zinc Sulfate 220 Mg Capsule) 220 mg PO QAM [facility] Stop: 10/19/21 17:29 Last Admin: 09/26/21 08:36 Dose: 220 mg Documented by: PG Care Time/CCT Total # of Minutes Spent Total Time Spent with Patient: Total time spent is greater than 50% in coordination of care (as documented) at patient's floor/unit and/or counseling patient: Coding Level of Care Code 41044 Subseq Hosp Care Lvl 2 Diagnoses Pneumonia due to COVID-19 virus U07.1; J12.82 Acute hypoxemic respiratory failure J96.01 Transaminitis R74.01 Pre-diabetes R73.03 GERD (gastroesophageal reflux disease) K21.9 Hypertension I10 Disc degeneration, lumbar M51.36 Benign prostatic hyperplasia with urinary obstruction N40.1; N13.8 Early satiety R68.81 DVT prophylaxis Z29.9
[2021-09-26] MEDS: ENOXAPARIN INJ 40 MG/0.4 ML SYR SQ SCH ×2 (10:51→22:05)
[2021-09-26] MEDS: MULTIVITAMIN TAB PO SCH (20:55)
[2021-09-27] MEDS: FAMOTIDINE 20 MG TAB PO SCH ×2 (08:33→21:30)
[2021-09-27] MEDS: ASPIRIN 81 MG ECTAB PO SCH (08:33)
[2021-09-27] MEDS: dexAMETHasone 4 MG in SYRINGE 0 ML IV SCH (08:33)
[2021-09-27] MEDS: PANTOprazole 40 MG TAB PO SCH (08:34)
[2021-09-27] MEDS: ZINC SULFATE 220 MG CAPSULE PO SCH (08:34)
[2021-09-27] MEDS: INSULIN ASPART 100 UNITS/ML 3 ML PEN SC SCH ×4 (08:47→21:29)
[2021-09-27] MEDS: FUROSEMIDE INJ 20 MG/2 ML VIAL IV SCH (09:16)
--- NOTE | 2021-09-27 10:10 | Hospitalist Progress Note ---
Date of Service September 27, 2021 Assessment & Plan (1) Pneumonia due to COVID-19 virus: Plan: Severe disease. Rapid escalation to HFNC in the first 24 hours of his stay. Initial CRP 8.6. repeat CXR on 09/12 showed progression of infiltrates CXR 09/23 with some progression of infiltrates CTA chest 09/23: no PE, shows possible acute on chronic viral pneumonitis? Biofire panel on 09/24 is NEGATIVE for all viruses tested, even SARS COV2 and influenza A/B IV dexamethasone increased to 20mg IV x 5 days then 10mg IV for 5 days when he was starting to get worse on 09/12, last day would be 09/22 for 10mg down to 6mg IV daily for a few days, decreased to 4mg IV daily on 09/25, taper off, steroids not likely helping at this point last day of steroids 09/27 completed 5 days of Remdesivir early in admission baricitinib 4mg daily, completed 14 d course 09/19/21 Cont pulmonary toilet with flutter and incentive shawn. add Codeine PRN for cough pt is fatigued and looks worn out , continue to encourage him stable on 5-6L at rest, but needs > 10L just getting from bed to chair anticipate him going to rehab or home but still several days to a week out, needs too much oxygen on exertion (2) Acute hypoxemic respiratory failure: Plan: due to COVID pneumonia feeling better but more fatigued continue to lay prone, gutiérrez placed to limit movement due to desaturating he is very compliant with flutter valve, incentive spirometer stable on 5-6L today, tends to desaturate when getting out of bed, takes a long time to recover won't be able to leave hospital until he is stable on less oxygen on exertion, hoping he will be ready by the end of this upcoming week (3) Transaminitis: Plan: 2nd to COVID-19 infection. AST/ALT are stable (4) Pre-diabetes: Plan: a1c 5.9% in 07/2021. loose novolog SSI scale T2DM diet monitor sugars, no major issues past 24 hours (5) GERD (gastroesophageal reflux disease): Plan: PPI see early satiety below (6) Hypertension: Plan: now improved after stopping his Avapro Cardura atenolol may be autonomic disequilibrium from Covid infection on Lasix 20mg PO daily (7) Disc degeneration, lumbar: Plan: s/p lumbar back surgery in early 2020 despite surgery his back bothers him frequently fortunately he is able to prone despite this issue (8) Benign prostatic hyperplasia with urinary obstruction: Plan: place gutiérrez today Stopping Cardura due to lower blood pressure (9) Early satiety: Plan: present several months of her states now his appetite has improved has had EGD in the last few years - [facility]; PUD? KUB was normal add H2 camelia to his PPI after recovery from COVID refer back to GI for this issue (10) DVT prophylaxis: Plan: lovenox 40mg BID Plan: wean oxygen slowly, hope for discharge by the end of this upcoming week PT/OT ordered Admission and Anticipated Discharge Date Admission Date: September 04, 2021 Subjective patient had a good night, still stable on 6L in the chair, will try to get down to 5L today, he was on 5L when prone last night eating well, had a BM yesterday, watched football all day he continues to be patient, hopes to be ready for discharge by the end of the week encouraged him to be strong will stop Lasix IV and dexamethasone, change Lasix to PO tomorrow Review of Systems Review of Systems: All systems reviewed & are unremarkable except as noted in Subjective Constitutional: + weakness Respiratory: + cough, + dyspnea and + dyspnea on exertion Physical Exam Physical Exam: General: well developed, well nourished, elderly male, no distress Neck: supple, trachea midline, normal thyroid Lungs: clear to auscultation bilaterally, slightly tachypneic, no distress or accessory muscle use Heart: regular S1 and S2, no murmur, peripheral pulses normal, capillary refill normal, no edema Abdomen: soft, NT, ND, + BS, no hepatomegaly, normal to percussion Extremities: normal in appearance, no cyanosis, no petechiae, strength is 5/5 bilaterally Neuro: awake, cooperative, moves all extremities, no focal motor deficits, CN II -XII intact, sensation in extremities intact, normal speech Skin: warm, dry, no rash, normal turgor Psych: Awake, alert oriented x 3, euthymic affect Results & Data Results & Data ([facility]) Vital Signs (Past 12 Hours) Vital Signs Temp Pulse Pulse Pulse Resp BP Pulse Ox 09/27/21 08:38 103 H 32 H 91 09/27/21 07:30 36.4 C L 109 H 22 117/67 95 09/27/21 02:11 92 09/27/21 02:10 83 L 09/26/21 22:27 36.3 C L 77 16 160/94 H 93 Laboratory Results Laboratory Results - last 24 hr 09/26/21 09/26/21 09/26/21 11:45 16:36 20:33 POC Glucose 233 H 130 H 148 H 09/27/21 08:34 POC Glucose 106 H Medications Administered Current Inpatient Medications Acetaminophen (Acetaminophen 325 Mg Tab) 650 mg PO Q4H PRN PRN Reason: Pain or Fever Stop: 10/04/21 22:14 Last Admin: 09/25/21 22:20 Dose: 650 mg Documented by: Aspirin (Aspirin 81 Mg Ectab) 81 mg PO QAM [facility] Stop: 10/05/21 08:59 Last Admin: 09/27/21 08:33 Dose: 81 mg Documented by: Atenolol (Atenolol 25 Mg Tablet) [facility] [place]: 10/16/21 08:59 Benzonatate (Benzonatate 100 Mg Capsule) 200 mg PO Q12H PRN PRN Reason: Cough Stop: 10/14/21 23:44 Last Admin: 09/24/21 11:21 Dose: 200 mg Documented by: Dextrose (Dextrose 50% 50 Ml Syringe) 25 - 50 ml IV UD PRN; Protocol PRN Reason: Hypoglycemia Protocol Stop: 10/04/21 22:14 Enoxaparin Sodium (Enoxaparin Inj 40 Mg/0.4 Ml Syr) 40 mg SQ Q12H [facility] Stop: 10/04/21 22:59 Last Admin: 09/26/21 22:05 Dose: 40 mg Documented by: Famotidine (Famotidine 20 Mg Tab) 20 mg PO BID [facility] Stop: 10/16/21 20:59 Last Admin: 09/27/21 08:33 Dose: 20 mg Documented by: Furosemide (Furosemide Inj 10 Mg/Ml 2 Ml Vial) 20 mg IV QAM [facility] Stop: 10/23/21 08:59 Last Admin: 09/27/21 09:16 Dose: 20 mg Documented by: Glucagon (Glucagon For Inj 1 Mg Vial) 1 mg SQ UD PRN; Protocol PRN Reason: Hypoglycemia Protocol Stop: 10/04/21 22:14 Glucose (Glucose 10 Tabs/Tube) 4 - 8 tabs PO UD PRN; Protocol PRN Reason: Hypoglycemia Protocol Stop: 10/04/21 22:14 Glucose (Glucose 40% Gel 15 Gm Tube) 15 - 30 gm PO UD PRN; Protocol PRN Reason: Hypoglycemia Protocol Stop: 10/04/21 22:14 Guaifenesin/Codeine Phosphate (Guaifenesin/Codeine 200mg/20mg 10ml Udc) 10 ml PO Q6H PRN PRN Reason: Cough Stop: 10/25/21 12:50 Last Admin: 09/27/21 08:48 Dose: 10 ml Documented by: Dexamethasone 4 mg/ Syringe 1 mls @ 1 mls/min IV DAILY SAADIA Stop: 10/25/21 08:59 Last Admin: 09/27/21 08:33 Dose: 1 mls/min Documented by: Insulin Aspart (Insulin Aspart 100 Units/Ml 3 Ml Pen) 0 units SC ACHS [facility]AD[facility] Stop: 10/04/21 22:59 Last Admin: 09/27/21 08:47 Dose: 4 units Documented by: Melatonin (Melatonin 3 Mg Tab) 3 mg PO HS PRN PRN Reason: Sleep Stop: 10/18/21 22:27 Last Admin: 09/21/21 22:44 Dose: 3 mg Documented by: Menthol (Cough Drop (Sugar Free) Gabbie 24 Gabbie/1 Box) 0 gabbie BUCCAL PRN PRN; Protocol PRN Reason: NURSING DECISION Stop: 10/05/21 02:11 Miscellaneous (Carbohydrates For Hypoglycemia ) 15 - 30 gm PO UD PRN PRN Reason: Hypoglycemia Protocol Stop: 10/04/21 22:14 Multivitamins (Multivitamin Tab) 1 tab PO HS SAADIA Stop: 10/04/21 22:14 Last Admin: 09/26/21 20:55 Dose: 1 tab Documented by: Ondansetron HCl (Ondansetron Inj 2 Mg/Ml 2 Ml Vial) 4 mg IV Q6H PRN PRN Reason: Nausea Stop: 10/04/21 22:14 Pantoprazole Sodium (Pantoprazole 40 Mg Tab) 40 mg PO QAM [facility] Stop: 10/05/21 08:59 Last Admin: 09/27/21 08:34 Dose: 40 mg Documented by: Polyethylene Glycol (Polyethylene (Miralax) 17 Gm Pack) 17 gm PO DAILY PRN PRN Reason: Constipation Stop: 10/04/21 22:14 Last Admin: 09/17/21 13:24 Dose: 17 gm Documented by: Sennosides (Senna 8.6 Mg Tab) 17.2 mg PO HS PRN PRN Reason: Constipation Stop: 10/04/21 22:14 Sodium Chloride (Sodium Chloride 0.65% Na Soln 45 Ml ([place])) 1 sprays NA UD PRN; Protocol PRN Reason: nasal congestion Stop: 10/18/21 17:14 Last Admin: 09/18/21 17:25 Dose: 1 sprays Documented by: Zinc Sulfate (Zinc Sulfate 220 Mg Capsule) 220 mg PO QAM [facility] Stop: 10/19/21 17:29 Last Admin: 09/27/21 08:34 Dose: 220 mg Documented by: PG Care Time/CCT Total # of Minutes Spent Total Time Spent with Patient: Total time spent is greater than 50% in coordination of care (as documented) at patient's floor/unit and/or counseling patient: Coding Level of Care Code 24697 Subseq Hosp Care Lvl 2 Diagnoses Pneumonia due to COVID-19 virus U07.1; J12.82 Acute hypoxemic respiratory failure J96.01 Transaminitis R74.01 Pre-diabetes R73.03 GERD (gastroesophageal reflux disease) K21.9 Hypertension I10 Disc degeneration, lumbar M51.36 Benign prostatic hyperplasia with urinary obstruction N40.1; N13.8 Early satiety R68.81 DVT prophylaxis Z29.9
[2021-09-27] MEDS: ENOXAPARIN INJ 40 MG/0.4 ML SYR SQ SCH ×2 (10:23→22:30)
[2021-09-27] MEDS: MULTIVITAMIN TAB PO SCH (21:30)
[2021-09-28] MEDS: FAMOTIDINE 20 MG TAB PO SCH ×2 (08:35→20:43)
[2021-09-28] MEDS: ZINC SULFATE 220 MG CAPSULE PO SCH (08:35)
[2021-09-28] MEDS: ASPIRIN 81 MG ECTAB PO SCH (08:35)
[2021-09-28] MEDS: PANTOprazole 40 MG TAB PO SCH (08:36)
[2021-09-28] MEDS: FUROSEMIDE 20 MG TAB PO SCH (08:36)
[2021-09-28] MEDS: INSULIN ASPART 100 UNITS/ML 3 ML PEN SC SCH ×4 (08:36→20:52)
[2021-09-28] MEDS: ACETAMINOPHEN 325 MG TAB PO PRN ×2 (11:00→23:15)
[2021-09-28] MEDS: ENOXAPARIN INJ 40 MG/0.4 ML SYR SQ SCH ×2 (12:45→23:17)
--- NOTE | 2021-09-28 15:34 | Hospitalist Progress Note ---
Date of Service September 28, 2021 Assessment & Plan (1) Pneumonia due to COVID-19 virus: Plan: Severe disease. Rapid escalation to HFNC in the first 24 hours of his stay. Initial CRP 8.6. repeat CXR on 09/12, 09/23 shows persistant infiltrates CTA chest 09/23: no PE, shows possible acute on chronic viral pneumonitis? Biofire panel on 09/24 is NEGATIVE for all viruses tested, even SARS COV2 and influenza A/B IV dexamethasone increased 09/12 to 20mg IV x 5 days then 10mg IV for 5 days 09/22 6mg IV daily 09/25 to 4mg IV daily last day of steroids 09/27 completed 5 days of Remdesivir early in admission baricitinib 4mg daily, completed 14 d course 09/19/21 Cont pulmonary toilet with flutter and incentive shawn. pt is fatigued and looks worn out , continue to encourage him stable on 5-6L at rest, but needs > 10L just getting from bed to chair anticipate him going to rehab or home (2) Acute hypoxemic respiratory failure: Plan: due to COVID pneumonia feeling better but more fatigued continue to lay prone, gutiérrez placed to limit movement due to desaturating he is very compliant with flutter valve, incentive spirometer stable on 5-6L today, tends to desaturate when getting out of bed, takes a long time to recover won't be able to leave hospital until he is stable on less oxygen on exertion, hoping he will be ready by the end of this week (3) Transaminitis: Plan: 2nd to COVID-19 infection. AST/ALT are stable (4) Pre-diabetes: Plan: a1c 5.9% in 07/2021. loose novolog SSI scale T2DM diet monitor sugars, no major issues past 24 hours (5) GERD (gastroesophageal reflux disease): Plan: PPI see early satiety below (6) Hypertension: Plan: now improved after stopping his Avapro Cardura atenolol may be autonomic disequilibrium from Covid infection on Lasix 20mg PO daily (7) Disc degeneration, lumbar: Plan: s/p lumbar back surgery in early 2020 despite surgery his back bothers him frequently fortunately he is able to prone despite this issue (8) Benign prostatic hyperplasia with urinary obstruction: Plan: place gutiérrez today Stopping Cardura due to lower blood pressure (9) Early satiety: Plan: present several months of her states now his appetite has improved has had EGD in the last few years - [facility]; PUD? KUB was normal add H2 camelia to his PPI after recovery from COVID refer back to GI for this issue (10) DVT prophylaxis: Plan: lovenox 40mg BID Plan: wean oxygen slowly, hope for discharge by the end of this upcoming week PT/OT ordered Admission and Anticipated Discharge Date Admission Date: September 04, 2021 Subjective pt feels very fatigued and tired, still with Non productive cough and extreme dyspnea. pt is interested in doing the best thing whether home or rehab Review of Systems Review of Systems: Moderate distress and fatigue no headache, no visual changes no speech or swallowing issues no chest pain, pressure or palpitations Continued shortness of breath, nonproductive cough but no wheezes no abdominal pain, nausea or vomiting, diarrhea or constipation no dysuria, hematuria or frequency no focal joint pain or swelling no back pain, CVA tenderness or radicular pain no bruising, bleeding or rashes no focal signs of weakness or numbness or altered sensation no complaints of anxiety or depression.. Physical Exam Physical Exam: The patient appeared fatigued and tired Vital signs as documented. Head exam is normocephalic atraumatic Neck is without JVD, thyromegaly, or carotid bruits. Lungs are persistent rales worse at the base on the right Cardiac exam, Rhythm is regular.. No murmurs, rubs or gallops. Abdominal exam reveals normal bowel sounds, soft non tender, no masses Extremities are nonedematous and both pedal pulses are present Neurologic exam is alert and oriented, no focal loss of strength or sensation Skin is without bruises or rashes Psychologically is with concerns for depression Results & Data Results & Data ([facility]) Vital Signs (Past 12 Hours) Vital Signs Temp Pulse Resp BP Pulse Ox 09/28/21 07:43 98.4 F 100 H 20 122/79 91 09/28/21 05:50 92 09/28/21 05:49 89 L 09/28/21 04:13 99.3 F 72 16 100/65 94 PG Care Time/CCT Total # of Minutes Spent Total Time Spent with Patient: Total time spent is greater than 50% in coordination of care (as documented) at patient's floor/unit and/or counseling patient: Coding Level of Care Code 45574 Subseq Hosp Care Lvl 2 Diagnoses Pneumonia due to COVID-19 virus U07.1; J12.82 Acute hypoxemic respiratory failure J96.01 Transaminitis R74.01 Pre-diabetes R73.03 GERD (gastroesophageal reflux disease) K21.9 Hypertension I10 Disc degeneration, lumbar M51.36 Benign prostatic hyperplasia with urinary obstruction N40.1; N13.8 Early satiety R68.81 DVT prophylaxis Z29.9
[2021-09-28] MEDS: MULTIVITAMIN TAB PO SCH (20:43)
[2021-09-29] MEDS: ASPIRIN 81 MG ECTAB PO SCH (08:17)
[2021-09-29] MEDS: PANTOprazole 40 MG TAB PO SCH (08:17)
[2021-09-29] MEDS: FUROSEMIDE 20 MG TAB PO SCH (08:18)
[2021-09-29] MEDS: FAMOTIDINE 20 MG TAB PO SCH ×2 (08:18→21:59)
[2021-09-29] MEDS: ZINC SULFATE 220 MG CAPSULE PO SCH (08:18)
[2021-09-29] MEDS: INSULIN ASPART 100 UNITS/ML 3 ML PEN SC SCH ×4 (09:01→22:15)
[2021-09-29] MEDS ORDERED: AMOXICILLIN/CLAVULANATE 875 MG TAB PO ONE (10:30)
[2021-09-29] MEDS: ENOXAPARIN INJ 40 MG/0.4 ML SYR SQ SCH ×2 (10:39→21:59)
[2021-09-29] MEDS: ACETAMINOPHEN 325 MG TAB PO PRN ×3 (10:40→22:16)
[2021-09-29] MEDS: AMOXICILLIN/CLAVULANATE 875 MG TAB PO SCH (17:36)
--- NOTE | 2021-09-29 20:03 | Hospitalist Progress Note ---
Date of Service September 29, 2021 Assessment & Plan (1) Pneumonia due to COVID-19 virus: Plan: Severe disease. Rapid escalation to HFNC in the first 24 hours of his stay. Initial CRP 8.6. repeat CXR on 09/12, 09/23 shows persistant infiltrates CTA chest 09/23: no PE, shows possible acute on chronic viral pneumonitis? Biofire panel on 09/24 is NEGATIVE for all viruses tested, even SARS COV2 and influenza A/B IV dexamethasone increased 09/12 to 20mg IV x 5 days then 10mg IV for 5 days 09/22 6mg IV daily 09/25 to 4mg IV daily last day of steroids 09/27 since weak and tired will check am cortisol to eval if adrenally supressed completed 5 days of Remdesivir early in admission baricitinib 4mg daily, completed 14 d course 09/19/21 Cont pulmonary toilet with flutter and incentive shawn. stable on 4-5L at rest, but needs > 10L just getting from bed to chair anticipate him going to rehab or home (2) Acute hypoxemic respiratory failure: Plan: due to COVID pneumonia feeling better but more fatigued continue to lay prone, gutiérrez placed to limit movement due to desaturating he is very compliant with flutter valve, incentive spirometer stable on 4-5L, tends to desaturate when getting out of bed, takes a long time to recover won't be able to leave hospital until he is stable on less oxygen on exertion, hoping he will be ready by the end of this week (3) Transaminitis: Plan: 2nd to COVID-19 infection. AST/ALT are stable (4) Pre-diabetes: Plan: a1c 5.9% in 07/2021. loose novolog SSI scale T2DM diet monitor sugars, no major issues past 24 hours (5) GERD (gastroesophageal reflux disease): Plan: PPI see early satiety below (6) Hypertension: Plan: now improved after stopping his Avapro atenolol may be autonomic disequilibrium from Covid infection on Lasix 20mg PO daily (7) Disc degeneration, lumbar: Plan: s/p lumbar back surgery in early 2020 despite surgery his back bothers him frequently fortunately he is able to prone despite this issue (8) Benign prostatic hyperplasia with urinary obstruction: Plan: place gutiérrez today restart Cardura in hopes of eventually removing gutiérrez (9) Early satiety: Plan: present several months of her states now his appetite has improved has had EGD in the last few years - [facility]; added H2 camelia to his PPI (10) DVT prophylaxis: Plan: lovenox 40mg BID, consider home on xarelto (11) Cellulitis, finger: Plan: cultured with gram negatiives preliminary, on po augmentin Plan: wean oxygen slowly, hope for discharge by the end of this upcoming week PT/OT ordered Admission and Anticipated Discharge Date Admission Date: September 04, 2021 Subjective pt has some periods of feeling cold and fatigued today, did have some hypoxic episodes that maybe from exertion or mucus plugging, continues to have ultimate goal returning to home Review of Systems Review of Systems: Moderate distress and fatigue no headache, no visual changes no speech or swallowing issues no chest pain, pressure or palpitations Continued shortness of breath, nonproductive cough but no wheezes no abdominal pain, nausea or vomiting, diarrhea or constipation no dysuria, hematuria or frequency no focal joint pain or swelling no back pain, CVA tenderness or radicular pain no bruising, bleeding or rashes no focal signs of weakness or numbness or altered sensation no complaints of anxiety or depression.. Physical Exam Physical Exam: The patient continues to appear fatigued and tired Vital signs as documented. Head exam is normocephalic atraumatic Neck is without JVD, thyromegaly, or carotid bruits. Lungs arewith persistent rales worse at the base on the right Cardiac exam, Rhythm is regular.. No murmurs, rubs or gallops. Abdominal exam reveals normal bowel sounds, soft non tender, no masses Extremities are nonedematous and both pedal pulses are present Neurologic exam is alert and oriented, no focal loss of strength or sensation Skin is without bruises or rashes Psychologically is with concerns for depression Results & Data Results & Data ([facility]) Vital Signs (Past 12 Hours) Vital Signs Temp Pulse Resp BP Pulse Ox Pulse Ox Pulse Ox 09/29/21 14:29 93 90 09/29/21 14:22 97.2 F L 109 H 22 130/84 95 09/29/21 14:19 91 Pulse Ox 09/29/21 14:29 90 09/29/21 14:22 09/29/21 14:19 PG Care Time/CCT Total # of Minutes Spent Total Time Spent with Patient: Total time spent is greater than 50% in coordination of care (as documented) at patient's floor/unit and/or counseling patient: Coding Level of Care Code 54797 Subseq Hosp Care Lvl 2 Diagnoses Pneumonia due to COVID-19 virus U07.1; J12.82 Acute hypoxemic respiratory failure J96.01 Transaminitis R74.01 Pre-diabetes R73.03 GERD (gastroesophageal reflux disease) K21.9 Hypertension I10 Disc degeneration, lumbar M51.36 Benign prostatic hyperplasia with urinary obstruction N40.1; N13.8 Early satiety R68.81 DVT prophylaxis Z29.9 Cellulitis, finger L03.019
[2021-09-29] MEDS: DOXAZosin MESYLATE TAB 2 MG TAB PO SCH (21:58)
[2021-09-29] MEDS: MULTIVITAMIN TAB PO SCH (22:16)
[2021-09-30] MEDS: ACETAMINOPHEN 325 MG TAB PO PRN ×3 (03:35→17:25)
[2021-09-30] MEDS: FAMOTIDINE 20 MG TAB PO SCH ×2 (07:29→20:29)
[2021-09-30] MEDS: PANTOprazole 40 MG TAB PO SCH (07:29)
[2021-09-30] MEDS: ZINC SULFATE 220 MG CAPSULE PO SCH (07:29)
[2021-09-30] MEDS: FUROSEMIDE 20 MG TAB PO SCH (07:30)
[2021-09-30] MEDS: ASPIRIN 81 MG ECTAB PO SCH (07:30)
[2021-09-30] MEDS: AMOXICILLIN/CLAVULANATE 875 MG TAB PO SCH ×2 (07:31→17:26)
[2021-09-30] MEDS: INSULIN ASPART 100 UNITS/ML 3 ML PEN SC SCH ×4 (09:08→21:37)
[2021-09-30] MEDS: ENOXAPARIN INJ 40 MG/0.4 ML SYR SQ SCH ×2 (09:12→23:39)
[2021-09-30] MEDS: BENZONATATE 100 MG CAPSULE PO PRN (10:10)
--- NOTE | 2021-09-30 17:59 | Hospitalist Progress Note ---
Date of Service September 30, 2021 Assessment & Plan (1) Pneumonia due to COVID-19 virus: Plan: Severe disease.-improving Rapid escalation to HFNC in the first 24 hours of his stay. Initial CRP 8.6. repeat CXR on 09/12, 09/23 shows persistent infiltrates CTA chest 09/23: no PE, shows possible acute on chronic viral pneumonitis? Biofire panel on 09/24 is NEGATIVE for all viruses tested, even SARS COV2 and influenza A/B IV dexamethasone increased 09/12 to 20mg IV x 5 days then 10mg IV for 5 days 09/22 6mg IV daily 09/25 to 4mg IV daily last day of steroids 09/27 since weak and tired did check am cortisol and is appropriate completed 5 days of Remdesivir early in admission baricitinib 4mg daily, completed 14 d course 09/19/21 Cont pulmonary toilet with flutter and incentive shawn. stable on3-4L at rest, but needs > 10L just getting from bed to chair anticipate him going to rehab or home (2) Acute hypoxemic respiratory failure: Plan: due to COVID pneumonia feeling better but more fatigued continue to lay prone, gutiérrez placed to limit movement due to desaturating he is very compliant with flutter valve, incentive spirometer stable on 3-4L, tends to desaturate when getting out of bed, takes a long time to recover won't be able to leave hospital until he is stable on less oxygen on exertion, hoping he will be ready by the end of this week (3) Transaminitis: Plan: 2nd to COVID-19 infection. AST/ALT are stable (4) Pre-diabetes: Plan: a1c 5.9% in 07/2021. loose novolog SSI scale T2DM diet monitor sugars, no major issues past 24 hours (5) GERD (gastroesophageal reflux disease): Plan: PPI see early satiety below (6) Hypertension: Plan: now improved after stopping his Avapro atenolol may be autonomic disequilibrium from Covid infection on Lasix 20mg PO daily (7) Disc degeneration, lumbar: Plan: s/p lumbar back surgery in early 2020 despite surgery his back bothers him frequently fortunately he is able to prone despite this issue (8) Benign prostatic hyperplasia with urinary obstruction: Plan: place gutiérrez today restart Cardura in hopes of eventually removing gutiérrez (9) Early satiety: Plan: present several months of her states now his appetite has improved has had EGD in the last few years - [facility]; added H2 camelia to his PPI (10) DVT prophylaxis: Plan: lovenox 40mg BID, consider home on xarelto (11) Cellulitis, finger: Plan: cultured with gram negatiives preliminary, on po augmentin improving (12) Herpes labialis: Plan: pt requested valtrex to start and topical acyclovir Plan: wean oxygen slowly, hope for discharge by the end of this upcoming week PT/OT ordered Admission and Anticipated Discharge Date Admission Date: September 04, 2021 Subjective Pt is bothered by oral labial herpes and some nasal congestion, is discouraged about comments from PT about going to rehab Review of Systems Review of Systems: Moderate distress and fatigue no headache, no visual changes no speech or swallowing issues cold sores on lips no chest pain, pressure or palpitations Continued shortness of breath, nonproductive cough but no wheezes no abdominal pain, nausea or vomiting, diarrhea or constipation no dysuria, hematuria or frequency no focal joint pain or swelling no back pain, CVA tenderness or radicular pain no bruising, bleeding or rashes no focal signs of weakness or numbness or altered sensation no complaints of anxiety or depression.. Physical Exam Physical Exam: The patient continues to appear fatigued and tired Vital signs as documented. Head exam is normocephalic atraumatic cold sores on lips Neck is without JVD, thyromegaly, or carotid bruits. Lungs are with persistent rales worse at the base on the right Cardiac exam, Rhythm is regular.. No murmurs, rubs or gallops. Abdominal exam reveals normal bowel sounds, soft non tender, no masses Extremities are nonedematous and both pedal pulses are present Neurologic exam is alert and oriented, no focal loss of strength or sensation Skin is without bruises or rashes Psychologically is with concerns for depression Results & Data Results & Data ([facility]) Vital Signs (Past 12 Hours) Vital Signs Temp Pulse Resp BP Pulse Ox 09/30/21 14:50 97.9 F 100 H 16 118/79 92 09/30/21 08:17 97.7 F 94 H 18 119/83 93 PG Care Time/CCT Total # of Minutes Spent Total Time Spent with Patient: Total time spent is greater than 50% in coordination of care (as documented) at patient's floor/unit and/or counseling patient: Coding Level of Care Code 25947 Subseq Hosp Care Lvl 2 Diagnoses Pneumonia due to COVID-19 virus U07.1; J12.82 Acute hypoxemic respiratory failure J96.01 Transaminitis R74.01 Pre-diabetes R73.03 GERD (gastroesophageal reflux disease) K21.9 Hypertension I10 Disc degeneration, lumbar M51.36 Benign prostatic hyperplasia with urinary obstruction N40.1; N13.8 Early satiety R68.81 DVT prophylaxis Z29.9 Cellulitis, finger L03.019 Herpes labialis B00.1
[2021-09-30] MEDS: oxyCODONE HCL IR 5 MG TAB (IMMEDIATE RELEASE) PO PRN (18:17)
[2021-09-30] MEDS: ACYCLOVIR 5% OINT 15 GM TUBE EXT SCH ×2 (18:17→23:39)
[2021-09-30] MEDS: valACYclovir HCL 500 MG TABLET PO SCH (20:28)
[2021-09-30] MEDS: MULTIVITAMIN TAB PO SCH (20:29)
[2021-09-30] MEDS: DOXAZosin MESYLATE TAB 2 MG TAB PO SCH (20:31)
[2021-10-01] MEDS: ACYCLOVIR 5% OINT 15 GM TUBE EXT SCH ×4 (06:21→23:53)
[2021-10-01] MEDS: BENZONATATE 100 MG CAPSULE PO PRN (07:42)
[2021-10-01] MEDS: oxyCODONE HCL IR 5 MG TAB (IMMEDIATE RELEASE) PO PRN (07:42)
[2021-10-01] MEDS: FUROSEMIDE 20 MG TAB PO SCH (07:44)
[2021-10-01] MEDS: ASPIRIN 81 MG ECTAB PO SCH (07:44)
[2021-10-01] MEDS: FAMOTIDINE 20 MG TAB PO SCH ×2 (07:44→21:29)
[2021-10-01] MEDS: ZINC SULFATE 220 MG CAPSULE PO SCH (07:44)
[2021-10-01] MEDS: valACYclovir HCL 500 MG TABLET PO SCH (07:45)
[2021-10-01] MEDS: AMOXICILLIN/CLAVULANATE 875 MG TAB PO SCH ×2 (07:45→17:56)
[2021-10-01] MEDS: PANTOprazole 40 MG TAB PO SCH (07:46)
[2021-10-01] MEDS: INSULIN ASPART 100 UNITS/ML 3 ML PEN SC SCH ×4 (09:06→21:22)
[2021-10-01] MEDS: ENOXAPARIN INJ 40 MG/0.4 ML SYR SQ SCH ×2 (11:30→23:52)
[2021-10-01] MEDS: ACETAMINOPHEN 325 MG TAB PO PRN ×2 (18:04→23:51)
--- NOTE | 2021-10-01 18:55 | Hospitalist Progress Note ---
Date of Service October 01, 2021 Assessment & Plan (1) Pneumonia due to COVID-19 virus: Plan: Severe disease.-improving Rapid escalation to HFNC in the first 24 hours of his stay. Initial CRP 8.6. repeat CXR on 09/12, 09/23 shows persistent infiltrates CTA chest 09/23: no PE, shows possible acute on chronic viral pneumonitis? Biofire panel on 09/24 is NEGATIVE for all viruses tested, even SARS COV2 and influenza A/B IV dexamethasone even with ards net dosing, last day of steroids 09/27 since weak and tired did check am cortisol and is appropriate completed 5 days of Remdesivir early in admission baricitinib 4mg daily, completed 14 d course 09/19/21 Cont pulmonary toilet with flutter and incentive shawn. stable on3-4L at rest, but needs > 10L just getting from bed to chair anticipate him going to rehab or home (2) Acute hypoxemic respiratory failure: Plan: due to COVID pneumonia feeling better but more fatigued continue to lay prone, gutiérrez placed to limit movement due to desaturating he is very compliant with flutter valve, incentive spirometer stable on 3-4L, tends to desaturate when getting out of bed, takes a long time to recover won't be able to leave hospital until he is stable on less oxygen on exertion, hoping he will be ready by the end of this week (3) Transaminitis: Plan: 2nd to COVID-19 infection. AST/ALT are stable (4) Pre-diabetes: Plan: a1c 5.9% in 07/2021. loose novolog SSI scale T2DM diet monitor sugars, no major issues past 24 hours (5) GERD (gastroesophageal reflux disease): Plan: PPI see early satiety below (6) Hypertension: Plan: now improved after stopping his Avapro atenolol may be autonomic disequilibrium from Covid infection on Lasix 20mg PO daily (7) Disc degeneration, lumbar: Plan: s/p lumbar back surgery in early 2020 despite surgery his back bothers him frequently fortunately he is able to prone despite this issue (8) Benign prostatic hyperplasia with urinary obstruction: Plan: place gutiérrez today restart Cardura in hopes of eventually removing gutiérrez (9) Early satiety: Plan: present several months of her states now his appetite has improved has had EGD in the last few years - [facility]; added H2 camelia to his PPI (10) DVT prophylaxis: Plan: lovenox 40mg BID, consider home on xarelto (11) Cellulitis, finger: Plan: cultured with gram negatiives preliminary, on po augmentin improving (12) Herpes labialis: Plan: pt requested valtrex to start and topical acyclovir Plan: wean oxygen slowly, hope for discharge by the end of this upcoming week PT/OT ordered Admission and Anticipated Discharge Date Admission Date: September 04, 2021 Subjective PTs oral labial herpes much improved, but has had some desaturations and need to increase oxygen supply, will not be ready for rehab this weekend pauline Review of Systems Review of Systems: continues with Moderate distress and fatigue no headache, no visual changes no speech or swallowing issues cold sores on lips no chest pain, pressure or palpitations Continued shortness of breath, nonproductive cough but no wheezes no abdominal pain, nausea or vomiting, diarrhea or constipation no dysuria, hematuria or frequency no focal joint pain or swelling no back pain, CVA tenderness or radicular pain no bruising, bleeding or rashes no focal signs of weakness or numbness or altered sensation no complaints of anxiety or depression.. Physical Exam Physical Exam: The patient continues to appear fatigued and tired Vital signs as documented. Head exam is normocephalic atraumatic cold sores on lips Neck is without JVD, thyromegaly, or carotid bruits. Lungs are with persistent rales most prominent at the base on the right Cardiac exam, Rhythm is regular.. No murmurs, rubs or gallops. Abdominal exam reveals normal bowel sounds, soft non tender, no masses Extremities are nonedematous and both pedal pulses are present Neurologic exam is alert and oriented, no focal loss of strength or sensation Skin is without bruises or rashes Psychologically is with concerns for depression Results & Data Results & Data ([facility]) Vital Signs (Past 12 Hours) Vital Signs Temp Pulse Resp BP BP Pulse Ox 10/01/21 15:28 98.1 F 107 H 22 161/84 H 94 10/01/21 07:45 98.2 F 107 H 22 119/85 91 PG Care Time/CCT Total # of Minutes Spent Total Time Spent with Patient: Total time spent is greater than 50% in coordination of care (as documented) at patient's floor/unit and/or counseling patient: Coding Level of Care Code 87965 Subseq Hosp Care Lvl 2 Diagnoses Pneumonia due to COVID-19 virus U07.1; J12.82 Acute hypoxemic respiratory failure J96.01 Transaminitis R74.01 Pre-diabetes R73.03 GERD (gastroesophageal reflux disease) K21.9 Hypertension I10 Disc degeneration, lumbar M51.36 Benign prostatic hyperplasia with urinary obstruction N40.1; N13.8 Early satiety R68.81 DVT prophylaxis Z29.9 Cellulitis, finger L03.019 Herpes labialis B00.1
[2021-10-01] MEDS: MULTIVITAMIN TAB PO SCH (21:31)
[2021-10-01] MEDS: DOXAZosin MESYLATE TAB 2 MG TAB PO SCH (21:43)
[2021-10-02] MEDS: ACYCLOVIR 5% OINT 15 GM TUBE EXT SCH ×4 (05:22→23:06)
[2021-10-02] MEDS: BENZONATATE 100 MG CAPSULE PO PRN (06:00)
[2021-10-02] MEDS: AMOXICILLIN/CLAVULANATE 875 MG TAB PO SCH (07:42)
[2021-10-02] MEDS: ACETAMINOPHEN 325 MG TAB PO PRN ×3 (08:25→22:52)
--- NOTE | 2021-10-02 08:34 | XRay Report ---
XR chest 1V portable HISTORY: 71 years-old Male eval as persistent hypoxia acute hypoxia COMPARISON: Chest radiograph and CTA chest 09/23/2021 TECHNIQUE: Portable AP view of the chest FINDINGS: Cardiomegaly. Hypoinflation. Interstitial coarsening with multifocal peripheral predominant airspace opacities, left greater than right are redemonstrated with mildly progressed on the left. There is no pneumothorax or large pleural effusion. Degenerative changes of the spine and left shoulder. Reverse right shoulder total joint arthroplasty. IMPRESSION: Extensive intermixed interstitial and alveolar opacities are redemonstrated and have mild ly progressed from comparison. Findings are suggestive of pneumonia superimposed on fibrosis. ACT 112: Negative or not required by law. The above report was generated using voice recognition software. It may contain grammatical, syntax o r spelling errors. Electronically signed by: Rudolph Louise M.D. 10/02/2021 8:32 AM
[2021-10-02] MEDS: INSULIN ASPART 100 UNITS/ML 3 ML PEN SC SCH ×4 (08:56→20:43)
[2021-10-02] MEDS: ASPIRIN 81 MG ECTAB PO SCH (08:59)
[2021-10-02] MEDS: FUROSEMIDE 20 MG TAB PO SCH (08:59)
[2021-10-02] MEDS: FAMOTIDINE 20 MG TAB PO SCH ×2 (08:59→20:41)
[2021-10-02] MEDS: PANTOprazole 40 MG TAB PO SCH (08:59)
[2021-10-02] MEDS: ZINC SULFATE 220 MG CAPSULE PO SCH (08:59)
[2021-10-02] MEDS ORDERED: VANCOMYCIN HCL 1,000 MG/270 ML BAG IV STA (11:04)
[2021-10-02] MEDS ORDERED: VANCOMYCIN CONSULT ACTIVE PRN ×2 (11:04)
[2021-10-02] MEDS ORDERED: predniSONE 20 MG TAB PO STA (11:08)
[2021-10-02] MEDS ORDERED: VANCOMYCIN HCL 1,750 MG in SODIUM CHLORIDE 0.9% 500 ML IV ONE (11:30)
[2021-10-02 11:57] LABS: Est GFR (African American) 61.2 ml/min; Est GFR (Non-African American) 52.8 ml/min
[2021-10-02] MEDS: ENOXAPARIN INJ 40 MG/0.4 ML SYR SQ SCH ×2 (12:46→22:54)
--- NOTE | 2021-10-02 14:00 | Pharmacy Report ---
Pharmacy Abx Dose Short Note - Date of Service October 02, 2021 - Assessment & Plan Assessment 71 year old previously on augmentin for hand cellulitis, now changed to vancomycin today. Cultures pending Plan Vancomycin * Given loading dose of vancomycin 1750 mg x 1 (~22 mg/kg) * Will start vancomycin 1gm iv q 18 hrs - Regimen predicted to produce trough ~17, AUC 400-600, with toxicity of 13% * Scr trending up over last few days, will monitor closely * Plan to collect trough if continued >48 hrs or sooner if renal function changes Pharmacy will continue to follow and will adjust dose/frequency as necessary. Thank you.
--- NOTE | 2021-10-02 18:09 | Hospitalist Progress Note ---
Date of Service October 02, 2021 Assessment & Plan (1) Pneumonia due to COVID-19 virus: Plan: Severe disease.-improving Rapid escalation to HFNC in the first 24 hours of his stay. Initial CRP 8.6. repeat CXR on 09/12, 09/23 shows persistent infiltrates CTA chest 09/23: no PE, shows possible acute on chronic viral pneumonitis? Biofire panel on 09/24 is NEGATIVE for all viruses tested, even SARS COV2 and influenza A/B since weak and tired did check am cortisol and is appropriate completed 5 days of Remdesivir early in admission baricitinib 4mg daily, completed 14 d course 09/19/21 Cont pulmonary toilet with flutter and incentive shawn. stable on3-4L at rest, but needs > 10L just getting from bed to chair since still with paroxysms of hypoxia will restart steroids and see if it makes an improvement (2) Acute hypoxemic respiratory failure: Plan: due to COVID pneumonia feeling better but more fatigued continue to lay prone, gutiérrez placed to limit movement due to desaturating he is very compliant with flutter valve, incentive spirometer stable on 3-4L, tends to desaturate when getting out of bed, takes a long time to recover won't be able to leave hospital until he is stable on less oxygen on exertion, hoping he will be ready by the end of this week (3) Transaminitis: Plan: 2nd to COVID-19 infection. AST/ALT are stable (4) Pre-diabetes: Plan: a1c 5.9% in 07/2021. loose novolog SSI scale T2DM diet monitor sugars, no major issues past 24 hours (5) GERD (gastroesophageal reflux disease): Plan: PPI see early satiety below (6) Hypertension: Plan: now improved after stopping his Avapro atenolol may be autonomic disequilibrium from Covid infection on Lasix 20mg PO daily (7) Disc degeneration, lumbar: Plan: s/p lumbar back surgery in early 2020 despite surgery his back bothers him frequently fortunately he is able to prone despite this issue (8) Benign prostatic hyperplasia with urinary obstruction: Plan: place gutiérrez today restart Cardura in hopes of eventually removing gutiérrez (9) Early satiety: Plan: present several months of her states now his appetite has improved has had EGD in the last few years - [facility]; added H2 camelia to his PPI (10) DVT prophylaxis: Plan: lovenox 40mg BID, consider home on xarelto (11) Cellulitis, finger: Plan: cultured with gram negatiives preliminary,worsened on po augmentin, re collected from another site, ? tenosinovitis, started vanco for concerns of progression on pcn (12) Herpes labialis: Plan: pt requested valtrex to start and topical acyclovir Plan: wean oxygen slowly, hope for discharge by the end of this upcoming week PT/OT ordered Admission and Anticipated Discharge Date Admission Date: September 04, 2021 Subjective PTs oral labial herpes much improved, but has had some desaturations and need to increase oxygen supply, will not be ready for rehab this weekend likely has a purulent pustule on dorsum of left hand, lanced under sterile technique 2 ml nguyen fluid expressed Review of Systems Review of Systems: continues with Moderate distress and fatigue no headache, no visual changes no speech or swallowing issues cold sores on lips no chest pain, pressure or palpitations Continued shortness of breath, nonproductive cough but no wheezes no abdominal pain, nausea or vomiting, diarrhea or constipation no dysuria, hematuria or frequency no focal joint pain or swelling no back pain, CVA tenderness or radicular pain purulent pustule expressed from dorsum of left hand no focal signs of weakness or numbness or altered sensation no complaints of anxiety or depression.. Physical Exam Physical Exam: The patient continues to appear fatigued and tired Vital signs as documented. Head exam is normocephalic atraumatic cold sores on lips Neck is without JVD, thyromegaly, or carotid bruits. Lungs are with persistent rales most prominent at the base on the right Cardiac exam, Rhythm is regular.. No murmurs, rubs or gallops. Abdominal exam reveals normal bowel sounds, soft non tender, no masses purulent nodule expressed Neurologic exam is alert and oriented, no focal loss of strength or sensation Skin is without bruises or rashes Psychologically is with concerns for depression Results & Data Results & [facility] ([facility]) Vital Signs (Past 12 Hours) Vital Signs Temp Pulse Resp BP Pulse Ox 10/02/21 15:20 97.9 F 102 H 22 123/82 91 10/02/21 06:40 99.3 F 97 H 26 H 126/78 91 PG Care Time/CCT Total # of Minutes Spent Total Time Spent with Patient: Total time spent is greater than 50% in coordination of care (as documented) at patient's floor/unit and/or counseling patient: Coding Level of Care Code 57666 Subseq Hosp Care Lvl 3 Diagnoses Pneumonia due to COVID-19 virus U07.1; J12.82 Acute hypoxemic respiratory failure J96.01 Transaminitis R74.01 Pre-diabetes R73.03 GERD (gastroesophageal reflux disease) K21.9 Hypertension I10 Disc degeneration, lumbar M51.36 Benign prostatic hyperplasia with urinary obstruction N40.1; N13.8 Early satiety R68.81 DVT prophylaxis Z29.9 Cellulitis, finger L03.019 Herpes labialis B00.1
[2021-10-02] MEDS: MULTIVITAMIN TAB PO SCH (20:40)
[2021-10-02] MEDS: DOXAZosin MESYLATE TAB 2 MG TAB PO SCH (20:40)
[2021-10-02] MEDS: Magic Mouthwash 240mL PO PRN (22:53)
[2021-10-03] MEDS: ACYCLOVIR 5% OINT 15 GM TUBE EXT SCH ×4 (06:20→23:57)
[2021-10-03] MEDS: VANCOMYCIN HCL 1,000 MG in SODIUM CHLORIDE 0.9% 250 ML IV SCH ×2 (06:20→23:56)
[2021-10-03] MEDS ORDERED: LEVALBUTEROL HCL 0.63 MG/3 ML NEB NEB STA (06:50)
[2021-10-03 07:05] LABS: Creatinine Clr Calc Pharmacy 60.7 ml/min; Est GFR (African American) 79.3 ml/min; Est GFR (Non-African American) 68.4 ml/min
[2021-10-03] MEDS ORDERED: methylPREDNISolone 40 MG in SYRINGE 0 ML IV SCH (08:00)
[2021-10-03] MEDS ORDERED: FUROSEMIDE 40 MG/4 ML VIAL IV ONE ×2 (08:00→10:15)
[2021-10-03] MEDS: LORazepam 0.5 MG/1 ML VIAL IV PRN ×2 (08:18→21:05)
[2021-10-03] MEDS ORDERED: predniSONE 20 MG TAB PO SCH (09:00)
[2021-10-03] MEDS: INSULIN ASPART 100 UNITS/ML 3 ML PEN SC SCH ×4 (09:07→21:00)
[2021-10-03] MEDS: ASPIRIN 81 MG ECTAB PO SCH (09:10)
[2021-10-03] MEDS: ZINC SULFATE 220 MG CAPSULE PO SCH (09:11)
[2021-10-03] MEDS: FAMOTIDINE 20 MG TAB PO SCH ×2 (09:11→21:03)
[2021-10-03] MEDS: PANTOprazole 40 MG TAB PO SCH (09:11)
[2021-10-03] MEDS ORDERED: OPTIRAY 320 125ml IV ONE (09:31)
[2021-10-03] MEDS ORDERED: METOPROLOL TARTRATE 1 MG/ML VIAL IV PRN (09:44)
[2021-10-03] MEDS ORDERED: METOPROLOL TARTRATE 25 MG TAB PO SCH ×2 (09:44→11:00)
--- NOTE | 2021-10-03 09:54 | CT Scan Report ---
CT angio chest PE protocol CT DOSE: 597.80 mGy.cm HISTORY: 71 years-old Male with PE. Acute shortness of breath with hypoxia TECHNIQUE: Multiple CTA images of the chest were obtained after the intravenous administration of 120 ml Optiray. Coronal and sagittal MIPS were obtained from the axial data set and were submitted for review. All measurements were obtained according to NASCET criteria. A dose lowering technique was u tilized adhering to the principles of ALARA. COMPARISON: Chest radiograph 10/02/2021 and 12/25/2020, CTA chest 09/23/2021 FINDINGS: CTA: The heart is mildly enlarged. No pericardial effusion. Moderate coronary artery calcifications. Ather osclerosis of the aorta with patency of the imaged great vessels. No thoracic aortic aneurysm or diss ection. No pulmonary emboli identified. Study is mildly limited secondary to respiratory motion artif act. CT CHEST: Unremarkable thyroid. Mild mediastinal adenopathy includes AP window lymph nodes measuring up to 1.3 x 1.3 cm, mildly increased fashion comparison and likely reactive. Trace pleural effusions. No pneumo thorax. Small amount of pneumomediastinum is new from comparison. Bronchiectasis with subpleural reti culation redemonstrated. Progressively worsened bilateral groundglass and consolidative opacities. Ce ntral airways are patent. No acute process of the imaged upper abdomen. Tiny hiatal hernia. Unremarkable soft tissues. No acute fracture. Right shoulder arthroplasty. IMPRESSION: 1. Cardiomegaly without pulmonary emboli. 2. Small amount of pneumomediastinum is new from 09/23/2021. 3. Progressively worsened intermixed groundglass and consolidative opacities suggestive of viral pneu monia on a background of pulmonary fibrosis. 4. Mildly progressed mediastinal adenopathy, likely reactive. 5. Trace pleural effusions. ACT 112: Negative or not required by law. The above report was generated using voice recognition software. It may contain grammatical, syntax o r spelling errors. Electronically signed by: Rudolph Louise M.D. 10/03/2021 9:53 AM
[2021-10-03] MEDS ORDERED: ICU PROTOCOL FOR HYPERGLYCEMIA PRN (10:39)
[2021-10-03 10:52] LABS: Hematocrit (blood only) 39.7 % (42-52); Hemoglobin 13.9 g/dL (14.0-18.0); Mean Corpuscular Hemoglobin 31.2 pg (25-34); Mean Corpuscular Volume 89.2 fL (80-100); Mean Platelet Volume 10.4 fL (7.4-10.4); Platelet Count 247 K/uL (130-400); RDW Coefficient of Variation 14.8 % (11.5-14.5); RDW Standard Deviation 47.8 fL (36.4-46.3); Red Blood Count 4.45 M/uL (4.7-6.1); White Blood Count 16.14 K/uL (4.8-10.8)
--- NOTE | 2021-10-03 10:59 | Critical Care Consultation ---
Date of Consultation October 03, 2021 Assessment & Plan (1) Atrial fibrillation with rapid ventricular response: (2) Acute hypoxemic respiratory failure: (3) Pneumonia due to COVID-19 virus: (4) Pulmonary fibrosis: 71-year-old male with a prolonged hospitalization due to COVID-1 9 viral pneumonia who has progressed to fibrotic lung disease. Today he has worsening hypoxia and atrial fibrillation with rapid ventricular response. Neurologic: No issues at present. Continue monitor. Pulmonary: Currently requiring high flow nasal cannula to maintain saturations above 90%. Continue wean oxygen to maintain sats of 92 to 94%. Can use CPAP/high flow nasal cannula as needed. CT chest reviewed without evidence of pulmonary embolism. There is evidence of fibrosis likely related to ARDS and COVID-19. Cardiovascular: Atrial fibrillation with rapid ventricular response likely secondary to hypoxia. Given 5 mg of metoprolol at bedside during my presence with improvement of heart rate from the 130s to the low 100s. Will initiate 12.5 mg p.o. metoprolol twice daily. Chads vas score is elevated. Will initiate heparin infusion. Echo completed bedside. Results pending. proBNP elevated yesterday. Will discontinue methylprednisolone as there is no clear indication at this time. Gastrointestinal: No significant issues at this time. Renal: Appears euvolemic on exam. Obtaining a CMP. Molina catheter to be placed. Monitor input and output closely. -40 L since admission. Unclear whether input and output is inside outside sales representative of his true intake and output. Infectious disease: Procalcitonin within normal limits. No obvious signs of systemic bacterial infection. Currently on vancomycin per the hospitalist service. Will obtain MRSA screen. Hematologic: Hemoglobin stable. Mild leukocytosis likely secondary to demargination from steroids. Endocrine: Monitor blood sugars. TSH ordered given atrial fibrillation with rapid ventricular response. Lines and tubes: Peripheral IVs in place. Molina catheter placed 10/03/2021. VTE prophylaxis: Heparin infusion. CODE STATUS: Full code. Family at bedside: None available at bedside. Disposition: Remain in the ICU today. Discussed with hospitalist at bedside and patient's RN. I have personally spent 32 minutes of critical care time in the direct management of this patient. This is a life/limb threatening event. This includes time spent evaluating patient, direct bedside care, chart review, placing order s, interpretation of diagnostic studies, discussion with consultants, patient, and family members, as well as other required patient management activities. This time is exclusive of all separately billable procedures, and teaching time and separate from and in addition to any other critical care service time. Thank you for allowing us to participate in the care of this patient. History of Present Illness Reason for Consultation: Atrial fibrillation with rapid ventricular response and worsening hypoxemic respiratory failure in the setting of COVID-19 pneumonia Attending Physician: Martinez Gibbs MD History of Present Illness 71-year-old male with a past medical history of impaired fasting glucose, hypertension and BPH who presented to the hospital originally on 09/03/2021 and then again on 09/04/2021. I saw him in consultation on 09/05/2021 for pulmonary evaluation. He was brought down to the ICU by the hospitalist due to worsening hypoxia and atrial fibrillation with rapid ventricular response. Patient denies any worsening shortness of breath or chest pain. He does appear somewhat tachypneic. He completed a course of baricitinib, remdesivir and Decadron while in the hospital. Procalcitonin checked today was unremarkable. I reviewed the chest CTA from today which demonstrated a small pneumomediastinum which is new compared to the CTA from 23 September. Groundglass and consolidative changes were seen. Bilateral traction bronchiectasis seen to clean the lower lobes. Mild mediastinal adenopathy. CBC reviewed from today demonstrates mild leukocytosis of 16,000. CMP, troponin and lactate pending. proBNP yesterday was elevated to 9542. TSH pending. He was started on methylprednisolone 40 mg twice daily by the hospitalist service. A small purulent pustule was noted on the left hand by the hospitalist which was drained. Cultures from the finger wound growing scedosporium species. Allergies Allergy/AdvReac Type Severity Reaction Status Date / Time FLORENCE Inhibitors AdvReac Mild cough Verified 09/04/21 17:28 Home Medications Medication Instructions Recorded Confirmed Type aspirin 81 mg tablet,delayed 81 mg PO QAM 01/15/20 09/04/21 History release omeprazole 20 mg capsule,delayed 20 mg PO QAM PRN 04/18/20 09/04/21 History release valacyclovir 1 gram tablet 2,000 mg PO Q12H PRN 04/18/20 08/19/21 History (Valtrex) multivitamin 1 tab PO HS 10/16/20 09/04/21 History sennosides 8.6 mg tablet (Senokot) 17.2 mg PO HS PRN 10/16/20 09/04/21 History hydrochlorothiazide 25 mg tablet 25 mg PO QAM #90 tab 11/17/20 09/04/21 Rx doxazosin 2 mg tablet 2 mg PO HS #90 tab 03/23/21 09/04/21 Rx irbesartan 300 mg tablet 300 mg PO QAM #90 tab 07/30/21 09/04/21 Rx atenolol 50 mg tablet 50 mg PO QAM 09/04/21 09/04/21 History Patient History Medical History (Updated 10/03/21 @ 11:05 by Mukesh Ken MD) Acute hypoxemic respiratory failure Atrial fibrillation with rapid ventricular response BPH (benign prostatic hyperplasia) GERD (gastroesophageal reflux disease) controlled Hypertension Impaired fasting glucose Morbid obesity due to excess calories Pneumonia due to COVID-19 virus Pulmonary fibrosis Recurrent cold sores No current issues Transaminitis Surgical History History of colonoscopy (01/24/19) Dr Eva Burnette, [facility]. 3 mm rectal polyp, recheck in 5 years History of esophagogastroduodenoscopy (EGD) History of repair of rotator cuff Left History of tonsillectomy and adenoidectomy History of transurethral resection of prostate 2003 S/p reverse total shoulder arthroplasty (04/23/20) Right reverse TSA: 04/23/20: Grade view 1, MAC#3, ETT 7.5 at [facility] Status post lumbar spine surgery for decompression of spinal cord Total knee replacement status R/L (2005) Family History Father Myocardial infarction Brother Myocardial infarction Son Family history of diabetes mellitus Mother Coronary arteriosclerosis Denies family history of Ovarian cancer Prostate cancer Breast cancer Colorectal cancer Social History (Updated 09/04/21 @ 23:55 by Ana María Iniguez MD) Smoking Status: Never smoker Second Hand Exposure: No; Hx Alcohol Use: No Hx Substance Use: No Preferred Language: Norwegian Communication Ability: Effective Visual Impairment: No Limitations Hearing Ability: Hard of Hearing Stevedoring Supervisor Required: No Beliefs That Will Affect Care: None marital status: Current Living Situation: Spouse current occupational status: employed 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 Patient is in no apparent distress. Patient is well-developed. Eyes: Pupils are equal round and reactive to light. Conjunctivae are normal. Anicteric sclera. Ears nose, mouth and throat: Ulceration noted on his bottom lip. Neck: Trachea is midline. Visual inspection is normal. Respiratory: Velcro crackles noted bilaterally. Tachypneic. Cardiovascular: Irregularly irregular. Tachycardic. No edema. No murmurs. Gastrointestinal: Normal bowel sounds, soft, nontender and nondistended. No hepatosplenomegaly noted. Musculoskeletal: Patient is able to move all extremities. Strength is 5 out of 5 in the upper and lower extremities. Bandage noted on the dorsum of his left hand. No significant erythema. Skin: No rashes, warm dry and intact. Neurologic: No obvious focal neurological deficits seen. Psychiatric: Alert and oriented x3 with a euthymic affect. Results & Data Results & Data ([facility]) Vital Signs (Past 12 Hours) Vital Signs Temp Pulse Pulse Pulse Resp BP BP 10/03/21 10:44 133 H 121/76 10/03/21 10:05 126 H 26 H 10/03/21 09:35 125 H 33 H 10/03/21 08:00 119 H 26 H 128/77 10/03/21 07:34 119 H 118 H 37 H 10/02/21 23:07 97.2 F L 92 H 22 140/78 Pulse Ox 10/03/21 10:44 10/03/21 10:05 92 10/03/21 09:35 97 10/03/21 08:00 95 10/03/21 07:34 92 10/02/21 23:07 91 vital signs, labs and imaging personally reviewed Coding Level of Care Code Critical Care 1st 30-74 mins Diagnoses Acute hypoxemic respiratory failure J96.01 Pneumonia due to COVID-19 virus U07.1; J12.82 Pulmonary fibrosis J84.10 Atrial fibrillation with rapid ventricular response I48.91 Time Spent (min) 32
[2021-10-03 11:09] LABS: Alanine Aminotransferase 69 U/L (12-78); Albumin Level 1.8 gm/dl (3.4-5.0); Aspartate Aminotransferase 38 U/L (15-37); BUN Creatinine Ratio 21.8 (10-20); Blood Urea Nitrogen 27 mg/dl (7-18); Calcium 8.7 mg/dl (8.5-10.1); Carbon Dioxide 25 mmol/L (21-32); Chloride 101 mmol/L (98-107); Creatinine Clr Calc Pharmacy 53.8 ml/min; Est GFR (African American) 68.5 ml/min; Est GFR (Non-African American) 59.1 ml/min; Glucose 161 mg/dl (70-99); Potassium 4.1 mmol/L (3.5-5.1); Sodium 132 mmol/L (136-145)
[2021-10-03 11:19] LABS: Albumin Globulin Ratio 0.3 (0.9-2); Alkaline Phosphatase 120 U/L (45-117); Bilirubin,Total 0.7 mg/dl (0.2-1); Globulin 5.5 gm/dl (2.5-4.0); Total Protein 7.3 gm/dl (6.4-8.2); Troponin I < 0.015 ng/ml (0-0.045)
[2021-10-03 11:23] LABS: Basophils # (auto) 0.02 K/uL (0-0.2); Basophils % (auto) 0.1 %; Eosinophils # (auto) 0.02 K/uL (0-0.5); Eosinophils % (auto) 0.1 %; Immature Granulocytes % (auto) 1.2 %; Lymphocytes # (auto) 0.52 K/uL (1.2-3.4); Lymphocytes % (auto) 3.2 %; Monocytes # (auto) 0.69 K/uL (0.11-0.59); Monocytes % (auto) 4.3 %; Neutrophils # (auto) 14.69 K/uL (1.4-6.5); Neutrophils % (auto) 91.1 %
--- NOTE | 2021-10-03 12:05 | XCELERA ---
[id number]
[2021-10-03] MEDS: ENOXAPARIN INJ 40 MG/0.4 ML SYR SQ SCH (12:11)
[2021-10-03 12:12] LABS: Magnesium 2.4 mg/dl (1.8-2.4); Phosphorus 3.7 mg/dl (2.5-4.9)
[2021-10-03] MEDS: HEPARIN SODIUM/DEXTROSE 25,000 UNITS/500 ML BAG IV SCH (12:29)
[2021-10-03] MEDS: Heparin IV Adult Wt-Based Standard *NO* Bolus Protocol IV SCH ×2 (13:07→13:08)
[2021-10-03 13:11] LABS: INR 1.2 (0.9-1.1); Partial Thromboplastin Time 25.8 Seconds (21.0-31.0); Prothrombin Time 11.7 Seconds (9.0-12.0)
--- NOTE | 2021-10-03 15:12 | Hospitalist Progress Note ---
Date of Service October 03, 2021 Assessment & Plan (1) Pneumonia due to COVID-19 virus: Plan: Severe disease.now worsened with transition back to vapotherm and transfer to icu 10/03/21 pneumomediastinum is present but slight CT angiography for PE 10/03/2021 shows cardiomegaly without PE small amount of pneumomediastinum rest of worsening ground glass consolidations with background of pulmonary fibrosis reactive mediastinal adenopathy Echocardiogram 10/03/2021 shows preserved ejection fraction normal right heart pressures A. fib present Biofire panel on 09/24 is NEGATIVE for all viruses tested, even SARS COV2 and influenza A/B completed 5 days of Remdesivir early in admission baricitinib 4mg daily, completed 14 d course 09/19/21 (2) Acute hypoxemic respiratory failure: Plan: due to COVID pneumonia has taken a turn to need higher oxygen requirement CT angiography was performed which only shows progressive pulmonary fibrosis no concern for bacterial infiltrate (3) Afib: Plan: Patient developed new onset atrial fibrillation. Likely due to physiological stressors but also may be contributing to his respiratory distress. Attempt to control rate or convert with metoprolol IV plus change to metoprolol p.o. from atenolol. Would not escalate to full anticoagulation unless atrial fibrillation is persistent. Initial troponin negative echocardiogram without intracardiac thrombus or regional wall motion abnormalities (4) Cellulitis, finger: Plan: cultured with gram negatives preliminary,worsened on po augmentin, re collected from another site, ? tenosinovitis, started vanco for concerns of progression on pcn, cultures x2 show fungus will discuss with intensive care team whether we should consider this pathogen versus continue to keep the vancomycin has had interval improvement of his finger and dorsum of his hand (5) Pre-diabetes: Plan: a1c 5.9% in 07/2021. loose novolog SSI scale T2DM diet monitor sugars, no major issues past 24 hours (6) GERD (gastroesophageal reflux disease): Plan: PPI see early satiety below (7) Hypertension: Plan: now improved after stopping his Avapro atenolol may be autonomic disequilibrium from Covid infection on Lasix 20mg PO daily (8) Disc degeneration, lumbar: Plan: s/p lumbar back surgery in early 2020 despite surgery his back bothers him frequently fortunately he is able to prone despite this issue (9) Benign prostatic hyperplasia with urinary obstruction: Plan: place gutiérrez today restart Cardura in hopes of eventually removing gutiérrez (10) Transaminitis: Plan: 2nd to COVID-19 infection. AST/ALT are stable (11) Early satiety: Plan: present several months of her states now his appetite has improved has had EGD in the last few years - [facility]; added H2 camelia to his PPI (12) DVT prophylaxis: Plan: lovenox 40mg BID, consider home on xarelto (13) Herpes labialis: Plan: pt requested valtrex to start and topical acyclovir Plan: wean oxygen slowly, hope for discharge by the end of this upcoming week PT/OT ordered Admission and Anticipated Discharge Date Admission Date: September 04, 2021 Subjective This morning the patient went to the bathroom having coughing paroxysms oxygen saturation reduced to 70% unable to have the oxygen come back up without progressing to high flow and eventual BiPAP. Patient had respiratory distress with tachypnea and use of accessory muscles. Subsequently patient was transferred to telemetry but went to an ICU room. CT angiogram of his chest did not show pulmonary embolism but showed pneumomediastinum he was in atrial fibrillation rapid ventricular response he was transitioned to intensive care status. Dr. Patel met the patient at the bedside. Review of Systems Review of Systems: severe distress and fatigue no headache, no visual changes no speech or swallowing issues cold sores on lips no chest pain, pressure or palpitations worsened shortness of breath, nonproductive cough but no wheezes no abdominal pain, nausea or vomiting, diarrhea or constipation no dysuria, hematuria or frequency no focal joint pain or swelling no back pain, CVA tenderness or radicular pain purulent pustule expressed from dorsum of left hand no focal signs of weakness or numbness or altered sensation no complaints of anxiety or depression.. Physical Exam Physical Exam: The patient in respiratory distress and fatigue Vital signs as documented. Head exam is normocephalic atraumatic cold sores on lips Neck is without JVD, thyromegaly, or carotid bruits. Lungs are with persistent rales most prominent at the base on the right Cardiac exam, tachycardic and irregular Abdominal exam reveals normal bowel sounds, soft non tender, no masses purulent nodule expressed Neurologic exam is alert and oriented, no focal loss of strength or sensation Skin is without bruises or rashes Psychologically is with concerns for depression Results & Data Results & Data ([facility]) Vital Signs (Past 12 Hours) Vital Signs Temp Pulse Pulse Pulse Resp BP BP 10/03/21 14:20 106 H 20 10/03/21 14:00 98.9 F 93 H 32 H 104/73 10/03/21 13:30 95 H 26 H 10/03/21 13:00 111 H 30 H 10/03/21 12:30 114 H 36 H 10/03/21 12:00 115 H 38 H 108/82 10/03/21 11:30 110 H 30 H 105/76 10/03/21 11:00 100 H 20 99/76 L 10/03/21 10:44 133 H 121/76 10/03/21 10:40 93 H 10/03/21 10:30 137 H 48 H 10/03/21 10:23 123 H 42 H 10/03/21 10:05 126 H 26 H 10/03/21 09:35 125 H 33 H 10/03/21 08:00 119 H 26 H 128/77 10/03/21 07:34 119 H 118 H 37 H Pulse Ox 10/03/21 14:20 92 10/03/21 14:00 97 10/03/21 13:30 99 10/03/21 13:00 99 10/03/21 12:30 96 10/03/21 12:00 98 10/03/21 11:30 95 10/03/21 11:00 77 L 10/03/21 10:44 10/03/21 10:40 91 10/03/21 10:30 92 10/03/21 10:23 85 L 10/03/21 10:05 92 10/03/21 09:35 97 10/03/21 08:00 95 10/03/21 07:34 92 PG Care Time/CCT Total # of Minutes Spent Total Time Spent with Patient: Total time spent is greater than 50% in coordination of care (as documented) at patient's floor/unit and/or counseling patient: Coding Level of Care Code 92668 Subseq Hosp Care Lvl 3 Diagnoses Pneumonia due to COVID-19 virus U07.1; J12.82 Acute hypoxemic respiratory failure J96.01 Transaminitis R74.01 Pre-diabetes R73.03 GERD (gastroesophageal reflux disease) K21.9 Hypertension I10 Disc degeneration, lumbar M51.36 Benign prostatic hyperplasia with urinary obstruction N40.1; N13.8 Early satiety R68.81 DVT prophylaxis Z29.9 Cellulitis, finger L03.019 Herpes labialis B00.1 Afib I48.91
[2021-10-03] MEDS: Magic Mouthwash 240mL PO PRN (15:38)
[2021-10-03] MEDS ORDERED: METOPROLOL TARTRATE 1 MG/ML VIAL IV STA (15:41)
[2021-10-03 18:50] LABS: Partial Thromboplastin Ratio 1.1; Partial Thromboplastin Time 29.9 Seconds (21.0-31.0)
[2021-10-03] MEDS ORDERED: HEPARIN SOD (PORCINE) 1000 UNIT/ML IV ONE (19:11)
[2021-10-03] MEDS: ACETAMINOPHEN 325 MG TAB PO PRN (21:03)
[2021-10-03] MEDS: METOPROLOL TARTRATE 25 MG TAB PO SCH (21:03)
[2021-10-03] MEDS: oxyCODONE HCL IR 5 MG TAB (IMMEDIATE RELEASE) PO PRN (21:04)
[2021-10-03] MEDS: MULTIVITAMIN TAB PO SCH (21:04)
--- NOTE | 2021-10-03 23:21 | Electrocardiogram Report ---
Test Reason : Blood Pressure : / mmHG Vent. Rate : 130 BPM Atrial Rate : 108 BPM P-R Int : 000 ms QRS Dur : 084 ms QT Int : 320 ms P-R-T Axes : 000 -38 120 degrees QTc Int : 470 ms Poor data quality, interpretation may be adversely affected Atrial fibrillation with rapid ventricular response Left axis deviation Abnormal ECG When compared with ECG of 04-SEP-2021 16:09, Atrial fibrillation has replaced Sinus rhythm Vent. rate has increased BY 62 BPM Confirmed by Jose Lincoln ([id number]) on 10/03/2021 11:21:15 PM Referred By: REFERRED SELF Confirmed By:Jose Lincoln
[2021-10-04] MEDS ORDERED: FUROSEMIDE 40 MG/4 ML VIAL IV ONE (00:30)
[2021-10-04] MEDS ORDERED: MoRPHine SULFATE 2 MG/ML CARP IV STA (00:32)
[2021-10-04 00:42] LABS: iSTAT Allen Test Pass; iSTAT Arterial Blood Gas HCO3 24 meg/L (19-24); iSTAT Arterial Blood Gas pCO2 42 mmHg (35-46); iSTAT Arterial Blood Gas pH 7.36 (7.35-7.45); iSTAT Arterial Blood Gas pO2 66 mmHg (80-95); iSTAT Carbon Dioxide 25 mmol/L (24-31); iSTAT FiO2 100 %; iSTAT Site Art Line
[2021-10-04 00:55] LABS: Hemoglobin 12.7 g/dL (14.0-18.0); Mean Corpuscular Hemoglobin 30.5 pg (25-34); Mean Corpuscular Volume 88.7 fL (80-100); Mean Platelet Volume 10.2 fL (7.4-10.4); Platelet Count 295 K/uL (130-400); RDW Standard Deviation 48.4 fL (36.4-46.3); Red Blood Count 4.17 M/uL (4.7-6.1); White Blood Count 13.69 K/uL (4.8-10.8)
[2021-10-04 01:03] LABS: Mean Corpuscular Hgb Conc 34.3 g/dL (32-36)
--- NOTE | 2021-10-04 01:07 | Emergency Department Note ---
ED Visit Note I was called by the ICU staff to perform an intubation. I spoke with the patient. He did consent to being placed on the ventilator. He was already on BiPAP and was still getting worse. Intubation: This procedure was performed by me. Patient received 20 mg of etomidate IV, 125 mg of succinylcholine IV. The patient was hyper oxygenated. Using rapid technique, the patient was intubated with a Moreira two blade. Some suction was required. No complication. The endotracheal tube was placed at 23 centimeters at the the lips. Adequate O2 saturation noted afterwards. Good CO2 color change. Breath sounds equal bilaterally. Post intubation chest x-ray was ordered. The ICU staff will attend to further sedation and paralysis if required. . : Dyspnea Qualifiers: Dyspnea type: shortness of breath Qualified Code(s): R06.02 - Shortness of breath
[2021-10-04 01:15] LABS: BUN Creatinine Ratio 29.6 (10-20); Blood Urea Nitrogen 36 mg/dl (7-18); Calcium 8.5 mg/dl (8.5-10.1); Carbon Dioxide 27 mmol/L (21-32); Chloride 103 mmol/L (98-107); Creatinine Clr Calc Pharmacy 53.8 ml/min; Est GFR (African American) 68.5 ml/min; Est GFR (Non-African American) 59.1 ml/min; Glucose 145 mg/dl (70-99); Potassium 4.3 mmol/L (3.5-5.1); Sodium 135 mmol/L (136-145)
[2021-10-04] MEDS ORDERED: STAT IV Infusion **Titration per Protocol STA ×5 (01:15→04:29)
[2021-10-04 01:17] LABS: Partial Thromboplastin Ratio 1.8
[2021-10-04 01:19] LABS: Troponin I < 0.015 ng/ml (0-0.045)
[2021-10-04] MEDS ORDERED: RAPID SEQUENCE INDUCTION BAG ONE (01:22)
[2021-10-04 01:28] LABS: Partial Thromboplastin Time 47.7 Seconds (21.0-31.0)
[2021-10-04 01:30] LABS: Basophils # (auto) 0.02 K/uL (0-0.2); Basophils % (auto) 0.1 %; Immature Granulocytes # (auto) 0.21 K/uL (0.00-0.02); Immature Granulocytes % (auto) 1.5 %; Lymphocytes # (auto) 0.83 K/uL (1.2-3.4); Lymphocytes % (auto) 6.1 %; Monocytes # (auto) 0.87 K/uL (0.11-0.59); Monocytes % (auto) 6.4 %; Neutrophils # (auto) 11.76 K/uL (1.4-6.5); Neutrophils % (auto) 85.9 %
[2021-10-04] MEDS: fentaNYL DRIP 1,250 MCG/250 ML BAG IV SCH (01:46)
[2021-10-04] MEDS: PHENYLEPHRINE HCL 20 MG in DEXTROSE 5% 500 ML IV SCH ×2 (01:47→21:07)
[2021-10-04] MEDS ORDERED: PROPOFOL IV EMULSION 10 MG/ML 100 ML VIAL IV ONE ×2 (01:50→04:29)
--- NOTE | 2021-10-04 01:59 | Communication Note ---
Date of Service: October 04, 2021 Patient has been experiencing worsening work of breathing and hypoxia throughout the night. He was switched from high flow nasal cannula to BiPAP now requiring 100%. Patient remains to tachypneic with labored breathing and respiratory rate in the 40s. I did obtain repeat lab work, chest x-ray, troponin, EKG which were all without significant change. He has been rate controlled in A. fib and on heparin drip. Patient did receive 40 IV Lasix as well but remains hypoxic. Dr. Ken was made aware of the patient's condition. I did speak with the patient and the patient's in length regarding intubation and mechanical ventilation and difficulties he may experience with weaning from the vent due to his pulmonary fibrosis secondary to COVID-19 pneumonia. CODE STATUS was discussed as well. Patient made the decision to proceed with intubation and mechanical ventilation and emergency department physician presented to the bedside to intubate. Patient was intubated without complication. He is now requiring high FiO2 requirements following intubation with P/F ratio of 70 indicating severe ARDS. He is also hypotensive following sedation, central line A-line inserted. Patient now on paralytics as well. Will attempt proning once stable to see if this improves oxygenation. CRITICAL CARE TIME - I have personally spent 50 minutes of critical care time in the direct management of this patient. This is a life/limb threatening event. This includes time spent evaluating patient, direct bedside care, chart review, placing orders, interpretation of diagnostic studies, discussion with consultants, patient, and family members, as well as other required patient management activities. This time is exclusive of all separately billable procedures, and teaching time and separate from and in addition to any other critical care service time. Coding Level of Care Code Critical Care 1st 30-74 mins Time Spent (min) 50
[2021-10-04] MEDS ORDERED: VECURONIUM BROMIDE 10 MG VIAL IV STA (02:02)
[2021-10-04] MEDS ORDERED: VECURONIUM BROMIDE 10 MG VIAL IV ONE (02:08)
[2021-10-04] MEDS ORDERED: VASOPRESSIN 20 UNITS in 0.9 % SODIUM CHLORIDE 100 ML IV SCH (03:45)
[2021-10-04] MEDS: CISATRACURIUM BESYLATE 40 MG in 0.9 % SODIUM CHLORIDE 80 ML IV SCH ×5 (04:12→20:54)
[2021-10-04] MEDS ORDERED: PROPOFOL BOLUS FROM BAG IV PRN (04:29)
[2021-10-04 04:35] LABS: iSTAT Arterial Blood Gas HCO3 27 meg/L (19-24); iSTAT Arterial Blood Gas pCO2 72 mmHg (35-46); iSTAT Arterial Blood Gas pH 7.18 (7.35-7.45); iSTAT Arterial Blood Gas pO2 77 mmHg (80-95); iSTAT Carbon Dioxide 29 mmol/L (24-31); iSTAT FiO2 80 %; iSTAT Site Art Line
[2021-10-04] MEDS: ARTIFICIAL TEARS OP OINT 3.5 GM TUBE OP SCH ×6 (04:43→23:55)
[2021-10-04] MEDS: propofoL 1,000 MG/100 ML VIAL IV SCH ×5 (05:09→20:54)
[2021-10-04 05:59] LABS: BUN Creatinine Ratio 29.6 (10-20); Calcium 8.5 mg/dl (8.5-10.1); Creatinine Clr Calc Pharmacy 48.3 ml/min; Est GFR (African American) 60.1 ml/min; Est GFR (Non-African American) 51.9 ml/min; Magnesium 2.4 mg/dl (1.8-2.4); Potassium 4.4 mmol/L (3.5-5.1)
[2021-10-04 06:05] LABS: Phosphorus 5.8 mg/dl (2.5-4.9)
[2021-10-04] MEDS: ACYCLOVIR 5% OINT 15 GM TUBE EXT SCH ×3 (07:08→17:18)
--- NOTE | 2021-10-04 07:23 | XRay Report ---
XR chest 1V portable CLINICAL HISTORY: intubation COMPARISON STUDY: Chest CT October 03, 2021. Chest radiograph October 04, 2021 at 12:04 AM. FINDINGS: Tip of endotracheal tube is 2.4 cm above the favio. Tip of nasogastric tube is within the gastric fundus. Cardiomediastinal silhouette is stable. Lines diminished, unchanged. Extensive bilate ral airspace opacities persist. Right shoulder arthroplasty is partially imaged. IMPRESSION: 1. Tip of endotracheal tube 2.4 cm above the favio. 2. Persistent extensive bilateral airspace opacities which favor viral pneumonia. ACT 112: Negative or not required by law. Electronically signed by: Rolf Garcia M.D. 10/04/2021 7:22 AM
--- NOTE | 2021-10-04 07:23 | XRay Report ---
XR chest 1V portable HISTORY: 71 years-old Male LINE PLACEMENT STATUS post placement of a right IJ central venous cathete r COMPARISON: Chest radiograph of same day at 1:45 AM TECHNIQUE: Supine AP view of the chest FINDINGS: Endotracheal tube overlies the midline, 2.7 cm superior to the favio. Right IJ central venous cathet er distal tip overlies the right atrium. Enteric tube distal tip projects superiorly within the regio n of the gastric fundus. The thorax. Cardiomegaly with bilateral mixed interstitial and alveolar opac ities redemonstrated. Trace pleural effusions. Degenerative changes of the shoulders and spine. Rever se right shoulder total joint arthroplasty. IMPRESSION: 1. Satisfactory positioning of the life-support lines and tubes as above. No pneumothorax. 2. Extensive mixed interstitial and alveolar opacities redemonstrated compatible with pneumonia super imposed on pulmonary fibrotic change 3. No pneumothorax.. ACT 112: Negative or not required by law. The above report was generated using voice recognition software. It may contain grammatical, syntax o r spelling errors. Electronically signed by: Rudolph Louise M.D. 10/04/2021 7:21 AM
--- NOTE | 2021-10-04 07:41 | XRay Report ---
XR chest 1V portable CLINICAL HISTORY: Respiratory distress. COMPARISON STUDY: Chest radiograph October 02, 2021. Chest CT October 03, 2021. FINDINGS: Right shoulder arthroplasty is partially imaged. Lung volumes are diminished, unchanged. Ca rdiomegaly is unchanged. Extensive bilateral airspace opacities persist. There is no pneumothorax or pleural effusion. IMPRESSION: 1. Persistent extensive bilateral airspace opacities which favor viral pneumonia. 2. No pneumothorax. ACT 112: Negative or not required by law. Electronically signed by: Rolf Garcia M.D. 10/04/2021 7:39 AM
[2021-10-04] MEDS: HEPARIN SODIUM/DEXTROSE 25,000 UNITS/500 ML BAG IV SCH (07:58)
--- NOTE | 2021-10-04 08:33 | Hospitalist Progress Note ---
Date of Service October 04, 2021 Assessment & Plan (1) Pneumonia due to COVID-19 virus: Plan: Severe disease.now worsened with transition to icu 10/03/21, intubated 10/04/21, ARDS outlook worrisome pneumomediastinum is present but slight CT angiography for PE 10/03/2021 shows cardiomegaly without PE small amount of pneumomediastinum rest of worsening ground glass consolidations with background of pulmonary fibrosis reactive mediastinal adenopathy Echocardiogram 10/03/2021 shows preserved ejection fraction normal right heart pressures A. fib present Biofire panel on 09/24 is NEGATIVE for all viruses tested, even SARS COV2 and influenza A/B completed 5 days of Remdesivir early in admission baricitinib 4mg daily, completed 14 d course 09/19/21 (2) Acute hypoxemic respiratory failure: Plan: due to COVID pneumonia has taken a turn to need higher oxygen requirement and intubation and ventilation CT angiography was performed which only shows progressive pulmonary fibrosis no concern for bacterial infiltrate (3) Afib: Plan: Patient developed new onset atrial fibrillation. conversion to NSR Likely due to physiological stressors but also may be contributing to his respiratory distress. change to metoprolol p.o. from atenolol. anticoagulate for 48 hrs Initial troponin negative echocardiogram without intracardiac thrombus or regional wall motion abnormalities (4) Cellulitis, finger: Plan: cultured with gram negatives preliminary,worsened on po augmentin, re collected from another site, ? tenosinovitis, started vanco for concerns of progression on pcn, cultures x2 show fungus will discuss with intensive care team whether we should consider this pathogen versus continue to keep the vancomycin has had interval improvement of his finger and dorsum of his hand (5) Pre-diabetes: Plan: a1c 5.9% in 07/2021. loose novolog SSI scale T2DM diet monitor sugars, no major issues past 24 hours (6) GERD (gastroesophageal reflux disease): Plan: PPI (7) Hypertension: Plan: now improved after stopping his Avapro atenolol may be autonomic disequilibrium from Covid infection on Lasix 20mg daily (8) Disc degeneration, lumbar: Plan: s/p lumbar back surgery in early 2020 despite surgery his back bothers him frequently (9) Benign prostatic hyperplasia with urinary obstruction: Plan: place gutiérrez today (10) Transaminitis: Plan: 2nd to COVID-19 infection. AST/ALT are stable (11) Early satiety: Plan: present several months of her states now his appetite has improved has had EGD in the last few years - [facility]; added H2 camelia to his PPI (12) DVT prophylaxis: Plan: lovenox 40mg BID, consider home on xarelto (13) Herpes labialis: Plan: pt requested valtrex to start and topical acyclovir Plan: wean oxygen slowly, hope for discharge by the end of this upcoming week PT/OT ordered Admission and Anticipated Discharge Date Admission Date: September 04, 2021 Subjective Patient seen and examined this morning. He is currently sedated and paralysed in the prone position, he remains stable with high ventalation requirements Review of Systems Review of Systems: Unobtainable due to endotracheal tube and Unobtainable due to reduced consciousness Physical Exam Physical Exam: The patient in respiratory distress and supported by ventilat ion Vital signs as documented. Head exam is normocephalic atraumatic cold sores on lips Lungs are with persistent rales most prominent at the base on the right Cardiac exam, tachycardic and irregular Abdominal exam reveals normal bowel sounds, soft Skin is without bruises or rashes Results & Data Results & Data ([facility]) Vital Signs (Past 12 Hours) Vital Signs Pulse Resp BP Pulse Ox 10/04/21 06:00 105 H 28 H 134/69 10/04/21 05:00 105 H 28 H 126/48 L 10/04/21 04:28 128 H 28 H 96 10/04/21 04:00 118 H 20 135/63 86 L 10/04/21 03:00 126 H 20 97/74 L 92 10/04/21 02:00 137 H 23 89/42 L 88 L 10/04/21 01:07 EST 126 H 20 90 10/04/21 01:00 EST 99 H 53 H 129/105 H 90 10/04/21 00:00 105 H 37 H 130/90 86 L 10/03/21 23:24 108 H 32 H 91 10/03/21 23:00 100 H 30 H 116/90 93 10/03/21 22:00 114 H 19 139/81 89 L PG Care Time/CCT Total # of Minutes Spent Total Time Spent with Patient: Total time spent is greater than 50% in coordination of care (as documented) at patient's floor/unit and/or counseling patient: Coding Level of Care Code 96201 Subseq Hosp Care Lvl 2 Diagnoses Pneumonia due to COVID-19 virus U07.1; J12.82 Acute hypoxemic respiratory failure J96.01 Afib I48.91 Cellulitis, finger L03.019 Pre-diabetes R73.03 GERD (gastroesophageal reflux disease) K21.9 Hypertension I10 Disc degeneration, lumbar M51.36 Benign prostatic hyperplasia with urinary obstruction N40.1; N13.8 Transaminitis R74.01 Early satiety R68.81 DVT prophylaxis Z29.9 Herpes labialis B00.1
[2021-10-04] MEDS: INSULIN ASPART 100 UNITS/ML 3 ML PEN SC SCH ×4 (08:58→21:01)
--- NOTE | 2021-10-04 09:16 | Critical Care Progress Note ---
Date of Service October 04, 2021 Assessment & Plan (1) Atrial fibrillation with rapid ventricular response: (2) Acute hypoxemic respiratory failure: (3) Pneumonia due to COVID-19 virus: (4) Pulmonary fibrosis: (5) ARDS (adult respiratory distress syndrome): (6) Hypotension (arterial): Plan: 71-year-old male with a prolonged hospitalization due to COVID-19 viral pneumonia who has progressed to fibrotic lung disease. He now has evidence of severe ARDS and is currently intubated and proned. Neurologic: Currently on propofol, fentanyl and Nimbex. Given that he is prone, will forego sedation vacation today. Recommend weaning sedation tomorrow depending on his respiratory status while he is supine. Pulmonary: Severe ARDS secondary to COVID-19 viral illness. He is now roughly a month out from his initial COVID-19 illness. He actually tested negative for COVID-19 on 09/24/2021. It appears that he has developed fibrotic changes in his lungs secondary to his prolonged illness. CT chest imaging is concerning for subpleural fibrosis and traction bronchiectasis. His blood gas demonstrates a severe hypercapnic respiratory failure with hypoxemia. We will repeat an ABG this morning. He has a small area of pneumomediastinum seen on his chest CTA from 10/03/2021. Due to this, we are utilizing a low PEEP strategy. He is currently on 80% FiO2 and a PEEP of 8. Continue to use low tidal volumes for lung protective ventilation. Continue proning for 20 hours. No clear indication for steroids at this time. His overall prognosis from a pulmonary standpoint is very guarded. Cardiovascular: Atrial fibrillation with rapid ventricular response likely secondary to hypoxia. Relatively rate controlled at present. Will hold metoprolol given hypotension related to sedation. Currently on phenylephrine due to atrial fibrillation to maintain mean arterial pressures above 65. Vasopressin started overnight, will discontinue. Will consult cardiology regarding atrial fibrillation. I am somewhat hesitant to use amiodarone at this time given this underlying fibrotic lung disease. Certainly if he begins to have worsening hemodynamic instability, we will need to consider the use of amiodarone. Echo with an LVEF of 65 to 70%. Mild LVH noted. Asymmetric severe hypertrophy involving the anterior septum is seen. ?HOCM. 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 Will await cardiology input. Gastrointestinal: Start tube feeds. Dietitian consult placed. Continue Pepcid for GI prophylaxis. Renal: Continue Lasix 40 mg IV daily. Phosphorus elevated to 5.8. Will need to consider Phos binders if elevated tomorrow. Infectious disease: Procalcitonin within normal limits. Antibiotics discontinued. He did have a small pustule that was lanced on his left hand earlier in the week by the hospitalist service. This appears to be well-healed. Hematologic: Hemoglobin stable. Mild leukocytosis likely secondary to demargination from steroids. Endocrine: Monitor blood sugars. TSH within normal limits. Lines and tubes: Peripheral IVs in place. Molina catheter placed 10/03/2021. VTE prophylaxis: Heparin infusion. CODE STATUS: Full code. Family at bedside: None available at bedside. Disposition: Remain in the ICU today. I have personally spent 34 minutes of critical care time in the direct management of this patient. This is a life/limb threatening event. This includes time spent evaluating patient, direct bedside care, chart review, placing orders, interpretation of diagnostic studies, discussion with consultants, patient, and family members, as well as other required patient management activities. This time is exclusive of all separately billable procedures, and teaching time and separate from and in addition to any other critical care service time. Thank you for allowing us to participate in the care of this patient. Admission and Anticipated Discharge Date Admission Date: September 04, 2021 Subjective Patient seen and examined this morning. He is currently in the prone position and under neuromuscular blockade. He was placed in a prone position around 1:30 AM yesterday. No significant events this morning. Review of Systems Review of Systems: Unobtainable due to endotracheal tube and Unobtainable due to reduced consciousness Physical Exam Physical Exam: Constitutional: Currently endotracheally intubated. Prone position. Eyes: Pupils pinpoint. Ears, nose, mouth and throat: Endotracheal tube in place. Neck: Trachea is midline. Visual inspection is normal. Respiratory: Diminished lung sounds bilaterally. No wheezes. Cardiovascular: Regular rate and rhythm. No murmurs. No edema. Gastrointestinal: Normal bowel sounds, soft, nontender and nondistended. No hepatosplenomegaly noted. Musculoskeletal: No gross abnormalities. All limbs intact. Skin: No rashes, warm dry and intact. Neurologic: Unable to assess well paralyzed. Psychiatric: Unable to assess. Results & Data Results & Data ([facility]) Vital Signs (Past 12 Hours) Vital Signs Pulse Resp BP Pulse Ox 10/04/21 06:00 105 H 28 H 134/69 10/04/21 05:00 105 H 28 H 126/48 L 10/04/21 04:28 128 H 28 H 96 10/04/21 04:00 118 H 20 135/63 86 L 10/04/21 03:00 126 H 20 97/74 L 92 10/04/21 02:00 137 H 23 89/42 L 88 L 10/04/21 01:07 EST 126 H 20 90 10/04/21 01:00 EST 99 H 53 H 129/105 H 90 10/04/21 00:00 105 H 37 H 130/90 86 L 10/03/21 23:24 108 H 32 H 91 10/03/21 23:00 100 H 30 H 116/90 93 Vital signs, labs and imaging personally reviewed. Chest x-ray with bilateral infiltrates and costophrenic blunting. Coding Level of Care Code Critical Care 1st 30-74 mins Diagnoses Atrial fibrillation with rapid ventricular response I48.91 Acute hypoxemic respiratory failure J96.01 Pneumonia due to COVID-19 virus U07.1; J12.82 Pulmonary fibrosis J84.10 ARDS (adult respiratory distress syndrome) J80 Hypotension (arterial) I95.9 Time Spent (min) 34
[2021-10-04] MEDS: FUROSEMIDE 40 MG/4 ML VIAL IV SCH (10:08)
[2021-10-04] MEDS: METOPROLOL TARTRATE 25 MG TAB PO SCH (10:10)
[2021-10-04] MEDS: FAMOTIDINE 20 MG TAB PO SCH ×2 (10:10→20:55)
[2021-10-04 10:11] LABS: iSTAT Art Bld Gas pCO2 Correct 63 mmHg (35-46); iSTAT Art Bld Gas pH Corrected 7.244 (7.35-7.45); iSTAT Arterial Blood Gas HCO3 27 meg/L (19-24); iSTAT Arterial Blood Gas pCO2 62 mmHg (35-46); iSTAT Arterial Blood Gas pH 7.25 (7.35-7.45); iSTAT Arterial Blood Gas pO2 98 mmHg (80-95); iSTAT Arterial Blood Gas pO2 C 100; iSTAT Carbon Dioxide 29 mmol/L (24-31); iSTAT FiO2 80 %; iSTAT Hematocrit 37 % (42-52); iSTAT Hemoglobin 12.6 g/dl (14.0-18.0); iSTAT Potassium 4.5 mmol/L (3.3-5.0); iSTAT Site L Radial; iSTAT Sodium 134 mmol/L (135-144)
[2021-10-04] MEDS: PANTOprazole 40 MG TAB PO SCH (10:11)
[2021-10-04] MEDS: ZINC SULFATE 220 MG CAPSULE PO SCH (10:11)
[2021-10-04] MEDS: ASPIRIN 81 MG ECTAB PO SCH (10:11)
--- NOTE | 2021-10-04 10:49 | Cardiology Consultation ---
Date of Consultation October 04, 2021 Assessment & Plan (1) Atrial fibrillation with rapid ventricular response: -spontaneously converted to sinus rhythm earlier this morning. -remains on intravenous heparin and metoprolol tartrate. -could consider use of intravenous amiodarone should his dysrhythmia recur. (2) ARDS (adult respiratory distress syndrome): -secondary to COVID-19 pneumonia and resultant pulmonary fibrosis. (3) Asymmetric septal hypertrophy: -no evidence of an obstructive cardiomyopathy. History of Present Illness Attending Physician: Martinez Gibbs MD History of Present Illness Mr. Vann is a 71-year-old male admitted with COVID pneumonia on September 04. The patient developed atrial fibrillation with a rapid ventricular response yesterday, and therefore, this consultation was ordered. The patient's recovery from COVID pneumonia has been prolonged. Unfortunately, he developed pulmonary fibrosis felt secondary to COVID pneumonia. Yesterday, the patient became hypoxic and had increasing oxygen demands. He was eventually transferred to the intensive care unit and intubated early this morning. The patient had developed atrial fibrillation early in the day yesterday. Last evening at approximately 2:00 a.m., patient spontaneously converted to sinus rhythm. He has been on intravenous heparin since he developed atrial fibrillation yesterday. The history is obtained from the chart as the patient is sedated and intubated in the intensive care unit. Past medical and surgical history 1. Hypertension 2. Diabetes mellitus 3. GERD 4. BPH 5. Colonic polyps 6. Herpes labialis 7. Bilateral TKR 8. Left rotator cuff repair 9. Right reverse total shoulder replacement 10. TURP 11. 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 No tobacco alcohol Family history Unobtainable Review systems Unobtainable Allergies Allergy/AdvReac Type Severity Reaction Status Date / Time FLORENCE Inhibitors AdvReac Mild cough Verified 09/04/21 17:28 Home Medications Medication Instructions Recorded Confirmed Type aspirin 81 mg tablet,delayed 81 mg PO QAM 01/15/20 09/04/21 History release omeprazole 20 mg capsule,delayed 20 mg PO QAM PRN 04/18/20 09/04/21 History release valacyclovir 1 gram tablet 2,000 mg PO Q12H PRN 04/18/20 08/19/21 History (Valtrex) multivitamin 1 tab PO HS 10/16/20 09/04/21 History sennosides 8.6 mg tablet (Senokot) 17.2 mg PO HS PRN 10/16/20 09/04/21 History hydrochlorothiazide 25 mg tablet 25 mg PO QAM #90 tab 11/17/20 09/04/21 Rx doxazosin 2 mg tablet 2 mg PO HS #90 tab 03/23/21 09/04/21 Rx irbesartan 300 mg tablet 300 mg PO QAM #90 tab 07/30/21 09/04/21 Rx atenolol 50 mg tablet 50 mg PO QAM 09/04/21 09/04/21 History Patient History Medical History (Updated 10/04/21 @ 10:50 by Chris Craig MD) Acute hypoxemic respiratory failure ARDS (adult respiratory distress syndrome) Atrial fibrillation with rapid ventricular response BPH (benign prostatic hyperplasia) GERD (gastroesophageal reflux disease) controlled Hypertension Hypotension (arterial) Impaired fasting glucose Morbid obesity due to excess calories Pneumonia due to COVID-19 virus Pulmonary fibrosis Recurrent cold sores No current issues Transaminitis Surgical History History of colonoscopy (01/24/19) Dr Eva Burnette, [facility]. 3 mm rectal polyp, recheck in 5 years History of esophagogastroduodenoscopy (EGD) History of repair of rotator cuff Left History of tonsillectomy and adenoidectomy History of transurethral resection of prostate 2003 S/p reverse total shoulder arthroplasty (04/23/20) Right reverse TSA: 04/23/20: Grade view 1, MAC#3, ETT 7.5 at [facility] Status post lumbar spine surgery for decompression of spinal cord Total knee replacement status R/L (2005) Family History Father Myocardial infarction Brother Myocardial infarction Son Family history of diabetes mellitus Mother Coronary arteriosclerosis Denies family history of Ovarian cancer Prostate cancer Breast cancer Colorectal cancer Social History (Updated 09/04/21 @ 23:55 by Ana María Iniguez MD) Smoking Status: Never smoker Second Hand Exposure: No; Hx Alcohol Use: No Hx Substance Use: No Preferred Language: German Communication Ability: Effective Visual Impairment: No Limitations Hearing Ability: Hard of Hearing Cell Tender Helper Required: No Beliefs That Will Affect Care: None marital status: Current Living Situation: Spouse current occupational status: employed 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 HEENT exam notes an endotracheal tube. Neck is supple with full carotid upstrokes. No obvious bruits. Jugular is pressure is difficult to assess. Cardiovascular exam reveals a regular rhythm with distant heart sounds. No obvious murmurs. Lungs no coarse breath sounds throughout. Abdomen is soft. Extremities reveal no edema. Results & Data ([facility]) Vital Signs (Past 12 Hours) Vital Signs Pulse Resp BP Pulse Ox 10/04/21 10:07 32 H 10/04/21 07:38 103 H 28 H 91 10/04/21 06:00 105 H 28 H 134/69 10/04/21 05:00 105 H 28 H 126/48 L 10/04/21 04:28 128 H 28 H 96 10/04/21 04:00 118 H 20 135/63 86 L 10/04/21 03:00 126 H 20 97/74 L 92 10/04/21 02:00 137 H 23 89/42 L 88 L 10/04/21 01:07 EST 126 H 20 90 10/04/21 01:00 EST 99 H 53 H 129/105 H 90 10/04/21 00:00 105 H 37 H 130/90 86 L Laboratory Results CBC notes hemoglobin of 12.7, hematocrit 37.0, white count 13.69, platelet count [id number]. Electrolytes note a sodium of 134, potassium 4.4, chloride 102, bicarb 24, BUN 41, creatinine 1.37, and glucose of 222. Two troponin I levels have been undetectable less than 0.015. TSH is normal 3.6. Magnesium is normal 2.4. Diagnostic Findings EKG notes atrial fibrillation with a rapid ventricular response. There is nonspecific T-wave abnormality. shelter monitor now notes sinus tachycardia. Echocardiogram noted normal systolic function with ejection fraction of 65-70%. There was mild LVH and asymmetric septal hypertrophy. Normal velocities across the left ventricular outflow tract. PG Care Time/CCT Total # of Minutes Spent Total Time Spent with Patient: Total time spent is greater than 50% in coordination of care (as documented) at patient's floor/unit and/or counseling patient: Coding Level of Care Code 77502 Initial Inpt Care Lvl 3 Diagnoses Atrial fibrillation with rapid ventricular response I48.91 ARDS (adult respiratory distress syndrome) J80 Asymmetric septal hypertrophy I42.2
--- NOTE | 2021-10-04 11:18 | Electrocardiogram Report ---
Test Reason : Blood Pressure : / mmHG Vent. Rate : 105 BPM Atrial Rate : 104 BPM P-R Int : 000 ms QRS Dur : 092 ms QT Int : 352 ms P-R-T Axes : 000 -29 120 degrees QTc Int : 465 ms Poor data quality, interpretation may be adversely affected Atrial fibrillation with rapid ventricular response T wave abnormality, consider lateral ischemia Abnormal ECG When compared with ECG of 03-OCT-2021 08:34, No significant change was found Confirmed by Chris Craig ([id number]) on 10/04/2021 11:18:25 AM Referred By: REFERRED SELF Confirmed By:Chris Craig
[2021-10-04 13:32] LABS: iSTAT Art Bld Gas pCO2 Correct 72 mmHg (35-46); iSTAT Art Bld Gas pH Corrected 7.207 (7.35-7.45); iSTAT Arterial Blood Gas HCO3 28 meg/L (19-24); iSTAT Arterial Blood Gas pCO2 70 mmHg (35-46); iSTAT Arterial Blood Gas pH 7.21 (7.35-7.45); iSTAT Arterial Blood Gas pO2 80 mmHg (80-95); iSTAT Arterial Blood Gas pO2 C 82; iSTAT Carbon Dioxide 30 mmol/L (24-31); iSTAT FiO2 60 %; iSTAT Hematocrit 39 % (42-52); iSTAT Hemoglobin 13.3 g/dl (14.0-18.0); iSTAT Potassium 4.6 mmol/L (3.3-5.0); iSTAT Site Art Line; iSTAT Sodium 135 mmol/L (135-144)
[2021-10-04] MEDS ORDERED: ETOMIDATE 2 MG/ML 20 ML VIAL IV ONE (14:41)
[2021-10-04] MEDS ORDERED: SUCCINYLCHOLINE CHLORIDE 20 MG/ML 10 ML VIAL IV ONE (14:41)
[2021-10-04] MEDS ORDERED: VANCOMYCIN TROUGH ONE (17:30)
[2021-10-04] MEDS: MULTIVITAMIN TAB PO SCH (20:55)
[2021-10-05] MEDS: CISATRACURIUM BESYLATE 40 MG in 0.9 % SODIUM CHLORIDE 80 ML IV SCH ×8 (00:02→18:28)
[2021-10-05] MEDS: ACYCLOVIR 5% OINT 15 GM TUBE EXT SCH ×4 (00:03→18:16)
[2021-10-05] MEDS: propofoL 1,000 MG/100 ML VIAL IV SCH ×9 (01:10→20:15)
[2021-10-05] MEDS: HEPARIN SODIUM/DEXTROSE 25,000 UNITS/500 ML BAG IV SCH ×4 (01:11→23:26)
[2021-10-05] MEDS: ARTIFICIAL TEARS OP OINT 3.5 GM TUBE OP SCH ×6 (01:11→23:24)
[2021-10-05 04:11] LABS: iSTAT Art Bld Gas pCO2 Correct 51 mmHg (35-46); iSTAT Art Bld Gas pH Corrected 7.354 (7.35-7.45); iSTAT Arterial Blood Gas HCO3 28 meg/L (19-24); iSTAT Arterial Blood Gas pCO2 50 mmHg (35-46); iSTAT Arterial Blood Gas pH 7.36 (7.35-7.45); iSTAT Arterial Blood Gas pO2 61 mmHg (80-95); iSTAT Arterial Blood Gas pO2 C 63; iSTAT Carbon Dioxide 30 mmol/L (24-31); iSTAT FiO2 50 %; iSTAT Hematocrit 35 % (42-52); iSTAT Hemoglobin 11.9 g/dl (14.0-18.0); iSTAT Potassium 4.1 mmol/L (3.3-5.0); iSTAT Site Art Line; iSTAT Sodium 134 mmol/L (135-144)
[2021-10-05] MEDS: PHENYLEPHRINE HCL 20 MG in DEXTROSE 5% 500 ML IV SCH ×5 (04:32→23:26)
[2021-10-05 05:06] LABS: Basophils # (auto) 0.02 K/uL (0-0.2); Basophils % (auto) 0.2 %; Eosinophils # (auto) 0.23 K/uL (0-0.5); Eosinophils % (auto) 2.4 %; Hematocrit (blood only) 35.9 % (42-52); Hemoglobin 11.9 g/dL (14.0-18.0); Immature Granulocytes # (auto) 0.12 K/uL (0.00-0.02); Immature Granulocytes % (auto) 1.3 %; Lymphocytes # (auto) 0.65 K/uL (1.2-3.4); Lymphocytes % (auto) 6.9 %; Mean Corpuscular Hemoglobin 30.1 pg (25-34); Mean Corpuscular Hgb Conc 33.1 g/dL (32-36); Mean Corpuscular Volume 90.7 fL (80-100); Mean Platelet Volume 10.2 fL (7.4-10.4); Monocytes # (auto) 0.47 K/uL (0.11-0.59); Neutrophils # (auto) 7.91 K/uL (1.4-6.5); Neutrophils % (auto) 84.2 %; Platelet Count 304 K/uL (130-400); RDW Coefficient of Variation 15.4 % (11.5-14.5); RDW Standard Deviation 51.6 fL (36.4-46.3); Red Blood Count 3.96 M/uL (4.7-6.1)
[2021-10-05 05:41] LABS: BUN Creatinine Ratio 32.3 (10-20); Calcium 8.4 mg/dl (8.5-10.1); Creatinine Clr Calc Pharmacy 58.6 ml/min; Est GFR (African American) 75.9 ml/min; Est GFR (Non-African American) 65.5 ml/min; Magnesium 2.3 mg/dl (1.8-2.4); Phosphorus 3.8 mg/dl (2.5-4.9); Potassium 4.1 mmol/L (3.5-5.1)
[2021-10-05 05:46] LABS: Partial Thromboplastin Ratio 1.6; Partial Thromboplastin Time 42.4 Seconds (21.0-31.0)
[2021-10-05] MEDS: fentaNYL DRIP 1,250 MCG/250 ML BAG IV SCH ×2 (06:20→10:18)
[2021-10-05] MEDS ORDERED: ACETAMINOPHEN SUSP 500 MG/15.6 ML UDP PO PRN (10:22)
[2021-10-05] MEDS: FUROSEMIDE 40 MG/4 ML VIAL IV SCH (10:46)
[2021-10-05] MEDS: ZINC SULFATE 220 MG CAPSULE PO SCH (10:47)
[2021-10-05] MEDS: FAMOTIDINE 20 MG TAB PO SCH ×2 (10:47→20:16)
--- NOTE | 2021-10-05 10:47 | XRay Report ---
XR chest 1V portable CLINICAL HISTORY: Resp failure. COMPARISON STUDY: 10/04/2021 TECHNIQUE: 1 view of the chest FINDINGS: Single frontal view of the chest demonstrates the cardiomediastinal silhouette to be within normal li mits. Tubes and catheters appear unchanged. Compared to previous examination, the patient is now an u pright position with interval decrease in bilateral interstitial and alveolar opacities. There is aga in evidence of small left pleural effusion and left basilar atelectasis. There is no evidence for vas cular congestion. There is no acute osseous pathology. IMPRESSION: Interval improvement with patient in a upright position. There is decrease in interstitia l alveolar opacities and left pleural effusion. ACT 112: Negative or not required by law. Electronically signed by: Willard Hampton M.D. 10/05/2021 10:46 AM
[2021-10-05] MEDS: ASPIRIN 81 MG CHEW PO SCH (10:48)
[2021-10-05] MEDS ORDERED: SODIUM CHLORIDE 0.9% IV SCH (11:00)
[2021-10-05] MEDS ORDERED: VORICONAZOLE IV SCH (11:00)
--- NOTE | 2021-10-05 11:38 | Critical Care Progress Note ---
Date of Service October 05, 2021 Assessment & Plan (1) Atrial fibrillation with rapid ventricular response: (2) Acute hypoxemic respiratory failure: (3) Pneumonia due to COVID-19 virus: (4) Pulmonary fibrosis: (5) ARDS (adult respiratory distress syndrome): (6) Hypotension (arterial): Plan: Impression: 71-year-old male with a prolonged hospitalization due to COVID-19 viral pneumonia who has progressed to fibrotic lung disease. He now has evidence of severe ARDS and is currently intubated and proned. 24-hour events: The patient remains deeply sedated. We have been able to slightly wean his oxygen requirements on the ventilator.. Recommendations: Neurologic: Currently on propofol, fentanyl and Nimbex. Discontinue neuromuscular blockade. Sedation break as tolerated. Pulmonary: Severe ARDS secondary to COVID-19 viral illness. He is now roughly a month out from his initial COVID-19 illness. He actually tested negative for COVID-19 on 09/24/2021. AC: 32/330/6/0.6 Pplat 27. ABG 7.36/50/61. It appears that he has developed fibrotic changes in his lungs secondary to his prolonged illness. CT chest imaging is concerning for subpleural fibrosis and traction bronchiectasis although there is some GGO present. Trivial pneumomediastinum noted on CT scan. Continue to try and maintain pressures as low as possible. Given the duration of his disease and extensive hospitalization, it may be reasonable to pursue early tracheostomy to facilitate weaning this patient from mechanical ventilator. Will discuss with family. If we elect to pursue tracheostomy, will perform bronchoscopy with BAL for Gram stain culture as well as cell counts and differential to determine whether or not additional immunosuppression might be appropriate given the groundglass opacities. Cardiovascular: Atrial fibrillation with rapid ventricular response likely secondary to hypoxia. Appreciate cardiology note. Would like to avoid amiodarone given his significant pulmonary issues. Continue to wean Beck-Synephrine as tolerated. On heparin infusion. Echo with an LVEF of 65 to 70%. Mild LVH noted. Asymmetric severe hypertrophy involving the anterior septum is seen. Not consistent with HOCM per cardiology. Recheck BNP. continue Lasix. Gastrointestinal: Continue trophic tube feeding. Hold advancing until off pressors. Continue Pepcid for GI prophylaxis. Renal: Continue Lasix 40 mg IV daily. Phosphorus elevated to 5.8. Will need to consider Phos binders if elevated tomorrow. Infectious disease: Procalcitonin within normal limits. Antibiotics discontinued. He grew a Scedosporium from his hand initally from a finger on 09/28 and from a pustule on his hand lanced on 10/02. Start Voriconazole and ID consult. Hematologic: Hemoglobin stable. Leukocytosis resolved. Endocrine: Monitor blood sugars. TSH within normal limits. Lines and tubes: Peripheral IVs in place. Molina catheter placed 10/03/2021. VTE prophylaxis: Heparin infusion. CODE STATUS: Full code. Discussed with on phone. Consented for trach. She is to be here at 2PM today and will visit at bedside. Disposition: Remain in the ICU today. I have personally spent 48 minutes of critical care time in the direct management of this patient. This is a life/limb threatening event. This includes time spent evaluating patient, direct bedside care, chart review, placing orders, interpretation of diagnostic studies, discussion with consultants, patient, and family members, as well as other required patient management activities. This time is exclusive of all separately billable procedures, and teaching time and separate from and in addition to any other critical care service time. Thank you for allowing us to participate in the care of this patient. Admission and Anticipated Discharge Date Admission Date: September 04, 2021 Subjective Patient is intubated and sedated. Review of Systems Review of Systems: Unobtainable due to endotracheal tube Physical Exam Constitutional: + mechanically ventilated Intubated and sedated Neck: trachea midline, no thyromegaly Respiratory: normal respiratory effort; no labored breathing Auscultation: + rales; no wheezes Cardiovascular: RRR, no murmur, no edema Gastrointestinal (Abdomen): normal bowel sounds, soft, nontender, no hepatosplenomegaly Musculoskeletal: Extremities: extremities normal to inspection Skin: no rashes, warm and dry Neurologic: Nonfocal exam Lymphatic: no cervical lymphadenopathy Results & Data Results & Data ([facility]) Vital Signs (Past 12 Hours) Vital Signs Temp Pulse Resp BP Pulse Ox 10/05/21 07:50 106 H 32 H 89 L 10/05/21 05:00 37.6 C H 100 H 32 H 92/67 L 89 L 10/05/21 04:04 96 H 31 H 91 10/05/21 04:00 37.4 C 97 H 32 H 94/66 L 89 L 10/05/21 03:00 37.3 C 98 H 32 H 94/65 L 89 L 10/05/21 02:00 37.1 C 96 H 35 H 89/64 L 87 L 10/05/21 01:00 36.9 C 89 28 H 85/61 L 90 10/05/21 00:00 36.9 C 91 H 28 H 97/68 L 88 L 10/04/21 23:30 85 32 H 90 Critical Care Results & Data Vital Signs (Past 12 Hours) Vital Signs Temp Pulse Resp BP Pulse Ox 10/05/21 07:50 106 H 32 H 89 L 10/05/21 05:00 37.6 C H 100 H 32 H 92/67 L 89 L 10/05/21 04:04 96 H 31 H 91 10/05/21 04:00 37.4 C 97 H 32 H 94/66 L 89 L 10/05/21 03:00 37.3 C 98 H 32 H 94/65 L 89 L 10/05/21 02:00 37.1 C 96 H 35 H 89/64 L 87 L 10/05/21 01:00 36.9 C 89 28 H 85/61 L 90 10/05/21 00:00 36.9 C 91 H 28 H 97/68 L 88 L 10/04/21 23:30 85 32 H 90 Lab & Micro Results (Past 24 Hours) RBC 3.96 M/uL (4.7-6.1) L 10/05/21 WBC 9.40 K/uL (4.8-10.8) 10/05/21 Hgb 11.9 g/dL (14.0-18.0) L 10/05/21 Hct 35.9 % (42-52) L 10/05/21 MCV 90.7 fL (80-100) 10/05/21 MCH 30.1 pg (25-34) 10/05/21 MCHC 33.1 g/dL (32-36) 10/05/21 RDW Standard Deviation 51.6 fL (36.4-46.3) H 10/05/21 RDW Coefficient of Variation 15.4 % (11.5-14.5) H 10/05/21 Plt Count 304 K/uL (130-400) 10/05/21 MPV 10.2 fL (7.4-10.4) 10/05/21 Neutrophils (%) (Auto) 84.2 % 10/05/21 Lymphocytes (%) (Auto) 6.9 % 10/05/21 Monocytes # (Auto) 0.47 K/uL (0.11-0.59) 10/05/21 Eosinophils # (Auto) 0.23 K/uL (0-0.5) 10/05/21 Immature Granulocyte % (Auto) 1.3 % 10/05/21 Neutrophils # (Auto) 7.91 K/uL (1.4-6.5) H 10/05/21 Lymphocytes # (Auto) 0.65 K/uL (1.2-3.4) L 10/05/21 Monocytes # (Auto) 0.47 K/uL (0.11-0.59) 10/05/21 Eosinophils # (Auto) 0.23 K/uL (0-0.5) 10/05/21 Basophils # (Auto) 0.02 K/uL (0-0.2) 10/05/21 Immature Granulocyte # (Auto) 0.12 K/uL (0.00-0.02) H 10/05/21 Na 133 mmol/L (136-145) L 10/05/21 K 4.1 mmol/L (3.5-5.1) 10/05/21 Cl 100 mmol/L (98-107) 10/05/21 CO2 26 mmol/L (21-32) 10/05/21 Anion Gap 7.0 (3-11) 10/05/21 BUN 37 mg/dl (7-18) H 10/05/21 Creatinine 1.13 mg/dl (0.6-1.4) 10/05/21 Estimated GFR ( Amer) 75.9 ml/min 10/05/21 Estimated GFR (Non-Af Amer) 65.5 ml/min 10/05/21 BUN/Creatinine Ratio 32.3 (10-20) H 10/05/21 Glu 152 mg/dl (70-99) H 10/05/21 Ca 8.4 mg/dl (8.5-10.1) L 10/05/21 Phosphorus Level 3.8 mg/dl (2.5-4.9) 10/05/21 Mg 2.3 mg/dl (1.8-2.4) 10/05/21 04:43 10/05/21 Calcium Level 8.4 mg/dl (8.5-10.1) L 10/05/21 04:43 10/05/21 Rob Test NA 10/05/21 03:58 10/05/21 Microbiology 10/02/21 11:30 Gram Stain - Final Hand,Left Aerobic and Anaerobic Culture - Preliminary Scedosporium species Diagnostic Findings (Past 24 Hours) Chest X-Ray 10/05/21 07:00 XR chest 1V portable CLINICAL HISTORY: Resp failure. COMPARISON STUDY: 10/04/2021 TECHNIQUE: 1 view of the chest FINDINGS: Single frontal view of the chest demonstrates the cardiomediastinal silhouette to be within normal limits. Tubes and catheters appear unchanged. Compared to previous examination, the patient is now an upright position with interval decrease in bilateral interstitial and alveolar opacities. There is again evidence of small left pleural effusion and left basilar atelectasis. There is no evidence for vascular congestion. There is no acute osseous pathology. IMPRESSION: Interval improvement with patient in a upright position. There is decrease in interstitial alveolar opacities and left pleural effusion. ACT 112: Negative or not required by law. Electronically signed by: Willard Hampton M.D. 10/05/2021 10:46 AM I & O Totals 24 Hours 10/04/21 10/05/21 10/06/21 06:59 06:59 06:59 Intake Total 2415.685 / 2415.685 56.295 / 56.295 Output Total 1925 / 1925 150 / 150 Balance 490.685 / 490.685 -93.705 / -93.705 Cumulative 09/04/21 12:53 thru 10/05/21 09:27 Intake Total 88525.534 Output Total 12152 Balance -43066.466 RT Ventilator Mngmt (Last Documented) Ventilator Ordered Settings Ventilator Support Mode Assist Control 10/05/21 07:50 Respiratory Rate 32 10/05/21 07:50 Ventilator Tidal Volume 330 10/05/21 07:50 Setting Minute Ventilation 10.1 10/05/21 07:50 Positive End Expiratory 6 10/05/21 07:50 Pressure Fraction of Inspired Oxygen 60 10/05/21 07:50 Machine Comment increased fi02 for Sp02 88%. 11/08/21 07:50 Ventilator - PT Measurements Respiratory Rate 32 Exhaled Tidal Volume 335 Minute Ventilation 10.1 Peak Inspiratory Airway 28 Pressure Plateau Pressure 27 Respiratory Cycle Inspiratory: 1:1.3 Expiratory Ratio Inspiratory Phase Time 0.80 End-Tidal CO2 35 Static Lung Compliance 15.95 Dynamic Lung Compliance 15.23 Normal Static Lung Compliance 44.00 Patient Measurements Comment SUPINATED Coding Level of Care Code Critical Care 1st 30-74 mins Diagnoses Atrial fibrillation with rapid ventricular response I48.91 Acute hypoxemic respiratory failure J96.01 Pneumonia due to COVID-19 virus U07.1; J12.82 Pulmonary fibrosis J84.10 ARDS (adult respiratory distress syndrome) J80 Hypotension (arterial) I95.9 Time Spent (min) 55
[2021-10-05 12:17] LABS: Partial Thromboplastin Ratio 1.6; Partial Thromboplastin Time 41.6 Seconds (21.0-31.0)
[2021-10-05] MEDS: INSULIN ASPART 100 UNITS/ML 3 ML PEN SC SCH ×3 (12:19→18:28)
[2021-10-05] MEDS: ACETAMINOPHEN SUSP 160 MG/5 ML BTL PO PRN ×2 (12:19→18:35)
[2021-10-05] MEDS: TUBE FEEDING WATER FLUSH GT SCH ×3 (13:24→20:16)
[2021-10-05] MEDS: PEPTAMEN INTENSE VHP 1.0 CAL 1,000 ML BAG GT SCH (13:24)
[2021-10-05 15:03] LABS: iSTAT Arterial Blood Gas pCO2 47 mmHg (35-46); iSTAT Arterial Blood Gas pH 7.32 (7.35-7.45); iSTAT Arterial Blood Gas pO2 70 mmHg (80-95); iSTAT Carbon Dioxide 25 mmol/L (24-31)
[2021-10-05 15:04] LABS: iSTAT Arterial Blood Gas HCO3 24 meg/L (19-24); iSTAT Sample Type Arterial
[2021-10-05] MEDS ORDERED: VECURONIUM BROMIDE 10 MG VIAL IV STA (15:42)
[2021-10-05] MEDS ORDERED: VECURONIUM BROMIDE 10 MG VIAL IV ONE (15:53)
[2021-10-05] MEDS ORDERED: GADOBUTROL 65ML VIAL IV ONE (18:08)
--- NOTE | 2021-10-05 18:46 | Magnetic Resonance Report ---
MR hand LT wo/w con CLINICAL HISTORY: scedosporum infection, ? osteo, ? tendinitis TECHNIQUE: Multisequence, multiplanar MR images of the left hand were obtained without and with. COMPARISON: None available at the time of this dictation. FINDINGS: There is a region of fat stranding and possible small fluid collection in the lateral aspect of the f irst digit at approximately the level of the metacarpophalangeal joint. There is no evidence of under lying bony edema or cortical erosion to suggest osteomyelitis. Tendons are unremarkable. IMPRESSION: Soft tissue swelling with possible underlying drainable fluid collection. No evidence of osteomyeliti s is seen. ACT 112: Negative or not required by law. Electronically signed by: Paulie Altamirano M.D. 10/05/2021 6:45 PM
[2021-10-05 20:28] LABS: Partial Thromboplastin Ratio 1.3
[2021-10-05] MEDS ORDERED: HEPARIN SOD (PORCINE) 1000 UNIT/ML IV ONE (21:25)
[2021-10-05] MEDS ORDERED: HEPARIN IV BOLUS 3,000 UNITS in SYRINGE 0 ML IV ONE (21:45)
--- NOTE | 2021-10-05 22:35 | Hospitalist Progress Note ---
Date of Service October 05, 2021 Assessment & Plan (1) Pneumonia due to COVID-19 virus: Plan: Severe disease.now worsened with transition to icu 10/03/21, intubated 10/04/21, ARDS outlook worrisome pneumomediastinum is present but slight family considering early tracheostomy in coming days CT angiography for PE 10/03/2021 shows cardiomegaly without PE small amount of pneumomediastinum rest of worsening ground glass consolidations with background of pulmonary fibrosis reactive mediastinal adenopathy Echocardiogram 10/03/2021 shows preserved ejection fraction normal right heart pressures A. fib present Biofire panel on 09/24 is NEGATIVE for all viruses tested, even SARS COV2 and influenza A/B completed 5 days of Remdesivir early in admission baricitinib 4mg daily, completed 14 d course 09/19/21 (2) Acute hypoxemic respiratory failure: Plan: due to COVID pneumonia has taken a turn to need higher oxygen requirement and intubation and ventilation CT angiography was performed which only shows progressive pulmonary fibrosis no concern for bacterial infiltrate poor prognosis given degree of damage to lungs likely headed towards tracheostomy (3) Afib: Plan: Patient developed new onset atrial fibrillation. conversion to NSR Likely due to physiological stressors but also may be contributing to his respiratory distress. change to metoprolol p.o. from atenolol. anticoagulate for 48 hrs Initial troponin negative echocardiogram without intracardiac thrombus or regional wall motion abnormalities (4) Cellulitis, finger: Plan: cultured with gram negatives preliminary,worsened on po augmentin, re collected from another site, ? tenosinovitis, started vanco for concerns of progression on pcn, cultures x2 show fungus MRI hand with small fluid collection, no evidence of osteomyelitis (5) Pre-diabetes: Plan: a1c 5.9% in 07/2021. loose novolog SSI scale T2DM diet monitor sugars, no major issues past 24 hours (6) GERD (gastroesophageal reflux disease): Plan: PPI (7) Hypertension: Plan: now improved after stopping his Avapro atenolol may be autonomic disequilibrium from Covid infection on Lasix 20mg daily (8) Disc degeneration, lumbar: Plan: s/p lumbar back surgery in early 2020 despite surgery his back bothers him frequently (9) Benign prostatic hyperplasia with urinary obstruction: Plan: place gutiérrez today (10) Transaminitis: Plan: 2nd to COVID-19 infection. AST/ALT are stable (11) Early satiety: Plan: present several months of her states now his appetite has improved has had EGD in the last few years - [facility]; added H2 camelia to his PPI (12) DVT prophylaxis: Plan: lovenox 40mg BID (13) Herpes labialis: Plan: pt requested valtrex to start and topical acyclovir Plan: ventilated possible early tracheostomy appreciate management by Dr. Woodson and ICU team Admission and Anticipated Discharge Date Admission Date: September 04, 2021 Subjective reviewed chart from past week patient had to be moved to ICU, elected to be intubated CT chest with fibrotic changes now dealing with infection in hand updated his at the bedside, discussed that he has been so strong, such a fighter she wondered if he would have benefited from intubation earlier in the stay, discussed that he never needed it he was on Vapotherm the first week but weaned down after a week by laying prone, he was compliant with flutter valve, incentive spirometer discussed that if he had not been so compliant and strong willed that he may have needed intubated earlier she asked about tracheostomy, I discussed that it would help limit sedation, wake up faster he could participate in his goals of care moving forward told her that I agreed with Dr. Woodson's recommendation Review of Systems Review of Systems: Unobtainable due to endotracheal tube and Unobtainable due to reduced consciousness Physical Exam Physical Exam: General: well developed, well nourished, elderly male, no distress Neck: supple, trachea midline, normal thyroid Lungs: clear to auscultation bilaterally, slightly tachypneic, no distress or accessory muscle use Heart: regular S1 and S2, no murmur, peripheral pulses normal, capillary refill normal, no edema Abdomen: soft, NT, ND, + BS, no hepatomegaly, normal to percussion Extremities: normal in appearance, no cyanosis, no petechiae, strength is 5/5 bilaterally Neuro: awake, cooperative, moves all extremities, no focal motor deficits, CN II-XII intact, sensation in extremities intact, normal speech Skin: warm, dry, no rash, normal turgor Psych: Awake, alert oriented x 3, euthymic affect Results & Data Results & Data ([facility]) Vital Signs (Past 12 Hours) Vital Signs Pulse Resp Pulse Ox 10/05/21 21:31 106 H 34 H 89 L 10/05/21 16:25 108 H 32 H 93 10/05/21 11:49 106 H 32 H 90 Laboratory Results Laboratory Results - last 24 hr 10/04/21 10/05/21 10/05/21 02:26 03:58 04:43 WBC RBC Hgb POC Hgb 11.9 L Hct POC Hct 35 L MCV MCH MCHC RDW Std Deviation RDW Coeff of Bhupinder Plt Count MPV Immature Gran % (Auto) Neut % (Auto) Lymph % (Auto) Forest % (Auto) Eos % (Auto) Baso % (Auto) Neut # (Auto) Lymph # (Auto) Forest # (Auto) Eos # (Auto) Baso # (Auto) Immature Gran # (Auto) APTT PTT Ratio Specimen Type Arterial Sample Site Art Line POC pH 7.32 L 7.36 POC pCO2 47 H 50 H POC pO2 70 L 61 L POC HCO3 24 28 H POC Total CO2 25 30 POC Base Excess -2.0 3.0 H ABG pH (Temp Correct) 7.354 ABG pCO2 (Temp Corrct 51 H POC ABG pO2 at Pt Temp 63 POC ABG O2 Sat 92.0 90.0 Rob Test NA O2 Delivery Device Ventilator POC O2 Rate 32 POC FiO2 50 Tidal Volume 330 PEEP 6 POC Sodium 134 L Sodium 133 L POC Potassium 4.1 Potassium 4.1 Chloride 100 Carbon Dioxide 26 Anion Gap 7.0 BUN 37 H Creatinine 1.13 Est Cr Clr Drug Dosing 58.6 Est GFR ( Amer) 75.9 Est GFR (Non-Af Amer) 65.5 BUN/Creatinine Ratio 32.3 H Glucose 152 H POC Glucose (other) Calcium 8.4 L Phosphorus 3.8 D Magnesium 2.3 NT-Pro-B Natriuret Pep Procalcitonin 10/05/21 10/05/21 10/05/21 04:43 05:27 09:20 WBC 9.40 RBC 3.96 L Hgb 11.9 L POC Hgb Hct 35.9 L POC Hct MCV 90.7 MCH 30.1 MCHC 33.1 RDW Std Deviation 51.6 H RDW Coeff of Bhupinder 15.4 H Plt Count 304 MPV 10.2 Immature Gran % (Auto) 1.3 Neut % (Auto) 84.2 Lymph % (Auto) 6.9 Forest % (Auto) 5.0 Eos % (Auto) 2.4 Baso % (Auto) 0.2 Neut # (Auto) 7.91 H Lymph # (Auto) 0.65 L Forest # (Auto) 0.47 Eos # (Auto) 0.23 Baso # (Auto) 0.02 Immature Gran # (Auto) 0.12 H APTT 42.4 H PTT Ratio 1.6 Specimen Type Sample Site POC pH POC pCO2 POC pO2 POC HCO3 POC Total CO2 POC Base Excess ABG pH (Temp Correct) ABG pCO2 (Temp Corrct POC ABG pO2 at Pt Temp POC ABG O2 Sat Rob Test O2 Delivery Device POC O2 Rate POC FiO2 Tidal Volume PEEP POC Sodium Sodium POC Potassium Potassium Chloride Carbon Dioxide Anion Gap BUN Creatinine Est Cr Clr Drug Dosing Est GFR ( Amer) Est GFR (Non-Af Amer) BUN/Creatinine Ratio Glucose POC Glucose (other) 154 H Calcium Phosphorus Magnesium NT-Pro-B Natriuret Pep Procalcitonin 10/05/21 10/05/21 10/05/21 11:51 11:51 11:51 WBC RBC Hgb POC Hgb Hct POC Hct MCV MCH MCHC RDW Std Deviation RDW Coeff of Bhupinder Plt Count MPV Immature Gran % (Auto) Neut % (Auto) Lymph % (Auto) Forest % (Auto) Eos % (Auto) Baso % (Auto) Neut # (Auto) Lymph # (Auto) Forest # (Auto) Eos # (Auto) Baso # (Auto) Immature Gran # (Auto) APTT 41.6 H PTT Ratio 1.6 Specimen Type Sample Site POC pH POC pCO2 POC pO2 POC HCO3 POC Total CO2 POC Base Excess ABG pH (Temp Correct) ABG pCO2 (Temp Corrct POC ABG pO2 at Pt Temp POC ABG O2 Sat Rob Test O2 Delivery Device POC O2 Rate POC FiO2 Tidal Volume PEEP POC Sodium Sodium POC Potassium Potassium Chloride Carbon Dioxide Anion Gap BUN Creatinine Est Cr Clr Drug Dosing Est GFR ( Amer) Est GFR (Non-Af Amer) BUN/Creatinine Ratio Glucose POC Glucose (other) Calcium Phosphorus Magnesium NT-Pro-B Natriuret Pep 97047 H Procalcitonin 0.44 10/05/21 10/05/21 10/05/21 12:17 18:24 20:06 WBC RBC Hgb POC Hgb Hct POC Hct MCV MCH MCHC RDW Std Deviation RDW Coeff of Bhupinder Plt Count MPV Immature Gran % (Auto) Neut % (Auto) Lymph % (Auto) Forest % (Auto) Eos % (Auto) Baso % (Auto) Neut # (Auto) Lymph # (Auto) Forest # (Auto) Eos # (Auto) Baso # (Auto) Immature Gran # (Auto) APTT 35.0 H PTT Ratio 1.3 Specimen Type Sample Site POC pH POC pCO2 POC pO2 POC HCO3 POC Total CO2 POC Base Excess ABG pH (Temp Correct) ABG pCO2 (Temp Corrct POC ABG pO2 at Pt Temp POC ABG O2 Sat Rob Test O2 Delivery Device POC O2 Rate POC FiO2 Tidal Volume PEEP POC Sodium Sodium POC Potassium Potassium Chloride Carbon Dioxide Anion Gap BUN Creatinine Est Cr Clr Drug Dosing Est GFR ( Amer) Est GFR (Non-Af Amer) BUN/Creatinine Ratio Glucose POC Glucose (other) 157 H 174 H Calcium Phosphorus Magnesium NT-Pro-B Natriuret Pep Procalcitonin Medications Administered Current Inpatient Medications Acetaminophen (Acetaminophen Susp 160 Mg/5 Ml Btl) 500 mg PO Q6H PRN PRN Reason: Fever Stop: 11/04/21 11:53 Last Admin: 10/05/21 18:35 Dose: 500 mg Documented by: Acyclovir (Acyclovir 5% Oint 15 Gm Tube) 1 appln EXT Q6 SAADIA Stop: 10/10/21 17:59 Last Admin: 10/05/21 18:16 Dose: 1 appln Documented by: Aspirin (Aspirin 81 Mg Chew) 81 mg PO QAM SAADIA Stop: 11/04/21 08:59 Last Admin: 10/05/21 10:48 Dose: 81 mg Documented by: Nystatin 30 ml/ Dexamethasone 3.75 mg/ Diphenhydramine HCl 300 mg/ Sucrose 45 ml/Microcrystalline Cellulose 45 ml/ BARCODE IDENTIFIER 1 ea 0 ml PO Q4H PRN PRN Reason: Pain Stop: 11/01/21 21:23 Last Admin: 10/03/21 15:38 Dose: 5 ml Documented by: Famotidine (Famotidine 20 Mg Tab) 20 mg PO BID SAADIA Stop: 10/16/21 20:59 Last Admin: 10/05/21 20:16 Dose: 20 mg Documented by: Fentanyl Citrate (Fentanyl Bolus From Bag) 50 mcg IV Q60M PRN PRN Reason: Pain or Agitation Stop: 10/18/21 01:14 Furosemide (Furosemide 40 Mg/4 Ml Vial) 40 mg IV DAILY [facility] Stop: 11/03/21 08:59 Last Admin: 10/05/21 10:46 Dose: 40 mg Documented by: Lorazepam (Ativan) 0.5 mg in 1 mls @ 1 mls/min IV Q4H PRN PRN Reason: Agitation Stop: 11/02/21 07:37 Last Admin: 10/03/21 21:05 Dose: 1 mls/min Documented by: Heparin Sodium/Dextrose (Heparin Sodium/Dextrose) 25,000 units in 500 mls @ 34 mls/hr IV .[id number] [facility]; Protocol Stop: 11/02/21 11:29 Last Admin: 10/05/21 21:21 Dose: 1,700 units/hr, 34 mls/hr Documented by: Fentanyl Citrate (Fentanyl Drip) 1,250 mcg in 250 mls @ 15 mls/hr IV .[id number] SAADIA; Protocol Stop: 10/18/21 01:14 Last Titration: 10/05/21 19:06 Dose: 75 mcg/hr, 15 mls/hr Documented by: Phenylephrine HCl 20 mg/ (Dextrose) 502 mls @ 35.24 mls/hr IV .[id number] SAADIA; Protocol Stop: 11/03/21 01:44 Last Titration: 10/05/21 21:00 Dose: 0.3 mcg/kg/min, 35.2 mls/hr Documented by: Propofol (Diprivan) 1,000 mg in 100 mls @ 18.72 mls/hr IV .Q5H21M [facility]; Protocol Stop: 10/07/21 04:29 Last Admin: 10/05/21 20:15 Dose: 40 mcg/kg/min, 18.7 mls/hr Documented by: Insulin Aspart (Insulin Aspart 100 Units/Ml 3 Ml Pen) 0 units SC Q6 SAADIA Stop: 11/04/21 11:59 Last Admin: 10/05/21 18:24 Dose: 1 units Documented by: Metoprolol Tartrate (Metoprolol Tartrate 1 Mg/Ml Vial) 5 mg IV Q4 PRN PRN Reason: sbp> 185, dbp >95, HR >110 Stop: 11/02/21 09:43 Last Admin: 10/03/21 10:44 Dose: 5 mg Documented by: Multi-Ingredient Cream (Artificial Tears Op Oint 3.5 Gm Tube) 1 appln OP Q4H SAADIA Stop: 11/03/21 02:29 Last Admin: 10/05/21 18:26 Dose: Not Given Documented by: Nutritional Formula (Peptamen Intense Vhp 1.0 Cristian 1,000 Ml Bag) 1,000 ml GT CONT SAADIA; Protocol Stop: 11/04/21 11:44 Last Admin: 10/05/21 13:24 Dose: 1,000 ml Documented by: Oxycodone HCl (Oxycodone Hcl Ir 5 Mg Tab (Immediate Release)) 5 mg PO Q6H PRN PRN Reason: Pain - Stop: 10/14/21 17:45 Last Admin: 10/03/21 21:04 Dose: 5 mg Documented by: Propofol (Propofol Bolus From Bag) 20 mg IV Q5M PRN PRN Reason: Sedation Stop: 10/07/21 04:28 Sodium Chloride (Sodium Chloride 0.65% Na Soln 45 Ml ([place])) 1 sprays NA UD PRN; Protocol PRN Reason: nasal congestion Stop: 10/18/21 17:14 Last Admin: 09/18/21 17:25 Dose: 1 sprays Documented by: Sterile Water (Tube Feeding Water Flush) 30 ml GT Q4H SAADIA Stop: 11/04/21 11:59 Last Admin: 10/05/21 20:16 Dose: 30 ml Documented by: PG Care Time/CCT Total # of Minutes Spent Total Time Spent with Patient: Total time spent is greater than 50% in coordination of care (as documented) at patient's floor/unit and/or counseling patient: Coding Level of Care Code 79122 Subseq Hosp Care Lvl 2 Diagnoses Pneumonia due to COVID-19 virus U07.1; J12.82 Acute hypoxemic respiratory failure J96.01 Afib I48.91 Cellulitis, finger L03.019 Pre-diabetes R73.03 GERD (gastroesophageal reflux disease) K21.9 Hypertension I10 Disc degeneration, lumbar M51.36 Benign prostatic hyperplasia with urinary obstruction N40.1; N13.8 Transaminitis R74.01 Early satiety R68.81 DVT prophylaxis Z29.9 Herpes labialis B00.1
[2021-10-06] MEDS: ACYCLOVIR 5% OINT 15 GM TUBE EXT SCH ×3 (00:17→10:50)
[2021-10-06] MEDS: TUBE FEEDING WATER FLUSH GT SCH ×4 (00:17→10:51)
[2021-10-06] MEDS: INSULIN ASPART 100 UNITS/ML 3 ML PEN SC SCH ×3 (00:18→12:13)
[2021-10-06] MEDS: ACETAMINOPHEN SUSP 160 MG/5 ML BTL PO PRN ×2 (01:21→13:54)
[2021-10-06] MEDS: propofoL 1,000 MG/100 ML VIAL IV SCH ×5 (01:33→12:12)
[2021-10-06] MEDS: ARTIFICIAL TEARS OP OINT 3.5 GM TUBE OP SCH ×4 (02:28→13:54)
[2021-10-06] MEDS: fentaNYL DRIP 1,250 MCG/250 ML BAG IV SCH ×2 (02:28→10:52)
[2021-10-06 03:48] LABS: Basophils # (auto) 0.02 K/uL (0-0.2); Basophils % (auto) 0.2 %; Eosinophils # (auto) 0.14 K/uL (0-0.5); Eosinophils % (auto) 1.5 %; Hematocrit (blood only) 36.8 % (42-52); Hemoglobin 12.2 g/dL (14.0-18.0); Immature Granulocytes # (auto) 0.38 K/uL (0.00-0.02); Immature Granulocytes % (auto) 4.1 %; Lymphocytes # (auto) 0.84 K/uL (1.2-3.4); Lymphocytes % (auto) 9.1 %; Mean Corpuscular Hemoglobin 30.4 pg (25-34); Mean Corpuscular Hgb Conc 33.2 g/dL (32-36); Mean Corpuscular Volume 91.8 fL (80-100); Monocytes # (auto) 0.37 K/uL (0.11-0.59); Neutrophils # (auto) 7.49 K/uL (1.4-6.5); Neutrophils % (auto) 81.1 %; Platelet Count 286 K/uL (130-400); RDW Coefficient of Variation 15.1 % (11.5-14.5); Red Blood Count 4.01 M/uL (4.7-6.1); White Blood Count 9.24 K/uL (4.8-10.8)
[2021-10-06 04:09] LABS: Partial Thromboplastin Ratio 2.1
[2021-10-06 04:12] LABS: BUN Creatinine Ratio 25.5 (10-20); Calcium 8.1 mg/dl (8.5-10.1); Creatinine Clr Calc Pharmacy 51.7 ml/min; Est GFR (African American) 65.3 ml/min; Est GFR (Non-African American) 56.3 ml/min; Magnesium 2.2 mg/dl (1.8-2.4); Phosphorus 3.6 mg/dl (2.5-4.9); Potassium 4.2 mmol/L (3.5-5.1)
[2021-10-06 04:19] LABS: Partial Thromboplastin Time 56.2 Seconds (21.0-31.0)
[2021-10-06 04:28] LABS: iSTAT Arterial Blood Gas HCO3 25 meg/L (19-24); iSTAT Arterial Blood Gas pCO2 47 mmHg (35-46); iSTAT Arterial Blood Gas pH 7.34 (7.35-7.45); iSTAT Arterial Blood Gas pO2 68 mmHg (80-95); iSTAT Carbon Dioxide 27 mmol/L (24-31); iSTAT FiO2 70 %; iSTAT Site Art Line
[2021-10-06] MEDS ORDERED: VANCOMYCIN CONSULT ACTIVE PRN (05:44)
[2021-10-06] MEDS ORDERED: PIPERACILL/TAZOBAC CONSULT ACTIVE PRN (05:44)
[2021-10-06] MEDS ORDERED: PIPERACILLIN/TAZOBACTAM 4.5 GM in DEXTROSE 5% 100 ML IV ONE (06:00)
[2021-10-06] MEDS ORDERED: VANCOMYCIN HCL 1,500 MG in SODIUM CHLORIDE 0.9% 500 ML IV SCH (06:30)
[2021-10-06] MEDS ORDERED: VANCOMYCIN HCL 2,000 MG in SODIUM CHLORIDE 0.9% 500 ML IV ONE (06:30)
--- NOTE | 2021-10-06 07:54 | XRay Report ---
XR chest 1V portable CLINICAL HISTORY: Resp failure. COMPARISON STUDY: 10/05/2021 at 6:45 AM TECHNIQUE: 1 view of the chest FINDINGS: Single frontal view of the chest demonstrates the cardiomediastinal silhouette to be within normal li mits. Compared to previous examination, there is decreased expansion of the lungs. Diffuse interstiti al and alveolar opacities are again seen bilaterally. Tubes and catheters are unchanged. However, wit h decreased expansion of the lungs, the tip of the endotracheal tube is only 1 cm above the favio. R ight jugular catheter again extends into the right atrium. There is no evidence for pleural effusion. There is mild central vascular congestion with no peripheral interstitial edema. There is no acute o sseous pathology. IMPRESSION: Decreased expansion of the lungs on the current study with the tip of the endotracheal tu be 1 cm above the favio . Diffuse interstitial and alveolar opacities are again seen bilaterally. Th ere is mild central vascular congestion of the current study with no peripheral interstitial edema. R ight jugular catheter is also within the right atrium. ACT 112: Negative or not required by law. Electronically signed by: Willard Hampton M.D. 10/06/2021 7:52 AM
[2021-10-06] MEDS: FAMOTIDINE 20 MG TAB PO SCH (08:28)
[2021-10-06] MEDS: ASPIRIN 81 MG CHEW PO SCH (08:28)
[2021-10-06] MEDS ORDERED: PIPERACILLIN/TAZOBACTAM 3.375 GM in DEXTROSE 5% 100 ML IV SCH (10:00)
[2021-10-06] MEDS: FUROSEMIDE 40 MG/4 ML VIAL IV SCH (10:22)
[2021-10-06] MEDS: PEPTAMEN INTENSE VHP 1.0 CAL 1,000 ML BAG GT SCH (10:50)
[2021-10-06] MEDS: PHENYLEPHRINE HCL 20 MG in DEXTROSE 5% 500 ML IV SCH (10:54)
[2021-10-06] MEDS ORDERED: SODIUM CHLORIDE 0.9% IV SCH (11:00)
[2021-10-06] MEDS ORDERED: VORICONAZOLE IV SCH (11:00)
--- NOTE | 2021-10-06 11:02 | Pharmacy Report ---
Pharmacy Vanc AUC Short Note - Date of Service October 06, 2021 - Assessment & Plan Assessment 71 year old M receiving vancomycin, zosyn, and voriconazole for treatment of hand SSTI . Pertinent microbiologic data includes: 09/28 surface wound finger culture growing Scedosporium sp, 10/02 L hand culture (+) Scedosporium sp. Vanc and zosyn added as patient spiking fevers overnight. ID consulted. Day # 1 of antimicrobial therapy. Plan Vancomycin * AUC/ESTELA is the preferred PK/PD target for vancomycin * AUC guided dosing is effective and associated with decreased risk of nephrotoxicity compared to traditional trough targets * Trough level of 17.2 mcg/mL is predicted to achieve target AUC/ESTELA of 400-600 mg/L.hr and may be associated with a 13 % risk of nephrotoxicity * S/p vancomycin 1500mg loading dose this AM. Begin maintenance regimen of 1gm IV q18h. * Will obtain a trough around steady state if vancomycin continued. Pharmacy will continue to follow and will adjust dose/frequency as necessary. Thank you.
[2021-10-06] MEDS: HEPARIN SODIUM/DEXTROSE 25,000 UNITS/500 ML BAG IV SCH (12:13)
--- NOTE | 2021-10-06 12:29 | Cardiology Progress Note ---
Date of Service October 06, 2021 Assessment & Plan (1) Atrial fibrillation with rapid ventricular response: Plan: -spontaneously converted to sinus rhythm Tuesday a.m. -remains on intravenous heparin. -could consider intravenous amiodarone should his dysrhythmia recur. (2) ARDS (adult respiratory distress syndrome): Plan: -secondary to COVID-19 pneumonia and resultant pulmonary fibrosis. (3) Asymmetric septal hypertrophy: Plan: -no evidence of an obstructive cardiomyopathy. Admission and Anticipated Discharge Date Admission Date: September 04, 2021 Subjective The patient is sedated and intubated in the ICU. Physical Exam Physical Exam: In general this is a well-developed well-nourished white male in no acute distress. HEENT exam notes an endotracheal tube. Neck is supple with full carotid upstrokes. No obvious bruits. Jugular is pressure is difficult to assess. Cardiovascular exam reveals a regular rhythm with distant heart sounds. No obvious murmurs. Lungs no coarse breath sounds throughout. Abdomen is soft. Extremities reveal no edema. Results & Data ([facility]) Vital Signs (Past 12 Hours) Vital Signs Temp Pulse Resp BP Pulse Ox 10/06/21 11:30 38.7 C H 108 H 32 H 91 10/06/21 11:27 107 H 32 H 91 10/06/21 11:00 38.6 C H 111 H 32 H 91 10/06/21 10:30 38.6 C H 108 H 32 H 89 L 10/06/21 10:00 38.6 C H 107 H 32 H 84/63 L 89 L 10/06/21 09:30 38.7 C H 108 H 32 H 89 L 10/06/21 09:00 38.7 C H 106 H 32 H 82/59 L 89 L 10/06/21 08:30 38.7 C H 108 H 32 H 89 L 10/06/21 08:00 38.8 C H 106 H 32 H 78/65 L 89 L 10/06/21 07:30 38.9 C H 106 H 32 H 89 L 10/06/21 07:15 111 H 32 H 88 L 10/06/21 07:00 39.0 C H 109 H 32 H 87/69 L 87 L 10/06/21 06:00 39.2 C H 111 H 32 H 90/62 L 90 10/06/21 05:30 39.2 C H 111 H 32 H 89 L 10/06/21 05:00 39.3 C H 108 H 32 H 88/69 L 90 10/06/21 04:30 39.4 C H 112 H 32 H 90 10/06/21 04:00 39.4 C H 108 H 32 H 95/71 L 90 10/06/21 03:30 39.4 C H 111 H 33 H 90 10/06/21 03:00 39.4 C H 110 H 32 H 93/72 L 90 10/06/21 02:30 39.3 C H 112 H 32 H 89 L 10/06/21 02:00 39.2 C H 113 H 32 H 102/75 89 L 10/06/21 01:30 39.1 C H 105 H 32 H 90 10/06/21 01:00 38.9 C H 108 H 32 H 110/86 90 10/06/21 00:30 38.8 C H 104 H 32 H 90 Diagnostic Findings Telemetry notes sinus tachycardia with occasional PVCs and PACs. One brief run of nonsustained ventricular tachycardia. PG Care Time/CCT Total # of Minutes Spent Total Time Spent with Patient: Total time spent is greater than 50% in coordination of care (as documented) at patient's floor/unit and/or counseling patient: Coding Level of Care Code 72096 Subseq Hosp Care Lvl 3 Diagnoses Atrial fibrillation with rapid ventricular response I48.91 ARDS (adult respiratory distress syndrome) J80 Asymmetric septal hypertrophy I42.2
--- NOTE | 2021-10-06 12:51 | Critical Care Progress Note ---
Date of Service October 06, 2021 Assessment & Plan (1) Atrial fibrillation with rapid ventricular response: (2) Acute hypoxemic respiratory failure: (3) Pneumonia due to COVID-19 virus: (4) Pulmonary fibrosis: (5) ARDS (adult respiratory distress syndrome): (6) Hypotension (arterial): Plan: Impression: 71-year-old male with a prolonged hospitalization due to COVID-19 viral pneumonia who has progressed to fibrotic lung disease. He now has evidence of severe ARDS and is currently intubated and proned. He has what appears to be a deep Scedosporum infection of the L hand. 24-hour events: ID consultation obtained. Discussed with over telehealth. Recommended MRI of the hand which was completed. This demonstrated drainable abscess but no evidence of osteomyelitis. General surgery initially consulted b ct discussed with him this morning and they recommended Ortho hand. Call out to Ortho hand currently pending. He remains febrile. He remains on a low-dose of vasopressors. We have not been able to wean his ventilator to any significant degree. Recommendations: Neurologic: Currently on propofol, fentanyl. Sedation break as tolerated. We will try and go up on the fentanyl and down the propofol to see if this is potentially contributing to his hemodynamic instability Pulmonary: Severe ARDS secondary to COVID-19 viral illness. He is now roughly a month out from his initial COVID-19 illness. He actually tested negative for COVID-19 on 09/24/2021. Current vent settings:AC: 32/330/6/0.65 Pplat 26. ABG 7.34/47/68. It appears that he has developed fibrotic changes in his lungs secondary to his prolonged illness. CT chest imaging is concerning for subpleural fibrosis and traction bronchiectasis although there is some GGO present. Trivial pneumomediastinum noted on CT scan. Continue to try and maintain pressures as low as possible. Given the duration of his disease and extensive hospitalization, it may be reasonable to pursue early tracheostomy to facilitate weaning this patient from mechanical ventilator. Discussed with family yesterday and they thought tracheostomy was too soon and they would like to hold off. Unfortunately has not made significant progress with regards to his lungs. Cardiovascular: Atrial fibrillation with rapid ventricular response likely secondary to hypoxia. Appreciate cardiology note. Would like to avoid amiodarone given his significant pulmonary issues. ? Digoxin - defer to cardiology. Continue to wean Beck-Synephrine as tolerated. On heparin infusion. Echo with an LVEF of 65 to 70%. Mild LVH noted. Asymmetric severe hypertrophy involving the anterior septum is seen. Not consistent with HOCM per cardiology. BNP remains significantly elevated. Holding Lasix today in light of hypotension. Albumin and calcium support today. Needs additional diuresis if BP and HR can tolerate Gastrointestinal: Continue trophic tube feeding. Hold advancing until off pressors. Continue Pepcid for GI prophylaxis. Renal: Continue Lasix 40 mg IV daily. Phosphorus elevated to 5.8. Will need to consider Phos binders if elevated tomorrow. Infectious disease: Appreciate ID consultation he grew a Scedosporium from his hand initally from a finger on 09/28 and from a pustule on his hand lanced on 10/02. Pending consultation with Ortho hand for consideration of additional debridement. He is now significantly febrile. Will place on Zosyn, vancomycin, and voriconazole pending deep cultures from OR debridement. Will need to continue to get input from ID to guide antimicrobials. Hematologic: Hemoglobin stable. Leukocytosis resolved. Endocrine: Monitor blood sugars. TSH within normal limits. Lines and tubes: Peripheral IVs in place. Molina catheter placed 10/03/2021. VTE prophylaxis: Heparin infusion. CODE STATUS: Full code. Will update family at bedside when they arrive. Disposition: Remain in the ICU today. I have personally spent 44 minutes of critical care time in the direct managemen t of this patient. This is a life/limb threatening event. This includes time spent evaluating patient, direct bedside care, chart review, placing orders, interpretation of diagnostic studies, discussion with consultants, patient, and family members, as well as other required patient management activities. This time is exclusive of all separately billable procedures, and teaching time and separate from and in addition to any other critical care service time. Admission and Anticipated Discharge Date Admission Date: September 04, 2021 Subjective Patient is intubated and sedated. Review of Systems Review of Systems: Unobtainable due to endotracheal tube Physical Exam Constitutional: + mechanically ventilated Neck: trachea midline, no thyromegaly Respiratory: normal respiratory effort; no labored breathing Auscultation: + rales; no wheezes Cardiovascular: RRR, no murmur, no edema Gastrointestinal (Abdomen): normal bowel sounds, soft, nontender, no hepatosplenomegaly Musculoskeletal: Extremities: extremities normal to inspection Skin: no rashes, warm and dry Lymphatic: no cervical lymphadenopathy Results & Data Results & Data ([facility]) Vital Signs (Past 12 Hours) Vital Signs Temp Pulse Resp BP Pulse Ox 10/06/21 11:30 38.7 C H 108 H 32 H 91 10/06/21 11:27 107 H 32 H 91 10/06/21 11:00 38.6 C H 111 H 32 H 91 10/06/21 10:30 38.6 C H 108 H 32 H 89 L 10/06/21 10:00 38.6 C H 107 H 32 H 84/63 L 89 L 10/06/21 09:30 38.7 C H 108 H 32 H 89 L 10/06/21 09:00 38.7 C H 106 H 32 H 82/59 L 89 L 10/06/21 08:30 38.7 C H 108 H 32 H 89 L 10/06/21 08:00 38.8 C H 106 H 32 H 78/65 L 89 L 10/06/21 07:30 38.9 C H 106 H 32 H 89 L 10/06/21 07:15 111 H 32 H 88 L 10/06/21 07:00 39.0 C H 109 H 32 H 87/69 L 87 L 10/06/21 06:00 39.2 C H 111 H 32 H 90/62 L 90 10/06/21 05:30 39.2 C H 111 H 32 H 89 L 10/06/21 05:00 39.3 C H 108 H 32 H 88/69 L 90 10/06/21 04:30 39.4 C H 112 H 32 H 90 10/06/21 04:00 39.4 C H 108 H 32 H 95/71 L 90 10/06/21 03:30 39.4 C H 111 H 33 H 90 10/06/21 03:00 39.4 C H 110 H 32 H 93/72 L 90 10/06/21 02:30 39.3 C H 112 H 32 H 89 L 10/06/21 02:00 39.2 C H 113 H 32 H 102/75 89 L 10/06/21 01:30 39.1 C H 105 H 32 H 90 10/06/21 01:00 38.9 C H 108 H 32 H 110/86 90 Laboratory Results BNP 96682 Procal 0.46 Critical Care Results & Data Vital Signs (Past 12 Hours) Vital Signs Temp Pulse Resp BP Pulse Ox 10/06/21 11:30 38.7 C H 108 H 32 H 91 10/06/21 11:27 107 H 32 H 91 10/06/21 11:00 38.6 C H 111 H 32 H 91 10/06/21 10:30 38.6 C H 108 H 32 H 89 L 10/06/21 10:00 38.6 C H 107 H 32 H 84/63 L 89 L 10/06/21 09:30 38.7 C H 108 H 32 H 89 L 10/06/21 09:00 38.7 C H 106 H 32 H 82/59 L 89 L 10/06/21 08:30 38.7 C H 108 H 32 H 89 L 10/06/21 08:00 38.8 C H 106 H 32 H 78/65 L 89 L 10/06/21 07:30 38.9 C H 106 H 32 H 89 L 10/06/21 07:15 111 H 32 H 88 L 10/06/21 07:00 39.0 C H 109 H 32 H 87/69 L 87 L 10/06/21 06:00 39.2 C H 111 H 32 H 90/62 L 90 10/06/21 05:30 39.2 C H 111 H 32 H 89 L 10/06/21 05:00 39.3 C H 108 H 32 H 88/69 L 90 10/06/21 04:30 39.4 C H 112 H 32 H 90 10/06/21 04:00 39.4 C H 108 H 32 H 95/71 L 90 10/06/21 03:30 39.4 C H 111 H 33 H 90 10/06/21 03:00 39.4 C H 110 H 32 H 93/72 L 90 10/06/21 02:30 39.3 C H 112 H 32 H 89 L 10/06/21 02:00 39.2 C H 113 H 32 H 102/75 89 L 10/06/21 01:30 39.1 C H 105 H 32 H 90 10/06/21 01:00 38.9 C H 108 H 32 H 110/86 90 Lab & Micro Results (Past 24 Hours) RBC 4.01 M/uL (4.7-6.1) L 10/06/21 WBC 9.24 K/uL (4.8-10.8) 10/06/21 Hgb 12.2 g/dL (14.0-18.0) L 10/06/21 Hct 36.8 % (42-52) L 10/06/21 MCV 91.8 fL (80-100) 10/06/21 MCH 30.4 pg (25-34) 10/06/21 MCHC 33.2 g/dL (32-36) 10/06/21 RDW Standard Deviation 51.0 fL (36.4-46.3) H 10/06/21 RDW Coefficient of Variation 15.1 % (11.5-14.5) H 10/06/21 Plt Count 286 K/uL (130-400) 10/06/21 MPV 10.0 fL (7.4-10.4) 10/06/21 Neutrophils (%) (Auto) 81.1 % 10/06/21 Lymphocytes (%) (Auto) 9.1 % 10/06/21 Monocytes # (Auto) 0.37 K/uL (0.11-0.59) 10/06/21 Eosinophils # (Auto) 0.14 K/uL (0-0.5) 10/06/21 Immature Granulocyte % (Auto) 4.1 % 10/06/21 Neutrophils # (Auto) 7.49 K/uL (1.4-6.5) H 10/06/21 Lymphocytes # (Auto) 0.84 K/uL (1.2-3.4) L 10/06/21 Monocytes # (Auto) 0.37 K/uL (0.11-0.59) 10/06/21 Eosinophils # (Auto) 0.14 K/uL (0-0.5) 10/06/21 Basophils # (Auto) 0.02 K/uL (0-0.2) 10/06/21 Immature Granulocyte # (Auto) 0.38 K/uL (0.00-0.02) H 10/06/21 Na 129 mmol/L (136-145) L 10/06/21 K 4.2 mmol/L (3.5-5.1) 10/06/21 Cl 97 mmol/L (98-107) L 10/06/21 CO2 26 mmol/L (21-32) 10/06/21 Anion Gap 6.0 (3-11) 10/06/21 BUN 33 mg/dl (7-18) H 10/06/21 Creatinine 1.28 mg/dl (0.6-1.4) 10/06/21 Estimated GFR ( Amer) 65.3 ml/min 10/06/21 Estimated GFR (Non-Af Amer) 56.3 ml/min 10/06/21 BUN/Creatinine Ratio 25.5 (10-20) H 10/06/21 Glu 136 mg/dl (70-99) H 10/06/21 Ca 8.1 mg/dl (8.5-10.1) L 10/06/21 Phosphorus Level 3.6 mg/dl (2.5-4.9) 10/06/21 Mg 2.2 mg/dl (1.8-2.4) 10/06/21 03:42 10/06/21 Calcium Level 8.1 mg/dl (8.5-10.1) L 10/06/21 03:42 10/06/21 Rob Test NA 10/06/21 04:14 10/06/21 Microbiology 10/02/21 11:30 Gram Stain - Final Hand,Left Aerobic and Anaerobic Culture - Preliminary Scedosporium species Diagnostic Findings (Past 24 Hours) Hand MRI 10/05/21 14:56 MR hand LT wo/w con CLINICAL HISTORY: scedosporum infection, ? osteo, ? tendinitis TECHNIQUE: Multisequence, multiplanar MR images of the left hand were obtained without and with. COMPARISON: None available at the time of this dictation. FINDINGS: There is a region of fat stranding and possible small fluid collection in the lateral aspect of the first digit at approximately the level of the metacarpophalangeal joint. There is no evidence of underlying bony edema or cortical erosion to suggest osteomyelitis. Tendons are unremarkable. IMPRESSION: Soft tissue swelling with possible underlying drainable fluid collection. No evidence of osteomyelitis is seen. ACT 112: Negative or not required by law. Electronically signed by: Paulie Altamirano M.D. 10/05/2021 6:45 PM Chest X-Ray 10/06/21 07:00 XR chest 1V portable CLINICAL HISTORY: Resp failure. COMPARISON STUDY: 10/05/2021 at 6:45 AM TECHNIQUE: 1 view of the chest FINDINGS: Single frontal view of the chest demonstrates the cardiomediastinal silhouette to be within normal limits. Compared to previous examination, there is decreased expansion of the lungs. Diffuse interstitial and alveolar opacities are again s een bilaterally. Tubes and catheters are unchanged. However, with decreased expansion of the lungs, the tip of the endotracheal tube is only 1 cm above the favio. Right jugular catheter again extends into the right atrium. There is no evidence for pleural effusion. There is mild central vascular congestion with no peripheral interstitial edema. There is no acute osseous pathology. IMPRESSION: Decreased expansion of the lungs on the current study with the tip of the endotracheal tube 1 cm above the favio . Diffuse interstitial and alveolar opacities are again seen bilaterally. There is mild central vascular congestion of the current study with no peripheral interstitial edema. Right jugular catheter is also within the right atrium. ACT 112: Negative or not required by law. Electronically signed by: Willard Hampton M.D. 10/06/2021 7:52 AM I & O Totals 24 Hours 10/05/21 10/06/21 10/07/21 06:59 06:59 06:59 Intake Total 2415.685 / 2415.685 2853.739 / 2853.739 1015.817 / 1015.817 Output Total 1925 / 1925 1930 / 1930 Balance 490.685 / 490.685 923.739 / 811.328 0039.817 / 1015.817 Cumulative 09/04/21 12:53 thru 10/06/21 12:04 Intake Total 37852.795 Output Total 81945 Balance -01280.205 RT Ventilator Mngmt (Last Documented) Ventilator Ordered Settings Ventilator Support Mode Assist Control 10/06/21 11:27 Respiratory Rate 32 10/06/21 11:30 Ventilator Tidal Volume 330 10/06/21 11:27 Setting Minute Ventilation 10.6 10/06/21 11:27 Positive End Expiratory 6 10/06/21 11:27 Pressure Fraction of Inspired Oxygen 65 10/06/21 11:27 Machine Comment increased fi02 for Sp02 88%. 10/05/21 07:50 Ventilator - PT Measurements Respiratory Rate 32 Exhaled Tidal Volume 330 Minute Ventilation 10.6 Peak Inspiratory Airway 29 Pressure Plateau Pressure 26 Respiratory Cycle Inspiratory: 1:1.3 Expiratory Ratio Inspiratory Phase Time 0.8 End-Tidal CO2 37 Static Lung Compliance 16.50 Dynamic Lung Compliance 14.35 Normal Static Lung Compliance 44.00 Patient Measurements Comment SUPINATED Coding Level of Care Code Critical Care 1st 30-74 mins Diagnoses Atrial fibrillation with rapid ventricular response I48.91 Acute hypoxemic respiratory failure J96.01 Pneumonia due to COVID-19 virus U07.1; J12.82 Pulmonary fibrosis J84.10 ARDS (adult respiratory distress syndrome) J80 Hypotension (arterial) I95.9
[2021-10-06] MEDS ORDERED: CALCIUM CHLORIDE 10% 1,000 MG in SODIUM CHLORIDE 0.9% 50 ML IV STA (13:01)
[2021-10-06] MEDS: ALBUMIN 25% 100 mL 25 GM/100 ML VIAL IV SCH ×2 (13:54→15:52)
--- NOTE | 2021-10-06 14:55 | Communication Note ---
Date of Service: October 06, 2021 Patient reassessed on multiple occasions throughout the day. It is unclear whether we have capabilities to perform the kind of debridement that the patient would require given his deep-seated soft tissue fungal infection. In addition, ID is not physically present here. Based on these requirements, I think the patient is best served by transfer to a tertiary care facility. Called [facility] and discussed with the sales representative door to door Dr. Santiago who graciously accepted the patient in transfer. Patient's was updated at bedside as well as the critical care nurse. Additional critical care time, 75 minutes Coding Level of Care Code Critical Care bonifacio addt'l 30 min Comment [id number] additional CC time
--- NOTE | 2021-10-06 15:31 | Discharge Summary ---
Date of Service October 06, 2021 Admission HPI Per Admitting Provider This patient is a 71-year-old male with a history of HTN, impaired fasting glucose, BPH with LUTS, who presents to the hospital with worsening shortness of breath after being diagnosed with Covid-19 at an ER visit the day prior. He started having symptoms of Covid approximately 7 days ago including fevers, headache, nausea, very poor appetite and p.o. intake, intermittent diarrhea, and myalgias. He has not vaccinated against Covid-19. He was seen in the ER on 09/03 and was treated with IV Toradol, 1 L of normal saline, acetaminophen, and Tessalon Perls. His pulse ox at that time was 93-94% on room air and had a chest x-ray without pneumonia. He had a mild hyponatremia for which he was given IV fluids. He was discharged to home with a pulse oximeter to spot check his oxygen. He then started developing worsening hypoxemia and return to the ER today and was found to have a pulse ox of 82% on room air. When I saw him, he was feeling much improved on 6 L of oxygen mask with a pulse ox of 93%. He does report some cough, but denies chest pains. He has been taking Tylenol and ibuprofen as needed for fevers and his last dose of Tylenol was the morning of 09/04. He reports that he has been taking all his usual medications except he did hold his HCTZ as he knew he was dehydrated. His chest x-ray did show interval development of mild to moderate bilateral airspace opacities suggestive of viral pneumonia. Laboratory values were consistent with Covid-19 with leukopenia and lymphopenia, mild thrombocytopenia, mild transaminitis, and his sodium remained low at 129, however was improved since the previous day. He was given 1 dose of IV Decadron in the ER as well as IV Tylenol. He will be admitted for Covid-19 pneumonia and acute respiratory failure with hypoxia. Principal Diagnosis COVID 19 pneumonitis Acute hypoxic respiratory failure Pulmonary fibrosis Scedosporum infection of the L hand. Discharge Exam General: well developed, well nourished, elderly male, ventilated Neck: supple, trachea midline, normal thyroid Lungs: clear to auscultation bilaterally, symmetric chest movement on ventilator Heart: regular S1 and S2, no murmur, peripheral pulses normal, capillary refill normal, no edema Abdomen: soft, NT, ND, + BS, no hepatomegaly, normal to percussion Extremities: normal in appearance, no cyanosis, no petechiae Neuro: sedated, no focal deficits, CN II-XII intact Skin: warm, dry, no rash, normal turgor, wound over left 5th finger, small amount of purulent drainage Psych: sedated Discharge Data Allergies Allergy/AdvReac Type Severity Reaction Status Date / Time FLORENCE Inhibitors AdvReac Mild cough Verified 09/04/21 17:28 Consultations 09/04/21 18:15 ED Decision to Admit Stat 09/05/21 10:13 Consult Pulmonology Routine 10/03/21 10:40 Consult Rail Walker Routine 10/04/21 09:14 Consult Cardiology Routine 10/05/21 11:31 Consult Infectious Diseases Routine 10/06/21 14:52 Burn CD for patient Stat Procedures Performed Operation Date: 10/06/21 12:30 <No data on this case meets the specified criteria> Ordered Studies 09/23/21 15:00 CT angio chest PE protocol Routine 10/03/21 07:38 CT angio chest PE protocol Routine 10/04/21 02:03 US point of care ultrasound Stat 10/05/21 14:56 MR hand LT wo/w con Routine Hospital Course (1) Pneumonia due to COVID-19 virus: Severe disease.now worsened with transition to icu 10/03/21, intubated 10/04/21, ARDS outlook worrisome pneumomediastinum is present but slight family considering early tracheostomy in coming days CT angiography for PE 10/03/2021 shows cardiomegaly without PE small amount of pneumomediastinum rest of worsening ground glass consolidations with background of pulmonary fibrosis reactive mediastinal adenopathy Echocardiogram 10/03/2021 shows preserved ejection fraction normal right heart pressures A. fib present Biofire panel on 09/24 is NEGATIVE for all viruses tested, even SARS COV2 and influenza A/B completed 5 days of Remdesivir early in admission baricitinib 4mg daily, completed 14 d course 09/19/21 (2) Acute hypoxemic respiratory failure: due to COVID pneumonia has taken a turn to need higher oxygen requirement and intubation and ventilation CT angiography was performed which only shows progressive pulmonary fibrosis no concern for bacterial infiltrate poor prognosis given degree of damage to lungs likely headed towards tracheostomy (3) Afib: Patient developed new onset atrial fibrillation. conversion to NSR Likely due to physiological stressors but also may be contributing to his respiratory distress. change to metoprolol p.o. from atenolol. anticoagulate for 48 hrs Initial troponin negative echocardiogram without intracardiac thrombus or regional wall motion abnormalities (4) Cellulitis, finger: Scedosporum infection of the L hand no ID services here cannot get surgical intervention here, transfer to [facility] (5) Pre-diabetes: a1c 5.9% in 07/2021. loose novolog SSI scale T2DM diet monitor sugars, no major issues past 24 hours (6) GERD (gastroesophageal reflux disease): PPI (7) Hypertension: now improved after stopping his Avapro atenolol may be autonomic disequilibrium from Covid infection on Lasix 20mg daily (8) Disc degeneration, lumbar: s/p lumbar back surgery in early 2020 despite surgery his back bothers him frequently (9) Benign prostatic hyperplasia with urinary obstruction: place gutiérrez today (10) Transaminitis: 2nd to COVID-19 infection. AST/ALT are stable (11) Early satiety: present several months of her states now his appetite has improved has had EGD in the last few years - [facility]; added H2 camelia to his PPI (12) DVT prophylaxis: lovenox 40mg BID (13) Herpes labialis: pt requested valtrex to start and topical acyclovir ventilated possible early tracheostomy transfer to [facility] Total Time Total Time Spent Total Time Spent (In Minutes): 33 minutes Discharge Plan Discharge Items Patient Disposition: Transfer Acute Care Hospital Reason For Visit: COVID-19 PN, HYPOXEMIA Discharge Diagnosis: COVID 19 pneumonia Respiratory failure Scedosporum infection of the L hand Condition on Discharge: Critical Goals: transfer to [facility] Activity: Per Instructions section Non-emergency contact: Primary Care Provider Call non-emergency contact if: you have any medication questions Follow-up/Referrals: Ramon Billingsley III, MD [Primary Care Provider] - Diet: Other - See Diet Comment Diet Comment: tube feeds Addtl Attending Provider Instructions: transfer to [facility] Pending Studies at Discharge: No Stand-Alone Forms: My [facility] Skilled Items Patient informed of condition?: No (family made aware, patient sedated) DNR: No Discharge Level of Care: Other Communicable Disease: No Discharge Prognosis: Stable Lines: US Guided Peripheral IV Urinary Catheter: Yes Medications and DC Order Prescriptions: Continued hydrochlorothiazide 25 mg tablet 25 mg PO QAM Qty: 90 RF: 3 doxazosin 2 mg tablet 2 mg PO HS Qty: 90 RF: 3 irbesartan 300 mg tablet 300 mg PO QAM Qty: 90 RF: 3 aspirin 81 mg tablet,delayed release (DR/EC) 81 mg PO QAM RF: 0 valacyclovir [Valtrex] 1 gram tablet 2,000 mg PO Q12H PRN (Reason: herpes) RF: 0 omeprazole 20 mg capsule,delayed release(DR/EC) 20 mg PO QAM PRN (Reason: Acid Reflux) RF: 0 sennosides [Senokot] 8.6 mg tablet 17.2 mg PO HS PRN (Reason: Constipation) RF: 0 multivitamin Tablet 1 tab PO HS RF: 0 atenolol 50 mg tablet 50 mg PO QAM RF: 0 Discharge Orders: Discharge Order (Routine); Ordered 10/06/21 Ordered By: Paulie Henriquez Admission Data Admit Date/Time: 09/04/21 18:48 Attending Provider: Paulie Henriquez Admit Provider: Ana María Iniguez Primary Care Provider: Ramon Billingsley III Other Providers: Ana María Iniguez ; Mukesh Ken ; Jose Lincoln ; Berto Sheikh ; Godwin Tomlinson ; Nate Cohen I. ; Tacho Krause II ; Dorcas Moran ; Jann Woodward ; Ole Daugherty Coding Level of Care Code D/C DAY MANAGEMENT >30 MINS Diagnoses Pneumonia due to COVID-19 virus U07.1; J12.82 Acute hypoxemic respiratory failure J96.01 Afib I48.91 Cellulitis, finger L03.019 Pre-diabetes R73.03 GERD (gastroesophageal reflux disease) K21.9 Hypertension I10 Disc degeneration, lumbar M51.36 Benign prostatic hyperplasia with urinary obstruction N40.1; N13.8 Transaminitis R74.01 Early satiety R68.81 DVT prophylaxis Z29.9 Herpes labialis B00.1
[2021-10-06] MEDS ORDERED: VANCOMYCIN HCL 1,000 MG in SODIUM CHLORIDE 0.9% 250 ML IV SCH (20:00)
[2021-10-07] MEDS ORDERED: VORICONAZOLE 300 MG in 0.9 % SODIUM CHLORIDE 70 ML IV SCH (11:00)
== END 2021-10-06 16:56 | disposition short-term general hospital (02) | DRG 208 ==
LOC: ED 12:53 → 2E 18:48 → SUATTDRO 18:48 → 2E 20:37 → 3E 09-21 11:09 → 1E 10-03 09:26